=== PATIENT | male | born 1950 | race Caucasian/White ===

== ENCOUNTER 2020-11-01 09:48 | Outpatient (REF) | payer OTHER, SELFPAY ==
[2020-11-01 11:43] LABS: Estimated Average Glucose 157 mg/dL; Hemoglobin A1c % 7.1 %
[2020-11-01 12:00] LABS: Alanine Aminotransferase 13 U/L (0-40); Albumin Level 4.3 g/dL (3.5-5.0); Alkaline Phosphatase 65 U/L (39-117); Anion Gap 10 (12-20); Aspartate Amino Transferase 15 U/L (5-37); Bilirubin Total 0.7 mg/dL (0.0-1.0); Blood Urea Nitrogen 12 mg/dL (9-16); Calcium 8.9 mg/dL (8.4-10.2); Carbon Dioxide 30 mmol/L (22-29); Chloride 103 mmol/L (96-108); Estimated Glomerular Filt Rate > 60; Glucose Random 244 mg/dL (60-115); Potassium 4.5 mmol/l (3.3-5.1); Sodium 138 mmol/L (135-145); Total Protein 6.5 g/dL (6.5-8.0)
[2020-11-01 12:23] LABS: Microalbumin Urine < 5.0 mg/L
== END 2020-11-01 09:49 | disposition home or self-care (01) ==
LOC: HO.HMGCLDS 09:48
PROVIDERS: PCP Internal Medicine; Visit Provider Internal Medicine
DX: I10 Essential (primary) hypertension (principal); E11.9 Type 2 diabetes mellitus without complications
CPT/HCPCS: 80053; 82043; 83036; 84153

== ENCOUNTER → 2021-02-05 09:10 | Outpatient (BNVA) | payer OTHER, SELFPAY | PROVIDERS: PCP Internal Medicine; Visit Provider Internal Medicine Cardiovascular Disease ==

== ENCOUNTER 2021-02-11 11:53 | Outpatient (REF) | payer OTHER, SELFPAY ==
[2021-02-11 14:55] LABS: Estimated Average Glucose 151 mg/dL; Hemoglobin A1c % 6.9 %
[2021-02-11 15:00] LABS: Alanine Aminotransferase 14 U/L (0-40); Albumin Level 4.3 g/dL (3.5-5.0); Alkaline Phosphatase 71 U/L (39-117); Anion Gap 13 (12-20); Aspartate Amino Transferase 16 U/L (5-37); Bilirubin Total 0.9 mg/dL (0.0-1.0); Blood Urea Nitrogen 10 mg/dL (9-16); Calcium 8.9 mg/dL (8.4-10.2); Carbon Dioxide 27 mmol/L (22-29); Chloride 106 mmol/L (96-108); Estimated Glomerular Filt Rate > 60; Glucose Random 126 mg/dL (60-115); Potassium 4.5 mmol/L (3.3-5.1); Sodium 141 mmol/L (135-145); Total Protein 6.6 g/dL (6.5-8.0)
[2021-02-11 16:18] LABS: Creatinine Urine 11.01 mg/dL; Microalbumin Urine < 5.0 mg/L
== END 2021-02-11 11:54 | disposition home or self-care (01) ==
LOC: HO.HMGCLDS 11:53
PROVIDERS: PCP Internal Medicine; Visit Provider Internal Medicine
DX: E11.9 Type 2 diabetes mellitus without complications (principal); I10 Essential (primary) hypertension; E66.01 Morbid (severe) obesity due to excess calories
CPT/HCPCS: 36415; 80053; 82043; 83036

== ENCOUNTER 2021-02-28 12:56 | Outpatient (REF) | payer OTHER, SELFPAY ==
--- NOTE | ~2021-02-28 | US_ITS ---
EXAMINATION: US SCROTUM CLINICAL INFORMATION: Right testicular swelling. Assess for cystocele or hydrocele. COMPARISON: None TECHNIQUE: A sonogram of the scrotum was performed assessing son-scale appearance and color Doppler flow. Spectral Doppler analysis of the arterial and venous flow were performed in the testes bilaterally. FINDINGS: RIGHT: Right testicle measures 4.2 x 2.4 x 3.5 cm, volume 18.0 mL. No focal testicular parenchymal lesions are visualized. Spectral Doppler analysis of the arterial and venous flow is normal in the right testis. Fat-containing inguinal hernia noted. Right epididymal head is normal in size. Right epididymal head cyst measuring 0.4 cm. No right hydrocele or varicocele is seen. Right epididymal Doppler flow is normal. LEFT: Left testicle measures 4.7 x 2.0 x 2.9 cm, volume 14.3 mL. No focal testicular parenchymal lesions are visualized. Spectral Doppler analysis of the arterial and venous flow is normal in the left testis. Fat-containing inguinal hernia noted. Left epididymal head is normal in size. No left hydrocele is seen. There is a varicocele seen. Left epididymal Doppler flow is normal. US/US scrotum IMPRESSION: Bilateral fat-containing inguinal hernias. Small left varicocele. Tiny right epididymal head cyst.
== END 2021-02-28 12:57 | disposition home or self-care (01) ==
LOC: HO.US 12:56
PROVIDERS: Visit Provider Internal Medicine
DX: N49.2 Inflammatory disorders of scrotum (principal)
CPT/HCPCS: 76870

== ENCOUNTER → 2021-04-09 13:06 | Outpatient (BNVA) | payer OTHER, SELFPAY | PROVIDERS: PCP Internal Medicine; Visit Provider Surgery ==

== ENCOUNTER 2021-04-26 10:04 | Outpatient (REF) | payer OTHER, SELFPAY ==
[2021-04-26 11:05] LABS: Anion Gap 11 (12-20); Blood Urea Nitrogen 12 mg/dL (9-16); Calcium 9.3 mg/dL (8.4-10.2); Carbon Dioxide 28 mmol/L (22-29); Chloride 102 mmol/L (96-108); Estimated Glomerular Filt Rate > 60; Glucose Random 154 mg/dL (60-115); Potassium 3.8 mmol/L (3.3-5.1); Sodium 137 mmol/L (135-145)
== END 2021-04-26 10:05 | disposition home or self-care (01) ==
LOC: HO.LAB 10:04
PROVIDERS: PCP Internal Medicine; Visit Provider Internal Medicine
DX: I10 Essential (primary) hypertension (principal); E11.9 Type 2 diabetes mellitus without complications
CPT/HCPCS: 36415; 80048

== ENCOUNTER 2021-05-29 07:26 | Day surgery (SDC) | payer OTHER, SELFPAY ==
[2021-05-22 14:28] VITALS: BMI 40.1
[2021-05-27 11:23] LABS: MANUAL DIFF FLAG NO
[2021-05-27 11:32] LABS: Basophils Percent Auto 0.4 % (0-2); Eosinophils Absolute Auto 0.1 X10*3/uL (0.0-0.4); Eosinophils Percent Auto 2.5 % (0-4); Hematocrit 40.6 % (42-52); Hemoglobin 13.7 g/dl (14.0-18.0); Imm Gran Abs Auto 0.01 X10*3/uL (0.00-0.03); Imm Gran Pct Auto 0.2 % (0.0-0.4); Lymphocytes Absolute Auto 1.4 X10*3/uL (1.2-4.9); Lymphocytes Percent Auto 24.8 % (20-40); Mean Corpuscular HGB Conc 33.7 g/dl (31.0-36.0); Mean Corpuscular Hemoglobin 29.9 pg (27.0-33.0); Mean Corpuscular Volume 88.6 fL (80-98); Mean Platelet Volume 9.9 fL (9.4-12.4); Monocytes Absolute Auto 0.5 X10*3/uL (0.1-1.2); Monocytes Percent Auto 9.2 % (2-11); Neutrophils Absolute Auto 3.5 X10*3/uL (2.0-8.3); Neutrophils Percent Auto 62.9 % (45-73); Platelet Count 270 X10*3/uL (160-400); Red Blood Count 4.58 X10*6/uL (4.60-5.80); Red Cell Distribution Width 13.2 % (11.0-16.0); White Blood Count 5.5 X10*3/uL (4.8-10.8)
[2021-05-27 11:41] LABS: Estimated Average Glucose 148 mg/dL; Hemoglobin A1c % 6.8 %
[2021-05-27 12:08] LABS: Alanine Aminotransferase 15 U/L (0-40); Albumin Level 4.2 g/dL (3.5-5.0); Alkaline Phosphatase 65 U/L (39-117); Anion Gap 11 (12-20); Aspartate Amino Transferase 18 U/L (5-37); Bilirubin Total 0.7 mg/dL (0.0-1.0); Blood Urea Nitrogen 14 mg/dL (9-16); Calcium 9.2 mg/dL (8.4-10.2); Carbon Dioxide 28 mmol/L (22-29); Chloride 100 mmol/L (96-108); Creatinine Clr Calc Pharmacy 125.8; Estimated Glomerular Filt Rate > 60; Glucose Random 132 mg/dL (60-115); Potassium 4.4 mmol/L (3.3-5.1); Sodium 135 mmol/L (135-145); Total Protein 6.4 g/dL (6.5-8.0)
--- NOTE | 2021-05-28 08:52 | HO.ANESPROP2 ---
HPI - Anesthesia Eval Consult details Narrative: 71yo M for Right Hernia Repair Inguinal with Mesh Pacer in situ (complete heart block, 2018) Stable at routine cardiac visit 01/2021 with 6 month f/u [facility] Active Problems Active Problems: All Active Problems (Updated 05/22/21 @ 14:16 by Tamar Cruz) Right inguinal hernia (Acute) HTN (hypertension) (Acute) Cardiac pacemaker in situ (Acute) Paroxysmal atrial fibrillation (Acute) Past Medical History Medical History (Updated 05/28/21 @ 08:55 by Lisa Churchill) Asthma BPH (benign prostatic hyperplasia) Cardiac pacemaker in situ Complete heart block COVID-19 vaccine series completed Diabetes mellitus HTN (hypertension) Hx of pancreatitis Mild heartburn Obstructive sleep apnea Osteoarthritis Paroxysmal atrial fibrillation Family History Family History Father Myocardial infarct Mother No problems noted. Surgical History Surgical History (Updated 05/29/21 @ 10:28 by Kenji Mohan MD) H/O right inguinal hernia repair (05/29/21) History of permanent cardiac pacemaker placement Hx laparoscopic cholecystectomy Hx of colonoscopy Hx of tonsillectomy Social History Social History Are you a primary child care leader to a significant other at home: No Do you presently have visiting nurse or other home services: No Patient Tobacco Use Status: Never used Tobacco Meds Allergies Allergy/AdvReac Type Severity Reaction Status Date / Time cat dander Allergy Intermediate ASTHMA Verified 05/29/21 07:50 Home Medications Medication Instructions Recorded Confirmed Last Taken Type atorvastatin 20 mg tablet 20 mg PO DAILY 02/05/21 05/22/21 Unknown History tamsulosin 0.4 mg capsule 0.4 mg PO BEDTIME 02/05/21 05/22/21 Unknown History cholecalciferol (vitamin D3) 125 125 mcg PO DAILY 04/09/21 05/22/21 Unknown History mcg (5,000 unit) capsule multivitamin 1 tab PO DAILY 04/09/21 05/22/21 Unknown History Probiotic 05/22/21 Unknown History ascorbic acid (vitamin C) [Vitamin 500 mg PO DAILY 05/22/21 05/22/21 Unknown History C] aspirin 81 mg PO DAILY 05/22/21 05/29/21 05/15/21 History chlorthalidone 1 tab PO DAILY 05/22/21 05/22/21 Unknown History folic acid 1 mg PO DAILY 05/22/21 05/22/21 Unknown History ibuprofen 600 mg PO QID PRN 05/22/21 05/29/21 05/15/21 History lisinopril 1 tab PO DAILY 05/22/21 05/22/21 Unknown History metformin 1 tab PO DAILY 05/22/21 05/29/21 05/28/21 History naproxen 500 mg PO BID PRN 05/22/21 05/29/21 05/15/21 History potassium chloride 05/22/21 Unknown History Exam Exam Date and Time: May 28, 2021 0852 Height,Weight and Vital Signs: Height 5 ft 10 in Weight 127.006 kg Pertinent Lab Results Pertinent Lab Results: Laboratory Tests 05/27/21 05/27/21 05/27/21 08:17 08:17 08:17 WBC 5.5 RBC 4.58 L Hgb 13.7 L Hct 40.6 L MCV 88.6 MCH 29.9 MCHC 33.7 RDW 13.2 Plt Count 270 MPV 9.9 Immature Gran % (Auto) 0.2 Neut % (Auto) 62.9 Lymph % (Auto) 24.8 [place] % (Auto) 9.2 Eos % (Auto) 2.5 Baso % (Auto) 0.4 Lymph # (Auto) 1.4 [place] # (Auto) 0.5 Eos # (Auto) 0.1 Baso # (Auto) 0.0 Abs Immat Gran (auto) 0.01 Absolute Neuts (auto) 3.5 Absolute Nucleated RBC 0.000 Nucleated RBC % (auto) 0.0 Sodium 135 Potassium 4.4 Chloride 100 Carbon Dioxide 28 Anion Gap 11 L BUN 14 Creatinine 0.71 Estim Creat Clear Calc 125.8 Estimated GFR > 60 Random Glucose 132 H Estimat Average Glucose 148 Hemoglobin A1c % 6.8 Calcium 9.2 Total Bilirubin 0.7 AST 18 ALT 15 Alkaline Phosphatase 65 Total Protein 6.4 L Albumin 4.2 Narrative Narrative: 01/2021 Dual-chamber [place] pacemaker in place, programmed in DDDR at 60 beats per minute. Ventricular pacing 100% of the time. One episode of 2nd atrial arrhythmia consistent with AFib noted. Atrial pacing thresholds are stable and in our capture mode. Ventricular pacing thresholds excellent and reprogrammed to provide better battery life. Atrial sensing is excellent. Pacing lead impedance is stable. Battery life is at about 10 years Assessment and Plan Assessment Anesthesia Assessment: Chart Reviewed
[2021-05-29] VITALS (13 sets, daily range): BP systolic 138–162; BP diastolic 64–79; PULSE 81–92; RESP 16–20; TEMP 36.1–36.8; O2SAT 93–100
[2021-05-29 08:24] LABS: Glucose, Whole Blood 137 mg/dL (60-115)
--- NOTE | 2021-05-29 08:27 | MHC.SHP ---
Pre-Procedural Eval Section A Date of Service: 05/29/21 The patient is an INPATIENT: No Changes since office visit: Yes Patient answered all questions; No Cold of Flu in the past 2 weeks, No New Medical Problems and No Changes in Medication The History & Physical has been completed within 30 days and I have reviewed it.: No Section B Chief Complaint: Right inguinal Hernia/NIDDM HTN PRE OP Details of Present Illness: right inguinal hernia Relevant Family History (Specify if Yes): No Relevant Social History: None Present Medications: see Short Stay Collaborative assessment Medical History: Significant History (htn, pacemaker,PAF, DM) History of Previous Operations: No relevant previous surgery Allergies: Allergies Allergy/AdvReac Type Severity Reaction Status Date / Time cat dander Allergy Intermediate ASTHMA Verified 05/29/21 07:50 Review of Systems Sugical H&P ROS: Negative: Constitution, Cardiovascular, Respiratory, Neurological, Psychiatric, Hem-Onc, Allergic/Immunologic, Gastrointestinal, Genitourinary, Musculoskeletal, Integumentary, Endocrine and Eyes/Ears/Nose/Throat Exam Surgical H&P Exam: Normal: HEENT, Normal: Heart, Normal: Lungs, Normal: Extremities, Normal: Skin and Normal: Neurological and Significant Findings: Abdomen (RIH) Plan Diagnosis/Plan: Unchanged I have reviewed the history and physical and performed a pertinent physical examination on my patient. No changes have occurred unless specified.
[2021-05-29] MEDS: Lactated Ringers 1,000 ML 100 ML IVCONT (08:37)
--- NOTE | 2021-05-29 10:22 | W.PM.OPN ---
Operative Note Operative Note Date of Service: 05/29/21 Narrative: Preoperative diagnosis: Right inguinal hernia Postoperative diagnosis: Same Procedure: Repair of right inguinal hernia Surgeon: Kenji Mohan MD English And Reading Instructor: no physician Anesthesia: General LMA Indications for procedure: 71-year-old male presenting with a large lump in the right inguinal region which increases in size with lifting and straining and reduces with light pressure. Findings are consistent with a reducible right inguinal hernia. Operative findings:. Large right inguinal hernia, indirect containing preperitoneal fat Specimen: lipoma of the cord, right inguinal hernia Estimated blood loss: 10 mL Complications: none Procedure details: Patient was brought to the OR and placed in a supine position. After administering general anesthesia the patient's abdomen was prepped with ChloraPrep and draped in a sterile fashion. A surgical time-out was called the consent confirmed. Patient received preoperative antibiotics and Venodyne boots were in place. Local anesthesia consisting of 0.25% Sensorcaine with epinephrine was infiltrated over the right inguinal ligament. Incision was then made in oblique fashion over the inguinal ligament. This carried out through subcutaneous tissue past Feliciano's fashion up to the external oblique aponeurosis. Additional local was infiltrated below the external oblique aponeurosis. This was then incised with a scalpel wide with the Metzenbaum scissors. Spermatic cord was then dissected free from the surrounding inguinal canal and retracted using a Sullivan drain. The floor of the inguinal canal was examined and no direct hernia was identified. Fibers of the cremasteric muscle were then and a large lipoma of the cord was identified. This was dissected down to the internal ring. no sac was identified. Attempt was made at reducing the lipoma however, due to the size of the lipoma this cannot be reduced adequately. The lipoma was then divided between clamps and excised. This was then ligated using 3-0 Polysorb sutures. This was sent as a specimen to the pathology lab labeled as lipoma of the cord. Attention was then directed to the direct space which was divided between Allis clamps. The preperitoneal space was then created. This was opened further using an open Ray-Shayan sponge. A large extended PHS mesh was then obtained. The circular underlay was placed into the preperitoneal space and deployed. The overlay was then secured to the pubic tubercle conjoined tendon shelving edge of the inguinal ligament using interrupted 0 Polysorb sutures. A slit was made in the mesh and the mesh were wrapped around the spermatic cord at the internal ring. This was then secured to the shelving edge of the inguinal ligament using the 0 Polysorb suture. This was felt to be loose enough to allow the tip of an index finger to pass. Wounds were checked for hemostasis. Wounds were irrigated with saline solution and suctioned dry. External oblique aponeurosis was then closed using a running 2 0 Polysorb suture. Feliciano's fascia and dermis reapproximated using interrupted 3-0 Polysorb sutures. Skin was then closed using a running subcuticular 4-0 Polysorb suture. Steri-Strips 2 x 2 gauze and Tegaderm were then applied. The patient tolerated the procedure well. Sponge, instrument, needle counts reported as correct. Patient was transferred to PACU in stable condition.
[2021-05-29] MEDS: fentaNYL citrate/PF 100 MCG/2 ML VIAL 50 MCG IVPUSH ×4 (10:45→11:25)
[2021-05-29] MEDS: oxyCODONE HCl Immed Release 5 MG TABLET 10 MG PO (10:46)
== END 2021-05-29 12:40 | disposition home or self-care (01) ==
PROVIDERS: PCP Internal Medicine; Visit Provider Surgery
PROC: (CPT 49505; principal; 2021-05-29 09:10)
DX: K40.90 Unilateral inguinal hernia, without obstruction or gangrene, not specified as recurrent (principal); D17.6 Benign lipomatous neoplasm of spermatic cord; J45.909 Unspecified asthma, uncomplicated; E11.9 Type 2 diabetes mellitus without complications; I10 Essential (primary) hypertension; G47.33 Obstructive sleep apnea (adult) (pediatric); I44.2 Atrioventricular block, complete; I48.0 Paroxysmal atrial fibrillation; Z95.0 Presence of cardiac pacemaker; Z90.49 Acquired absence of other specified parts of digestive tract; Z79.82 Long term (current) use of aspirin; Z79.899 Other long term (current) drug therapy; Z79.84 Long term (current) use of oral hypoglycemic drugs
CPT/HCPCS: 49505; 36415; 80053; 82947; 83036; 85025; 88304; C1781; J0690; J1100; J1170; J2405; J3010

== ENCOUNTER → 2021-06-07 09:07 | Outpatient (BNVA) | payer OTHER, SELFPAY | PROVIDERS: PCP Internal Medicine; Referring Provider Internal Medicine; Visit Provider Surgery ==

== ENCOUNTER → 2021-07-05 09:21 | Outpatient (BNVA) | payer OTHER, SELFPAY | PROVIDERS: PCP Internal Medicine; Visit Provider Surgery ==

== ENCOUNTER → 2021-07-09 14:31 | Outpatient (BNVA) | payer OTHER, SELFPAY | PROVIDERS: PCP Internal Medicine; Referring Provider Internal Medicine; Visit Provider Nurse Practitioner Family | DX: Z01.810 Encounter for preprocedural cardiovascular examination (principal); I44.2 Atrioventricular block, complete; I48.0 Paroxysmal atrial fibrillation; I10 Essential (primary) hypertension; E11.9 Type 2 diabetes mellitus without complications; J30.81 Allergic rhinitis due to animal (cat) (dog) hair and dander; Z95.0 Presence of cardiac pacemaker; Z79.84 Long term (current) use of oral hypoglycemic drugs; Z79.891 Long term (current) use of opiate analgesic; Z79.899 Other long term (current) drug therapy | CPT/HCPCS: 93005 ==

== ENCOUNTER → 2021-07-17 08:22 | Outpatient (REF) | payer OTHER, SELFPAY ==
--- NOTE | ~2021-07-17 | NM_ITS ---
Myocardial perfusion study Indication: Preoperative cardiovascular risk stratification Technique: The patient was brought in for a Lexiscan perfusion study on 07/17/2021. Patient performed low-level exercise and was injected 0.4 mg of Lexiscan intravenously. Within a minute of injection, 45 mCi of sestamibi was given intravenously. Images were obtained using the SPECT gamma camera interlaced with the gating device. Images were obtained in supine position. Resting perfusion study was performed on 07/18/2021. Patient was administered 45 mCi of sestamibi intravenously at rest. Images were then obtained in supine position. Images obtained with and without CT attenuation. Total DLP 122 mGy-cm. Images were processed with the software and compared side to side in short axis, horizontal long axis and vertical long axis views. Findings: The stress perfusion study showed on nonattenuated images there was mildly reduced uptake in the inferior wall of the LV myocardium. There is also mildly reduced uptake in the inferoseptal wall of the LV myocardium. Remainder of the LV myocardium is normally perfused. Attenuation corrected images show moderately reduced uptake in the apex of the LV myocardium. The gated study shows normal LV systolic function with calculated LVEF of 54%. LV cavity is normal in size. The gated study shows normal systolic wall thickening and contraction of segments. Resting study shows no change in perfusion pattern compared to stress perfusion study. Gating at rest reveals normal systolic wall motion with ejection fraction at 58%. The findings are consistent with no clear reversible defect suggestive of ischemia. Likely normal myocardial perfusion. NM/NM rafael perf SPECT rest & str Impression: 1. Myocardial perfusion imaging study shows likely normal myocardial perfusion 2. Gated LVEF is 58% 3. Transient ischemic dilatation not present EKG is nondiagnostic for ischemia
--- NOTE | 2021-07-17 08:29 | CA_ITS ---
Acquisition Time: 2021-07-17 08:27:56 Total Exercise Time: 00:02:00 Test Indications: AFIB, PREOP Medications: SEE CHART Protocol: LEXISCAN Max HR: 103 BPM 69% of Pred: 148 BPM Max BP: 118/078 mmHG Max Work Load: 1.0 METS Pharmacological stress test using Lexiscan while sitting, pt tolerated well, reports chest thightness after Lexiscan. Aminophyline used to reverse sx of SOB, h/a. EKG non diagnostic for ischemia. Nuxclear images to follow. Normotensive response to test. Test reviewed with Dr. Dyson. Referred By: Renee Michael Overread By: Ria Beaver NP
== END ==
LOC: HO.CARD 08:22
PROVIDERS: Visit Provider Nurse Practitioner Family
DX: Z01.810 Encounter for preprocedural cardiovascular examination (principal); I44.2 Atrioventricular block, complete; Z95.0 Presence of cardiac pacemaker
CPT/HCPCS: 78452; 93017; A9500; J0280; J2785

== ENCOUNTER → 2021-08-20 14:08 | Outpatient (BNVA) | payer OTHER, SELFPAY | PROVIDERS: PCP Internal Medicine; Visit Provider Internal Medicine Cardiovascular Disease ==

== ENCOUNTER 2021-12-02 09:44 | Outpatient (REF) | payer OTHER, SELFPAY ==
[2021-12-02 11:23] LABS: MANUAL DIFF FLAG NO
[2021-12-02 11:32] LABS: Basophils Percent Auto 0.4 % (0-2); Eosinophils Absolute Auto 0.2 X10*3/uL (0.0-0.4); Eosinophils Percent Auto 3.9 % (0-4); Hematocrit 38.4 % (42.0-52.0); Hemoglobin 12.4 g/dl (14.0-18.0); Imm Gran Abs Auto 0.01 X10*3/uL (0.00-0.03); Imm Gran Pct Auto 0.2 % (0.0-0.4); Lymphocytes Absolute Auto 1.2 X10*3/uL (1.2-4.9); Lymphocytes Percent Auto 21.7 % (20-40); Mean Corpuscular HGB Conc 32.3 g/dl (31.0-36.0); Mean Corpuscular Hemoglobin 26.8 pg (27.0-33.0); Mean Corpuscular Volume 82.9 fL (80.0-98.0); Monocytes Absolute Auto 0.5 X10*3/uL (0.1-1.2); Monocytes Percent Auto 8.8 % (2-11); Neutrophils Absolute Auto 3.5 x10*3/uL (2.0-8.3); Platelet Count 279 X10*3/uL (160-400); Red Blood Count 4.63 X10*6/uL (4.60-5.80); Red Cell Distribution Width 14.8 % (11.0-16.0); White Blood Count 5.4 X10*3/uL (4.8-10.8)
[2021-12-02 11:33] LABS: Estimated Average Glucose 143 mg/dL; Hemoglobin A1c % 6.6 %
[2021-12-02 11:47] LABS: Alanine Aminotransferase 15 U/L (0-40); Albumin Level 4.2 g/dL (3.5-5.0); Alkaline Phosphatase 69 U/L (39-117); Anion Gap 11 (12-20); Aspartate Amino Transferase 16 U/L (5-37); Bilirubin Total 0.4 mg/dL (0.0-1.0); Blood Urea Nitrogen 14 mg/dL (9-16); Calcium 9.5 mg/dL (8.4-10.2); Carbon Dioxide 25 mmol/L (22-29); Chloride 105 mmol/L (96-108); Cholesterol 137 mg/dL; Estimated Glomerular Filt Rate > 60; Glucose Fasting 150 mg/dL (60-99); HDL Cholesterol 62 mg/dL; Iron 41 mcg/dL (45-160); LDL Cholesterol Calculated 62 mg/dl; Percent Iron Saturation 9 % (15-50); Sodium 137 mmol/L (135-145); Total Iron Binding Capacity 436 mcg/dL (228-428); Total Protein 6.8 g/dL (6.5-8.0); Triglycerides 66 mg/dL; Unsaturated Iron Binding 395 ug/dL
[2021-12-02 11:58] LABS: Prostate Specific Antigen Scr 2.85 ng/mL (<0.05-4.0)
[2021-12-02 15:09] LABS: Creatinine Urine 37.18 mg/dL; Microalbumin Urine < 5.0 mg/L
== END 2021-12-02 09:45 | disposition home or self-care (01) ==
LOC: HO.HMGCLDS 09:44
PROVIDERS: PCP Internal Medicine; Visit Provider Internal Medicine
DX: E11.9 Type 2 diabetes mellitus without complications (principal); E78.00 Pure hypercholesterolemia, unspecified; M19.90 Unspecified osteoarthritis, unspecified site; I10 Essential (primary) hypertension; R60.9 Edema, unspecified; Z12.5 Encounter for screening for malignant neoplasm of prostate
CPT/HCPCS: 36415; 80053; 80061; 82043; 83036; 83540; 84153; 85025

== ENCOUNTER → 2022-02-20 15:10 | Outpatient (BNVA) | payer OTHER, SELFPAY | PROVIDERS: PCP Internal Medicine; Referring Provider Internal Medicine; Visit Provider Internal Medicine Cardiovascular Disease | DX: I48.0 Paroxysmal atrial fibrillation (principal); Z79.899 Other long term (current) drug therapy; Z45.018 Encounter for adjustment and management of other part of cardiac pacemaker | CPT/HCPCS: 99212 ==

== ENCOUNTER 2022-03-12 11:34 | Outpatient (REF) | payer OTHER, SELFPAY ==
[2022-03-12 13:44] LABS: MANUAL DIFF FLAG NO
[2022-03-12 13:49] LABS: Basophils Percent Auto 0.5 % (0-2); Eosinophils Absolute Auto 0.2 X10*3/uL (0.0-0.4); Eosinophils Percent Auto 2.6 % (0-4); Hematocrit 38.7 % (42.0-52.0); Hemoglobin 12.9 g/dl (14.0-18.0); Imm Gran Abs Auto 0.01 X10*3/uL (0.00-0.03); Imm Gran Pct Auto 0.2 % (0.0-0.4); Lymphocytes Absolute Auto 1.4 X10*3/uL (1.2-4.9); Lymphocytes Percent Auto 23.1 % (20-40); Mean Corpuscular HGB Conc 33.3 g/dl (31.0-36.0); Mean Corpuscular Hemoglobin 29.1 pg (27.0-33.0); Mean Corpuscular Volume 87.2 fL (80.0-98.0); Monocytes Absolute Auto 0.5 X10*3/uL (0.1-1.2); Monocytes Percent Auto 7.9 % (2-11); Neutrophils Absolute Auto 4.1 x10*3/uL (2.0-8.3); Neutrophils Percent Auto 65.7 % (45-73); Platelet Count 260 X10*3/uL (160-400); Red Blood Count 4.44 X10*6/uL (4.60-5.80); Red Cell Distribution Width 16.2 % (11.0-16.0); White Blood Count 6.2 X10*3/uL (4.8-10.8)
[2022-03-12 14:01] LABS: Estimated Average Glucose 143 mg/dL; Hemoglobin A1c % 6.6 %
[2022-03-12 14:17] LABS: Alanine Aminotransferase 18 U/L (0-40); Albumin Level 3.9 g/dL (3.5-5.0); Alkaline Phosphatase 58 U/L (39-117); Anion Gap 13 (12-20); Aspartate Amino Transferase 18 U/L (5-37); Bilirubin Total 0.5 mg/dL (0.0-1.0); Blood Urea Nitrogen 16 mg/dL (9-16); Carbon Dioxide 26 mmol/L (22-29); Chloride 100 mmol/L (96-108); Estimated Glomerular Filt Rate > 60; Glucose Random 151 mg/dL (60-115); Iron 70 mcg/dL (45-160); Potassium 4.2 mmol/L (3.3-5.1); Sodium 135 mmol/L (135-145); Total Protein 6.3 g/dL (6.5-8.0)
[2022-03-12 14:29] LABS: Percent Iron Saturation 19 % (15-50); Total Iron Binding Capacity 362 mcg/dL (228-428); Unsaturated Iron Binding 292 ug/dL
== END 2022-03-12 11:35 | disposition home or self-care (01) ==
LOC: HO.HMGCLDS 11:34
PROVIDERS: Visit Provider Internal Medicine
DX: I10 Essential (primary) hypertension (principal); E11.9 Type 2 diabetes mellitus without complications; D64.9 Anemia, unspecified
CPT/HCPCS: 36415; 80053; 83036; 83540; 85025

== ENCOUNTER 2022-05-19 09:46 | Outpatient (REF) | payer OTHER, SELFPAY ==
[2022-05-19 11:18] LABS: MANUAL DIFF FLAG NO
[2022-05-19 11:28] LABS: Basophils Percent Auto 0.4 % (0-2); Eosinophils Absolute Auto 0.2 X10*3/uL (0.0-0.4); Eosinophils Percent Auto 3.2 % (0-4); Hematocrit 40.5 % (42.0-52.0); Hemoglobin 13.9 g/dl (14.0-18.0); Imm Gran Abs Auto 0.01 X10*3/uL (0.00-0.03); Imm Gran Pct Auto 0.2 % (0.0-0.4); Lymphocytes Absolute Auto 1.4 X10*3/uL (1.2-4.9); Lymphocytes Percent Auto 25.3 % (20-40); Mean Corpuscular HGB Conc 34.3 g/dl (31.0-36.0); Mean Corpuscular Hemoglobin 30.2 pg (27.0-33.0); Mean Corpuscular Volume 87.9 fL (80.0-98.0); Mean Platelet Volume 9.7 fL (9.4-12.4); Monocytes Absolute Auto 0.6 X10*3/uL (0.1-1.2); Monocytes Percent Auto 10.1 % (2-11); Neutrophils Absolute Auto 3.4 x10*3/uL (2.0-8.3); Neutrophils Percent Auto 60.8 % (45-73); Platelet Count 252 X10*3/uL (160-400); Red Blood Count 4.61 X10*6/uL (4.60-5.80); Red Cell Distribution Width 13.2 % (11.0-16.0); White Blood Count 5.7 X10*3/uL (4.8-10.8)
[2022-05-19 11:43] LABS: Appearance Urine CLEAR; Color Urine YELLOW; Glucose Urine UA NEG (NEG); Leukocyte Esterase Urine NEG (NEG); Nitrite Urine NEG (NEG); Urine Blood NEG (NEG); Urine Ketones NEG (NEG); Urine Protein NEG (NEG-TRACE)
[2022-05-19 11:45] LABS: Estimated Average Glucose 151 mg/dL; Hemoglobin A1c % 6.9 %
[2022-05-19 11:52] LABS: Creatinine Urine 22.08 mg/dL; Microalbumin Urine < 5.0 mg/L
[2022-05-19 12:08] LABS: Alanine Aminotransferase 21 U/L (0-40); Albumin Level 4.2 g/dL (3.5-5.0); Alkaline Phosphatase 61 U/L (39-117); Anion Gap 11 (12-20); Aspartate Amino Transferase 19 U/L (5-37); Bilirubin Total 0.5 mg/dL (0.0-1.0); Blood Urea Nitrogen 16 mg/dL (9-16); Carbon Dioxide 26 mmol/L (22-29); Chloride 102 mmol/L (96-108); Estimated Glomerular Filt Rate > 60; Glucose Random 109 mg/dL (60-115); Iron 80 mcg/dL (45-160); Percent Iron Saturation 22 % (15-50); Potassium 4.4 mmol/L (3.3-5.1); Sodium 135 mmol/L (135-145); Total Iron Binding Capacity 358 mcg/dL (228-428); Total Protein 6.6 g/dL (6.5-8.0); Unsaturated Iron Binding 278 ug/dL
[2022-05-19 12:10] LABS: Thyroid Stimulating Hormone 1.47 uIU/mL (0.32-4.0)
== END 2022-05-19 09:47 | disposition home or self-care (01) ==
LOC: HO.HMGCLDS 09:46
PROVIDERS: PCP Internal Medicine; Visit Provider Internal Medicine
DX: R53.83 Other fatigue (principal); R60.0 Localized edema; I10 Essential (primary) hypertension; D64.9 Anemia, unspecified; E11.9 Type 2 diabetes mellitus without complications
CPT/HCPCS: 36415; 80053; 81003; 82043; 83036; 83540; 84443; 85025; 87086

== ENCOUNTER 2022-08-21 10:35 | Outpatient (REF) | payer OTHER, SELFPAY ==
[2022-08-21 14:23] LABS: MANUAL DIFF FLAG NO
[2022-08-21 14:29] LABS: Appearance Urine Clear; Color Urine Yellow; Glucose Urine UA Negative (Negative); Leukocyte Esterase Urine Negative (Negative); Nitrite Urine Negative (Negative); Specific Gravity - Urine <= 1.005 (1.005-1.025); Urine Blood Negative (Negative); Urine Ketones Negative (Negative); Urine Protein Negative (Neg-Trace)
[2022-08-21 14:32] LABS: Basophils Percent Auto 0.7 % (0-2); Eosinophils Absolute Auto 0.3 X10*3/uL (0.0-0.4); Eosinophils Percent Auto 4.6 % (0-4); Hemoglobin 13.5 g/dl (14.0-18.0); Imm Gran Abs Auto 0.02 X10*3/uL (0.00-0.03); Imm Gran Pct Auto 0.4 % (0.0-0.4); Lymphocytes Absolute Auto 1.2 X10*3/uL (1.2-4.9); Lymphocytes Percent Auto 20.9 % (20-40); Mean Corpuscular HGB Conc 33.8 g/dl (31.0-36.0); Mean Corpuscular Hemoglobin 29.7 pg (27.0-33.0); Mean Corpuscular Volume 88.1 fL (80.0-98.0); Mean Platelet Volume 9.5 fL (9.4-12.4); Monocytes Absolute Auto 0.5 X10*3/uL (0.1-1.2); Monocytes Percent Auto 8.7 % (2-11); Neutrophils Absolute Auto 3.6 x10*3/uL (2.0-8.3); Neutrophils Percent Auto 64.7 % (45-73); Platelet Count 261 X10*3/uL (160-400); Red Blood Count 4.54 X10*6/uL (4.60-5.80); Red Cell Distribution Width 13.2 % (11.0-16.0); White Blood Count 5.5 X10*3/uL (4.8-10.8)
[2022-08-21 14:37] LABS: Estimated Average Glucose 163 mg/dL; Hemoglobin A1c % 7.3 %
[2022-08-21 14:45] LABS: Alanine Aminotransferase 20 U/L (0-40); Albumin Level 4.4 g/dL (3.5-5.0); Alkaline Phosphatase 59 U/L (39-117); Anion Gap 16 (12-20); Aspartate Amino Transferase 21 U/L (5-37); Bilirubin Total 0.7 mg/dL (0.0-1.0); Blood Urea Nitrogen 12 mg/dL (9-16); Calcium 9.5 mg/dL (8.4-10.2); Carbon Dioxide 26 mmol/L (22-29); Chloride 98 mmol/L (96-108); Cholesterol 148 mg/dL; Estimated Glomerular Filt Rate > 60; Glucose Fasting 160 mg/dL (60-99); HDL Cholesterol 57 mg/dL; LDL Cholesterol Calculated 80 mg/dl; Microalbumin Urine < 5.0 mg/L; Potassium 4.8 mmol/L (3.3-5.1); Sodium 135 mmol/L (135-145); Total Protein 6.9 g/dL (6.5-8.0); Triglycerides 55 mg/dL
[2022-08-21 14:47] LABS: Creatinine Urine 21.91 mg/dL
[2022-08-21 15:08] LABS: Prostate Specific Antigen 3.21 ng/mL (<0.05-4.0)
== END 2022-08-21 10:36 | disposition home or self-care (01) ==
LOC: HO.HMGCLDS 10:35
PROVIDERS: PCP Internal Medicine; Visit Provider Internal Medicine
DX: Z00.00 Encounter for general adult medical examination without abnormal findings (principal); Z12.5 Encounter for screening for malignant neoplasm of prostate; E11.9 Type 2 diabetes mellitus without complications
CPT/HCPCS: 36415; 80053; 80061; 81003; 82043; 83036; 84153; 85025

== ENCOUNTER → 2022-08-29 09:17 | Outpatient (REF) | payer OTHER, SELFPAY ==
--- NOTE | 2022-08-29 09:20 | CA_ITS ---
Transthoracic Echocardiogram Patient (Last, First, Middle): Candido Silva J Gender: Male Date of : 1950 Age: 72 Procedure Date: 08/29/2022 Procedure Type: Transthoracic Echocardiogram Location: OP Height: 170.18 cm Weight: 126.1 kg BSA: 2.33 m2 Heart Rate: 80 bpm BP: 124 / 70 mmHg Banking And Finance Instructor: SB Referring MD: Oral Lowe MD Symptoms: Z95.0 - Presence of cardiac pacemaker Study Quality: Fair w contrast ECG Rhythm: Paced Conclusions: - Normal left ventricular size and systolic function. The visually estimated ejection fraction is between 55-60%. - Mildly increased right ventricular cavity size. There is mildly decreased right ventricular systolic function. - The left atrium is mildly dilated. The right atrium is normal in size. - There is mild dilatation of the ascending aorta measuring 3.40 cm. Findings Procedure Information Contrast agent, definity, is being given per protocol without apparent complications. Left Ventricle Normal left ventricular size and systolic function. The visually estimated ejection fraction is between 55-60%. Regional wall motion abnormalities can not be excluded due to suboptimal endocardial definition. Diastolic function is indeterminate on the basis of available data. There is moderate septal asymmetric hypertrophy. Right Ventricle Mildly increased right ventricular cavity size. There is mildly decreased right ventricular systolic function. Atria The left atrium is mildly dilated. The right atrium is normal in size. Aortic Valve There is a normal trileaflet aortic valve. There is moderate calcification of the aortic valve. There is no aortic valve stenosis. There is trace (trivial) aortic valve regurgitation. Mitral Valve There is severe mitral annular calcification. There is no mitral valve regurgitation. There is no mitral valve stenosis. Pulmonic Valve Normal pulmonic valve structure and function. There is trace pulmonic valve regurgitation. Tricuspid Valve Likely normal tricuspid valve structure and function. Tricuspid regurgitation envelope is inadequate for calculation of right ventricular systolic pressure. Normal right atrial pressure. Great Vessels There is mild dilatation of the ascending aorta measuring 3.40 cm. The visualized portions of the pulmonary artery and branches are normal. Venous The inferior vena cava is normal in size and collapses greater than 50% with inspiration. Pericardium/Pleural There is no evidence of pericardial effusion. Prior Study Comparison Changes noted compared to prior study dated: 08/08/2020. Severe mitral annular calcification. Mildly decreased right ventricular systolic function. Measurements 2D Linear Measurements IVSd: 1.44 0.6-0.9/0.6-1.0 cm LVIDd: 4.01 3.9-5.3/4.2-5.9 cm LVIDd Index: 1.72 2.4-3.2/2.2-3.1 cm/m2 LVIDs: 2.69 2.0-3.6 cm LVPWd: 0.90 0.7-1.1 cm LA Diam: 4.20 2.7-3.8/3.0-4.0 cm LAIDs Index: 1.80 1.5-2.3 cm/m2 LV Mass: 199.61 67-162/88-224 g LV Mass Index: 85.67 43-95/49-115 g/m2 LVOT Diam: 2.50 3.0+(-)1.3 cm 2D Systolic Function EF 4C: 59.20 >55% EF 2C: 54.90 >55% EF BiP: 56.90 >55% Mitral Valve MV Pk E: 1.03 MV PK A: 1.40 MV Decel Time: 171.00 E/A: 0.70 E'Lateral: 7.30 E'Medial: 5.77 E/E' Med: 17.90 E/E' Lat: 14.10 PHT: 50.00 MVA PHT: 4.40 Decel [place]: 6.06 Aortic Valve AoV Pk Krzysztof: 1.80 AoV Mn Krzysztof: 1.27 AoV VTI: 0.38 AoV Pk Grad: 13.00 Aov Mn Grad: 7.00 BO Cont.VTI: 2.83 LVOT LVOT Pk Krzysztof: 1.01 LVOT Mn Krzysztof: 0.70 LVOT VTI: 0.22 LVOT Pk Grad: 4.00 LVOT Mn Grad: 2.00 LVOT Diam: 2.50 LVOT Area: 4.91 Diastolic Function MV Pk E: 1.03 MV Pk A: 1.40 E/A: 0.70 E'Medial: 5.77 E/E' Med: 17.90 E' Laterial: 7.30 E/E' Lat: 14.10 Right Ventricle TAPSE (mm): 18.60 TVS' Krzysztof: 9.60 Tricuspid Valve RA Press: 3.00 Great Vessels Aorta Sinus of Valsalva: 3.50 2.0-3.5 cm Ao Asc: 3.40 2.1-3.4 cm Pulmonary Valve PV Pk Krzysztof: 1.21 Peak PV Grad: 6.00 Updated in Other Vendor System with Status of Final Aly Atkins MD electronically signed on 08/31/2022 1:21:49 PM with status of Final
== END ==
LOC: HO.CARD 09:17
PROVIDERS: PCP Internal Medicine; Visit Provider Internal Medicine Cardiovascular Disease
DX: Z95.0 Presence of cardiac pacemaker (principal)
CPT/HCPCS: 93306; Q9957

== ENCOUNTER → 2022-09-03 15:26 | Outpatient (BNVA) | payer OTHER, SELFPAY | PROVIDERS: PCP Internal Medicine; Referring Provider Internal Medicine; Visit Provider Internal Medicine Cardiovascular Disease | DX: Z45.018 Encounter for adjustment and management of other part of cardiac pacemaker (principal); I48.0 Paroxysmal atrial fibrillation; I10 Essential (primary) hypertension | CPT/HCPCS: 93005; 93280 ==

== ENCOUNTER 2022-11-20 12:21 | Outpatient (REF) | payer OTHER, SELFPAY ==
[2022-11-20 13:49] LABS: MANUAL DIFF FLAG NO
[2022-11-20 13:55] LABS: Basophils Percent Auto 0.4 % (0-2); Eosinophils Absolute Auto 0.3 X10*3/uL (0.0-0.4); Eosinophils Percent Auto 3.6 % (0-4); Hematocrit 40.4 % (42.0-52.0); Hemoglobin 13.9 g/dl (14.0-18.0); Imm Gran Abs Auto 0.03 X10*3/uL (0.00-0.03); Imm Gran Pct Auto 0.4 % (0.0-0.4); Lymphocytes Absolute Auto 1.5 X10*3/uL (1.2-4.9); Lymphocytes Percent Auto 21.9 % (20-40); Mean Corpuscular HGB Conc 34.4 g/dl (31.0-36.0); Mean Corpuscular Hemoglobin 29.8 pg (27.0-33.0); Mean Corpuscular Volume 86.7 fL (80.0-98.0); Mean Platelet Volume 9.2 fL (9.4-12.4); Monocytes Absolute Auto 0.6 X10*3/uL (0.1-1.2); Monocytes Percent Auto 9.2 % (2-11); Neutrophils Absolute Auto 4.4 x10*3/uL (2.0-8.3); Neutrophils Percent Auto 64.5 % (45-73); Platelet Count 286 X10*3/uL (160-400); Red Blood Count 4.66 X10*6/uL (4.60-5.80); Red Cell Distribution Width 12.9 % (11.0-16.0); White Blood Count 6.9 X10*3/uL (4.8-10.8)
[2022-11-20 14:15] LABS: Estimated Average Glucose 163 mg/dL; Hemoglobin A1c % 7.3 %
[2022-11-20 14:24] LABS: Alanine Aminotransferase 15 U/L (0-40); Albumin Level 4.4 g/dL (3.5-5.0); Alkaline Phosphatase 60 U/L (39-117); Anion Gap 13 (12-20); Aspartate Amino Transferase 17 U/L (5-37); Bilirubin Total 0.5 mg/dL (0.0-1.0); Blood Urea Nitrogen 17 mg/dL (9-16); C Reactive Protein 0.25 mg/dL (< or = 0.50); Calcium 9.6 mg/dL (8.4-10.2); Carbon Dioxide 25 mmol/L (22-29); Chloride 101 mmol/L (96-108); Estimated Glomerular Filt Rate > 60; Glucose Random 133 mg/dL (60-115); Iron 76 mcg/dL (45-160); Percent Iron Saturation 23 % (15-50); Potassium 4.2 mmol/L (3.3-5.1); Sodium 135 mmol/L (135-145); Total Iron Binding Capacity 329 mcg/dL (228-428); Total Protein 6.8 g/dL (6.5-8.0); Unsaturated Iron Binding 253 ug/dL
== END 2022-11-20 12:22 | disposition home or self-care (01) ==
LOC: HO.10HDL 12:21
PROVIDERS: Visit Provider Internal Medicine
DX: I10 Essential (primary) hypertension (principal); E11.9 Type 2 diabetes mellitus without complications; D64.9 Anemia, unspecified; N40.0 Benign prostatic hyperplasia without lower urinary tract symptoms
CPT/HCPCS: 36415; 80053; 82550; 83036; 83540; 85025; 86140

== ENCOUNTER 2023-03-03 10:28 | Outpatient (REF) | payer OTHER, SELFPAY ==
[2023-03-03 14:01] LABS: MANUAL DIFF FLAG NO
[2023-03-03 14:13] LABS: Basophils Percent Auto 0.5 % (0-2); Eosinophils Absolute Auto 0.3 X10*3/uL (0.0-0.4); Eosinophils Percent Auto 4.7 % (0-4); Hematocrit 38.7 % (42.0-52.0); Hemoglobin 13.2 g/dl (14.0-18.0); Imm Gran Abs Auto 0.02 X10*3/uL (0.00-0.03); Imm Gran Pct Auto 0.4 % (0.0-0.4); Lymphocytes Absolute Auto 1.4 X10*3/uL (1.2-4.9); Lymphocytes Percent Auto 25.7 % (20-40); Mean Corpuscular HGB Conc 34.1 g/dl (31.0-36.0); Mean Corpuscular Hemoglobin 30.1 pg (27.0-33.0); Mean Corpuscular Volume 88.2 fL (80.0-98.0); Mean Platelet Volume 9.7 fL (9.4-12.4); Monocytes Absolute Auto 0.5 X10*3/uL (0.1-1.2); Monocytes Percent Auto 9.3 % (2-11); Neutrophils Absolute Auto 3.3 x10*3/uL (2.0-8.3); Neutrophils Percent Auto 59.4 % (45-73); Platelet Count 283 X10*3/uL (160-400); Red Blood Count 4.39 X10*6/uL (4.60-5.80); Red Cell Distribution Width 13.2 % (11.0-16.0); White Blood Count 5.5 X10*3/uL (4.8-10.8)
[2023-03-03 14:25] LABS: Appearance Urine Clear; Color Urine Yellow; Glucose Urine UA Negative (Negative); Leukocyte Esterase Urine Negative (Negative); Nitrite Urine Negative (Negative); Specific Gravity - Urine <= 1.005 (1.005-1.025); Urine Blood Negative (Negative); Urine Ketones Negative (Negative); Urine Protein Negative (Neg-Trace)
[2023-03-03 14:30] LABS: Alanine Aminotransferase 12 U/L (0-40); Albumin Level 4.1 g/dL (3.5-5.0); Alkaline Phosphatase 56 U/L (39-117); Anion Gap 13 (12-20); Aspartate Amino Transferase 15 U/L (5-37); Bilirubin Total 0.8 mg/dL (0.0-1.0); Blood Urea Nitrogen 16 mg/dL (9-16); Calcium 8.9 mg/dL (8.4-10.2); Carbon Dioxide 27 mmol/L (22-29); Chloride 96 mmol/L (96-108); Cholesterol 126 mg/dL; Estimated Glomerular Filt Rate > 60; Glucose Fasting 157 mg/dL (60-99); HDL Cholesterol 45 mg/dL; LDL Cholesterol Calculated 66 mg/dl; Potassium 4.1 mmol/L (3.3-5.1); Sodium 132 mmol/L (135-145); Total Protein 6.3 g/dL (6.5-8.0); Triglycerides 76 mg/dL
[2023-03-03 14:34] LABS: Estimated Average Glucose 157 mg/dL; Hemoglobin A1c % 7.1 %
[2023-03-03 14:35] LABS: Prostate Specific Antigen Scr 3.63 ng/mL (<0.05-4.0); Vitamin D 25-OH Total 38.5 ng/mL (>30)
== END 2023-03-03 10:29 | disposition home or self-care (01) ==
LOC: HO.10HDL 10:28
PROVIDERS: Visit Provider Internal Medicine
DX: Z00.00 Encounter for general adult medical examination without abnormal findings (principal); E11.9 Type 2 diabetes mellitus without complications; I10 Essential (primary) hypertension; I48.0 Paroxysmal atrial fibrillation; E78.00 Pure hypercholesterolemia, unspecified; Z45.018 Encounter for adjustment and management of other part of cardiac pacemaker; Z12.5 Encounter for screening for malignant neoplasm of prostate; Z79.899 Other long term (current) drug therapy
CPT/HCPCS: 36415; 80053; 80061; 81003; 82306; 83036; 84153; 85025; 93280

== ENCOUNTER 2023-05-07 10:21 | Outpatient (REF) | payer OTHER, SELFPAY ==
[2023-05-14 03:49] LABS: Lyme Abs Screen <0.90 index
== END 2023-05-07 10:22 | disposition home or self-care (01) ==
LOC: HO.HMGCLDS 10:21
PROVIDERS: PCP Internal Medicine; Visit Provider Internal Medicine
DX: T14.8XXA Other injury of unspecified body region, initial encounter (principal); W57.XXXA Bitten or stung by nonvenomous insect and other nonvenomous arthropods, initial encounter; Y93.9 Activity, unspecified; Y92.9 Unspecified place or not applicable; Y99.9 Unspecified external cause status
CPT/HCPCS: 36415; 86617; 86618

== ENCOUNTER 2023-06-10 12:06 | Outpatient (REF) | payer OTHER, SELFPAY ==
[2023-06-10 13:35] LABS: MANUAL DIFF FLAG NO
[2023-06-10 13:51] LABS: Basophils Percent Auto 0.6 % (0-2); Eosinophils Absolute Auto 0.2 X10*3/uL (0.0-0.4); Eosinophils Percent Auto 2.9 % (0-4); Hematocrit 41.3 % (42.0-52.0); Hemoglobin 13.9 g/dl (14.0-18.0); Imm Gran Abs Auto 0.02 X10*3/uL (0.00-0.03); Imm Gran Pct Auto 0.3 % (0.0-0.4); Lymphocytes Absolute Auto 1.4 X10*3/uL (1.2-4.9); Lymphocytes Percent Auto 18.8 % (20-40); Mean Corpuscular HGB Conc 33.7 g/dl (31.0-36.0); Mean Corpuscular Hemoglobin 29.5 pg (27.0-33.0); Mean Corpuscular Volume 87.7 fL (80.0-98.0); Mean Platelet Volume 9.4 fL (9.4-12.4); Monocytes Absolute Auto 0.6 X10*3/uL (0.1-1.2); Monocytes Percent Auto 8.7 % (2-11); Neutrophils Percent Auto 68.7 % (45-73); Platelet Count 298 X10*3/uL (160-400); Red Blood Count 4.71 X10*6/uL (4.60-5.80); Red Cell Distribution Width 13.1 % (11.0-16.0); White Blood Count 7.2 X10*3/uL (4.8-10.8)
[2023-06-10 14:05] LABS: Estimated Average Glucose 151 mg/dL; Hemoglobin A1c % 6.9 %
[2023-06-10 14:14] LABS: Alanine Aminotransferase 14 U/L (0-40); Albumin Level 4.4 g/dL (3.5-5.0); Alkaline Phosphatase 63 U/L (39-117); Anion Gap 14 (12-20); Aspartate Amino Transferase 16 U/L (5-37); Bilirubin Total 0.7 mg/dL (0.0-1.0); Blood Urea Nitrogen 12 mg/dL (9-16); Calcium 10.4 mg/dL (8.4-10.2); Carbon Dioxide 25 mmol/L (22-29); Chloride 99 mmol/L (96-108); Estimated Glomerular Filt Rate > 60; Glucose Random 163 mg/dL (60-115); Potassium 4.2 mmol/L (3.3-5.1); Sodium 134 mmol/L (135-145); Total Protein 7.1 g/dL (6.5-8.0)
[2023-06-10 14:37] LABS: Creatinine Urine 23.92 mg/dL; Microalbumin Urine < 5.0 mg/L
== END 2023-06-10 12:07 | disposition home or self-care (01) ==
LOC: HO.10HDL 12:06
PROVIDERS: Visit Provider Internal Medicine
DX: E11.9 Type 2 diabetes mellitus without complications (principal); I10 Essential (primary) hypertension; K21.9 Gastro-esophageal reflux disease without esophagitis; G47.33 Obstructive sleep apnea (adult) (pediatric)
CPT/HCPCS: 36415; 80053; 82043; 83036; 85025

== ENCOUNTER → 2023-06-29 23:59 | Outpatient (BNV) | payer OTHER, SELFPAY ==
--- NOTE | 2023-07-01 14:29 | MHC.OFFVIS ---
Intake Intake Visit Reasons: Remote Device Check- [facility] Allergies cat dander Allergy (Intermediate, Verified 07/09/21 14:39) ASTHMA PFSH Medical History Asthma BPH (benign prostatic hyperplasia) Cardiac pacemaker in situ Complete heart block COVID-19 vaccine series completed Diabetes mellitus HTN (hypertension) Hx of pancreatitis Mild heartburn Obstructive sleep apnea Osteoarthritis Paroxysmal atrial fibrillation Preop cardiovascular exam Surgical History H/O right inguinal hernia repair (05/29/21) History of permanent cardiac pacemaker placement Hx laparoscopic cholecystectomy Hx of colonoscopy Hx of tonsillectomy Family History Father Myocardial infarct Mother No problems noted. Social History Are you a primary neonatal critical care nurse to a significant other at home: No Do you presently have visiting nurse or other home services: No Patient Tobacco Use Status: Never used Tobacco Office Procedures Cardiac Device Check Cardiac Device Check Details: Remote pacemaker report generated 06/29/2023. Pacemaker function is adequate. Brief episodes of atrial tachycardia/flutter noted [id number] Cardiac Device Interrogation, pacemaker Procedure code (CPT) selection complete Coding Level of Care Code Procedure Only Diagnoses CPT Codes Cardiac Device Check - Cardiac Device 12: [id number] Cardiac Device Interrogation, pacemaker ([id number])
== END ==
PROVIDERS: PCP Internal Medicine; Visit Provider Internal Medicine Cardiovascular Disease
DX: I48.0 Paroxysmal atrial fibrillation (principal); Z95.0 Presence of cardiac pacemaker
CPT/HCPCS: 93294

== ENCOUNTER → 2023-08-19 10:33 | Outpatient (REF) | payer OTHER, SELFPAY ==
--- NOTE | 2023-08-19 11:10 | CA_ITS ---
Transthoracic Echocardiogram Patient (Last, First, Middle): Candido Silva J Gender: Male Date of : 1950 Age: 73 Procedure Date: 08/19/2023 Procedure Type: Transthoracic Echocardiogram Location: OP Height: 175.26 cm Weight: 127.01 kg BSA: 2.38 m2 Heart Rate: bpm BP: 130 / 80 mmHg Theoretical Physicist: SHANIA Referring MD: Oral Lowe MD Symptoms: I48.0 - Paroxysmal atrial fibrillation Study Quality: Fair, contrast ECG Rhythm: Ventriculary paced rhythm Conclusions: - The left ventricular systolic function is mildly decreased. The calculated ejection fraction is 49% by biplane method. - No obvious valvular pathology seen on this study. Findings Procedure Information Contrast agent, definity, is being given per protocol without apparent complications. Left Ventricle Normal left ventricular cavity size. There is mildly increased left ventricular wall thickness. The left ventricular systolic function is mildly decreased. The calculated ejection fraction is 49% by biplane method. There is no evidence of regional wall motion abnormalities. Evidence suggests grade I (mild) diastolic dysfunction. Right Ventricle Mildly increased right ventricular cavity size. There is normal right ventricular systolic function. Atria The left atrium is mildly dilated. The right atrium is normal in size. Aortic Valve There is mild calcification of the aortic valve. There is no aortic valve stenosis. There is no aortic valve regurgitation. Mitral Valve There is mild mitral annular calcification. There is no mitral valve regurgitation. There is no mitral valve stenosis. Pulmonic Valve The pulmonic valve is likely normal. Tricuspid Valve There is trace tricuspid valve regurgitation. Tricuspid regurgitation envelope is inadequate for calculation of right ventricular systolic pressure. Great Vessels The asc aorta is normal in size. Venous The inferior vena cava is normal in size and collapses greater than 50% with inspiration. Pericardium/Pleural There is no evidence of pericardial effusion. Prior Study Comparison Changes noted compared to prior study dated: 08/29/2022. Slight decrease in LVEF. Image quality may also account for differences. Recommendations, Care & Conclusions No obvious valvular pathology seen on this study. Measurements 2D Linear Measurements IVSd: 1.14 0.6-0.9/0.6-1.0 cm LVIDd: 5.36 3.9-5.3/4.2-5.9 cm LVIDd Index: 2.25 2.4-3.2/2.2-3.1 cm/m2 LVIDs: 3.83 2.0-3.6 cm LVPWd: 1.07 0.7-1.1 cm LA Diam: 4.20 2.7-3.8/3.0-4.0 cm LAIDs Index: 1.76 1.5-2.3 cm/m2 LV Mass: 291.00 67-162/88-224 g LV Mass Index: 122.27 43-95/49-115 g/m2 LVOT Diam: 2.30 3.0+(-)1.3 cm 2D Systolic Function EF 4C: 49.90 >55% EF 2C: 46.70 >55% EF BiP: 48.50 >55% Mitral Valve MV Pk E: 1.04 MV PK A: 1.07 MV Decel Time: 184.00 E/A: 1.00 E'Lateral: 6.09 E'Medial: 6.74 E/E' Med: 15.40 E/E' Lat: 17.10 PHT: 54.00 MVA PHT: 4.07 Decel [place]: 5.64 Aortic Valve AoV Pk Krzysztof: 1.66 AoV Mn Krzysztof: 1.12 AoV VTI: 0.39 AoV Pk Grad: 11.00 Aov Mn Grad: 6.00 BO Cont.VTI: 2.50 LVOT LVOT Pk Krzysztof: 0.95 LVOT Mn Krzysztof: 0.67 LVOT VTI: 0.24 LVOT Pk Grad: 4.00 LVOT Mn Grad: 2.00 LVOT Diam: 2.30 LVOT Area: 4.15 Diastolic Function MV Pk E: 1.04 MV Pk A: 1.07 E/A: 1.00 E'Medial: 6.74 E/E' Med: 15.40 E' Laterial: 6.09 E/E' Lat: 17.10 Right Ventricle TAPSE (mm): 25.90 TVS' Krzysztof: 13.40 Tricuspid Valve RA Press: 3.00 Great Vessels Aorta Sinus of Valsalva: 3.65 2.0-3.5 cm Ao Asc: 3.50 2.1-3.4 cm Updated in Other Vendor System with Status of Final Maximo Dyson MD electronically signed on 08/20/2023 10:44:38 AM with status of Final
== END ==
LOC: HO.CARD 10:33
PROVIDERS: Visit Provider Internal Medicine Cardiovascular Disease
DX: I48.0 Paroxysmal atrial fibrillation (principal)
CPT/HCPCS: 93306; Q9957

== ENCOUNTER → 2023-08-19 11:10 | Outpatient (BNV) | payer OTHER, SELFPAY | PROVIDERS: PCP Internal Medicine; Visit Provider Internal Medicine | DX: I34.81 Nonrheumatic mitral (valve) annulus calcification (principal) | CPT/HCPCS: 93306 ==

== ENCOUNTER 2023-09-02 11:12 | Outpatient (AMB) | payer OTHER, SELFPAY ==
[2023-09-02 11:31] VITALS: BP 120/80; PULSE 89; BMI 42.3
--- NOTE | 2023-09-02 11:31 | MHC.OFFVIS ---
Intake Vital Signs 09/02/23 11:31 Height 5 ft 9 in Weight 286 lb 9.615 oz BMI 42.3 BP 120/80 Blood Pressure Location Lt brachial Position Sitting Pulse 89 Intake Visit Reasons: 6 m s/p echo w/ st tejinder ck Intake Note: 6 month follow-up after echo [facility] ekg and [facility] tejinder check Optimization Analyst Required: No Allergies cat dander Allergy (Intermediate, Verified 07/09/21 14:39) ASTHMA Medication List - Last Reconciled 09/02/23 by Oral Lowe MD ascorbic acid (vitamin C) (Vitamin C) 500 mg PO DAILY aspirin 81 mg PO DAILY PRN atorvastatin 20 mg PO DAILY chlorthalidone 25 mg PO DAILY cholecalciferol (vitamin D3) 125 mcg PO DAILY ferrous sulfate 325 mg PO DAILY fexofenadine (Linnea Allergy) 60 mg PO BID folic acid 1 mg PO DAILY ibuprofen 600 mg PO QID PRN lisinopril 10 mg PO DAILY mecobalamin (vitamin B12) 1,000 mcg PO DAILY metformin 500 mg PO DAILY multivitamin 1 tab PO DAILY omeprazole magnesium (Prilosec OTC) 20 mg PO DAILY [potassium chloride ] [Probiotic ] tamsulosin 0.8 mg PO BEDTIME HPI HPI Comments History of Present Illness Details Candido comes for follow-up. Recent echocardiogram shows mild reduction overall LVEF to 49%. He denies any cardiac symptoms. Denies any worsening shortness of breath, orthopnea, PND. No lightheadedness, syncope. No prolonged palpitations. He says he is not able to exercise much due to his arthritis which limits him. [facility] Medical History Preop cardiovascular exam BPH (benign prostatic hyperplasia) COVID-19 vaccine series completed Hx of pancreatitis Osteoarthritis Mild heartburn Asthma Obstructive sleep apnea Diabetes mellitus HTN (hypertension) Cardiac pacemaker in situ Paroxysmal atrial fibrillation Complete heart block Surgical History H/O right inguinal hernia repair (05/29/21) Hx of colonoscopy Hx of tonsillectomy History of permanent cardiac pacemaker placement Hx laparoscopic cholecystectomy Family History Father Myocardial infarct Mother No problems noted. Social History Are you a primary residential care facility manager to a significant other at home: No Do you presently have visiting nurse or other home services: No Patient Tobacco Use Status: Never used Tobacco Review of Systems Const Denies chills, Denies fatigue, Denies fever(s), Denies frequent falls, Denies weakness, Denies weight gain and Denies weight loss ENT Denies dizziness Card Denies chest pain, Denies leg edema, Denies lightheadedness, Denies palpitations, Denies dyspnea, Denies dyspnea on exertion, Denies orthopnea and Denies other (loss of consciousness) Resp Denies cough, Denies dyspnea and Denies dyspnea on exertion GI Denies hematochezia and Denies change in stool character Musc Denies abnormal gait, Denies muscle weakness, Denies numbness, Denies radiating pain into limb and Denies tingling Neuro Denies abnormal gait, Denies dizziness, Denies frequent falls, Denies numbness, Denies tingling and Denies weakness Endo Denies fatigue and Denies palpitations Physical Exam Vital Signs: Last Vital Signs Pulse 89 09/02/23 11:31 BP 120/80 09/02/23 11:31 BMI result Body Mass Index 42.3 Const General: cooperative, comfortable and no acute distress Orientation/consciousness: patient oriented x3 HEENT Head: Yes normal to inspection Neck Neck: Yes normal visual inspection and Yes no JVD Resp Effort & Inspection: normal respiratory effort Auscultation: clear to auscultation bilaterally, no crackles, no rales, no rhonchi and no wheezes Cardio Jugular venous distension: no JVD Rate: regular rate Rhythm: regular rhythm Heart sounds: S1 normal heart sound present, S2 normal heart sound present, no gallops, no murmurs and no rubs GI Inspection: Yes normal to inspection Neuro General: patient oriented x3 Extrem General: Yes normal to inspection, No calf tenderness and Yes edema (bilateral lower leg, pitting) Office Procedures Cardiac Device Check Cardiac Device Check Details: Dual-chamber [employer] Tejinder pacemaker in place. Programmed in DDDR at 60 beats per minute. Patient ventricular pacer dependent. Ventricular pacing thresholds adequate. Atrial pacing thresholds adequate in auto capture mode. Atrial ventricular sensing is adequate. Pacing lead impedance is stable. Battery life is excellent at 9 and half years. Brief episodes of atrial fibrillation noted [id number]-[id number] Cardiac Device Check, pacemaker dual lead Procedure code (CPT) selection complete EKG Details: EKG shows normal sinus rhythm with ventricular paced rhythm [id number]-[id number], Complete Assessment & Plan Assessment & Plan (1) Cardiac pacemaker in situ: Comment: Dual-chamber Saint Tejinder pacemaker placed for complete heart block, 2018 Code(s): Z95.0 - Presence of cardiac pacemaker Plan: Cardiac pacemaker in-situ for complete heart block. Patient currently pacer dependent in the ventricle. Pacemaker is working well. Will continue follow remotely every 3 months and follow up in the clinic in 6 months time. (2) Paroxysmal atrial fibrillation: Comment: ~ 8 sec noted on pacer interr, no anticoag per cardiology Code(s): I48.0 - Paroxysmal atrial fibrillation Plan: Paroxysmal atrial fibrillation with no symptomatic episodes with very short duration episodes with cumulative burden less than lower. At current time no indication for oral anticoagulation therapy. Will continue monitor by pacer telemetry. (3) Cardiomyopathy: Code(s): I42.9 - Cardiomyopathy, unspecified Plan: Mild LV systolic dysfunction by recent echocardiogram. Gradually declining LVEF noted. Will continue monitor annually by echocardiogram. No interventions required per se. If there is significant reduction LV ejection fraction to less than 35% will require upgrade to biventricular device. This was discussed with him. Will follow up in the clinic in 6 months time, sooner p.r.n.. Thank you for allowing me to partake in his care Coding Level of Care Code Est Pt Level 4 (75832) Diagnoses Cardiac pacemaker in situ Z95.0 Paroxysmal atrial fibrillation I48.0 Cardiomyopathy I42.9 CPT Codes Cardiac Device Check - Cardiac Device 2: 21516-CZ Cardiac Device Check, pacemaker dual lead ([id number]) EKG - CPT: 72470-Elcwevgsvapetlblh, Complete ([id number])
== END 2023-09-02 12:00 | disposition home or self-care (01) ==
PROVIDERS: PCP Internal Medicine; Visit Provider Internal Medicine Cardiovascular Disease
DX: I48.0 Paroxysmal atrial fibrillation (principal); Z95.0 Presence of cardiac pacemaker; I42.9 Cardiomyopathy, unspecified
CPT/HCPCS: 93280; 99214

== ENCOUNTER → 2023-09-02 11:12 | Outpatient (BNVA) | payer OTHER, SELFPAY | PROVIDERS: PCP Internal Medicine; Visit Provider Internal Medicine Cardiovascular Disease | DX: I48.0 Paroxysmal atrial fibrillation (principal); I42.9 Cardiomyopathy, unspecified; Z95.0 Presence of cardiac pacemaker | CPT/HCPCS: 93005; 93280 ==

== ENCOUNTER → 2023-09-28 23:59 | Outpatient (BNV) | payer OTHER, SELFPAY ==
--- NOTE | 2023-09-28 13:38 | MHC.OFFVIS ---
Intake Intake Visit Reasons: Remote Device Check- [facility] Allergies cat dander Allergy (Intermediate, Verified 07/09/21 14:39) ASTHMA PFSH Medical History Preop cardiovascular exam BPH (benign prostatic hyperplasia) COVID-19 vaccine series completed Hx of pancreatitis Osteoarthritis Mild heartburn Asthma Obstructive sleep apnea Diabetes mellitus HTN (hypertension) Cardiac pacemaker in situ Paroxysmal atrial fibrillation Complete heart block Surgical History H/O right inguinal hernia repair (05/29/21) Hx of colonoscopy Hx of tonsillectomy History of permanent cardiac pacemaker placement Hx laparoscopic cholecystectomy Family History Father Myocardial infarct Mother No problems noted. Social History Are you a primary home care physical therapist to a significant other at home: No Do you presently have visiting nurse or other home services: No Patient Tobacco Use Status: Never used Tobacco Office Procedures Cardiac Device Check Cardiac Device Check Details: remote pacemaker report generated 09/28/2023. Pacemaker function is adequate. Ventricularly pacer dependent [id number] Cardiac Device Interrogation, pacemaker Procedure code (CPT) selection complete Coding Level of Care Code Procedure Only CPT Codes Cardiac Device Check - Cardiac Device 12: 05390-Xvcoac Cardiac Device Interrogation, pacemaker ([id number])
== END ==
PROVIDERS: PCP Internal Medicine; Visit Provider Internal Medicine Cardiovascular Disease
DX: I48.0 Paroxysmal atrial fibrillation (principal); Z95.0 Presence of cardiac pacemaker
CPT/HCPCS: 93294

== ENCOUNTER 2023-11-16 08:36 | Outpatient (REF) | payer OTHER, SELFPAY ==
[2023-11-16 11:32] LABS: MANUAL DIFF FLAG NO
[2023-11-16 11:42] LABS: Basophils Percent Auto 0.5 % (0-2); Eosinophils Absolute Auto 0.2 X10*3/uL (0.0-0.4); Eosinophils Percent Auto 2.6 % (0-4); Hematocrit 39.7 % (42.0-52.0); Hemoglobin 13.2 g/dl (14.0-18.0); Imm Gran Abs Auto 0.02 X10*3/uL (0.00-0.03); Imm Gran Pct Auto 0.3 % (0.0-0.4); Lymphocytes Absolute Auto 1.4 X10*3/uL (1.2-4.9); Lymphocytes Percent Auto 21.6 % (20-40); Mean Corpuscular HGB Conc 33.2 g/dl (31.0-36.0); Mean Corpuscular Hemoglobin 29.5 pg (27.0-33.0); Mean Corpuscular Volume 88.6 fL (80.0-98.0); Mean Platelet Volume 9.6 fL (9.4-12.4); Monocytes Absolute Auto 0.6 X10*3/uL (0.1-1.2); Monocytes Percent Auto 8.5 % (2-11); Neutrophils Absolute Auto 4.3 x10*3/uL (2.0-8.3); Neutrophils Percent Auto 66.5 % (45-73); Platelet Count 299 X10*3/uL (160-400); Red Blood Count 4.48 X10*6/uL (4.60-5.80); Red Cell Distribution Width 13.4 % (11.0-16.0); White Blood Count 6.4 X10*3/uL (4.8-10.8)
[2023-11-16 11:55] LABS: Estimated Average Glucose 154 mg/dL
[2023-11-16 12:11] LABS: Creatinine Urine 43.89 mg/dL; Microalbumin Urine < 5.0 mg/L
[2023-11-16 12:16] LABS: Alanine Aminotransferase 13 U/L (0-40); Albumin Level 4.2 g/dL (3.5-5.0); Alkaline Phosphatase 52 U/L (39-117); Anion Gap 11 (12-20); Aspartate Amino Transferase 17 U/L (5-37); Bilirubin Total 0.5 mg/dL (0.0-1.0); Blood Urea Nitrogen 15 mg/dL (9-16); Calcium 9.5 mg/dL (8.4-10.2); Carbon Dioxide 27 mmol/L (22-29); Chloride 99 mmol/L (96-108); Cholesterol 130 mg/dL (<200); Estimated Glomerular Filt Rate > 60; Glucose Fasting 163 mg/dL (60-99); HDL Cholesterol 56 mg/dL (>40); LDL Cholesterol Calculated 62 mg/dL (<100); Potassium 3.9 mmol/L (3.3-5.1); Sodium 133 mmol/L (135-145); Triglycerides 62 mg/dL (<150)
[2023-11-16 12:25] LABS: Prostate Specific Antigen 3.63 ng/mL (<0.05-4.0)
== END 2023-11-16 08:37 | disposition home or self-care (01) ==
LOC: HO.HMGCLDS 08:36
PROVIDERS: PCP Internal Medicine; Visit Provider Internal Medicine
DX: Z12.5 Encounter for screening for malignant neoplasm of prostate (principal); E11.9 Type 2 diabetes mellitus without complications; I10 Essential (primary) hypertension; E78.00 Pure hypercholesterolemia, unspecified; G47.33 Obstructive sleep apnea (adult) (pediatric); J45.909 Unspecified asthma, uncomplicated
CPT/HCPCS: 36415; 80053; 80061; 82043; 82570; 83036; 84153; 85025

== ENCOUNTER → 2023-12-28 23:59 | Outpatient (BNV) | payer OTHER, SELFPAY ==
--- NOTE | 2023-12-28 16:44 | A.OFFVIS_ITS ---
Intake Intake Visit Reasons: Remote Device Check- [facility] Allergies cat dander Allergy (Intermediate, Verified 07/09/21 14:39) ASTHMA PFSH Medical History Preop cardiovascular exam BPH (benign prostatic hyperplasia) COVID-19 vaccine series completed Hx of pancreatitis Osteoarthritis Mild heartburn Asthma Obstructive sleep apnea Diabetes mellitus HTN (hypertension) Cardiac pacemaker in situ Paroxysmal atrial fibrillation Complete heart block Surgical History H/O right inguinal hernia repair (05/29/21) Hx of colonoscopy Hx of tonsillectomy History of permanent cardiac pacemaker placement Hx laparoscopic cholecystectomy Family History Father Myocardial infarct Mother No problems noted. Social History Are you a primary child care director to a significant other at home: No Do you presently have visiting nurse or other home services: No Comment: medicated in pacu Patient Tobacco Use Status: Never used Tobacco Office Procedures Cardiac Device Check Cardiac Device Check Details: Remote pacemaker report generated 12/28/2023. Pacemaker function is adequate. Few high atrial rate episodes noted, overall burden less than 1 minute 60466-Ewelzj Cardiac Device Interrogation, pacemaker Procedure code (CPT) selection complete Assessment & Plan Assessment & Plan (1) Cardiac pacemaker in situ: Comment: Dual-chamber Saint Tejinder pacemaker placed for complete heart block, 2018 Code(s): Z95.0 - Presence of cardiac pacemaker Plan: See above Coding Level of Care Code Procedure Only Diagnoses Cardiac pacemaker in situ Z95.0 CPT Codes Cardiac Device Check - Cardiac Device 12: 53425-Csutyh Cardiac Device Interrogation, pacemaker ([id number])
== END ==
PROVIDERS: PCP Internal Medicine; Visit Provider Internal Medicine Cardiovascular Disease
DX: I48.0 Paroxysmal atrial fibrillation (principal); Z95.0 Presence of cardiac pacemaker
CPT/HCPCS: 93294

== ENCOUNTER 2024-03-08 10:59 | Outpatient (AMB) | payer OTHER, SELFPAY ==
[2024-03-08 11:05] VITALS: BP 120/70; PULSE 94; BMI 41.7
--- NOTE | 2024-03-08 11:05 | A.OFFVIS_ITS ---
Intake Vital Signs 03/08/24 11:05 Height 5 ft 9 in Weight 282 lb 3.067 oz BMI 41.7 BP 120/70 Blood Pressure Location Lt brachial Position Sitting Pulse 94 Intake Visit Reasons: 6 mth f/up w/ st tejinder pacer ck Intake Note: 6 month follow-up [facility] pacer check would like to talk about new pacemaker Hotel Dining Room Cashier Required: No Allergies cat dander Allergy (Intermediate, Verified 07/09/21 14:39) ASTHMA Medication List - Last Reconciled 03/08/24 by Oral Lowe MD albuterol sulfate 90 mcg/actuation inhalation ascorbic acid (vitamin C) (Vitamin C) 500 mg PO DAILY aspirin 81 mg PO DAILY PRN atorvastatin 20 mg PO DAILY chlorthalidone 25 mg PO DAILY cholecalciferol (vitamin D3) 125 mcg PO DAILY ferrous sulfate 325 mg PO DAILY folic acid 1 mg PO DAILY ibuprofen 600 mg PO QID PRN lisinopril 10 mg PO DAILY mecobalamin (vitamin B12) 1,000 mcg PO DAILY metformin 500 mg PO DAILY metformin ER 500 mg PO DAILY multivitamin 1 tab PO DAILY omeprazole magnesium (Prilosec OTC) 20 mg PO DAILY phosphatidylserine 400 mg PO [potassium chloride ] [Probiotic ] tamsulosin 0.8 mg PO BEDTIME HPI HPI Comments History of Present Illness Details Candido comes for follow-up. He denies any new symptoms. Denies any prolonged palpitation irregular heartbeat. No lightheadedness, syncope. No orthopnea, PND, leg edema. Takes all his medications without issues. 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 [facility] Medical History Preop cardiovascular exam BPH (benign prostatic hyperplasia) COVID-19 vaccine series completed Hx of pancreatitis Osteoarthritis Mild heartburn Asthma Obstructive sleep apnea Diabetes mellitus HTN (hypertension) Cardiac pacemaker in situ Paroxysmal atrial fibrillation Complete heart block Surgical History H/O right inguinal hernia repair (05/29/21) Hx of colonoscopy Hx of tonsillectomy History of permanent cardiac pacemaker placement Hx laparoscopic cholecystectomy Family History Father Myocardial infarct Mother No problems noted. Social History Are you a primary medicare compliance auditor to a significant other at home: No Do you presently have visiting nurse or other home services: No Comment: medicated in pacu Patient Tobacco Use Status: Never used Tobacco Review of Systems Const Denies chills, Denies fatigue, Denies fever(s), Denies frequent falls, Denies weakness, Denies weight gain and Denies weight loss ENT Denies dizziness Card Denies chest pain, Denies leg edema, Denies lightheadedness, Denies palpitation s, Denies dyspnea, Denies dyspnea on exertion, Denies orthopnea and Denies other (loss of consciousness) Resp Denies cough, Denies dyspnea and Denies dyspnea on exertion GI Denies hematochezia and Denies change in stool character Musc Denies abnormal gait, Denies muscle weakness, Denies numbness, Denies radiating pain into limb and Denies tingling Neuro Denies abnormal gait, Denies dizziness, Denies frequent falls, Denies numbness, Denies tingling and Denies weakness Endo Denies fatigue and Denies palpitations Physical Exam Vital Signs: Last Vital Signs Pulse 94 03/08/24 11:05 BP 120/70 03/08/24 11:05 BMI result Body Mass Index 41.7 Const General: cooperative, comfortable and no acute distress Orientation/consciousness: patient oriented x3 HEENT Head: Yes normal to inspection Neck Neck: Yes normal visual inspection and Yes no JVD Resp Effort & Inspection: normal respiratory effort Auscultation: clear to auscultation bilaterally, no crackles, no rales, no rhonchi and no wheezes Cardio Jugular venous distension: no JVD Rate: regular rate Rhythm: regular rhythm Heart sounds: S1 normal heart sound present, S2 normal heart sound present, no gallops, no murmurs and no rubs GI Inspection: Yes normal to inspection Neuro General: patient oriented x3 Extrem General: Yes normal to inspection, No calf tenderness and Yes edema (bilateral lower leg, pitting) Office Procedures Cardiac Device Check Cardiac Device Check Details: Dual-chamber Saint Tejinder pacemaker in place. Programmed in DDDR at 60 beats per minute. Ventricularly pacer dependent. Few episodes of atrial tachycardia noted and 1 episode of brief atrial fibrillation lasting less than 30 seconds. Atrial ventricular capture thresholds are excellent. Atrial sensing is excellent. Pacing lead impedance is stable. Battery life is at about 9 and half years 21347-[id number] Cardiac Device Check, pacemaker dual lead Procedure code (CPT) selection complete Assessment & Plan Assessment & Plan (1) Cardiomyopathy: Code(s): I42.9 - Cardiomyopathy, unspecified Plan: Cardiomyopathy without any signs or symptoms of heart failure with mild LV systolic dysfunction. Most likely related to RV pacing. Although currently there is no significant worsening in his LV ejection fraction. Continue lisinopril therapy for neurohormonal modulation. He does not qualify for upgrade to cardiac resynchronization therapy. This was discussed with him. Signs and symptoms of heart failure were discussed. Follow-up echocardiogram in 5 months time. (2) Paroxysmal atrial fibrillation: Comment: ~ 8 sec noted on pacer interr, no anticoag per cardiology Code(s): I48.0 - Paroxysmal atrial fibrillation Plan: Paroxysmal atrial fibrillation with very brief episodes. Only noted on pacer telemetry. Will continue monitor clinically and by pacer telemetry. No indication for oral anticoagulation therapy as per recent data. (3) Cardiac pacemaker in situ: Comment: Dual-chamber Saint Tejinder pacemaker placed for complete heart block, 2018 Code(s): Z95.0 - Presence of cardiac pacemaker Plan: Cardiac pacemaker in-situ for complete heart block. Pacemaker is working well. Good battery life. Will follow remotely and follow up in the clinic in 6 months time. Follow up in the clinic in 6 months time, sooner p.r.n.. Thank you for allowing me to partake in his care Coding Level of Care Code Est Pt Level 4 (61033) Diagnoses Cardiomyopathy I42.9 Paroxysmal atrial fibrillation I48.0 Cardiac pacemaker in situ Z95.0 CPT Codes Cardiac Device Check - Cardiac Device 2: 22827-ES Cardiac Device Check, pacemaker dual lead ([id number])
== END 2024-03-08 11:37 | disposition home or self-care (01) ==
PROVIDERS: PCP Internal Medicine; Visit Provider Internal Medicine Cardiovascular Disease
DX: I42.9 Cardiomyopathy, unspecified (principal); I48.0 Paroxysmal atrial fibrillation; Z95.0 Presence of cardiac pacemaker
CPT/HCPCS: 93280; 99214

== ENCOUNTER → 2024-03-08 10:59 | Outpatient (BNVA) | payer OTHER, SELFPAY | PROVIDERS: PCP Internal Medicine; Visit Provider Internal Medicine Cardiovascular Disease | DX: I42.9 Cardiomyopathy, unspecified (principal); I48.0 Paroxysmal atrial fibrillation; Z79.899 Other long term (current) drug therapy; Z45.018 Encounter for adjustment and management of other part of cardiac pacemaker | CPT/HCPCS: 93280 ==

== ENCOUNTER → 2024-03-28 23:59 | Outpatient (BNV) | payer OTHER, SELFPAY ==
--- NOTE | 2024-03-30 13:09 | MHC.OFFVIS ---
Intake Visit Reasons: Remote device check- [facility] Tej[facility] Allergies cat dander Allergy (Intermediate, Verified 07/09/21 14:39) ASTHMA PFSH Medical History Preop cardiovascular exam BPH (benign prostatic hyperplasia) COVID-19 vaccine series completed Hx of pancreatitis Osteoarthritis Mild heartburn Asthma Obstructive sleep apnea Diabetes mellitus HTN (hypertension) Cardiac pacemaker in situ Paroxysmal atrial fibrillation Complete heart block Surgical History H/O right inguinal hernia repair (05/29/21) Hx of colonoscopy Hx of tonsillectomy History of permanent cardiac pacemaker placement Hx laparoscopic cholecystectomy Family History Father Myocardial infarct Mother No problems noted. Social History Are you a primary care process manager to a significant other at home: No Do you presently have visiting nurse or other home services: No Comment: medicated in pacu Patient Tobacco Use Status: Never used Tobacco Office Procedures Cardiac Device Check Cardiac Device Check Details: Remote pacemaker report generated 03/28/2024. Pacemaker function is adequate. Few high atrial rate episodes noted lasting few seconds. [id number] Cardiac Device Interrogation, pacemaker Procedure code (CPT) selection complete Assessment & Plan Assessment & Plan (1) Cardiac pacemaker in situ: Comment: Dual-chamber Saint Tejinder pacemaker placed for complete heart block, 2017 Code(s): Z95.0 - Presence of cardiac pacemaker Category: Medical Plan: See above Coding Level of Care Code Procedure Only Diagnoses Cardiac pacemaker in situ Z95.0 CPT Codes Cardiac Device Check - Cardiac Device 12: 55662-Csgufc Cardiac Device Interrogation, pacemaker ([id number])
== END ==
PROVIDERS: PCP Internal Medicine; Visit Provider Internal Medicine Cardiovascular Disease
DX: I49.9 Cardiac arrhythmia, unspecified (principal); I44.2 Atrioventricular block, complete; Z95.0 Presence of cardiac pacemaker
CPT/HCPCS: 93294

== ENCOUNTER 2024-03-29 09:11 | Outpatient (REF) | payer OTHER, SELFPAY ==
[2024-03-30 22:18] LABS: Lyme Abs Screen <0.90 index
== END 2024-03-29 09:12 | disposition home or self-care (01) ==
LOC: HO.HMGCLDS 09:11
PROVIDERS: PCP Internal Medicine; Visit Provider Internal Medicine
DX: T14.8XXA Other injury of unspecified body region, initial encounter (principal); W57.XXXA Bitten or stung by nonvenomous insect and other nonvenomous arthropods, initial encounter
CPT/HCPCS: 36415; 86617; 86618

== ENCOUNTER 2024-04-28 09:10 | Outpatient (REF) | payer OTHER, SELFPAY ==
[2024-04-28 10:24] LABS: MANUAL DIFF FLAG NO
[2024-04-28 10:40] LABS: Basophils Percent Auto 0.5 % (0-2); Eosinophils Absolute Auto 0.2 X10*3/uL (0.0-0.4); Eosinophils Percent Auto 2.7 % (0-4); Hemoglobin 11.1 g/dl (14.0-18.0); Imm Gran Abs Auto 0.04 X10*3/uL (0.00-0.03); Imm Gran Pct Auto 0.5 % (0.0-0.4); Lymphocytes Percent Auto 12.5 % (20-40); Mean Corpuscular HGB Conc 34.7 g/dl (31.0-36.0); Mean Corpuscular Volume 86.5 fL (80.0-98.0); Mean Platelet Volume 8.9 fL (9.4-12.4); Monocytes Absolute Auto 0.5 X10*3/uL (0.1-1.2); Monocytes Percent Auto 6.4 % (2-11); Neutrophils Absolute Auto 5.9 x10*3/uL (2.0-8.3); Neutrophils Percent Auto 77.4 % (45-73); Platelet Count 375 X10*3/uL (160-400); Red Cell Distribution Width 13.4 % (11.0-16.0); White Blood Count 7.7 X10*3/uL (4.8-10.8)
[2024-04-28 10:46] LABS: Estimated Average Glucose 160 mg/dL; Hemoglobin A1c % 7.2 % (<6.0)
[2024-04-28 11:29] LABS: Alanine Aminotransferase 13 U/L (0-40); Albumin Level 4.1 g/dL (3.5-5.0); Alkaline Phosphatase 63 U/L (39-117); Anion Gap 14 (12-20); Aspartate Amino Transferase 14 U/L (5-37); Bilirubin Total 0.4 mg/dL (0.0-1.0); Blood Urea Nitrogen 10 mg/dL (9-16); Calcium 9.5 mg/dL (8.4-10.2); Carbon Dioxide 24 mmol/L (22-29); Chloride 94 mmol/L (96-108); Estimated Glomerular Filt Rate > 60; Glucose Random 199 mg/dL (60-115); Iron 39 mcg/dL (45-160); Percent Iron Saturation 13 % (15-50); Potassium 4.2 mmol/L (3.3-5.1); Sodium 128 mmol/L (135-145); Total Iron Binding Capacity 300 mcg/dL (228-428); Total Protein 6.6 g/dL (6.5-8.0); Unsaturated Iron Binding 261 ug/dL
== END 2024-04-28 09:11 | disposition home or self-care (01) ==
LOC: HO.HMGCLDS 09:10
PROVIDERS: PCP Internal Medicine; Visit Provider Internal Medicine
DX: D64.9 Anemia, unspecified (principal); I10 Essential (primary) hypertension; E11.9 Type 2 diabetes mellitus without complications
CPT/HCPCS: 36415; 80053; 83036; 83540; 85025

== ENCOUNTER 2024-06-24 09:28 | Outpatient (REF) | payer OTHER, SELFPAY ==
[2024-06-24 13:07] LABS: MANUAL DIFF FLAG NO
[2024-06-24 13:14] LABS: Basophils Percent Auto 0.4 % (0-2); Eosinophils Absolute Auto 0.1 X10*3/uL (0.0-0.4); Hematocrit 38.1 % (42.0-52.0); Hemoglobin 13.2 g/dl (14.0-18.0); Imm Gran Abs Auto 0.01 X10*3/uL (0.00-0.03); Imm Gran Pct Auto 0.2 % (0.0-0.4); Lymphocytes Absolute Auto 1.2 X10*3/uL (1.2-4.9); Lymphocytes Percent Auto 22.7 % (20-40); Mean Corpuscular HGB Conc 34.6 g/dl (31.0-36.0); Mean Corpuscular Volume 83.7 fL (80.0-98.0); Mean Platelet Volume 9.2 fL (9.4-12.4); Monocytes Absolute Auto 0.5 X10*3/uL (0.1-1.2); Monocytes Percent Auto 8.8 % (2-11); Neutrophils Absolute Auto 3.5 x10*3/uL (2.0-8.3); Neutrophils Percent Auto 65.9 % (45-73); Platelet Count 288 X10*3/uL (160-400); Red Blood Count 4.55 X10*6/uL (4.60-5.80); Red Cell Distribution Width 13.2 % (11.0-16.0); White Blood Count 5.4 X10*3/uL (4.8-10.8)
[2024-06-24 13:16] LABS: Appearance Urine Clear; Color Urine Yellow; Glucose Urine UA Negative (Negative); Leukocyte Esterase Urine Moderate (2+) (Negative); Nitrite Urine Negative (Negative); PH 6.5 (5.0-9.0); UMIC TRIGGER UA YES; Urine Blood Negative (Negative); Urine Ketones Negative (Negative); Urine Protein Negative (Neg-Trace)
[2024-06-24 13:22] LABS: Estimated Average Glucose 157 mg/dL; Hemoglobin A1c % 7.1 % (<6.0)
[2024-06-24 13:23] LABS: Bacteria Urine None Seen (None Seen); Hyaline Casts Urine 0-2 /LPF (0-2); RBC Urine 0-2 /HPF (0-2); Squamous Epithelial Cell Urine 0-2 /HPF (0-2)
[2024-06-24 13:32] LABS: Anion Gap 14 (12-20); Blood Urea Nitrogen 10 mg/dL (9-16); Calcium 9.5 mg/dL (8.4-10.2); Carbon Dioxide 24 mmol/L (22-29); Chloride 96 mmol/L (96-108); Estimated Glomerular Filt Rate > 60; Glucose Random 160 mg/dL (60-115); Potassium 3.8 mmol/L (3.3-5.1); Sodium 130 mmol/L (135-145)
[2024-06-24 14:01] LABS: Creatinine Urine 50.14 mg/dL; Microalbum/Creatinine Ratio Ur 53.8 ug/mg cr (<30)
== END 2024-06-24 09:29 | disposition home or self-care (01) ==
LOC: HO.HMGCLDS 09:28
PROVIDERS: PCP Internal Medicine; Visit Provider Internal Medicine
DX: E11.9 Type 2 diabetes mellitus without complications (principal); K21.9 Gastro-esophageal reflux disease without esophagitis; D64.9 Anemia, unspecified
CPT/HCPCS: 36415; 80048; 81001; 81003; 82043; 82570; 83036; 85025

== ENCOUNTER → 2024-06-27 23:59 | Outpatient (BNV) | payer OTHER, SELFPAY ==
--- NOTE | 2024-06-29 14:13 | MHC.OFFVIS ---
Intake Visit Reasons: Remote device check- [facility] Allergies cat dander Allergy (Intermediate, Verified 07/09/21 14:39) ASTHMA PFSH Medical History Preop cardiovascular exam BPH (benign prostatic hyperplasia) COVID-19 vaccine series completed Hx of pancreatitis Osteoarthritis Mild heartburn Asthma Obstructive sleep apnea Diabetes mellitus HTN (hypertension) Cardiac pacemaker in situ Paroxysmal atrial fibrillation Complete heart block Surgical History H/O right inguinal hernia repair (05/29/21) Hx of colonoscopy Hx of tonsillectomy History of permanent cardiac pacemaker placement Hx laparoscopic cholecystectomy Family History Father Myocardial infarct Mother No problems noted. Social History Are you a primary chiropractic care to a significant other at home: No Do you presently have visiting nurse or other home services: No Comment: medicated in pacu Patient Tobacco Use Status: Never used Tobacco Office Procedures Cardiac Device Check Cardiac Device Check Details: Remote pacemaker report generated 06/27/2024. Pacemaker function is adequate [id number] Cardiac Device Interrogation, pacemaker Procedure code (CPT) selection complete Assessment & Plan Assessment & Plan (1) Cardiac pacemaker in situ: Comment: Dual-chamber [facility] pacemaker placed for complete heart block, 2018 Code(s): Z95.0 - Presence of cardiac pacemaker Category: Medical Plan: See above Coding Level of Care Code Procedure Only Diagnoses Cardiac pacemaker in situ Z95.0 CPT Codes Cardiac Device Check - Cardiac Device 12: [id number] Cardiac Device Interrogation, pacemaker ([id number])
== END ==
PROVIDERS: PCP Internal Medicine; Visit Provider Internal Medicine Cardiovascular Disease
DX: I44.2 Atrioventricular block, complete (principal); Z95.0 Presence of cardiac pacemaker
CPT/HCPCS: 93294

== ENCOUNTER 2024-06-30 11:09 | Outpatient (REF) | payer OTHER, SELFPAY ==
[2024-06-30 13:04] LABS: Appearance Urine Clear; Color Urine Yellow; Glucose Urine UA Negative (Negative); Leukocyte Esterase Urine Trace (Negative); Nitrite Urine Negative (Negative); UMIC TRIGGER UACC YES; Urine Blood Negative (Negative); Urine Ketones Negative (Negative); Urine Protein Negative (Neg-Trace)
[2024-06-30 13:07] LABS: Bacteria Urine None Seen (None Seen); Hyaline Casts Urine 0-2 /LPF (0-2); RBC Urine 0-2 /HPF (0-2); Squamous Epithelial Cell Urine 0-2 /HPF (0-2); WBC Urine 0-5 /HPF (0-5)
== END 2024-06-30 11:10 | disposition home or self-care (01) ==
LOC: HO.HMGCLDS 11:09
PROVIDERS: PCP Internal Medicine; Visit Provider Internal Medicine
DX: R30.0 Dysuria (principal)
CPT/HCPCS: 81001; 81003; 87086

== ENCOUNTER → 2024-08-08 09:43 | Outpatient (REF) | payer OTHER, SELFPAY ==
--- NOTE | 2024-08-08 09:47 | CA_ITS ---
Transthoracic Echocardiogram Patient (Last, First, Middle): Candido Silva J Gender: Male Date of : 1950 Age: 74 Procedure Date: 08/08/2024 Procedure Type: Transthoracic Echocardiogram Location: OP Height: 172.72 cm Weight: 122.47 kg BSA: 2.32 m2 Heart Rate: 79 bpm BP: 104 / 62 mmHg Spinning Frame Tender: SB Referring MD: Oral Lowe MD Symptoms: I42.9 - Cardiomyopathy, unspecified Study Quality: Poor ECG Rhythm: Paced Conclusions: - Even with contrast, left ventricle not well visualized. Overall, possibly [id number] reduced LVEF. Difficult to assess or quantitate. - No obvious valvular pathology seen on this study. Findings Procedure Information Contrast agent, definity, is being given per protocol without apparent complications. The quality of the study was despite the use of contrast and endocardial definition remains poor. The study quality is limited by patients body habitus and lung artifact. Left Ventricle Evidence suggests grade I (mild) diastolic dysfunction. Even with contrast, left ventricle not well visualized. Overall, possibly mhov-si-lhawjnno reduced LVEF. Difficult to assess or quantitate. Right Ventricle The right ventricle was not well visualized. By TAPSE, normal RV systolic function. Atria Both atria are normal in size. Aortic Valve The aortic valve was not well visualized. There is no aortic valve stenosis. There is no aortic valve regurgitation. Mitral Valve There is mild mitral annular calcification. There is no mitral valve regurgitation. There is no mitral valve stenosis. Pulmonic Valve The pulmonic valve is likely normal. Tricuspid Valve There is no tricuspid valve regurgitation. Tricuspid regurgitation envelope is inadequate for calculation of right ventricular systolic pressure. Great Vessels The aorta was not well visualized. The sinuses of valsalva is normal in size. Venous The inferior vena cava was not well visualized. Pericardium/Pleural There is no evidence of pericardial effusion. Prior Study Comparison Due to poor image quality, difficult to compare. Recommendations, Care & Conclusions No obvious valvular pathology seen on this study. Measurements 2D Linear Measurements Ao Root: 3.40 2.1-3.5 cm Mitral Valve MV VTI: 0.25 MV Pk Krzysztof: 1.28 MV Mn Krzysztof: 0.83 MV Pk Grad: 7.00 MV Mn Grad: 3.00 MV Pk E: 0.70 MV PK A: 1.18 MV Decel Time: 227.00 E/A: 0.60 E'Lateral: 8.38 E'Medial: 3.92 E/E' Med: 17.80 E/E' Lat: 8.30 PHT: 66.00 MVA PHT: 3.33 Decel [place]: 3.08 Aortic Valve AoV Pk Krzysztof: 1.60 AoV Mn Krzysztof: 1.15 AoV VTI: 0.30 AoV Pk Grad: 10.00 Aov Mn Grad: 6.00 LVOT LVOT Pk Krzysztof: 0.88 LVOT Mn Krzysztof: 0.65 LVOT VTI: 0.18 LVOT Pk Grad: 3.00 LVOT Mn Grad: 2.00 Diastolic Function MV Pk E: 0.70 MV Pk A: 1.18 E/A: 0.60 E'Medial: 3.92 E/E' Med: 17.80 E' Laterial: 8.38 E/E' Lat: 8.30 Great Vessels Aorta Ao Root-2D: 3.40 2.0-3.7 cm Updated in Other Vendor System with Status of Final Maximo Dyson MD electronically signed on 08/08/2024 12:36:54 PM with status of Final
== END ==
LOC: HO.CARD 09:43
PROVIDERS: PCP Internal Medicine; Visit Provider Internal Medicine Cardiovascular Disease
DX: I42.9 Cardiomyopathy, unspecified (principal)
CPT/HCPCS: 93306; Q9957

== ENCOUNTER → 2024-08-08 09:47 | Outpatient (BNV) | payer OTHER, SELFPAY | PROVIDERS: PCP Internal Medicine; Visit Provider Internal Medicine | DX: I51.89 Other ill-defined heart diseases (principal); I34.81 Nonrheumatic mitral (valve) annulus calcification | CPT/HCPCS: 93306 ==

== ENCOUNTER 2024-09-13 10:37 | Outpatient (REF) | payer OTHER, SELFPAY ==
[2024-09-13 10:50] LABS: MANUAL DIFF FLAG NO
[2024-09-13 11:32] LABS: Basophils Percent Auto 0.6 % (0-2); Eosinophils Absolute Auto 0.2 X10*3/uL (0.0-0.4); Eosinophils Percent Auto 3.2 % (0-4); Hematocrit 39.3 % (42.0-52.0); Hemoglobin 13.9 g/dl (14.0-18.0); Imm Gran Abs Auto 0.02 X10*3/uL (0.00-0.03); Imm Gran Pct Auto 0.4 % (0.0-0.4); Lymphocytes Absolute Auto 1.1 X10*3/uL (1.2-4.9); Lymphocytes Percent Auto 21.3 % (20-40); Mean Corpuscular HGB Conc 35.4 g/dl (31.0-36.0); Mean Corpuscular Hemoglobin 29.6 pg (27.0-33.0); Mean Corpuscular Volume 83.8 fL (80.0-98.0); Mean Platelet Volume 9.1 fL (9.4-12.4); Monocytes Absolute Auto 0.5 X10*3/uL (0.1-1.2); Monocytes Percent Auto 8.8 % (2-11); Neutrophils Absolute Auto 3.5 x10*3/uL (2.0-8.3); Neutrophils Percent Auto 65.7 % (45-73); Platelet Count 314 X10*3/uL (160-400); Red Blood Count 4.69 X10*6/uL (4.60-5.80); Red Cell Distribution Width 14.4 % (11.0-16.0); White Blood Count 5.3 X10*3/uL (4.8-10.8)
[2024-09-13 11:49] LABS: Estimated Average Glucose 151 mg/dL; Hemoglobin A1C 183.0433 umol/L; Hemoglobin A1c % 6.9 % (<6.0); Total Hemoglobin (HGBA1C) 3501.2907 umol/L
[2024-09-13 12:20] LABS: Alanine Aminotransferase 14 U/L (0-40); Albumin Level 4.4 g/dL (3.5-5.0); Alkaline Phosphatase 58 U/L (39-117); Anion Gap 11 (12-20); Aspartate Amino Transferase 17 U/L (5-37); Bilirubin Total 0.7 mg/dL (0.0-1.0); Blood Urea Nitrogen 10 mg/dL (9-16); Calcium 9.8 mg/dL (8.4-10.2); Carbon Dioxide 29 mmol/L (22-29); Chloride 92 mmol/L (96-108); Estimated Glomerular Filt Rate > 60; Glucose Random 148 mg/dL (60-115); Iron 75 mcg/dL (45-160); Percent Iron Saturation 25 % (15-50); Sodium 128 mmol/L (135-145); Total Iron Binding Capacity 296 mcg/dL (228-428); Unsaturated Iron Binding 221 ug/dL
== END 2024-09-13 10:38 | disposition home or self-care (01) ==
LOC: HO.LAB 10:37
PROVIDERS: PCP Internal Medicine; Visit Provider Internal Medicine
DX: I42.9 Cardiomyopathy, unspecified (principal); I10 Essential (primary) hypertension; I48.0 Paroxysmal atrial fibrillation; E11.9 Type 2 diabetes mellitus without complications; D64.9 Anemia, unspecified; Z45.018 Encounter for adjustment and management of other part of cardiac pacemaker
CPT/HCPCS: 36415; 80053; 82043; 82570; 83036; 83540; 85025; 93280

== ENCOUNTER 2024-09-13 11:06 | Outpatient (AMB) | payer OTHER, SELFPAY ==
[2024-09-13 11:20] VITALS: BP 110/66; PULSE 84; BMI 37.8
--- NOTE | 2024-09-13 11:20 | MHC.OFFVIS ---
Vital Signs 09/13/24 11:20 Height 5 ft 9 in Weight 255 lb 11.779 oz BMI 37.8 BP 110/66 Blood Pressure Location Lt brachial Position Sitting Pulse 84 Intake Visit Reasons: 6 mth fu w. Tejinder after echo Intake Note: 6 month follow-up with st tejinder after echo feeling good Hand Lacer Required: No Allergies cat dander Allergy (Intermediate, Verified 07/09/21 14:39) ASTHMA HPI Comments Details: Candido comes for follow-up. He said he has been doing very well with his lifestyle modification has been losing weight has lost 27 lb as per her chart and he was also feeling stronger at this is with diet modification increase exercise. He says sugars also under better control. He denies any worsening shortness of breath, orthopnea, PND, leg edema. No prolonged palpitation irregular heartbeat. Denies any lightheadedness, syncope. No exertional chest pain. His recent echocardiogram showed further reduction LV ejection fraction to 40-45% although it was a somewhat suboptimal study. [facility] Medical History Preop cardiovascular exam BPH (benign prostatic hyperplasia) COVID-19 vaccine series completed Hx of pancreatitis Osteoarthritis Mild heartburn Asthma Obstructive sleep apnea Diabetes mellitus HTN (hypertension) Cardiac pacemaker in situ Paroxysmal atrial fibrillation Complete heart block Surgical History H/O right inguinal hernia repair (05/29/21) Hx of colonoscopy Hx of tonsillectomy History of permanent cardiac pacemaker placement Hx laparoscopic cholecystectomy Family History Father Myocardial infarct Mother No problems noted. Social History Are you a primary healthcare economics consultant to a significant other at home: No Do you presently have visiting nurse or other home services: No Comment: medicated in pacu Patient Tobacco Use Status: Never used Tobacco Review of Systems Const Denies chills, Denies fatigue, Denies fever(s), Denies frequent falls, Denies weakness, Denies weight gain and Denies weight loss ENT Denies dizziness Card Denies chest pain, Denies leg edema, Denies lightheadedness, Denies palpitations, Denies dyspnea, Denies dyspnea on exertion, Denies orthopnea and Denies other (loss of consciousness) Resp Denies cough, Denies dyspnea and Denies dyspnea on exertion GI Denies hematochezia and Denies change in stool character Musc Denies abnormal gait, Denies muscle weakness, Denies numbness, Denies radiating pain into limb and Denies tingling Neuro Denies abnormal gait, Denies dizziness, Denies frequent falls, Denies numbness, Denies tingling and Denies weakness Endo Denies fatigue and Denies palpitations Physical Exam Vital Signs: Last Vital Signs Pulse 84 09/13/24 11:20 BP 110/66 09/13/24 11:20 BMI result Body Mass Index 37.8 Const General: cooperative, comfortable and no acute distress Nutritional Appearance: obese Orientation/consciousness: patient oriented x3 HEENT Head: Yes normal to inspection Neck Neck: Yes normal visual inspection and Yes no JVD Resp Effort & Inspection: normal respiratory effort Auscultation: clear to auscultation bilaterally, no crackles, no rales, no rhonchi and no wheezes Cardio Jugular venous distension: no JVD Rate: regular rate Rhythm: regular rhythm Heart sounds: S1 normal heart sound present, S2 normal heart sound present, no gallops, no murmurs and no rubs GI Inspection: Yes normal to inspection Neuro General: patient oriented x3 Extrem General: Yes normal to inspection, No calf tenderness and Yes edema (bilateral lower leg, pitting) Office Procedures Cardiac Device Check Cardiac Device Check Details: Dual-chamber [facility] pacemaker in place. Programmed in DDDR at 60 beats per minute. Ventricular pacing almost 100% of time. No episodes of atrial fibrillation noted. Atrial pacing thresholds adequate and in auto capture mode. Ventricular pacing thresholds are stable. Atrial sensing is excellent. Pacing lead impedance is stable. Battery life is at about 4 years [id number] Cardiac Device Check, pacemaker dual lead Procedure code (CPT) selection complete Assessment & Plan Assessment & Plan (1) Cardiomyopathy: Code(s): I42.9 - Cardiomyopathy, unspecified Category: Medical Plan: Nonischemic cardiomyopathy process with mild reduction LV ejection fraction. Most likely related to RV pacing. However there is no signs or symptoms of heart failure. Clinically he is doing very well. Encouraged to continue to participate in regular physical activity and weight loss program. Continue current neurohormonal modulation with metoprolol and lisinopril. Mechanism of neurohormonal modulation was discussed with him. Signs and symptoms of heart failure were discussed advised to call me with any new symptoms. (2) Cardiac pacemaker in situ: Comment: Dual-chamber Saint Tejinder pacemaker placed for complete heart block, 2018 Code(s): Z95.0 - Presence of cardiac pacemaker Category: Medical Plan: Cardiac pacemaker in-situ for complete heart block, currently pacer dependent. No symptoms related to it. Pacemaker is working well. Follow remotely in 3 months and follow up in the clinic in 6 months time. (3) HTN (hypertension): Code(s): I10 - Essential (primary) hypertension Category: Medical Plan: Hypertension which is currently well optimized advised to monitor blood pressure at home maintain a log. Goal blood pressure less than 130/84. Continue aggressive diabetes management with lifestyle modification as well as medications. Goal hemoglobin A1c less than 7%. Advised to maintain activity level on a regular basis. (4) Paroxysmal atrial fibrillation: Comment: ~ 8 sec noted on pacer interr, no anticoag per cardiology Code(s): I48.0 - Paroxysmal atrial fibrillation Category: Medical Plan: Paroxysmal atrial fibrillation with short episodes noted on remote telemetry. On recent remote telemetry he has no clear episodes of atrial fibrillation at this point in time. No anticoagulation needed. Continue risk factor modification. Continue monitor pacer telemetry. Advised to call me with any new symptoms. Follow up in the clinic in 6 months time, sooner p.r.n.. Thank you for allowing me to partake in his care Coding Level of Care Code Est Pt Level 4 (46937) Complex EM visit Add On G2211 Diagnoses Cardiomyopathy I42.9 Cardiac pacemaker in situ Z95.0 HTN (hypertension) I10 Paroxysmal atrial fibrillation I48.0 CPT Codes Cardiac Device Check - Cardiac Device 2: 90392-[id number] Cardiac Device Check, pacemaker dual lead ([id number])
== END 2024-09-13 11:49 | disposition home or self-care (01) ==
PROVIDERS: PCP Internal Medicine; Visit Provider Internal Medicine Cardiovascular Disease
DX: I42.9 Cardiomyopathy, unspecified (principal); Z95.0 Presence of cardiac pacemaker; I10 Essential (primary) hypertension; I48.0 Paroxysmal atrial fibrillation
CPT/HCPCS: 93280; 99214

== ENCOUNTER 2024-09-16 09:51 | Outpatient (REF) | payer OTHER, SELFPAY ==
[2024-09-16 11:52] LABS: Anion Gap 14 (12-20); Carbon Dioxide 27 mmol/L (22-29); Chloride 95 mmol/L (96-108); Potassium 3.6 mmol/L (3.3-5.1); Sodium 132 mmol/L (135-145)
== END 2024-09-16 09:52 | disposition home or self-care (01) ==
LOC: HO.HMGCLDS 09:51
PROVIDERS: PCP Internal Medicine; Visit Provider Internal Medicine
DX: E87.1 Hypo-osmolality and hyponatremia (principal)
CPT/HCPCS: 36415; 80051

== ENCOUNTER → 2024-09-26 23:59 | Outpatient (BNV) | payer OTHER, SELFPAY ==
--- NOTE | 2024-10-03 17:06 | MHC.OFFVIS ---
Intake Visit Reasons: Remote device check- [facility] Allergies cat dander Allergy (Intermediate, Verified 07/09/21 14:39) ASTHMA PFSH Medical History Preop cardiovascular exam BPH (benign prostatic hyperplasia) COVID-19 vaccine series completed Hx of pancreatitis Osteoarthritis Mild heartburn Asthma Obstructive sleep apnea Diabetes mellitus HTN (hypertension) Cardiac pacemaker in situ Paroxysmal atrial fibrillation Complete heart block Surgical History H/O right inguinal hernia repair (05/29/21) Hx of colonoscopy Hx of tonsillectomy History of permanent cardiac pacemaker placement Hx laparoscopic cholecystectomy Family History Father Myocardial infarct Mother No problems noted. Social History Are you a primary health care marketing manager to a significant other at home: No Do you presently have visiting nurse or other home services: No Comment: medicated in pacu Patient Tobacco Use Status: Never used Tobacco Office Procedures Cardiac Device Check Cardiac Device Check Details: Remote pacemaker report generated 09/24/2024. Pacemaker function is adequate. No sustained episodes of atrial fibrillation noted with ventricular pacing 100% time [id number] Cardiac Device Interrogation, pacemaker Procedure code (CPT) selection complete Assessment & Plan Assessment & Plan (1) Cardiac pacemaker in situ: Comment: Dual-chamber Saint Tejinder pacemaker placed for complete heart block, 2018 Code(s): Z95.0 - Presence of cardiac pacemaker Category: Medical Plan: See above Coding Level of Care Code Procedure Only Diagnoses Cardiac pacemaker in situ Z95.0 CPT Codes Cardiac Device Check - Cardiac Device 12: 39543-[id number] Cardiac Device Interrogation, pacemaker ([id number])
== END ==
PROVIDERS: PCP Internal Medicine; Visit Provider Internal Medicine Cardiovascular Disease
DX: Z45.018 Encounter for adjustment and management of other part of cardiac pacemaker (principal)
CPT/HCPCS: 93294

== ENCOUNTER 2024-10-17 09:15 | Day surgery (SDC) | payer OTHER, SELFPAY ==
[2024-10-13 13:41] VITALS: BMI 41.3
--- NOTE | 2024-10-14 08:47 | HO.ANESPROP2 ---
Documented by User: Lisa Churchill NP 10/14/24 08:50 HPI - Anesthesia Eval Consult details Narrative: 74yo M for Colonoscopy Follows [facility] [place] Cardiology Pacer in situ for CHB NICMP EF ~40-45% PMFSH Active Problems Active Problems: All Active Problems Cardiomyopathy (Acute) Preop cardiovascular exam (Acute) Right inguinal hernia (Acute) HTN (hypertension) (Acute) Cardiac pacemaker in situ (Acute) Paroxysmal atrial fibrillation (Acute) Past Medical History Medical History (Updated 10/13/24 @ 13:48 by Anjelica Eid RN) BPH (benign prostatic hyperplasia) Hx of pancreatitis Osteoarthritis Mild heartburn Asthma Obstructive sleep apnea Diabetes mellitus HTN (hypertension) Cardiac pacemaker in situ Paroxysmal atrial fibrillation Complete heart block Family History Family History Father Myocardial infarct Mother No problems noted. Surgical History Surgical History (Updated 10/17/24 @ 10:26 by Alba Mcleod RN) History of prostate surgery History of total hip replacement H/O right inguinal hernia repair (05/29/21) Hx of colonoscopy Hx of tonsillectomy History of permanent cardiac pacemaker placement Hx laparoscopic cholecystectomy Social History Social History Are you a primary day care worker to a significant other at home: Yes () Do you presently have visiting nurse or other home services: No Comment: medicated in pacu Patient Tobacco Use Status: Former Tobacco user Tobacco use type: Cigarette Smoked in Last 30 Days: No Use of substances other than those prescribed or required for medical reasons: No Have you been hit, kicked, punched, or otherwise hurt by someone within the past year? If so, by whom?: No Are you DNR?: No Advance Directives: Yes Advance Directives Information Provided: Yes Advance Directives on File: Yes Advance Directives Date on File: 04/26/21 Recently lost weight without trying: Yes How much weight loss: 14-23 pounds Eating poorly because of decreased appetite: No Nutrition screen score: 4 Nutrition Risks: No Nutritional Risk Poor oral hygiene: No Meds Allergies Allergy/AdvReac Type Severity Reaction Status Date / Time cat dander Allergy Intermediate ASTHMA Verified 10/17/24 10:20 Home Medications ?Medication ?Instructions ?Recorded ?Confirmed ?Last Taken ?Type atorvastatin 20 mg tablet 20 mg PO DAILY 03/09/21 11/18/24 Unknown History cholecalciferol (vitamin D3) 125 125 mcg PO DAILY 04/09/21 10/17/24 Unknown History mcg (5,000 unit) capsule multivitamin 1 tab PO DAILY 04/09/21 10/17/24 Unknown History Probiotic 1 cap PO DAILY 05/22/21 10/17/24 Unknown History ascorbic acid (vitamin C) 500 mg 500 mg PO DAILY 05/22/21 10/17/24 Unknown History tablet (Vitamin C) folic acid 1 mg tablet 1 mg PO DAILY 05/22/21 10/17/24 10/14/24 History ibuprofen 600 mg tablet 600 mg PO QID PRN Pain 05/22/21 10/17/24 10/10/24 History potassium chloride 99 mg PO DAILY 05/22/21 10/17/24 10/16/24 History aspirin 81 mg tablet,delayed 81 mg PO DAILY 08/20/21 10/17/24 10/10/24 History release chlorthalidone 25 mg tablet 25 mg PO DAILY 08/20/21 10/17/24 Unknown History lisinopril 10 mg tablet 10 mg PO DAILY 08/20/21 10/17/24 10/17/24 History ferrous sulfate 325 mg (65 mg 325 mg PO DAILY 02/20/22 10/17/24 10/12/24 History iron) tablet mecobalamin (vitamin B12) 1,000 1,000 mcg PO DAILY 02/20/22 10/17/24 Unknown History mcg chewable tablet omeprazole magnesium 20 mg 20 mg PO DAILY 09/02/23 10/17/24 Unknown History tablet,delayed release (Prilosec OTC) albuterol sulfate 90 mcg/actuation 2 puff inhalation Q4H PRN 03/08/24 10/17/24 10/17/24 History aerosol inhaler Shortness Of Breath metformin 500 mg tablet,extended 500 mg PO DAILY 03/08/24 10/17/24 10/15/24 History release 24 hr phosphatidylserine 100 mg capsule 400 mg PO DAILY 03/08/24 10/17/24 Unknown History Exam Height,Weight and Vital Signs: Height 5 ft 9 in Weight 127.006 kg Pertinent Lab Results Pertinent Lab Results: Laboratory Tests 09/13/24 09/16/24 10:48 10:06 WBC 5.3 Hgb 13.9 L Hct 39.3 L Plt Count 314 Sodium 132 L Potassium 3.6 Chloride 95 L Carbon Dioxide 27 BUN 10 Creatinine 0.77 Narrative Narrative: Cardiac Device Check 08/2024 Details: Dual-chamber Saint Tejinder pacemaker in place. Programmed in DDDR at 60 beats per minute. Ventricular pacing almost 100% of time. No episodes of atrial fibrillation noted. Atrial pacing thresholds adequate and in auto capture mode. Ventricular pacing thresholds are stable. Atrial sensing is excellent. Pacing lead impedance is stable. Battery life is at about 4 years Assessment and Plan Assessment Anesthesia Assessment: Chart Reviewed Documented by User: Jadon Yo MD 10/17/24 11:00 [facility] Past Medical History Medical History (Updated 10/13/24 @ 13:48 by Anjelica Eid RN) BPH (benign prostatic hyperplasia) Hx of pancreatitis Osteoarthritis Mild heartburn Asthma Obstructive sleep apnea Diabetes mellitus HTN (hypertension) Cardiac pacemaker in situ Paroxysmal atrial fibrillation Complete heart block Family History Family History Father Myocardial infarct Mother No problems noted. Family history of problems with anesthesia: No Surgical History Surgical History (Updated 10/17/24 @ 10:26 by Alba Mcleod RN) History of prostate surgery History of total hip replacement H/O right inguinal hernia repair (05/29/21) Hx of colonoscopy Hx of tonsillectomy History of permanent cardiac pacemaker placement Hx laparoscopic cholecystectomy History of Problems with Anesthesia: No Social History Social History Are you a primary day care worker to a significant other at home: Yes () Do you presently have visiting nurse or other home services: No Comment: medicated in pacu Patient Tobacco Use Status: Former Tobacco user Tobacco use type: Cigarette Smoked in Last 30 Days: No Use of substances other than those prescribed or required for medical reasons: No Have you been hit, kicked, punched, or otherwise hurt by someone within the past year? If so, by whom?: No Are you DNR?: No Advance Directives: Yes Advance Directives Information Provided: Yes Advance Directives on File: Yes Advance Directives Date on File: 04/26/21 Recently lost weight without trying: Yes How much weight loss: 14-23 pounds Eating poorly because of decreased appetite: No Nutrition screen score: 4 Nutrition Risks: No Nutritional Risk Poor oral hygiene: No Meds Allergies Allergy/AdvReac Type Severity Reaction Status Date / Time cat dander Allergy Intermediate ASTHMA Verified 10/17/24 10:20 Home Medications ?Medication ?Instructions ?Recorded ?Confirmed ?Last Taken ?Type atorvastatin 20 mg tablet 20 mg PO DAILY 02/05/21 10/17/24 Unknown History cholecalciferol (vitamin D3) 125 125 mcg PO DAILY 04/09/21 10/17/24 Unknown History mcg (5,000 unit) capsule multivitamin 1 tab PO DAILY 04/09/21 10/17/24 Unknown History Probiotic 1 cap PO DAILY 05/22/21 10/17/24 Unknown History ascorbic acid (vitamin C) 500 mg 500 mg PO DAILY 05/22/21 10/17/24 Unknown History tablet (Vitamin C) folic acid 1 mg tablet 1 mg PO DAILY 05/22/21 10/17/24 10/14/24 History ibuprofen 600 mg tablet 600 mg PO QID PRN Pain 05/22/21 10/17/24 10/10/24 History potassium chloride 99 mg PO DAILY 05/22/21 10/17/24 10/16/24 History aspirin 81 mg tablet,delayed 81 mg PO DAILY 08/20/21 10/17/24 10/10/24 History release chlorthalidone 25 mg tablet 25 mg PO DAILY 08/20/21 10/17/24 Unknown History lisinopril 10 mg tablet 10 mg PO DAILY 08/20/21 10/17/24 10/17/24 History ferrous sulfate 325 mg (65 mg 325 mg PO DAILY 02/20/22 10/17/24 10/12/24 History iron) tablet mecobalamin (vitamin B12) 1,000 1,000 mcg PO DAILY 02/20/22 10/17/24 Unknown History mcg chewable tablet omeprazole magnesium 20 mg 20 mg PO DAILY 09/02/23 10/17/24 Unknown History tablet,delayed release (Prilosec OTC) albuterol sulfate 90 mcg/actuation 2 puff inhalation Q4H PRN 03/08/24 10/17/24 10/17/24 History aerosol inhaler Shortness Of Breath metformin 500 mg tablet,extended 500 mg PO DAILY 03/08/24 10/17/24 10/15/24 History release 24 hr phosphatidylserine 100 mg capsule 400 mg PO DAILY 03/08/24 10/17/24 Unknown History Exam Airway Mallampati Class: II TM Dist: <=3cm Neck ROM: Full Loose/Missing/Broken Teeth: No Heart: see above. echo in July showed mild-mod reduced LV fxn. Unable to image RV or IVC. Lungs: ok Assessment and Plan Assessment Anesthesia Assessment: Anesthesia Plan Discussed Final Anesthetic Review Family History of Problems with Anesthesia: No History of Problems with Anesthesia: No NPO: Yes ASA Class: III Final Preanesthetic Review: No Changes in Pt Med Stat, Meds/Allgs Chart Reviewed, Consent Obtained/Reviewed and Anes Risks/Benef Reviewed Patient Risk: High Procedure Risk: Low Anesthetic Plan Anesthetic Plan: GA and Agree w/ Assess. and Plan Disposition: Standard PACU
[2024-10-17 10:11] VITALS: BP 143/78; PULSE 85; RESP 16; TEMP 36.6; O2SAT 95; BMI 38.2
[2024-10-17] MEDS: Lactated Ringers 1,000 ML 100 ML IVCONT (10:27)
[2024-10-17 10:31] LABS: Glucose, Whole Blood 144 mg/dL (60-115)
[2024-10-17 11:29] VITALS: BP 108/64; PULSE 82; RESP 16; TEMP 36.4
--- NOTE | 2024-10-17 11:32 | PM.OP ---
Brief Operative Note Date of Service: 10/17/24 Pre-op diagnosis: Screening Post-op diagnosis: other (Diverticulosis) Procedure: Colonoscopy to the cecum and TI Surgeon: Juan A Diallo MD Anesthesia: MAC Was an Modeling Agency Manager used for this Procedure?: No Estimated blood loss (mL): 0 Pathology: none sent Condition: stable Disposition: PACU
[2024-10-17 11:44] VITALS: BP 127/84; PULSE 80; RESP 16; TEMP 36.1; O2SAT 95
--- NOTE | 2024-10-17 12:07 | OP_ITS ---
DATE OF SERVICE: 10/17/2024 SURGEON: Juan A Diallo MD INDICATIONS: The patient presents for evaluation of colorectal cancer screening and personal history of tubular adenoma of the colon. Full consent has been obtained from him for this, including risks of bleeding and perforation. PREOPERATIVE DIAGNOSIS: POSTOPERATIVE DIAGNOSIS: PROCEDURE PERFORMED: Colonoscopy to the cecum and terminal ileum. ESTIMATED BLOOD LOSS: COMPLICATIONS: ANESTHESIA: Monitored anesthesia care. ASSISTANTS: SPECIMENS: PREOPERATIVE DIAGNOSES: Colorectal cancer screening and personal history of tubular adenoma of the colon. POSTOPERATIVE DIAGNOSES: Colorectal cancer screening, personal history of tubular adenoma of the colon, diverticulosis, and internal hemorrhoids. DESCRIPTION OF PROCEDURE: The patient was placed in the left lateral decubitus position. The digital rectal exam revealed no abnormalities. The Olympus video pediatric colonoscope was then entered into the rectum and advanced easily to the cecum. Once the cecum, I did identify normal-appearing cecal pouch with appendiceal orifice and a normal-appearing ileocecal valve. The terminal ileum was cannulated and appeared normal. The scope was withdrawn back in the colon. The entire cecum and ileocecal valve appeared normal. The scope was slowly withdrawn assessing all mucosal surfaces carefully. Preparation is excellent. I did not visualize any sign of polyps, colitis, nor angiodysplasias. There was a moderate amount of diverticulosis in the descending and sigmoid colon. In the rectum, scope was retroflexed, visualizing some internal hemorrhoids, but no other pathology. The rectal mucosa appeared normal. The scope was straightened and withdrawn from the patient. He tolerated the procedure well and was returned to the recovery area in stable condition. IMPRESSION: 1. Diverticulosis. 2. Internal hemorrhoids. PLAN: Given today's negative exam and his age, I do not think he would need any further screening colonoscopies going forward. He will see me on a p.r.n. basis. He was advised to resume his usual diabetic medications and other medicines including iron and aspirin. He will see me on a p.r.n. basis. MD EDGAR Sheffield/DAKOTA / [phone]
== END 2024-10-17 12:08 | disposition home or self-care (01) ==
PROVIDERS: PCP Internal Medicine; Visit Provider Internal Medicine
PROC: 0DJD8ZZ Inspection of Lower Intestinal Tract, Via Natural or Artificial Opening Endoscopic (ICD-10-PCS; CPT 45378; principal; 2024-10-17 10:30)
DX: Z12.11 Encounter for screening for malignant neoplasm of colon (principal); Z86.0101 Personal history of adenomatous and serrated colon polyps; K57.30 Diverticulosis of large intestine without perforation or abscess without bleeding; K64.8 Other hemorrhoids; K21.9 Gastro-esophageal reflux disease without esophagitis; E78.00 Pure hypercholesterolemia, unspecified; I10 Essential (primary) hypertension; E11.9 Type 2 diabetes mellitus without complications; G47.33 Obstructive sleep apnea (adult) (pediatric); I44.2 Atrioventricular block, complete; Z95.0 Presence of cardiac pacemaker; Z79.82 Long term (current) use of aspirin; Z79.84 Long term (current) use of oral hypoglycemic drugs; Z99.89 Dependence on other enabling machines and devices; Z79.899 Other long term (current) drug therapy; Z87.891 Personal history of nicotine dependence
CPT/HCPCS: 45378; 82947; J2003; J2704

== ENCOUNTER → 2024-12-26 23:59 | Outpatient (BNV) | payer OTHER, SELFPAY ==
--- NOTE | 2025-01-02 16:20 | MHC.OFFVIS ---
Intake Visit Reasons: Remote device check- [facility] Tejinder Allergies cat dander Allergy (Intermediate, Verified 10/17/24 10:20) ASTHMA PFSH Medical History (Updated 10/13/24 @ 13:48 by Anjelica Eid, DARRON) BPH (benign prostatic hyperplasia) Hx of pancreatitis Osteoarthritis Mild heartburn Asthma Obstructive sleep apnea Diabetes mellitus HTN (hypertension) Cardiac pacemaker in situ Paroxysmal atrial fibrillation Complete heart block Surgical History (Updated 10/17/24 @ 10:26 by Alba Mcleod, RN) History of prostate surgery History of total hip replacement H/O right inguinal hernia repair (05/29/21) Hx of colonoscopy Hx of tonsillectomy History of permanent cardiac pacemaker placement Hx laparoscopic cholecystectomy Family History Father Myocardial infarct Mother No problems noted. Social History Are you a primary special needs caregiver to a significant other at home: Yes () Do you presently have visiting nurse or other home services: No Comment: medicated in pacu Patient Tobacco Use Status: Former Tobacco user Tobacco use type: Cigarette Smoked in Last 30 Days: No Use of substances other than those prescribed or required for medical reasons: No Have you been hit, kicked, punched, or otherwise hurt by someone within the past year? If so, by whom?: No Are you DNR?: No Advance Directives: Yes Advance Directives Information Provided: Yes Advance Directives on File: Yes Advance Directives Date on File: 04/26/21 Recently lost weight without trying: Yes How much weight loss: 14-23 pounds Eating poorly because of decreased appetite: No Nutrition screen score: 4 Nutrition Risks: No Nutritional Risk Poor oral hygiene: No Office Procedures Cardiac Device Check Cardiac Device Check Details: Remote pacemaker report generated 12/26/2024. Pacemaker function is adequate [id number] Cardiac Device Interrogation, pacemaker Procedure code (CPT) selection complete Assessment & Plan Assessment & Plan (1) Cardiac pacemaker in situ: Comment: Dual-chamber Saint Tejinder pacemaker placed for complete heart block, 2018-follows w/HCS Code(s): Z95.0 - Presence of cardiac pacemaker Category: Medical Plan: See above Coding Level of Care Code Procedure Only Diagnoses Cardiac pacemaker in situ Z95.0 CPT Codes Cardiac Device Check - Cardiac Device 12: [id number] Cardiac Device Interrogation, pacemaker ([id number])
== END ==
PROVIDERS: PCP Internal Medicine; Visit Provider Internal Medicine Cardiovascular Disease
DX: Z45.018 Encounter for adjustment and management of other part of cardiac pacemaker (principal)
CPT/HCPCS: 93294

== ENCOUNTER 2025-02-20 08:14 | Outpatient (REF) | payer OTHER, SELFPAY ==
[2025-02-20 10:21] LABS: MANUAL DIFF FLAG NO
[2025-02-20 10:28] LABS: Basophils Percent Auto 0.5 % (0-2); Eosinophils Absolute Auto 0.2 X10*3/uL (0.0-0.4); Eosinophils Percent Auto 4.2 % (0-4); Hematocrit 39.7 % (42.0-52.0); Hemoglobin 13.8 g/dl (14.0-18.0); Imm Gran Abs Auto 0.02 X10*3/uL (0.00-0.03); Imm Gran Pct Auto 0.3 % (0.0-0.4); Lymphocytes Absolute Auto 1.2 X10*3/uL (1.2-4.9); Lymphocytes Percent Auto 21.5 % (20-40); Mean Corpuscular HGB Conc 34.8 g/dl (31.0-36.0); Mean Corpuscular Hemoglobin 30.2 pg (27.0-33.0); Mean Corpuscular Volume 86.9 fL (80.0-98.0); Mean Platelet Volume 9.2 fL (9.4-12.4); Monocytes Absolute Auto 0.6 X10*3/uL (0.1-1.2); Monocytes Percent Auto 9.7 % (2-11); Neutrophils Absolute Auto 3.7 x10*3/uL (2.0-8.3); Neutrophils Percent Auto 63.8 % (45-73); Platelet Count 280 X10*3/uL (160-400); Red Blood Count 4.57 X10*6/uL (4.60-5.80); Red Cell Distribution Width 13.6 % (11.0-16.0); White Blood Count 5.8 X10*3/uL (4.8-10.8)
[2025-02-20 10:38] LABS: Estimated Average Glucose 146 mg/dL; Hemoglobin A1c % 6.7 % (<6.0)
[2025-02-20 11:12] LABS: Alanine Aminotransferase 13 U/L (0-40); Albumin Level 4.2 g/dL (3.5-5.0); Alkaline Phosphatase 56 U/L (39-117); Anion Gap 11 (12-20); Aspartate Amino Transferase 23 U/L (5-37); Bilirubin Total 0.7 mg/dL (0.0-1.0); Blood Urea Nitrogen 10 mg/dL (9-16); Calcium 9.1 mg/dL (8.4-10.2); Carbon Dioxide 27 mmol/L (22-29); Chloride 98 mmol/L (96-108); Estimated Glomerular Filt Rate > 60; Glucose Random 147 mg/dL (60-115); Potassium 4.2 mmol/L (3.3-5.1); Sodium 132 mmol/L (135-145); Total Protein 6.7 g/dL (6.5-8.0)
== END 2025-02-20 08:15 | disposition home or self-care (01) ==
LOC: HO.HMGCLDS 08:14
PROVIDERS: Visit Provider Internal Medicine
DX: E11.9 Type 2 diabetes mellitus without complications (principal); I10 Essential (primary) hypertension; D64.9 Anemia, unspecified
CPT/HCPCS: 36415; 80053; 83036; 85025

== ENCOUNTER 2025-03-22 11:00 | Outpatient (AMB) | payer OTHER, SELFPAY ==
[2025-03-22 11:03] VITALS: BP 128/70; PULSE 84; TEMP 36.4; O2SAT 96; BMI 38.7
--- NOTE | 2025-03-22 11:03 | A.OFFPC_ITS ---
Vital Signs 03/22/25 11:03 Height 5 ft 9 in Weight 262 lb BMI 38.7 BP 128/70 Blood Pressure Location Lt brachial Position Sitting Pulse 84 Pulse Source Pulse Oximeter Temp 97.5 F Temp Source Axillary Pulse Oximetry (%) 96 Oxygen Delivery Method Room Air Intake Visit Reasons: Routine Blood Or Blood Bank Technician Required: No Accompanied by: Self / Same As Patient Allergies cat dander Allergy (Intermediate, Verified 03/28/25 09:00) ASTHMA Medication List - Last Reconciled 03/28/25 by Jani Mccauley MD albuterol sulfate 90 mcg/actuation 2 puffs inhalation Q4H PRN amino acids caps PO ascorbic acid (vitamin C) (Vitamin C) 500 mg PO DAILY aspirin 81 mg PO DAILY atorvastatin 20 mg PO DAILY chlorthalidone 25 mg PO DAILY cholecalciferol (vitamin D3) 125 mcg PO DAILY ferrous sulfate 325 mg PO DAILY folic acid 1 mg PO DAILY ibuprofen 600 mg PO QID PRN lisinopril 10 mg PO DAILY metformin ER 500 mg PO DAILY metoprolol succinate ER 25 mg PO DAILY multivitamin 1 tab PO DAILY omeprazole magnesium (Prilosec OTC) 20 mg PO DAILY phosphatidylserine 400 mg PO DAILY [potassium chloride 99 mg PO DAILY] [Probiotic 1 cap PO DAILY] Tobacco use date assessed: 03/22/25 Fall risk assessment: No Falls in past year Last assessed Fall Risk: 03/22/25 Dental Screening Dental Screen Date: 03/22/25 Did you have a dental visit in the last 12 months?: Yes Did you have a dental problem in the last 6 months where you did not have access to dental care?: No PFSH Medical History (Updated 03/28/25 @ 09:06 by Jani Mccauley MD) Myasthenia gravis BPH (benign prostatic hyperplasia) Hx of pancreatitis Osteoarthritis Mild heartburn Asthma Obstructive sleep apnea Diabetes mellitus HTN (hypertension) Cardiac pacemaker in situ Paroxysmal atrial fibrillation Complete heart block Surgical History History of prostate surgery History of total hip replacement H/O right inguinal hernia repair (05/29/21) Hx of colonoscopy (~10/17/24) Hx of tonsillectomy History of permanent cardiac pacemaker placement Hx laparoscopic cholecystectomy Family History Father Myocardial infarct Mother No problems noted. Social History Housing: House Are you a primary patient care director to a significant other at home: Yes () Do you presently have visiting nurse or other home services: No Comment: medicated in pacu Patient Tobacco Use Status: Former Tobacco user Tobacco use type: Cigarette e-Cigarette/Vaping Use: Former Use Advance Directives Date on File: 04/26/21 service: Yes Current occupational status: retired Cognitive needs: No Hearing needs: Yes (bilateral hearing aids) Vision needs: Yes (rx glasses) Questionnaire PHQ-9 Over the last 2 weeks, how often have you been bothered by any of the following problems? 1. Little interest or pleasure in doing things: not at all 2. Feeling down, depressed, or hopeless: several days 3. Trouble falling or staying asleep, or sleeping too much: not at all 4. Feeling tired or having little energy: not at all 5. Poor appetite or overeating: not at all 6. Feeling bad about yourself - or that you are a failure or have let yourself or your family down: not at all 7. Trouble concentrating on things, such as reading the newspaper or watching television: not at all 8. Moving or speaking so slowly that other people could have noticed. Or the opposite - being so fidgety or restless that you have been moving around a lot more than usual: not at all 9. Thoughts that you would be better off or of hurting yourself in some way: not at all Total score: 1 Source: Developed by Drs. Juan A Palm, Peggy Andre, Tucker Rincon and colleagues, with an educational jessica from [employer]. Thrive Questionnaire Date Thrive assessed: 03/22/25 I am a: Patient Within the past 12 months, did the food you bought not last and you didn't have the money to get more?: Never true Within the past 12 months, did you worry whether your food would run out before you got money to buy more?: Never true Do you have trouble paying for medicines?: No Do you have trouble getting transportation to medical appointments?: No Do you have trouble paying your heating and electricity bill?: No Do you have trouble taking care of your child, family member or friend?: No Do you have trouble with day-to-day activities such as bathing, preparing meals, shopping, managing finances, etc.?: No Are you currently unemployed and looking for a job?: No THRIVE Score: 0 AUDIT C Alcohol Use Questionnaire (AUDIT-C) 1. How often do you have a drink containing alcohol?: Never 3. How often do you have six or more drinks on one occasion?: Never Total Score: 0 JOSE E-7 AMB Questionnaire JOSE E-7 Date JOSE E - 7 assessed: 03/22/25 Feeling nervous, anxious, or on edge: 1 = Several days Not being able to stop or control worryin = Not at all Worrying too much about different things: 0 = Not at all Trouble relaxin = Not at all Being so restless that it is hard to sit still: 0 = Not at all Becoming easily annoyed or irritable: 0 = Not at all Feeling afraid as if something awful might happen: 0 = Not at all Total JOSE E-7 score (0-4 normal; 5-9 mild; 10-14 moderate; 15-21 severe): 1 Source: Developed by Drs. Juan A Palm, Peggy Andre, Tucker Rincon and colleagues, with an educational jessica from [employer]. Physical exam (Primary Care) Vital Signs: Last Vital Signs Temp 97.5 F 03/22/25 11:03 Pulse 84 03/22/25 11:03 BP 128/70 03/22/25 11:03 Pulse Ox 96 03/22/25 11:03 Oxygen Delivery Method Room Air 03/22/25 11:03 Care Plan Goal for BP management: Blood pressure is in range. BMI result Body Mass Index 38.7 Tobacco/Smoking Status: Tobacco use Status Tobacco use date assessed 03/22/25 03/22/25 11:06 Patient Tobacco Use Status Former Tobacco user 03/22/25 11:06 Tobacco use type Cigarette 03/22/25 11:06 e-Cigarette/Vaping Use Former Use 03/22/25 11:18 PHQ-9: PHQ-9 Score PHQ-9: Total score 1 03/24/25 11:37 Thrive Assessment: Date of Thrive Assessment Date Thrive assessed 03/22/25 03/22/25 11:06 Advance Care Planning discussion: Exists, not on file Date of discussion: 03/28/25 Who was present: Patient Forms completed: Health Care Proxy Time spent: 1-15 minutes, not on file Actual minutes spent: 5 Coding Level of Care Code New Pt Level 4 (11476) Complex EM visit Add On G2211 Diagnoses Lower back pain M54.50 Myasthenia gravis G70.00 HTN (hypertension) I10 Paroxysmal atrial fibrillation I48.0 Additional Codes Vital Signs *Quality* - Advance Care Planning discussion: Exists, not on file ([id number]) Vital Signs *Quality* - Time spent: 1-15 minutes, not on file ([id number]) Assessment & Plan Assessment & Plan (1) Lower back pain: Code(s): M54.50 - Low back pain, unspecified Plan: PT evaluation to be restarted. (2) Myasthenia gravis: Code(s): G70.00 - Myasthenia gravis without (acute) exacerbation Category: Medical Plan: Chronic condition with no detioration on medication (3) HTN (hypertension): Code(s): I10 - Essential (primary) hypertension Category: Medical Plan: Condition is stable. BP in range. Continue current meds (4) Paroxysmal atrial fibrillation: Comment: ~ 8 sec noted on pacer interr, no anticoag per cardiology Code(s): I48.0 - Paroxysmal atrial fibrillation Category: Medical Plan: As abive. Plan History of Present Illness The patient is a 74-year-old male presenting for the establishment of care and management of chronic health issues. Primary concerns include persistent pain in the upper left leg, attributed to possible overexertion during aqua aerobics after discontinuation of formal physical therapy due to insurance coverage issues. The pain is described as worsening with standing and walking activities. Concerning sleep apnea, the patient previously managed it with a CPAP, which he ceased using due to discomfort from asthma medications. Despite a substantial weight loss of 30 pounds, he continues to experience daytime fatigue. Recent blood work showed improved glycemic control, with an emphasis on monitoring through a Sherrell 3 device. 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 - Resides with his , who is currently in hospice care. - Reports no use of tobacco, recreational drugs, or alcohol. - Engaged in supportive care for his , spending significant time visiting her daily. - Does not use a CPAP for sleep apnea due to discomfort; previously effective when used. - Weight loss reported of 30 pounds; uses continuous glucose monitoring for diabetes management. Review of Systems - Musculoskeletal: Reports persistent pain in the upper left leg. - Respiratory: Reports previous CPAP use, ceased due to discomfort associated with asthma. - Nervous System: Denies any other neurological symptoms apart from fatigue. - General: Reports fatigue, mainly in the afternoons. - Endocrine: Improved glycemic control noted with recent lab results. Physical Exam General: Cooperative and healthy appearing Nutritional Appearance: Well nourished Orientation/consciousness: Patient oriented x3 Limitations: No limitations Head: Normal to inspection General: Appearance normal, both eyes and all related structures Neck: Normal visual inspection Chest: Normal palpation of entire chest wall Respiratory: Asthma noted, patient not using CPAP due to discomfort. ormal respiratory effort Neurology: Patient oriented x3, reports persistent pain in the upper rear of the left leg from the knee up, worsened by standing still for long periods. Results - Labs: Recent blood work indicates improvement in A1c levels. Plan I will provide a prescription for physical therapy to manage the patient's persistent leg pain effectively, recognizing his previous positive response. Encouragement was given to resume CPAP usage despite asthma-related discomfort to assess any improvements in the patient's sleep apnea symptoms. The refills for albuterol, Lipitor, and lisinopril will be processed, and I will ensure the recent blood work is evaluated for diabetic control, leveraging the patient's use of the Sherrell 3 for monitoring. I will also continue to support care management and coordination concerning his 's hospice care needs. Patient was informed and verbally consented to the use of an ambient scribe for clinic note documentation during this visit. Discussion Notes During our discussion, I emphasized resuming physical therapy to address leg pain, as the patient previously benefited from these sessions. I recommended retrying the CPAP machine to potentially alleviate sleep apnea symptoms, especially with the associated benefits that may accompany his recent weight loss. Medication refills were organized for albuterol, Lipitor, and lisinopril, ensuring continuity in managing asthma, hyperlipidemia, and hypertension. Recent blood work improvements were noted, and continuous glucose monitoring was encouraged for optimal diabetes management. We also discussed the logistics and emotional aspects of his 's hospice care. Patient Instructions - Continue with a prescribed course of physical therapy for leg pain. - Restart CPAP machine usage and monitor any changes in sleep quality. - Use the prescribed medications: albuterol, Lipitor, and lisinopril, as directed. - Monitor blood sugar levels with the Sherrell 3 and report any significant changes. - Continue supporting and visiting your in hospice care. - Attend [facility] in [place] for physical therapy; they will contact you to arrange appointments. Orders: Orders PT Evaluation and Treatment 03/22/25 M54.50 - Low back pain, unspecified Medications: New lisinopril 10 mg PO DAILY 90 tabs 1RF Refilled albuterol sulfate 90 mcg/actuation 2 puffs inhalation Q4H PRN 8.5 grams 3RF Shortness Of Breath atorvastatin 20 mg PO DAILY 90 tabs 3RF
--- OUTSIDE RECORDS SUMMARY | 2025-03-22 13:18 | XMS_ITS ---
Author Organization [facility] Address [address] [place] [address] Care Team Providers Care Regional Clinical Research Associate Name Role Phone Ezra To MD Primary Care Provider Juan A Goodman [phone] REASON FOR VISIT colon screening Encounters Encounter Location Date Provider Diagnosis [facility] [place] [address] [place] [phone] 08/12/2024 Juan A Diallo Plan Of Treatment No Information Progress Notes * SERG AGEE JrDOB:[birth year] (74 yo M)Acc No.[id number]:08/12/2024 COLON WITH MAC Patient:?EYALNarciso SERG Calderón Provider:?Juan A Diallo MD :1950???Age:74 Y???Sex:Male Jose e:08/12/2024 Address:[address] [place], [place] [address] Pcp:Ezra To MD Subjective: * Chief Complaints: * ???1. Colon screening. * Medical History:? Objective: * Vitals:? Assessment: Plan: * Treatment: * * The named appointment provid er may or may not be the originator of this progress note, and it is not deemed complete until electronically signed by the appointment provider. Sign off status: Pending * Provider:?Juan A Diallo MD Date:? 024 Generated for Printi ng/Faledag/eTransmitting on:?03/22/2025 01:18 PM EDT
--- OUTSIDE RECORDS SUMMARY | 2025-03-22 13:18 | XMS_ITS | Patient Health Record ---
Author Organization [facility] Address [address] [place] [address] Care Team Providers Care Legal Coordinator Name Role Phone Ezra To MD Primary Care Provider Juan A Goodman Unavailable [phone] Allergies No Known Allergies Results Component Value Reference Range Notes Glucose, Whole Blood Reviewed date:10/18/2024 12:12:48 AM Interpretation: Performing Lab:[facility], [address] [place] [id number] Notes/Report: Glucose, Whole Blood 144 60-115 mg/dL METER # : [id number] Reason For Referral No Information Medications Medication SIG (Take, Route, Frequency, Duration) Notes Start Date End Date Status Tyrosine Active Vitamin D3 Maximum Strength 5000 UNIT 1 capsule Orally 3 x a week Active metFORMIN HCl 500 MG 1 tablet with a long l Orally Once a day Active Multivitamin Active Aspir-81 81 MG 1 tablet Orally Once a day Active Folic Acid Active Probiotic - Orally Active Iron (Ferrous Sulfate) Active Potassium Chloride A ctive Chlorthalidone 25 MG Oral for 90 Active Lipitor 20 MG 1 tablet Orally Once a day Active Vitamin C 500 MG as directed Orally Active Albuterol prn Active Lisinopril 10 MG 1 tablet Orally Once a day Active Omeprazole 20 MG 1 capsule 30 minutes before morning meal Orally Once a day for 30 day(s) Active Tamsulosin HCl 0.4 MG 1 capsule Orally t wice a day Active Problems Problem Type SNOMED Code ICD Code Onset Dates Problem Status W/U Status Risk Notes Problem 338885782 Encounter for screening for malignant neoplasm of colon (Z12.11) Active confirmed Problem 996399959 History of adenomatous polyp of colon (Z86.010) Active confirmed Problem Diverticular disease of colon (175926410) Diverticulosis of large intestine without perforation or abscess without bleeding (K57.30) Active confirmed Problem Gastroesophageal reflux disease (594457060) GERD (gastroesophageal reflux disease) (K21.9) Active confirmed Problem 723268699344131 Pre-procedural examination (Z01.818) Active confirmed Problem 809502936139911 Encounter for long-term (current) aspirin use (Z79.82) Active confirmed Encounters Encounter Location Date Provider Diagnosis [facility] [place] [facility] [address], [place] [phone] 10/17/2024 uJan A Diallo Colon cancer screeni ng Z12.11 ; Personal history of colonic polyps Z86.0100 ; Diverticulosis of large intestine without perforation or abscess without bleeding K57.30 and Other hemorrhoids K64.8 [facility] [address] [place] [address] 04/11/2024 Juan A Diallo Assessments Encounter Date Diagnosis (ICD Code) Assessment Notes Treatment Notes Treatment Clinical Notes Section Notes 10/17/2024 Colon cancer screening (ICD-10 - Z12.11) 10/17/2024 Personal history of colonic polyps (ICD-10 - Z86.0100) 10/17/2024 Diverticulosis of large intestine without perforation or abscess without bleeding (ICD-10 - K57.30) 10/17/2024 Other hemorrhoids (ICD-10 - K64.8) Plan Of Treatment Future Test Test Name Order Date COLONOSCOPY 01/11/2015 COLONOSCOPY 07/29/2018 COLONOSCOPY 02/11/2024 Insurance Providers Payer Name Payer Address Payer Phone Subscriber Number Group Number Insured Name Patient Relationship to Insured Coverage Start Date Coverage End Date [employer] ([employer]) [address] [place] [address] [id number] SERG AGEE Self - patient is the insured Medical (General) History Medical History History ICD Code Pancreatitis-hospitalized fo r several days in 2005-this was felt to be related to EtOH--he did have a negative MRI of the abdomen and pancreas, including a MRCP in 2008 NIDDM Hypertension Elevated Cholesterol Sleep apnea-uses CPAP Denies MS,CVA,renal disease Asthma - mild-inhaler as needed Colonoscopy in 08/2004-hyper plastic polyp,sigmoid diverticulosis, internal hemorrhoids 3rd degree heart block with a pacemaker in 06/2018--had a neg ETT after that Colonoscopy in 02/2015 with a flat 10mm t ubular adenoma removed Colonoscopy 09/2018 with a small tubular adenoma removed GERD BPH Surgical History Surgery Date(Month/Year) Tonsillectomy and adenoidectomy Cholecystectomy Rectal absess Pacemeker 06/2018 Left total hip replacement 2020 Planning Aqua Ablation of prostate at [facility] as of the 01/2024 OV
--- OUTSIDE RECORDS SUMMARY | 2025-03-22 13:18 | XMS_ITS ---
Author Organization [facility] Address [address] [place] [address] Care Team Providers Care Poultry Picking Machine Tender Name Role Phone Ezra To MD Primary Care Provider Juan A Goodman [phone] REASON FOR VISIT screening,hx polyps Encounters Encounter Location Date Provider Diagnosis [facility] [place] [address] [place] [phone] 2024 Juan A Diallo Plan Of Treatment No Information Progress Notes * SERG AGEE JrDOB:[birth year] (74 yo M)Acc No.[id number]:2024 COLON WITH MAC Patient:?SERG AGEE Jr Provider:?Juan A Diallo MD :1950???Age:74 Y???Sex:Male Jose e:2024 Address:[address] [facility] Pcp:Ezra To MD Subjective: * Chief Complaints: * ???1. Screening,hx polyps. * Medical History:? Objective: * Vitals:? Assessment: Plan: * Treatment: * * The named appointment provid er may or may not be the originator of this progress note, and it is not deemed complete until electronically signed by the appointment provider. Sign off status: Pending * Provider:?Juan A Diallo MD Date:? 024 Generated for Eladia gee/Linda/eTransmitting on:?03/22/2025 01:18 PM EDT
--- OUTSIDE RECORDS SUMMARY | 2025-03-22 13:18 | XMS_ITS ---
Author Organization [facility] Address [address] [place] [address] Care Team Providers Care Employment Office Clerk Name Role Phone Ezra To MD Primary Care Provider Juan A Goodman Unavailable [phone] REASON FOR VISIT screening colon Problems Problem Type SNOMED Code ICD Code Onset Dates Problem Status W/U Status Risk Notes Problem Diverticular disease of colon (368638328) Diverticulosis of large intestine without perforation or abscess without bleeding (K57.30) Active confirmed Encounters Encounter Location Date Provider [place] [facility] [place] [address] [place] [phone] 10/17/2024 Juan A Diallo Colon cancer scree [...] * SERG AGEE JrDOB:[birth year] (74 yo M)Acc No.[id number]:10/17/2024 COLON WITH MAC Patient:?SERG AGEE Jr Provider:?Juan A Diallo MD :1950???Age:74 Y???Sex:Male Jose e:10/17/2024 Address:[address] [place], [place] [address] Pcp:Ezra To MD Subjective: * Chief Complaints: * ???1. Screening colon. * Medical History:? Objective: * Vitals:? Assessment: * Assessment: 1.?Colon cancer screening - Z12.11 (Primary)???2.?Personal history of colonic polyps - Z86.0100???3.?Diverticulosis of large intestine without perforation or abscess without bleeding - K57.30???4.?Other hemorrhoids - K64.8??? Plan: * Treatment: * Procedure Codes:?87740 DIAGN OSTIC COLONOSCOPY * * The named appointment provid er may or may not be the originator of this progress note, and it is not deemed complete until electronically signed by the appointment provider. Sign off status: Pending * Provider:?Juan A Diallo MD Date:? 024 Generated for Eladia gee/Linda/eTransmitting on:?03/22/2025 01:18 PM EDT
== END 2025-03-22 11:43 | disposition home or self-care (01) ==
LOC: HO.HMCHD 11:01
PROVIDERS: PCP Internal Medicine; Visit Provider Internal Medicine
DX: M54.50 Low back pain, unspecified (principal); G70.00 Myasthenia gravis without (acute) exacerbation; I10 Essential (primary) hypertension; I48.0 Paroxysmal atrial fibrillation; Z00.00 Encounter for general adult medical examination without abnormal findings

== ENCOUNTER → 2025-03-22 11:00 | Outpatient (BNVA) | payer OTHER, SELFPAY | PROVIDERS: PCP Internal Medicine; Visit Provider Internal Medicine ==

== ENCOUNTER 2025-03-27 09:41 | Outpatient (AMB) | payer OTHER, SELFPAY ==
[2025-03-27 09:45] VITALS: BP 122/74; PULSE 78; BMI 38.7
--- NOTE | 2025-03-27 09:45 | A.OFFVIS_ITS ---
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 Required: No Allergies cat dander Allergy (Intermediate, Verified 03/22/25 11:03) ASTHMA Medication List - Last Reconciled 03/27/25 by Oral Lowe MD albuterol sulfate 90 mcg/actuation 2 puffs inhalation Q4H PRN amino acids caps PO ascorbic acid (vitamin C) (Vitamin C) 500 mg PO DAILY aspirin 81 mg PO DAILY atorvastatin 20 mg PO DAILY chlorthalidone 25 mg PO DAILY cholecalciferol (vitamin D3) 125 mcg PO DAILY ferrous sulfate 325 mg PO DAILY folic acid 1 mg PO DAILY ibuprofen 600 mg PO QID PRN lisinopril 10 mg PO DAILY metformin ER 500 mg PO DAILY metoprolol succinate ER 25 mg PO DAILY multivitamin 1 tab PO DAILY omeprazole magnesium (Prilosec OTC) 20 mg PO DAILY phosphatidylserine 400 mg PO DAILY [potassium chloride 99 mg PO DAILY] [Probiotic 1 cap PO DAILY] HPI Comments Details: Candido comes for follow-up. He said he was not less stress as his is currently in his retirement facility for Alzheimer's. He complains of erectile dysfunction. He denies any other cardiac symptoms. No shortness of br eath, orthopnea, PND, leg edema, abdominal distension. Takes all his medications. No prolonged palpitation irregular heartbeat. No lightheadedness, syncope. No exertional chest pain. [facility] Medical History BPH (benign prostatic hyperplasia) Hx of pancreatitis Osteoarthritis Mild heartburn Asthma Obstructive sleep apnea Diabetes mellitus HTN (hypertension) Cardiac pacemaker in situ Paroxysmal atrial fibrillation Complete heart block Surgical History History of prostate surgery History of total hip replacement H/O right inguinal hernia repair (05/29/21) Hx of colonoscopy (~10/17/24) Hx of tonsillectomy History of permanent cardiac pacemaker placement Hx laparoscopic cholecystectomy Family History Father Myocardial infarct Mother No problems noted. 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 () Do you presently have visiting nurse or other home services: No Comment: medicated in pacu Patient Tobacco Use Status: Former Tobacco user Tobacco use type: Cigarette e-Cigarette/Vaping Use: Former Use Advance Directives Date on File: 04/26/21 service: Yes Current occupational status: retired Cognitive needs: No Hearing needs: Yes (bilateral hearing aids) Vision needs: Yes (rx glasses) Review of Systems Const Denies chills, Denies fatigue, Denies fever(s), Denies frequent falls, Denies weakness, Denies weight gain and Denies weight loss ENT Denies dizziness Card Denies chest pain, Denies leg edema, Denies lightheadedness, Denies palpitations, Denies dyspnea, Denies dyspnea on exertion, Denies orthopnea and Denies other (loss of consciousness) Resp Denies cough, Denies dyspnea and Denies dyspnea on exertion GI Denies hematochezia and Denies change in stool character Musc Denies abnormal gait, Denies muscle weakness, Denies numbness, Denies radiating pain into limb and Denies tingling Neuro Denies abnormal gait, Denies dizziness, Denies frequent falls, Denies numbness, Denies tingling and Denies weakness Endo Denies fatigue and Denies palpitations Physical Exam Vital Signs: Last Vital Signs Pulse 78 03/27/25 09:45 BP 122/74 03/27/25 09:45 BMI result Body Mass Index 38.7 Const General: cooperative, comfortable and no acute distress Nutritional Appearance: obese Orientation/consciousness: patient oriented x3 HEENT Head: Yes normal to inspection Neck Neck: Yes normal visual inspection and Yes no JVD Resp Effort & Inspection: normal respiratory effort Auscultation: clear to auscultation bilaterally, no crackles, no rales, no rhonchi and no wheezes Cardio Jugular venous distension: no JVD Rate: regular rate Rhythm: regular rhythm Heart sounds: S1 normal heart sound present, S2 normal heart sound present, no gallops, no murmurs and no rubs GI Inspection: Yes normal to inspection Neuro General: patient oriented x3 Extrem General: Yes normal to inspection, No calf tenderness and Yes edema (bilateral lower leg, pitting) Office Procedures Cardiac Device Check Cardiac Device Check Details: Dual-chamber [employer] pacemaker in place. Programmed in DDDR at 60 beats per minute. Minimal atrial pacing. Ventricularly pacer dependent. Atrial ventricular pacing thresholds excellent. Atrial ventricular pacing lead impedance stable. Atrial sensing is excellent. Battery life is at 2.7 years [id number] Cardiac Device Check, pacemaker dual lead Procedure code (CPT) selection complete EKG Details: EKG shows normal sinus rhythm with ventricular pacing [id number], Complete Assessment & Plan Assessment & Plan (1) Cardiomyopathy: Code(s): I42.9 - Cardiomyopathy, unspecified Category: Medical Plan: Cardiomyopathy process without any signs or symptoms of heart failure. Continue neurohormonal modulation with metoprolol and lisinopril therapy at this point time. Most likely related to RV pacing. Will continue monitor by echocardiogram on annual basis. Signs and symptoms of heart failure were discussed with him. He understands agrees. He wishes to utilize therapy for erectile dysfunction which is okay from my perspective. (2) Cardiac pacemaker in situ: Comment: Dual-chamber [employer] pacemaker placed for complete heart block, 2018-follows w/HCS Code(s): Z95.0 - Presence of cardiac pacemaker Category: Medical Plan: Cardiac pacemaker in-situ for complete heart block. Pacemaker is working well. Reprogrammed for adequate function. Will follow remotely every 3 months. Follow up in the clinic in 6 months time. (3) Paroxysmal atrial fibrillation: Comment: ~ 8 sec noted on pacer interr, no anticoag per cardiology Code(s): I48.0 - Paroxysmal atrial fibrillation Category: Medical Plan: Paroxysmal atrial fibrillation with last 6 months of pacer telemetry not showing any episodes of atrial fibrillation. No indication for antiarrhythmic drug therapy. Symptoms associated with atrial fibrillation was discussed. Will follow up in the clinic in 6 months time after an echocardiogram. Thank you for allowing me to partake in his care Orders: Orders CA echo transthorac w con 6 Months I42.9 - Cardiomyopathy, unspecified Coding Level of Care Code Est Pt Level 4 (39693) Complex EM visit Add On G2211 Diagnoses Cardiomyopathy I42.9 Cardiac pacemaker in situ Z95.0 Paroxysmal atrial fibrillation I48.0 CPT Codes Cardiac Device Check - Cardiac Device 2: [id number] Cardiac Device Check, pacemaker dual lead ([id number]) EKG - CPT: 57552-[id number], Complete ([id number])
--- OUTSIDE RECORDS SUMMARY | 2025-03-27 10:53 | XMS_ITS | Encounter Summary ---
Author Organization [facility] Address [address] [place] [address] [place] [id number] Phone Care Team Providers Care Egg Breaker Name Role Phone Ezra To MD Primary Care Provider Brandon Hernandez MD Unavailable [phone] Ezra To MD Unavailable [phone] Lucinda Ramos Unavailable Encounter Details Date Type Department Care Team (Late st Contact Info) Description 09/04/2021 Procedure Pass [place] Admitting Dept - Virtual Department [address] [place] [address] [id number] Social History Tobacco Use Types Packs/Day Years Used Date Smoking Tobacco: Former Cigarettes 1 11 0 07/23/1966 - 07/23/1977 Smokeless Tobacco: Never Alcohol Use Standard Drinks/Week Comments Never 0 (1 standard drink = 0.6 oz pur e alcohol) Sex and Gender Information Value Date Recorded Sex Assigned at Male 04/28/2021 7:04 AM EDT Gender Identity Male 04/28/2021 7:03 AM EDT Sexual Orientation Straight 04/28/2021 7: 03 AM EDT documented as of this encounter Plan of Treatment Not on file documented as of this encounter Visit Diagnoses Not on filedocumented in this encounter Care Teams Egg Breaker Relationship Specialty Start Date End Date Ezra To MD [address] [place] [address] [place] [address] PCP - General 09/17/17 Brandon Hernandez MD [address] [place] [address] Historical LMR Provider 09/17/17 Ezra To MD [address] [place] [id number] Historical LMR Provider 09/17/17 [address] [place] [address] [place] [id number] [email or web address] Physician Supervisor Gas Meter Repair 01/02/25 documented as of this encounter Additional Source Comments The information contained in this document represents components of the legal health record. It is not the complete legal health record.[facility]
--- OUTSIDE RECORDS SUMMARY | 2025-03-27 10:53 | XMS_ITS | Clinical Summary ---
Author Organization [facility] Address [address] [facility] [address] [place] [address] Phone Care Team Providers Care Upper Cutter Machine Name Role Phone Ezra To MD Primary Care Provider Lucinda Ramos Unavailable Allergies No known active allergies Medications Medication Sig Dispensed Refills Start Date End Date Status ascorbic acid, vitamin C, 500 mg Cap Active atorvastatin (LIPITOR) 20 MG tablet 1 tablet Active cholecalciferol (VITAMIN D3) 2,000 unit tablet 5,000 Units daily. Activ e Lactobacillus acidophilus (PROBIOTIC) 10 billion cell Cap Active lisinopril (PRINIVIL,ZESTRIL) 5 MG tablet 10 mg. Active metFORMIN (GLUCOPHAGE-XR) 500 MG 24 hr tablet Take 500 mg by mouth daily with breakfast. Active tamsulosin (FLOMAX) 0.4 mg Cap Take 0.4 mg by mouth 2 (two) times a day. Active albuterol 90 mcg/actuation inhaler Inhale 2 puffs into the lungs every 6 (six) hours as needed for wheezing. Active multivitamin-minera ls-lutein (CENTRUM SILVER) Tab Take 1 tablet by mouth daily. Active folic acid (FOLVITE) 1 MG tablet Take 1 mg by mouth daily. Active Medication-Free Text Takes Potassium Supplement, 3 tablets per week (days of the week can vary) Patient reports it is a supplement that is 99mg per tablet. Active acetaminophen (TYLENOL) 325 mg tablet Take 3 tablets (975 mg total) by mouth every 8 (eight) hours. This is to help with pain control. Take as scheduled for 2 weeks, then only as needed 100 tablet 09/06/2021 Active chlorthalidone (HYGROTON) 25 MG tablet Take 25 mg by mouth daily. 09/13/2021 Active psyllium (METAMUCIL) Powd Take by mouth. Acti ve omeprazole (PRILOSEC) 20 mg TbEC Take 20 mg by mouth daily before breakfast. Active ferrous sulfate 324 mg (65 mg [place] iron) TbEC Take 324 mg by mouth daily with breakfast. Active aspirin 81 MG EC tablet Take 81 mg by mouth daily. Active docusate sodium (COLACE) 50 MG capsule Take 100 mg by mouth 2 (two) times a day as needed for mild constipation. Active docusate sodium (COLACE) 100 MG capsule Take 1 capsule (100 mg total) by mouth 2 (two) times a day. 04/09/2024 Active clobetasol (TEMOVATE) 0.05 % cream PLEASE SEE ATTACHED FOR DETAILED DIRECTIONS 01/30/2025 Active metoprolol succinate (TOPROL-XL) 25 MG 24 hr tablet Take 1 tablet by mouth every morning. 01/27/2025 Active lisinopril (PRINIVIL,ZESTRIL) 10 MG tablet Take 10 mg by mouth daily. 02/15/2025 Active Hospital, Clinic, or Other Facility Administered Medication Ordered Dose Route Frequency Start Date End Date Status doxycycline monohydrate (MONODOX) capsule 200 mgIndications:Tick bite of left forearm, initial encounter 200 mg Oral Once 03/14/2025 03/14/2025 Ended Active Problems Problem Noted Date Diagnosed Date BPH with obstruction/lower urinary tract symptom s 04/08/2024 Assessment & Plan (04/08/2024 11:59 AM EDT): Patient presented for elective aqua ablation with urology. Pt with nocturia, frequency, urgency for the past few years. On 04/08/2024 pt underwent ROBOTIC AQUABLATION with Dr. Puentes - Reportedly the procedure was uncomplicated, pt was ordered for TXA post operatively. - Pt is awake and alert postprocedure, pain well-controlled. -Plan to admit to medicine overnight for monitoring. -Three-way Aguilar catheter in place with plan for CBI overnight. Titrate speed of CBI for urine in drainage bag to be light pink to yellow. -Hand irrigate the catheter with any signs or symptoms of obstruction. -Analgesia PRN -Antiemetic available if needed -Patient likely to be discharged in the morning with Aguilar catheter in place, with outpatient follow-up in the urology office for voiding trial. -Urology to follow. Osteoarthritis 09/05/2021 Assessment & Plan (09/06/2021 7:57 AM EDT): Highly motivated to continue with weight loss. 30 pounds of weight loss successful prior to the procedure. Pain currently well controlled. Status post total hip replacement, left 09/04/20 Assessment & Plan (09/06/2021 7:56 AM EDT): Post left total hip replacement with Dr. Thibodeaux. Management per orthopedic surgery. Essential hypertension 07/23/2021 Assessment & Plan (04/08/2024 11:57 AM EDT): Continue home chlorthalidone and lisinopril Assessment & Plan (07/23/2021 11:29 AM EDT): His blood pressure is under excellent control. He should hold his lisinopril and hydrochlorothiazide on the day of surgery. It should be restarted based on his blood pressure and fluid status the following day. Obstructive sleep apnea syndrome 07/23/2021 Assessment & Plan (07/23/2021 11:31 AM EDT): As noted above the patient should bring his CPAP to be used in the PACU and on the floors. Mild intermittent asthma without complication Assessment & Plan (04/08/2024 11:58 AM EDT): Not in acute exacerbation, no wheezing, non hypoxic on room air. - Albuterol PRN Assessment & Plan (07/23/2021 11:46 AM EDT): Patient describes mild intermittent asthma. On good weeks he will use his inhaler 1-2 times. He does note that when he is stressed, or when there are certain environmental stimulants he will have more need for albuterol so will need to watch him for this Class 3 severe obesity due t o excess calories with serious comorbidity and body mass index (BMI) of 40.0 to 44.9 in adult 04/30/2021 Assessment & Plan (07/23/2021 11:30 AM EDT): The patient is congratulated on his efforts. He has recently lost 30 pounds and is continuing to do so with dietary restriction. His goal weight for surgery is 260 pounds. At home he is weighing 258. He should continue his efforts and will likely not be at goal for this procedure. Type 2 diabetes mellitus wit hout complication, without long-term current use of insulin 04/30/2021 Assessment & Plan (04/08/2024 11:59 AM EDT): Pt on 500 mg XR metformin at home - Check A1C - SS insulin AC HS while inpatient, titrate as needed Assessment & Plan (09/06/2021 9:22 AM EDT): Patient with ~25 year history of diet-controlled NIDDM II, recent Hgb a1c 6.5% (June this year). Postoperative blood sugars were high this morning, 178-182. He has been on the low dose insulin sliding scale, needing just 3 units over the past 24 hours. I did increase the scale to moderate dosing today, and add a small amount of mealtime insulin 2 units with meals 3 times daily. Now with good understanding of the need to maintain blood glucose less than 180 for adequate wound healing. Highly motivated to be compliant with this number. Will discuss carb limit with the nutrition team to see if this can be adjusted downward. Patient limits himself to just 25 carbs/day at home. Recommend continuing insulin sliding scale for now, with mealtime insulin, which can be continued at STR. Adjustments as needed to dosing. When he returns home he can resume his home regimen with Metformin and close glucose monitoring. Medicine team to sign off. Please reconsult if further questions arise. Assessment & Plan (07/23/2021 11:30 AM EDT): The patient has been working very hard at weight loss to have the surgery. His hemoglobin A1c is 6.5, it had been trending upward to 7 prior to the recent weight loss. He is only maintained on Metformin 500 mg XR once daily. He should have basal bolus insulin during the hospital stay for tight glycemic control. The hospitalist can be consulted for management of this. Resolved Problems Problem Noted Date Diagnosed Date Resolved Date Preop examination 07/23/2021 09/06/2021 Assessment & Plan (07/23/2021 11:36 AM EDT): This is a 71-year-old patient of Dr. To and Dr. Thibodeaux with planned left hip replacement on September 04. His risk factors for the intended procedure are as follows. The patient has known sleep apnea and uses CPAP. He should bring that with him to the hospital his Nunez cardiovascular risk score is 0.7%. This is congruent with the NSQIP score of 0.5% risk of cardiovascular event. His RCRI score is 0.4% which is considered a very low risk score on this scale. The patient has had a nuclear stress test last week at the [facility] which she will obtain. There should be a baseline EKG as well. According to the patient he passed this well. No further work-up is required prior to this surgery assuming that the test is unremarkable. For completeness we can get his echocardiogram from last year as well. He should have standard DVT prophylaxis and standard antibiotic prophylaxis for this procedure. He does note that under times of stress his asthma can sometimes be more active so we will need to watch for that and treat aggressively with albuterol. 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 His son will be at the house during the perioperative period and the patient would prefer to go to short-term rehab if possible. Other than holding his blood pressure medications as below, he should also hold his aspirin 1 week prior to surgery. He will also stop taking 2 NSAIDs, he is currently taking Motrin 2400 mg daily and Aleve 440 to 880 milligrams daily. He is to choose which either of the 2 he finds most effective and discontinue the other 1 immediately. He should substitute Tylenol in for pain control. Primary osteoarthritis of left hip 04/30/2021 09/06/2021 Encounters Date Type Department Care Team Description 03/14/2025 2:50 PM EDT Office Visit [facility] at [address] [place] [address] Radha Landon PA-C Tick bite of left forearm, initial encounter (Primary Dx) 02/22/2025 9:00 AM EDT Office Visit [facility] [address] [place] [address] Lucinda Ramos PA Wolk, Yessy Shelli, PT Urinary incontinence, mixed (Primary Dx) 02/15/2025 9:00 AM EDT Office Visit [address] [address] Lucinda Ramos PA Tania, Yessy Shelli, PT Urinary incontinence, mixed (Primary Dx) 01/30/2025 12:00 PM EST Office Visit [address] [address] Lucinda Ramos PA Wolk, Yessy Shelli, PT Urinary incontinence, mixed (Primary Dx) 01/23/2025 12:00 PM EST Office Visit [address] [address] Lucinda Ramos PA Tania, Yessy Shelli, PT Urinary incontinence, mixed (Primary Dx) 01/09/2025 12:00 PM EST Office Visit [address] [address] Lucinda Ramos PA Wolk, Yessy Shelli, PT Urinary incontinence, mixed (Primary Dx) 01/02/2025 12:00 PM EST Office Visit [address] [address] Lucinda Ramos PA Wolk, Yessy Shelli, PT Urinary incontinence, mixed (Primary Dx) 01/02/2025 Transcribe Orders [address] [id number] Lucinda Ramos PA Encounter for rehabilitation (Primary Dx) from Last 3 Months Immunizations Name Administration Dates Next Due Influenza High-Dose Quadrivalent Preservative Fr ee IM 09/06/2021 Family History Medical History Relation Comments No Known Problems Brother No Known Problems Daughter Coronary artery disease Father Dementia Mother Colon polyps Sister No Known Problems Son Relation Status Comments Brother Alive Daughter Alive Father Mother Sister Alive Son Alive Social History Tobacco Use Types Packs/Day Years Used Date Smoking Tobacco: Former Cigarettes 1 11 0 07/23/1966 - 07/23/1977 Smokeless Tobacco: Never Alcohol Use Standard Drinks/Week Comments Never 0 (1 standard drink = 0.6 oz pur e alcohol) Education Answer Date Recorded Are you interested in more education? Not on rosie e 03/27/2023 Are you concerned about learning? Not on file 03/27/2023 No 03/27/2023 No 03/27/2023 Food Answer Date Recorded Within the past 6 months we worried whether our food would run out before we got money to buy more. Never True 04/08/2024 Within the past 6 months the food we bought just didn't last and we didn't have enough money to get more. Never True Residential Stability Answer Date Recor ded What is your housing situation today? I have kaylie sing 04/08/2024 How many times have you move d in the past 12 months? Zero (I did not move) 04/08/2024 Paying for Meds Answer Date Recorded Do you have trouble paying for medicines? No 04/08/2024 Paying Utility Bills Answer Date Record ed Do you have trouble paying your heating or elect ricity bill? No 04/08/2024 Transportation Answer Date Recorded Has the lack of transportati on kept you from medical appointments or from getting medications? No 04/08/2024 Digital Access Answer Date Recorded No 04/08/2024 Yes 04/08/2024 Do you have reliable internet access at home? Ye s 04/08/2024 Do you have a device (e.g., phone, tablet, computer) with a working camera? Yes 04/08/2024 Intimate Partner Violence Answer Date R ecorded Are you denied basic needs s uch as food, clothing, or medical care? No 04/08/2024 In the past 12 months have y ou been in a relationship with a person who hurts, threatens, or tries to control you? No 04/08/2024 Are you denied basic needs s uch as food, clothing, or medical care? No 04/08/2024 In the past 12 months have y ou been in a relationship with a person who hurts, threatens, or tries to control you? No 04/08/2024 Sex and Gender Information Value Date Recorded Sex Assigned at Male 04/28/2021 7:04 AM EDT Gender Identity Male 04/28/2021 7:03 AM EDT Sexual Orientation Straight 04/28/2021 7: 03 AM EDT Last Filed Vital Signs Vital Sign Reading Time Taken Comments Blood Pressure 126/81 03/14/2025 3:10 PM EDT Pulse 81 03/14/2025 3:10 PM EDT Temperature 36.4 ??C (97.5 ??F) 03/14/2025 3:10 PM ED T Respiratory Rate 20 03/14/2025 3:10 PM EDT Oxygen Saturation 98% 03/14/2025 3:10 PM EDT Inhaled Oxygen Concentration - - Weight 114.3 kg (252 lb) 03/14/2025 3:10 PM EDT Height 175.3 cm (5' 9 ) 03/14/2025 3:10 PM EDT Body Mass Index 37.21 03/14/2025 3:10 PM EDT Plan of Treatment Health Maintenance Due Date Last Done Comments Adult Td,Tdap Booster 1950 DEPRESSION SCREENING 1961 HEPATITIS C SCREENING 1967 COLOGUARD 1994 COLONOSCOPY 1994 COLORECTAL CANCER SCREENING 1994 FIT TEST 1994 FOBT 1994 SIGMOIDOSCOPY 1994 VIRTUAL COLONOSCOPY 1994 PNEUMOCOCCAL VACCINES (50+ years) (2 of 2 - PPSV23) 05/12/2018 03/17/2018 DIABETIC EYE EXAM 04/30/2021 HEMOGLOBIN A1C 10/09/2024 04/08/2024, 07/15/2021 CREATININE LEVEL 04/09/2025 04/09/2024, 08/2024, 09/06/2021, Additional history exists POTASSIUM LEVEL 04/09/2025 04/09/2024, 03/30, 09/06/2021, Additional history exists BLOOD PRESSURE 09/13/2025 03/14/2025 ZOSTER VACCINES Completed 08/12/2018, 05/19/2018 RSV VACCINE Completed 06/13/2024 COVID-19 VACCINE Completed 08/16/2024, , 08/31/2023, Additional history exists SMOKING STATUS SCREENING (Once After 26 Yrs) Completed 01/02/2025 HEPATITIS A VACCINES Aged Out No long er eligible based on patient's age to complete this topic HIB VACCINES Aged Out No longer eligi ble based on patient's age to complete this topic MENINGOCOCCAL VACCINES (ACWY) Aged Out No longer eligible based on patient's age to complete this topic Medical Devices Implanted Type Area Ancient Art Curator Device Identifier Shelf Expiration Date Model / Serial / Lot Lens Lens Bilatera l: Eye Pacemaker Pacemaker Chest Echo Bi-Metric Hip System Laterialized Femoral Stem Implanted:Qty: 1 on 09/04/2021 by Chris Thibodeaux MD at [facility] Prosthetic Joint Left: Hip [employer] 10/22/2025 [id number] / / [id number] Description:Reduced Proximal Profile Porous Plasma/Uncemented Acetabular Shell 56mm Size F G7 Porous Plasma [place] [employer] Hole - [id number] Implanted:Qty: 1 on 09/04/2021 by Chris Thibodeaux MD at [facility] Left: Hip [employer] 04/20/2031 [id number] / / [id number] Screw Bone 6.5x30mm Hip Dome G7 Acetabular Low Profile - [id number] Implanted:Qty: 1 on 09/04/2021 by Chris Thibodeaux MD at [facility] Left: Hip [employer] 05/27/2031 [id number] / / [id number] Hip Liner 36mm F Acetabular Neutral G7 Longevity - [id number] Implanted:Qty: 1 on 09/04/2021 by Chris Thibodeaux MD at [facility] Left: Hip [employer] / DIV [employer] 11/20/2025 [id number] / / [id number] Hip Head 1 36mm Minus 3 Implant Femoral Hd Modular [place] 05 - [id number] Implanted:Qty: 1 on 09/04/2021 by Chris Thibodeaux MD at [facility] Left: Hip [employer] 06/20/2031 [id number] / / [id number] Procedures Procedure Name Priority Date/Time Associated Diagnosis Comments AMB REFERRAL TO [facility] PHYSICAL THERAPY Routine 01/02/2025 1:14 PM EST Encounter for rehabilitation BASIC METABOLIC PANEL Routine 04/09/2024 5:52 AM EDT HEMOGLOBIN A1C STAT 04/08/2024 12:02 PM EDT from Last 3 Months or Most Recently Relevant to Health Maintenance Results * Ambulatory referral to [facility] Physical Therapy (01/02/2025 1:14 PM EST) Other Lucinda BROWNING AMB [facility] REFERRALS * (ABNORMAL) Basic metabolic panel (04/09/2024 5:52 AM EDT) SODIUM 134 133 - 146 mmol/L [facility] CHLORIDE 100 96 - 108 mmol/L [facility] POTASSIUM 3.6 3.3 - 5.1 mmol/L [facility] CO2 24 21 - 35 mmol/L [facility] BUN 9 6 - 19 mg/dL [facility] CREATININE 0.60 0.5 - 1.5 mg/dL [facility] GLUCOSE 182(H) 70 - 99 mg/dL [facility] CALCIUM 8.2(L) 8.4 - 10.3 mg/dL [facility] EGFR 101 >59 mL/min/1.7 3m2 [facility] Comment:Estimated glomerular filtration rate calculated using the CKD-EPI refit equation. ANION GAP 14 10 - 20 mmol/L [facility] Blood 04/09/2024 5:52 AM EDT 04/09/2024 6:14 AM EDT Gaby Hahn [employer] [facility] LAB BLOOD ORDERA BLES [facility] [address] [place], [place] [id number] * (ABNORMAL) Hemoglobin A1c (04/08/2024 12:02 PM EDT) HEMOGLOBIN A1C 7.5(H) 4.3 - 5.8 % [facility] Blood 04/08/2024 12:0 2 PM EDT 04/08/2024 12:07 PM EDT Gaby Hahn [employer] LAB BLOOD ORDERA BLES [facility] [address] [place] [address] from Last 3 Months or Most Recently Relevant to Health Maintenance Papirio, Candido Personal/Family Self 1950 [address] [facility] [place] [address] Papirio, Candido Personal/Family Self 1950 [address] [facility] [place] [address] Papirio, Candido Personal/Family Self 1950 [address] [facility] [place] [address] Papirio, Candido Personal/Family Self 1950 [address] [facility] [place] [address] Papirio, Candido Personal/Family Self 1950 [address] [place] [address] Papirio, Candido Personal/Family Self 1950 [address] [facility] [place] [address] Papirio, Candido Personal/Family Self 1950 [address] [facility] [place] [address] Papirio, Candido Personal/Family Self 1950 [address] [place] [address] Advance Directives For more information, please contact: [phone] (9AM - 5PM [facility], Thursday-Thursday) Documents on File Type Date Recorded Patient Agricultural Extension Specialist Expl [email or web address] Proxy 04/15/2024 4:34 PM * Full Code (Latest Code Status on File) Date Activated Date Inactivated Comments 04/08/2024 10:29 AM Question Answer Comments Code Status Confirmed With: Patient * Full Code Date Activated Date Inactivated Comments 09/06/2021 7:40 AM 04/08/2024 10:29 AM Question Answer Comments Code Status Confirmed With: Patient Care Teams Upper Cutter Machine Relationship Specialty Start Date End Date Ezra To MD [address] [place] [address] PCP - General 09/17/17 Lucinda Ramos PA [address] [address] Physician Ships Equipment Engineer 01/02/25 Additional Source Comments The information contained in this document represents components of the legal health record. It is not the complete legal health record.[facility]
--- OUTSIDE RECORDS SUMMARY | 2025-03-27 10:53 | XMS_ITS | Encounter Summary ---
Author Organization [facility] Address [address] [place] [address] [place] [address] Phone Care Team Providers Care Securities Research Analyst Name Role Phone Ezra To MD Primary Care Provider Brandon Hernandez MD Unavailable [phone] Ezra To MD Unavailable [phone] Lucinda Ramos Unavailable Encounter Details Date Type Department Care Team (Latest Contact Info) Description 10/28/2018 Transcribe Orders [facility] [address] [place] [address] James Puentes MD [address] [place] [address], [address] [address] [email or web address] Hyperplasia of prostate with lower urinary tract symptoms (LUTS) (Primary Dx) Social History Tobacco Use Types Packs/Day Years Used Date Smoking Tobacco: Never Assessed Sex and Gender Information Value Date Recorded Sex Assigned at Male 04/28/2021 7:04 AM EDT Gender Identity Male 04/28/2021 7:03 AM EDT Sexual Orientation Straight 04/28/2021 7: 03 AM EDT documented as of this encounter Plan of Treatment Not on file documented as of this encounter Results * PSA (screening) (10/28/2018 10:52 AM EST) PSA 2.56 0 - 4.00 ng/mL [facility] Blood 10/28/2018 10:5 2 AM EST 10/28/2018 10:54 AM EST James Puentes MD LAB BLOOD ORDERABLES [facility] [address] [place] [address] documented in this encounter Visit Diagnoses Diagnosis Hyperplasia of prostate with lower urinary tract symptoms (LUTS)- Primary Unspecified hyperplasia of prostate with urinary obstruction and other lower urinary tract symptoms (LUTS) documented in this encounter Care Teams Securities Research Analyst Relationship Specialty Start Date End Date Ezra To MD [address] [place] [address] [address] [place] [address] PCP - General 09/17/17 Brandon Hernandez MD [address] [place] [address] Historical LMR Provider 09/17/17 Ezra To MD [address] [place] [address] [place] [address] Historical LMR Provider 09/17/17 [address] [place] [address] [place] [address] [email or web address] Physician Mirror Finishing Machine Operator 01/02/25 documented as of this encounter Additional Source Comments The information contained in this document represents components of the legal health record. It is not the complete legal health record.[facility]
--- OUTSIDE RECORDS SUMMARY | 2025-03-27 10:53 | XMS_ITS | Encounter Summary ---
Author Organization [facility] Address [address] [facility] [address] [place] [address] Phone Care Team Providers Care Incubator Tender Name Role Phone Ezra To MD Primary Care Provider Lucinda Ramos Unavailable Encounter Details Date Type Department Care Team (Late st Contact Info) Description 04/08/2024 Procedure Pass OR Admitting Dept - Virtual Department [address] [place] [address] Social History Tobacco Use Types Packs/Day Years [...] on filedocumented in this encounter Care Teams Incubator Tender Relationship Specialty Start Date End Date Ezra To MD [address] [place] [address] [address] [place] [address] PCP - General 09/17/17 Lucinda Ramos PA [address] [address] Physician Final Inspector Balance Wheel 01/02/25 documented as of this encounter Additional Source Comments The information contained in this document represents components of the legal health record. It is not the complete legal health record.[facility]
== END 2025-03-27 10:21 | disposition home or self-care (01) ==
LOC: HO.HCS 09:42
PROVIDERS: PCP Internal Medicine; Visit Provider Internal Medicine Cardiovascular Disease
DX: I42.9 Cardiomyopathy, unspecified (principal); Z95.0 Presence of cardiac pacemaker; I48.0 Paroxysmal atrial fibrillation
CPT/HCPCS: 93010; 93280; 99214

== ENCOUNTER → 2025-03-27 09:41 | Outpatient (BNVA) | payer OTHER, SELFPAY | PROVIDERS: PCP Internal Medicine; Visit Provider Internal Medicine Cardiovascular Disease | DX: I42.9 Cardiomyopathy, unspecified (principal); I48.0 Paroxysmal atrial fibrillation; Z45.018 Encounter for adjustment and management of other part of cardiac pacemaker | CPT/HCPCS: 93005; 93280 ==

== ENCOUNTER → 2025-03-27 23:59 | Outpatient (BNV) | payer OTHER, SELFPAY ==
--- NOTE | 2025-03-28 14:46 | MHC.OFFVIS ---
Intake Visit Reasons: Remote device check- [facility] Allergies cat dander Allergy (Intermediate, Verified 03/28/25 09:00) ASTHMA PFSH Medical History (Updated 03/28/25 @ 09:06 by Jnai Mccauley MD) Myasthenia gravis BPH (benign prostatic hyperplasia) Hx of pancreatitis Osteoarthritis Mild heartburn Asthma Obstructive sleep apnea Diabetes mellitus HTN (hypertension) Cardiac pacemaker in situ Paroxysmal atrial fibrillation Complete heart block Surgical History History of prostate surgery History of total hip replacement H/O right inguinal hernia repair (05/29/21) Hx of colonoscopy (~10/17/24) Hx of tonsillectomy History of permanent cardiac pacemaker placement Hx laparoscopic cholecystectomy Family History Father Myocardial infarct Mother No problems noted. 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 Pacemaker function is adequate [id number] Cardiac Device Interrogation, pacemaker Procedure code (CPT) selection complete Assessment & Plan Assessment & Plan (1) Cardiac pacemaker in situ: Comment: Dual-chamber [facility] pacemaker placed for complete heart block, 2018-follows w/HCS Code(s): Z95.0 - Presence of cardiac pacemaker Category: Medical Plan: See above Coding Level of Care Code Procedure Only Diagnoses Cardiac pacemaker in situ Z95.0 CPT Codes Cardiac Device Check - Cardiac Device 12: [id number] Cardiac Device Interrogation, pacemaker ([id number])
== END ==
PROVIDERS: PCP Internal Medicine; Visit Provider Internal Medicine Cardiovascular Disease
DX: I44.2 Atrioventricular block, complete (principal); Z95.0 Presence of cardiac pacemaker
CPT/HCPCS: 93294

== ENCOUNTER 2025-05-29 11:05 | Outpatient (AMB) | payer OTHER, SELFPAY ==
[2025-05-29 10:07] VITALS: BP 120/70; PULSE 91; TEMP 36.5; O2SAT 96; BMI 36.9
--- NOTE | 2025-05-29 10:07 | MHC.PC.OV ---
Vital Signs 05/29/25 10:07 Height 5 ft 9 in Weight 250 lb BMI 36.9 BP 120/70 Blood Pressure Location Lt brachial Position Sitting Pulse 91 Pulse Source Pulse Oximeter Temp 97.7 F Temp Source Axillary Pulse Oximetry (%) 96 Oxygen Delivery Method Room Air Intake Visit Reasons: Ab Pain National Accounts Sales Required: No Accompanied by: Self / Same As Patient Allergies cat dander Allergy (Intermediate, Verified 05/29/25 10:07) ASTHMA Tobacco use date assessed: 05/29/25 Fall risk assessment: No Falls in past year Last assessed Fall Risk: 05/29/25 Dental Screening Dental Screen Date: 05/29/25 Did you have a dental visit in the last 12 months?: Yes Did you have a dental problem in the last 6 months where you did not have access to dental care?: No PFSH Medical History Myasthenia gravis BPH (benign prostatic hyperplasia) Hx of pancreatitis Osteoarthritis Mild heartburn Asthma Obstructive sleep apnea Diabetes mellitus HTN (hypertension) Cardiac pacemaker in situ Paroxysmal atrial fibrillation Complete heart block Surgical History History of prostate surgery History of total hip replacement H/O right inguinal hernia repair (05/29/21) Hx of colonoscopy (~10/17/24) Hx of tonsillectomy History of permanent cardiac pacemaker placement Hx laparoscopic cholecystectomy Family History Father Myocardial infarct Mother No problems noted. Social History Housing: House Are you a primary manager long term care to a significant other at home: Yes () Do you presently have visiting nurse or other home services: No Comment: medicated in pacu Patient Tobacco Use Status: Former Tobacco user Tobacco use type: Cigarette e-Cigarette/Vaping Use: Former Use Advance Directives Date on File: 04/26/21 service: Yes Current occupational status: retired Cognitive needs: No Hearing needs: Yes (bilateral hearing aids) Vision needs: Yes (rx glasses) Questionnaire PHQ-9 Over the last 2 weeks, how often have you been bothered by any of the following problems? 1. Little interest or pleasure in doing things: not at all 2. Feeling down, depressed, or hopeless: not at all 3. Trouble falling or staying asleep, or sleeping too much: not at all 4. Feeling tired or having little energy: not at all 5. Poor appetite or overeating: not at all 6. Feeling bad about yourself - or that you are a failure or have let yourself or your family down: not at all 7. Trouble concentrating on things, such as reading the newspaper or watching television: not at all 8. Moving or speaking so slowly that other people could have noticed. Or the opposite - being so fidgety or restless that you have been moving around a lot more than usual: not at all 9. Thoughts that you would be better off or of hurting yourself in some way: not at all Total score: 0 Source: Developed by Drs. Juan A Palm, Peggy Andre, Tucker Rincon and colleagues, with an educational jessica from [employer]. Thrive Questionnaire Date Thrive assessed: 05/29/25 I am a: Patient Within the past 12 months, did the food you bought not last and you didn't have the money to get more?: Never true Within the past 12 months, did you worry whether your food would run out before you got money to buy more?: Never true Do you have trouble paying for medicines?: No Do you have trouble getting transportation to medical appointments?: No Do you have trouble paying your heating and electricity bill?: No Do you have trouble taking care of your child, family member or friend?: No Do you have trouble with day-to-day activities such as bathing, preparing meals, shopping, managing finances, etc.?: No Are you currently unemployed and looking for a job?: No Are you interested in more education?: No THRIVE Score: 0 AUDIT C Alcohol Use Questionnaire (AUDIT-C) 1. How often do you have a drink containing alcohol?: Never 3. How often do you have six or more drinks on one occasion?: Never Total Score: 0 JOSE E-7 AMB Questionnaire JOSE E-7 Date JOSE E - 7 assessed: 05/29/25 Feeling nervous, anxious, or on edge: 0 = Not at all Not being able to stop or control worryin = Not at all Worrying too much about different things: 0 = Not at all Trouble relaxin = Not at all Being so restless that it is hard to sit still: 0 = Not at all Becoming easily annoyed or irritable: 0 = Not at all Feeling afraid as if something awful might happen: 0 = Not at all Total JOSE E-7 score (0-4 normal; 5-9 mild; 10-14 moderate; 15-21 severe): 0 Source: Developed by Drs. Juan A Palm, Peggy Andre, Tucker Rincon and colleagues, with an educational jessica from [employer]. Physical exam (Primary Care) Vital Signs: Last Vital Signs Temp 97.7 F 05/29/25 10:07 Pulse 91 05/29/25 10:07 BP 120/70 05/29/25 10:07 Pulse Ox 96 05/29/25 10:07 Oxygen Delivery Method Room Air 05/29/25 10:07 BMI result Body Mass Index 36.9 Tobacco/Smoking Status: Tobacco use Status Tobacco use date assessed 05/29/25 05/29/25 10:08 Patient Tobacco Use Status Former Tobacco user 05/29/25 10:08 Tobacco use type Cigarette 05/29/25 10:08 e-Cigarette/Vaping Use Former Use 05/29/25 10:08 PHQ-9: PHQ-9 Score PHQ-9: Total score 0 05/29/25 11:25 Thrive Assessment: Date of Thrive Assessment Date Thrive assessed 05/29/25 05/29/25 10:08 Coding Level of Care Code Est Pt Level 4 (90810) Complex EM visit Add On G2211 Diagnoses Abdominal pain R10.9 Assessment & Plan Assessment & Plan (1) Abdominal pain: Code(s): R10.9 - Unspecified abdominal pain Plan: History of Present Illness - The patient is a 75-year-old male presenting with abdominal pain. - The pain began suddenly and was sharp in nature. - Initial self-treatment included digestive enzymes and bicarbonate, which provided minimal relief. - Prilosec was taken upon advice from an on-call doctor, which helped reduce the pain temporarily. - The pain persisted as a dull sensation and was exacerbated by drinking water. - The patient has a history of pancreatitis, with a previous hospitalization in 2005 or 2008, treated with pain management and fasting. - The patient has not consumed alcohol recently and denies any alcohol use. - Current symptoms include diminished pain, no bowel movements, minimal gas passage, and no nausea or vomiting. Social History - Denies alcohol consumption. Review of Systems - Gastrointestinal: Reports sharp abdominal pain, diminished over time; denies nausea and vomiting; no bowel movements or significant gas passage. Physical Exam General: Cooperative and healthy appearing Nutritional Appearance: Well nourished Orientation/consciousness: Patient oriented x3 Limitations: No limitations Head: Normal to inspection General: Appearance normal, both eyes and all related structures Neck: Normal visual inspection Chest: Normal palpation of entire chest wall Respiratory: N ormal respiratory effort Neurology: Patient oriented x3, no pain when pressed Results Plan 1. Abdominal Pain - Blood work to check pancreatic enzymes, liver enzymes, and inflammatory markers was recommended to rule out pancreatitis. - Advised to maintain a soft, mild diet and stay hydrated with sips of water. - Prilosec dosage increased to twice daily, morning and evening. Discussion Notes I discussed with the patient the need for blood work to evaluate pancreatic and liver enzymes, as well as inflammatory markers, to rule out pancreatitis. The patient was advised to follow a soft, mild diet and to increase Prilosec to twice daily. Patient Instructions - Follow a soft, mild diet and stay hydrated with sips of water. - Take Prilosec twice daily, once in the morning and once in the evening. - Complete the recommended blood work to check pancreatic and liver enzymes. Orders: Orders UA CC w/rflx Micro + Cult Today R10.9 - Unspecified abdominal pain Basic Metabolic Panel Today R10.9 - Unspecified abdominal pain Complete Blood Count Auto Diff Today R10.9 - Unspecified abdominal pain Lipase Today R10.9 - Unspecified abdominal pain Liver Panel Today R10.9 - Unspecified abdominal pain
--- OUTSIDE RECORDS SUMMARY | 2025-05-29 11:58 | XMS_ITS | Patient Health Record ---
Author Organization [facility] Address [address] [place] [address] Care Team Providers Care Armorer Technician Name Role Phone Ezra To MD Primary Care Provider Juan A Goodman Unavailable [phone] Allergies No Known Allergies Results Component Value Reference Range Notes Glucose, Whole Blood Reviewed date:10/18/2024 12:12:48 AM Interpretation: Performing Lab:[facility], [address] [place] [phone] Notes/Report: Glucose, Whole Blood 144 60-115 mg/dL METER # : [id number] Reason For Referral No Information Medications Medication [...] Problem Status W/U Status Risk Notes Problem 091301316 Encounter for screening for malignant neoplasm of colon (Z12.11) Active confirmed Problem 824138687 History of adenomatous polyp of colon (Z86.010) Active confirmed Problem Diverticulosis o f large intestine without perforation or abscess without bleeding (K57.30) Active confirmed Problem Gastroesophageal reflux disease (053040141) GERD (gastroesophageal reflux disease) (K21.9) Active confirmed Problem 920241757375970 Pre-procedural examination (Z01.818) Active confirmed Problem 372171253188864 Encounter for long-term (current) aspirin use (Z79.82) Active confirmed Encounters Encounter Location Date Provider Diagnosis [facility] Outpatient [address] [place] [id number] 10/17/2024 Juan A Diallo Colon cancer scree [...] Insured Coverage Start Date Coverage End Date [facility] Insurance ([employer]) [address] [place] [id number] [phone] [id number] SERG AGEE Self - patient is the insured Medical (General) History Medical History History ICD Code Pancreatitis-hospitalized fo r several days in 2005-this was felt to be related to EtOH--he did have a negative MRI of the abdomen and pancreas, including a MRCP in 2008 NIDDM Hypertension Elevated Cholesterol Sleep apnea-uses CPAP Denies CT,CVA,renal disease Asthma - mild-inhaler as needed Colonoscopy [...] 2020 Planning Aqua Ablation of prostate at [facility] as of the 01/2024 OV
== END 2025-05-29 13:01 | disposition home or self-care (01) ==
LOC: HO.HMCHD 11:06
PROVIDERS: PCP Internal Medicine; Visit Provider Internal Medicine
DX: R10.9 Unspecified abdominal pain (principal)

== ENCOUNTER 2025-05-29 11:05 | Outpatient (REF) | payer OTHER, SELFPAY ==
--- OUTSIDE RECORDS SUMMARY | 2025-05-29 12:54 | XMS_ITS | Patient Health Record ---
Author Organization [facility] Address [address] [place] [address] Care Team Providers Care Protein Specialist Name Role Phone Ezra To MD Primary Care Provider Juan A Goodman Unavailable [phone] Allergies No Known Allergies Results Component Value Reference Range Notes Glucose, Whole Blood Reviewed date:10/18/2024 12:12:48 AM Interpretation: Performing Lab:[facility], [address] [place] [phone] Notes/Report: Glucose, Whole Blood 144 60-115 mg/dL METER # : [id number] Reason For Referral No Information Medications Medication [...] Problem Status W/U Status Risk Notes Problem 781850884 Encounter for screening for malignant neoplasm of colon (Z12.11) Active confirmed Problem 396252199 History of adenomatous polyp of colon (Z86.010) Active confirmed Problem Diverticulosis o f large intestine without perforation or abscess without bleeding (K57.30) Active confirmed Problem Gastroesophageal reflux disease (316947361) GERD (gastroesophageal reflux disease) (K21.9) Active confirmed Problem 858454728987543 Pre-procedural examination (Z01.818) Active confirmed Problem 761263941512949 Encounter for long-term (current) aspirin use (Z79.82) Active confirmed Encounters Encounter Location Date Provider Diagnosis [facility] Outpatient [address] [place] [id number] 10/17/2024 Juan A Diallo Colon cancer scree [...] Insured Coverage Start Date Coverage End Date [facility] Insurance ([employer]) [address] [place] [phone] [id number] SERG AGEE Self - patient is the insured Medical (General) History Medical History History ICD Code Pancreatitis-hospitalized fo r several days in 2005-this was felt to be related to EtOH--he did have a negative MRI of the abdomen and pancreas, including a MRCP in 2008 NIDDM Hypertension Elevated Cholesterol Sleep apnea-uses CPAP Denies DC,CVA,renal disease Asthma - mild-inhaler as needed Colonoscopy [...] 2020 Planning Aqua Ablation of prostate at [facility] as of the 01/2024 OV
[2025-05-29 13:01] LABS: Appearance Urine Clear; Color Urine Yellow; Glucose Urine UA Negative (Negative); Leukocyte Esterase Urine Negative (Negative); Nitrite Urine Negative (Negative); Specific Gravity - Urine 1.015 (1.005-1.025); UMIC TRIGGER UACC YES; Urine Blood Trace (Negative); Urine Ketones 15 mg/dL (Negative); Urine Protein Trace mg/dL (Neg-Trace)
[2025-05-29 13:06] LABS: Bacteria Urine None Seen (None Seen); Hyaline Casts Urine 0-2 /LPF (0-2); Squamous Epithelial Cell Urine 0-2 /HPF (0-2); WBC Urine 0-5 /HPF (0-5)
[2025-05-29 13:24] LABS: MANUAL DIFF FLAG NO
[2025-05-29 13:32] LABS: Basophils Percent Auto 0.3 % (0-2); Eosinophils Absolute Auto 0.3 X10*3/uL (0.0-0.4); Eosinophils Percent Auto 4.2 % (0-4); Hematocrit 38.9 % (42.0-52.0); Hemoglobin 13.6 g/dl (14.0-18.0); Imm Gran Abs Auto 0.01 X10*3/uL (0.00-0.03); Imm Gran Pct Auto 0.2 % (0.0-0.4); Lymphocytes Absolute Auto 1.3 X10*3/uL (1.2-4.9); Lymphocytes Percent Auto 20.2 % (20-40); Mean Corpuscular Volume 85.9 fL (80.0-98.0); Monocytes Absolute Auto 0.6 X10*3/uL (0.1-1.2); Monocytes Percent Auto 9.4 % (2-11); Neutrophils Absolute Auto 4.2 x10*3/uL (2.0-8.3); Neutrophils Percent Auto 65.7 % (45-73); Platelet Count 329 X10*3/uL (160-400); Red Blood Count 4.53 X10*6/uL (4.60-5.80); Red Cell Distribution Width 13.2 % (11.0-16.0); White Blood Count 6.4 X10*3/uL (4.8-10.8)
[2025-05-29 13:46] LABS: Alanine Aminotransferase 12 U/L (0-40); Albumin Level 4.5 g/dL (3.5-5.0); Alkaline Phosphatase 70 U/L (39-117); Anion Gap 12 (12-20); Aspartate Amino Transferase 20 U/L (5-37); Bilirubin Direct 0.3 mg/dL (0.0-0.5); Bilirubin Total 0.6 mg/dL (0.0-1.0); Blood Urea Nitrogen 11 mg/dL (9-16); Calcium 9.3 mg/dL (8.4-10.2); Carbon Dioxide 27 mmol/L (22-29); Chloride 99 mmol/L (96-108); Estimated Glomerular Filt Rate > 60; Glucose Random 143 mg/dL (60-115); Lipase 15 U/L (8-78); Potassium 3.5 mmol/L (3.3-5.1); Sodium 134 mmol/L (135-145); Total Protein 7.1 g/dL (6.5-8.0)
== END 2025-05-29 11:06 | disposition home or self-care (01) ==
LOC: HO.10HDL 11:05
PROVIDERS: Physician Assistant; PCP Internal Medicine; Visit Provider Internal Medicine
DX: R10.9 Unspecified abdominal pain (principal)
CPT/HCPCS: 36415; 80048; 80076; 81001; 81003; 83690; 85025

== ENCOUNTER 2025-08-03 10:02 | Outpatient (AMB) | payer OTHER, SELFPAY ==
--- OUTSIDE RECORDS SUMMARY | 2024-02-09 06:30 | XMS_ITS ---
Author Organization [facility] Address [address] [place] [phone] Care Team Providers Care Shirt Line Operator Name Role Phone Yousuf (RETIRED) Ezra RAINES Primary Care Provide Juan A San [phone] REASON FOR VISIT Patient presents today for a colon screening Encounters Encounter Location Date Provider Diagnosis [facility] [address] [place] [address] 02/09/2024 Juan A Diallo Plan Of Treatment No Information Progress Notes * SERG AGEE DOB:[birth year] (75 yo M)Acc No.[id number]:02/09/2024 Progress Notes Patient: SERG LALA Jr Provider: Brii Diallo MD :1950 A ge:73 Y S ex:Male Date:02/09/2024 Address:[address] [facility] Pcp:Ezra To (RETIRED )MD Subjective: * Chief Complaints: * 1 . Patient presents today for a colon screening. * Medical History: Objective: * Vitals: Assessment: Plan: * Treatment: * * The named appointment provid er may or may not be the originator of this progress note, and it is not deemed complete until electronically signed by the appointment provider. Sign off status: Pending * Provider: Brii Diallo MD Date: 02/09/2024 Generated for Eladia gee/Linda/eTransmitting on: 0 08/03/2025 11:11 AM EDT
--- OUTSIDE RECORDS SUMMARY | 2024-05-20 08:20 | XMS_ITS ---
Author Organization [facility] Address [address] [place] [address] Care Team Providers Care Transplant Immunologist Name Role Phone Yousuf (RETIRED) Ezra RAINES Primary Care Provide Juan A San [phone] REASON FOR VISIT screening,hx polyps Encounters Encounter Location Date Provider Diagnosis [facility] [place] [place] Out[facility] [address] [place] [phone] 2024 Juan A Diallo Plan Of Treatment No Information Progress Notes * SERG AGEE JrDOB:[birth year] (75 yo M)Acc No.[id number]:2024 COLON WITH MAC Patient: SERG LALA Jr Provider: Brii Diallo MD :1950 A ge:74 Y S ex:Male Date:2024 Address:[address] [place], [place] [id number] Pcp:Ezra To (RETIRED )MD Subjective: * Chief [...] 2024 Generated for Eladia gee/Linda/eTransmitting on: 0 08/03/2025 11:11 AM EDT
--- OUTSIDE RECORDS SUMMARY | 2024-08-12 05:20 | XMS_ITS ---
Author Organization [facility] Address [address] [place] [address] Care Team Providers Care Pantry Goods Worker Name Role Phone Yousuf (RETIRED) Ezra RAINES Primary Care Provide Juan A San [phone] REASON FOR VISIT colon screening Encounters Encounter Location Date Provider Diagnosis [facility] [place] [address] [place] [id number] 08/12/2024 Juan A Diallo Plan Of Treatment No Information Progress Notes * HUONG AGEEONY DOB:[birth year] (75 yo M)Acc No.[id number]:08/12/2024 COLON WITH MAC Patient: SERG LALA Jr Provider: Brii Diallo MD :1950 A ge:74 Y S ex:Male Date:08/12/2024 Address:[address] [place], [place] [phone] Pcp:Ezra To (RETIRED )MD Subjective: * Chief [...] MD Date: 0 08/12/2024 Generated for Sammyi ng/Faxing/eTransmitting on: 08/03/2025 11:11 AM EDT
--- OUTSIDE RECORDS SUMMARY | 2024-10-17 06:30 | XMS_ITS ---
Author Organization [facility] Address [address] [place] [address] Care Team Providers Care Irrigationist Designer Name Role Phone Yousuf (RETIRED) Ezra RAINES Primary Care Provide r Juan A Hernandez Unavailable [phone] REASON FOR VISIT screening colon Problems Problem Type SNOMED Code ICD Code Onset Dates Problem Status W/U Status Risk Notes Problem Diverticular disease of colon (190789741) Diverticulosis of large intestine without perforation or abscess without bleeding (K57.30) Active confirmed Encounters Encounter Location Date Provider Diagnosis [facility] [place] [address] [place] [id number] 10/17/2024 Juan A Diallo Colon cancer scree [...] * SERG AGEE JrDOB:[birth year] (75 yo M)Acc No.[id number]:10/17/2024 COLON WITH MAC Patient: SERG LALA Jr Provider: Brii Diallo MD :1950 A ge:74 Y S ex:Male Date:10/17/2024 Address:[address] [place], [place] [phone] Pcp:Ezra To (RETIRED )MD Subjective: * Chief [...] 12/17/2023 Generated for Eladia gee/Linda/Tjsmitting on: 0 08/03/2025 11:11 AM EDT
--- NOTE | 2025-08-03 10:09 | MHC.PC.OV ---
Vital Signs 08/03/25 10:20 Height 5 ft 9 in Weight 254 lb BMI 37.5 BP 134/72 Blood Pressure Location Rt brachial Position Sitting Respiration 18 Pulse 85 Pulse Source Pulse Oximeter Temp 97.7 F Temp Source Temporal Artery Scan Pulse Oximetry (%) 95 Oxygen Delivery Method Room Air Intake Visit Reasons: routine Polyethylene Combiner Required: No Accompanied by: Self / Same As Patient Allergies cat dander Allergy (Intermediate, Verified 08/03/25 10:10) ASTHMA Tobacco use date assessed: 05/29/25 Dental Screening Dental Screen Date: 05/29/25 HPI HPI Comments History of Present Illness Details The patient is a 75-year-old male presenting with concerns related to multiple chronic conditions and new onset headaches. The primary issue involves abdominal pain, which is reportedly sensitive to consumption of cold drinks, spicy and fatty foods, and larger meals. The patient has experienced this pain when deviation from the identified triggers occurs, recalling an incident of pancreatitis when a high-fat meal was consumed. The episode resolved with eight days of hospitalization where he was restricted to ice chips. In addition to abdominal concerns, the patient reports a sudden onset of sharp headache localized to the back of the head, with accompanying ear pain, occurring unexpectedly while sitting. The headache duration was approximately 30 to 45 minutes with mild residual pain occurring intermittently since then, without a clear trigger. Headaches are rare for the patient and have been self-described as not severe enough to disrupt daily activities significantly. The patient's Type 2 Diabetes is managed with Metformin, though occasional elevated blood sugar levels are reported during social occasions, managed by additional dosing. Weight has shown stability after a previous intentional reduction through dietary changes to lower carbohydrate intake. Medical History: - Type 2 Diabetes Mellitus - Hypertension - History of Pancreatitis - Gastroesophageal Reflux Disease (GERD) - Hyperlipidemia - Asthma - History of Ulcers Surgical History: - Pacemaker insertion Medications: - Metformin 500 mg daily for Diabetes Mellitus - Prilosec twice daily for Gastroesophageal Reflux Disease - Albuterol for Asthma - Aspirin and Statin for Cardiovascular Protection - Chlorthalidone for Hypertension - Clobetasol for Skin Condition - Folic Acid - Lisinopril - Ibuprofen as needed for pain - Metoprolol succinate Social History: - Engages in weekly physical therapy - Low-carbohydrate, high-protein diet - No alcohol consumption - Observes weight management practices [facility] Medical History (Updated 08/03/25 @ 10:42 by Curry Morales MD) Headache Abdominal pain Myasthenia gravis BPH (benign prostatic hyperplasia) Hx of pancreatitis Osteoarthritis Mild heartburn Asthma Obstructive sleep apnea Diabetes mellitus HTN (hypertension) Cardiac pacemaker in situ Paroxysmal atrial fibrillation Complete heart block Surgical History History of prostate surgery History of total hip replacement H/O right inguinal hernia repair (05/29/21) Hx of colonoscopy (~10/17/24) Hx of tonsillectomy History of permanent cardiac pacemaker placement Hx laparoscopic cholecystectomy Family History Father Myocardial infarct Mother No problems noted. Social History Housing: House Are you a primary healthcare corporate account director to a significant other at home: Yes () Do you presently have visiting nurse or other home services: No Comment: medicated in pacu Patient Tobacco Use Status: Former Tobacco user Tobacco use type: Cigarette e-Cigarette/Vaping Use: Former Use Advance Directives Date on File: 04/26/21 service: Yes Current occupational status: retired Cognitive needs: No Hearing needs: Yes (bilateral hearing aids) Vision needs: Yes (rx glasses) Questionnaire Thrive Questionnaire Date Thrive assessed: 05/29/25 JOSE E-7 AMB Questionnaire JOSE E-7 Date JOSE E - 7 assessed: 05/29/25 Source: Developed by Drs. Juan A Palm, Peggy Andre, Tucker Rincon and colleagues, with an educational jessica from [employer] software. Review of Systems Const Details: - Neurological: Reports sudden sharp headache, denies thunderclap quality - Gastrointestinal: Reports abdominal pain related to dietary triggers - Constitutional: Denies significant weight loss - Respiratory: Denies exacerbation of asthma symptoms All systems reviewed & are unremarkable except as noted in HPI and below Physical exam (Primary Care) Vital Signs: Last Vital Signs Temp 97.7 F 08/03/25 10:20 Pulse 85 08/03/25 10:20 Resp 18 08/03/25 10:20 BP 134/72 08/03/25 10:20 Pulse Ox 95 08/03/25 10:20 Oxygen Delivery Method Room Air 08/03/25 10:20 BMI result Body Mass Index 37.5 Tobacco/Smoking Status: Tobacco use Status Tobacco use date assessed 05/29/25 08/03/25 10:10 Patient Tobacco Use Status Former Tobacco user 08/03/25 10:10 Tobacco use type Cigarette 08/03/25 10:10 e-Cigarette/Vaping Use Former Use 08/03/25 10:10 Thrive Assessment: Date of Thrive Assessment Date Thrive assessed 05/29/25 08/03/25 10:10 Const Other: GENERAL APPEARANCE NAD, activity normal for age, well developed/ well nourished, no cyanosis, pallor, or diaphoresis. EYES lids/conjunctiva normal. EARS/NOSE/THROAT Mucous membranes moist, nares normal, lips/teeth normal uvula midline without oral pharyngeal erythema, exudate or swelling TMs normal bilaterally. No lymphangitis/lymphedema. HEAD/NECK normocephalic atraumatic, no facial trauma, neck is supple. RESPIRATORY respiratory effort normal, speaks in full sentences, no tripod position, no accessory muscle use. Lungs clear to auscultation without rhonchi, wheezes, rales CARDIAC Regular rate and rhythm, no edema. ABDOMINAL Soft, ND/NT. No evidence of fluid wave. No pulsatile masses on exam, rebound tenderness, Chen sign or pain over Mcburney's point. MUSCLES/EXTREMITIES No abnormal range of motion, no swelling. SKIN Warm, pink and dry. No rashes, dermatoses, petechiae or lesions. NEUROLOGICAL Speech is clear and appropriate. Normal level of consciousness. Gait and coordination are normal. 5/5 strength in all extremities. PSYCH Normal mood and affect. Judgement/competence is appropriate Coding Level of Care Code Est Pt Level 4 (67580) Complex EM visit Add On G2211 Diagnoses Paroxysmal atrial fibrillation I48.0 Hypertension, unspecified type I10 Hypertension type: unspecified Epigastric pain R10.13 Abdominal location: epigastric Type 2 diabetes mellitus without complication, without long-term current use of insulin E11.9 Diabetes mellitus type: type 2 Diabetes mellitus remote computer terminal operator insulin use: without retirement use Diabetes mellitus complication status: without complication Acute intractable headache, unspecified headache type R51.9 Headache type: unspecified Headache chronicity pattern: acute headache Intractability: intractable Assessment & Plan Assessment & Plan (1) Paroxysmal atrial fibrillation: Comment: ~ 8 sec noted on pacer interr, no anticoag per cardiology Code(s): I48.0 - Paroxysmal atrial fibrillation Category: Medical (2) HTN (hypertension): Comment: - Continue current antihypertensive regimen. - Pressures well controlled Code(s): I10 - Essential (primary) hypertension Category: Medical Qualifiers: Hypertension type: unspecified Qualified Code(s): I10 - Essential (primary) hypertension (3) Abdominal pain: Comment: - Advised dietary modifications to avoid known food irritants. - Plan for an abdominal ultrasound to evaluate current status. Code(s): R10.9 - Unspecified abdominal pain Category: Medical Qualifiers: Abdominal location: epigastric Qualified Code(s): R10.13 - Epigastric pain (4) Diabetes mellitus: Comment: - Encouraged continuation of current regimen with Metformin. - Education on avoiding high-carb intake during social occasions. Code(s): E11.9 - Type 2 diabetes mellitus without complications Category: Medical Qualifiers: Diabetes mellitus type: type 2 Diabetes mellitus remote computer terminal operator insulin use: without remote computer terminal operator use Diabetes mellitus complication status: without complication Qualified Code(s): E11.9 - Type 2 diabetes mellitus without complications (5) Headache: Comment: - Discussed that the type of headache reported is usually non-significant but advised to monitor and report changes. Code(s): R51.9 - Headache, unspecified Category: Medical Qualifiers: Headache type: unspecified Headache chronicity pattern: acute headache Intractability: intractable Qualified Code(s): R51.9 - Headache, unspecified Plan 6. GERD - Continue Prilosec twice daily before meals. - Educated on optimal timing for medication. 7. Hyperlipidemia - Continued management with statin therapy discussed. We discussed the recent onset of mild headaches, which do not indicate a need for immediate concern such as thunderclap headaches. I explained the management specifics for GERD, particularly the necessary timing between Prilosec intake and food consumption to ensure efficacy. The patient was asked to monitor blood glucose levels and be cautious about dietary indiscretions, especially in social settings. I addressed the impact of dietary changes on abdominal and digestive discomfort and recommended avoiding known irritants. We agreed upon an abdominal ultrasound to ensure comprehensive evaluation of the abdominal pain. Blood tests for hemoglobin A1c and cholesterol have been ordered, and I will follow up on the results to adjust the management as required. The patient showed understanding and willingness to adhere to the current plan. Orders: Orders US abdomen complete Today E11.9 - Type 2 diabetes mellitus without complications, R10.9 - Unspecified abdominal pain TSH reflex Free T4 Today E11.9 - Type 2 diabetes mellitus without complications Complete Blood Count Auto Diff Today E11.9 - Type 2 diabetes mellitus without complications Comprehensive Met. Panel Today E11.9 - Type 2 diabetes mellitus without complications Hemoglobin A1c Today E11.9 - Type 2 diabetes mellitus without complications Lipid Panel Today E11.9 - Type 2 diabetes mellitus without complications Vitamin D 25-OH Total Today E11.9 - Type 2 diabetes mellitus without complications Patient Instructions: - Avoid cold drinks, spicy and fatty foods to manage abdominal pain. - Take Prilosec 30 to 40 minutes before meals. - Maintain low-carb diet and monitor blood sugar regularly. - Continue regular physical therapy and avoid aggravating activities for asthma. - Monitor any changes in headache patterns and report immediately if changes occur. - Follow up on blood work results and attend routine follow-up appointments. - Keep emergency contact details accessible and seek care if chest pain or sudden severe pain occurs.
[2025-08-03 10:20] VITALS: BP 134/72; PULSE 85; RESP 18; TEMP 36.5; O2SAT 95; BMI 37.5
--- OUTSIDE RECORDS SUMMARY | 2025-08-03 11:11 | XMS_ITS | Encounter Summary ---
Author Organization [facility] Address [address] [place] [address] [place] [phone] Phone Care Team Providers Care Outside Sales Account Representative Name Role Phone Ezra To MD Primary Care Provider Brandon Hernandez MD Unavailable Ezra To MD Unavailable [phone] Lucinda Ramos Unavailable Jani Mccauley MD Primary Care Provid er Encounter Details Date Type Department Care Team (Latest Contact Info) Description 10/28/2018 Transcribe Orders [address] [place] [address] James Puentes MD [address] [place] [address], [address] [place] [phone] [email or web address] Hyperplasia of prostate with lower urinary tract symptoms (LUTS) (Primary Dx) Social History Tobacco Use Types Packs/Day Years Used Date Smoking Tobacco: Never Assessed Sex and Gender Information Value Date Recorded Sex Assigned at Male 04/28/2021 7:04 AM EDT Legal Sex Male 10:04 PM EDT Gender Identity Male 04/28/2021 7:03 AM EDT Sexual Orientation Straight 04/28/2021 7: 03 AM EDT documented as of this encounter Plan of Treatment Upcoming Encounters Date Type Department Care Team (Late st Contact Info) Description 08/25/2025 8:45 AM EDT Office Visit [facility] [address] [place] [address] Gaby Frazier PA-C [address] [facility], [place] [address] Bonnie Aguirre, OT [address] [place] [address] [email or web address] 09/01/2025 8:45 AM EDT Office Visit [address] [address] Gaby Frazier PA-C [address] [place] [address], [place] [address] Bonnie Aguirre, OT [address] [place] [address] [email or web address] 09/08/2025 8:45 AM EDT Office Visit [address] [address] Gaby Frazier PA-C [address] [place] [address], [place] [address] Bonnie Aguirre, OT [address] [place] [address] [email or web address] 09/15/2025 8:45 AM EDT Office Visit [address] [address] Gaby Frazier PA-C [address] [place] [address], [place] [address] Bonnie Aguirre, OT [address] [place] [address] [email or web address] 09/22/2025 8:45 AM EDT Office Visit [facility] [address] [place] [address] Gaby Frazier PA-C 4 [facility] [place] [address] Bonnie Aguirre, OT [address] [place] [address] [email or web address] 09/29/2025 8:45 AM EDT Office Visit [address] [address] Gaby Frazier PA-C 4 [facility] [place] [address] Bonnie Aguirre, OT [address] [place] [address] [email or web address] 10/06/2025 8:45 AM EST Office Visit [address] [address] Gaby Frazier PA-C 4 [facility] [place] [address] Bonnie Aguirre, OT [address] [place] [address] [email or web address] 10/13/2025 8:45 AM EST Office Visit [address] [address] Gaby Frazier PA-C [address] [place] [address] [facility] [place] [address] Bonnie Aguirre, OT [address] [place] [address] [email or web address] documented as of this encounter Results * PSA (screening) (10/28/2018 10:52 AM EST) PSA 2.56 0 - 4.00 ng/mL [facility] Blood 10/28/2018 10:5 2 AM EST 10/28/2018 10:54 AM EST us James Puentes MD LAB BLOOD ORDERABLES Final Resu lt Performing Organization Address City/State/[facility] Co de Phone Number [facility] [address] [place] [address] documented in this encounter Visit Diagnoses Diagnosis Hyperplasia of prostate with lower urinary tract symptoms (LUTS)- Primary Unspecified hyperplasia of prostate with urinary obstruction and other lower urinary tract symptoms (LUTS) documented in this encounter Care Teams Outside Sales Account Representative Relationship Specialty Start Date End Date Ezra To MD [address] [place] [address] [place] [address] PCP - General 09/17/17 06/15/25 Jani Mccauley MD [address] [place] [address] [address] PCP - General Internal Medicine 06/16/25 Brandon Hernandez MD [address] [place] [address] Historical LMR Provider 09/17/17 Ezra To MD [address] [place] [address] [place] [address] Historical LMR Provider 09/17/17 2 Lucinda Ramos PA [facility] [place] [address] [email or web address] Physician Leasing Manager 01/02/25 documented as of this encounter Additional Source Comments The information contained in this document represents components of the legal health record. It is not the complete legal health record.[facility]
--- OUTSIDE RECORDS SUMMARY | 2025-08-03 11:11 | XMS_ITS | Patient Health Record ---
Author Organization [facility] Address [address] [place] [address] Care Team Providers Care [employer] Special [employer] Teacher Name Role Phone Yousuf (RETIRED) Ezra RAINES Primary Care Provide r Unavailable Juan A Diallo Unavailable [phone] Allergies No Known Allergies Results Component Value Reference Range Notes Glucose, Whole Blood Reviewed date:10/18/2024 12:12:48 AM Interpretation: Performing Lab:[facility], [address] [place] [id number] Notes/Report: Glucose, Whole Blood 144 60-115 mg/dL METER # : [id number] Reason For Referral No Information Medications Medication [...] Problem Status W/U Status Risk Notes Problem [id number] Encounter for screening for malignant neoplasm of colon (Z12.11) Active confirmed Problem 700239399 History of adenomatous polyp of colon (Z86.010) Active confirmed Problem Diverticular disease of colon (396379700) Diverticulosis of large intestine without perforation or abscess without bleeding (K57.30) Active confirmed Problem Gastroesophageal reflux disease (399324556) GERD (gastroesophageal reflux disease) (K21.9) Active confirmed Problem [id number] Pre-procedural examination (Z01.818) Active confirmed Problem [id number] Encounter for long-term (current) aspirin use (Z79.82) Active confirmed Encounters Encounter Location Date Provider Diagnosis [facility] Outpatient [address] [place] [address] [phone] 10/17/2024 Juan A Diallo Colon cancer scree [...] Insured Coverage Start Date Coverage End Date [facility] [address] [place] [address] [id number] SERG AGEE Self - patient is the insured Medical (General) History Medical History History ICD Code Pancreatitis-hospitalized fo r several days in 2005-this was felt to be related to EtOH--he did have a negative MRI of the abdomen and pancreas, including a MRCP in 2008 NIDDM Hypertension Elevated Cholesterol Sleep apnea-uses CPAP Denies NE,CVA,renal disease Asthma - mild-inhaler as needed Colonoscopy [...] 2020 Planning Aqua Ablation of prostate at [facility] as of the 01/2024 OV
--- OUTSIDE RECORDS SUMMARY | 2025-08-03 11:11 | XMS_ITS | Clinical Summary ---
Author Organization [facility] Address [address] [place] [address] Phone Care Team Providers Care Anesthesiologist Name Role Phone Lucinda Ramos Unavailable Jani Mccauley MD Primary Care Provid er Allergies No known active allergies Medications ascorbic acid, vitamin C, 500 mg Cap Active atorvastatin (LIPITOR) 20 MG tablet 1 tablet Active cholecalciferol (VITAMIN D3) 2,000 unit tablet 5,000 Units daily. Active Lactobacillus acidophilus (PROBIOTIC) 10 billion cell Cap Act mónica lisinopril (PRINIVIL,ZESTRI L) 5 MG tablet 10 mg. Activ e metFORMIN (GLUCOPHAGE-XR) 500 MG 24 hr tablet Take 500 mg by mouth daily with breakfast. Active tamsulosin (FLOMAX) 0.4 mg Cap Take 0.4 mg by mouth 2 (two) times a day. Active albuterol 90 mcg/actuation inhaler Inhale 2 puffs into the lungs every 6 (six) hours as needed for wheezing. Active multivitamin-min erals-lutein (CENTRUM SILVER) Tab Take 1 tablet by [...] weeks, then only as needed 100 tablet 1 Active chlorthalidone (HYGROTON) 25 MG tablet Take 25 mg by mouth daily. 1 Active psyllium (METAMUCIL) Powd Take by mouth. Active omeprazole (PRILOSEC) 20 mg TbEC Take 20 mg by mouth daily before breakfast. Active ferrous sulfate 324 mg (65 mg tangirnaq iron) TbEC Take 324 mg by mouth [...] by mouth 2 (two) times a day. 4 Active clobetasol (TEMOVATE) 0.05 % cream PLEASE SEE ATTACHED FOR DETAILED DIRECTIONS 5 Active metoprolol succinate (TOPROL-XL) 25 MG 24 hr tablet Take 1 tablet by mouth every morning. 5 Active lisinopril (PRINIVIL,ZESTRI L) 10 MG tablet Take 10 mg by mouth daily. 5 Active Active Problems Problem Noted Date Diagnosed Date [...] nuclear stress test last week at the [facility] which she will obtain. There should [...] with albuterol. The patient is the primary frame hand of his who has significant dementia. His [...] Encounters Date Type Department Care Team Description 07/17/2025 1:40 PM EDT Office Visit [facility] Orthopedics & Sports Medicine [address] [place] [address] Gaby Frazier PA-C Sprain of interphalangeal joint of left thumb, subsequent encounter (Primary Dx) 06/16/2025 9:45 AM EDT Office Visit [facility] Orthopedics & Sports Medicine [address] [place] [address] Phil Joseph PA-C Sprain of interphalangeal joint of left thumb, initial encounter (Primary Dx); Contusion of left elbow, initial encounter; Pain, joint, hand, left 06/16/2025 9:42 AM EDT - 06/16/2025 11:59 PM EDT Hospital Encounter [address] [address] Phil Joseph PA-C Discharge Disposition: Home or Self Care 06/16/2025 9:29 AM EDT - 06/16/2025 9:41 AM EDT Hospital Encounter [address] [address] Phil Joseph PA-C Discharge Disposition: Home or Self Care from Last 3 Months Immunizations Immunization Administration Dates Next Due Influenza High-Dose Quadrivalent [...] your housing situation today? I have kaylie moreno 04/08/2024 How many times have you move [...] 81 03/14/2025 3:10 PM EDT Temperature 36.4 C (97.5 F) 03/14/2025 3:10 PM EDT Respiratory Rate 20 03/14/2025 3:10 PM EDT Oxygen Saturation 98% 03/14/2025 3:10 PM EDT Inhaled Oxygen Concentration - - Weight 114.3 kg (252 lb) 03/14/2025 3:10 PM EDT Height 175.3 cm (5' 9 ) 03/14/2025 3:10 PM EDT Body Mass Index 37.21 03/14/2025 3:10 PM EDT Plan of Treatment Upcoming Encounters Date Type Department Care Team (Late st Contact Info) Description 08/25/2025 8:45 AM EDT Office Visit [address] [address] Gaby Frazier PA-C 4 [facility] Orthopedics & Sports [facility], [facility] [place] [address] Bonnie Aguirre, OT [address] [place] [address] [email or web address] 09/01/2025 8:45 AM EDT Office Visit [address] [address] Gaby Frazier PA-C 4 [facility] [place], [place] [address] Bonnie Aguirre, OT [address] [place] [address] [email or web address] 09/08/2025 8:45 AM EDT Office Visit [address] [address] Gaby Frazier PA-C [address] [place] [address], [place] [address] Bonnie Aguirre, OT [address] [place] [address] [email or web address] 09/15/2025 8:45 AM EDT Office Visit [address] [address] Gaby Frazier PA-C 4 [facility], [facility] [place] [address] Bonnie Aguirre, OT [address] [place] [address] [email or web address] 09/22/2025 8:45 AM EDT Office Visit [address] [address] Gaby Frazier PA-C [address] [place] [address], [place] [address] Bonnie Aguirre, OT [address] [place] [address] [email or web address] 09/29/2025 8:45 AM EDT Office Visit [address] [address] Gaby Frazier PA-C 4 [facility], [place] [address] Bonnie Aguirre, OT [address] [place] [address] [email or web address] 10/06/2025 8:45 AM EST Office Visit [address] [address] Gaby Frazier PA-C [address] [place] [address], [place] [address] Bonnie Aguirre, OT [address] [place] [address] [email or web address] 10/13/2025 8:45 AM EST Office Visit [facility] Rehabilitation Services [address] [place] [address] Gaby Frazier PA-C [address] [place] [address] Orthopedics & Sports Medicine, [facility] [place] [address] Bonnie Aguirre, OT [address] [place] [address] [email or web address] Maintenance Due Date Last Done Comments Adult Td,Tdap Booster 1949 DEPRESSION SCREENING 1961 HEPATITIS C SCREENING 1967 PNEUMOCOCCAL VACCINES (50+ years) (2 of 2 - PPSV23) 05/12/2018 03/17/2018 DIABETIC EYE EXAM 04/30/2021 HEMOGLOBIN A1C 10/09/2024 04/08/2024, 07/15/2021 CREATININE LEVEL 04/09/2025 04/09/2024, 08/2024, 09/06/2021, Additional history exists POTASSIUM LEVEL 04/09/2025 04/09/2024, 03/30, 09/06/2021, Additional history exists INFLUENZA VACCINE (#1) 2025 , 08/31/2023, 09/06/2021, Additional history exists COVID-19 VACCINE ( season) 2025 08/16/2024, 06/13/2024, 08/31/2023, Additional history exists BLOOD PRESSURE 09/13/2025 03/14/2025 ZOSTER VACCINES Completed 08/12/2018, 05/19/2018 RSV VACCINE Completed 06/13/2024 SMOKING STATUS SCREENING (Once After 26 Yrs) Completed 01/02/2025 HEPATITIS A VACCINES Aged Out No long er eligible based on patient's age to complete this topic HIB VACCINES Aged Out No longer eligi ble based on patient's age to complete this topic MENINGOCOCCAL VACCINES (ACWY) Aged Out No longer eligible based on patient's age to complete this topic MENINGOCOCCAL VACCINES (B) Aged Out N o longer eligible based on patient's age to complete this topic Medical Devices Implanted Type Area Outbound Sales Specialist Device Identifier Shelf Expiration Date Model / Serial / Lot Lens Lens Colemana l: Eye Pacemaker Pacemaker Chest Echo Bi-Metric Hip System Laterialized Femoral Stem Implanted:Qty: 1 on 09/04/2021 by Chris Thibodeaux MD at [facility] Prosthetic Joint Left: Hip [employer] 10/22/2025 [id number] / / [id number] Description:Reduced Proximal Profile Porous Plasma/Uncemented Acetabular Shell 56mm Size F G7 Porous Plasma [place] Limited Hole - [id number] Implanted:Qty: 1 on 09/04/2021 by Chris Thibodeaux MD at [facility] Left: Hip [employer] 04/20/2031 [id number] / / [id number] Screw Bone 6.5x30mm Hip Dome G7 Acetabular Low Profile - [id number] Implanted:Qty: 1 on 09/04/2021 by Chris Thibodeaux MD at [facility] Left: Hip [employer] 05/27/2031 [id number] / / [id number] Hip Liner 36mm F Acetabular Neutral G7 Longevity - [id number] Implanted:Qty: 1 on 09/04/2021 by Chris Thibodeaux MD at [facility] Left: Hip [employer] / DIV OF [employer] 11/20/2025 [id number] / / [id number] Hip Head 1 36mm Minus 3 Implant Femoral Hd Modular [place] 05 - [id number] Implanted:Qty: 1 on 09/04/2021 by Chris Thibodeaux MD at [facility] Left: Hip [employer] 06/20/2031 [id number] / / [id number] Procedures Procedure Name Priority Date/Time Associated Diagnosis Comments XR FINGER 2 OR MORE VIEWS (LEFT) Routine 06/16/2025 9:48 AM EDT Pain, joint, hand, left XR ELBOW 3 OR MORE VIEWS (LEFT) Routine 06/16/2025 9:48 AM EDT Pain, joint, hand, left BASIC METABOLIC PANEL Routine 04/09/2024 5:52 AM EDT HEMOGLOBIN A1C STAT 04/08/2024 12:02 PM EDT from Last 3 Months or Most Recently Relevant to Health Maintenance Results * XR FINGER 2 OR MORE VIEWS (LEFT) (06/16/2025 9:48 AM EDT) Narrative SYSTEMGENERATED, DOCUMENTATION - 06/16/2025 9:48 AM EDT This image report has been auto-finalized and has not been read by a Radiologist. Interpretation has been included in the provider encounter note for this date of service. us Phil BROWNING-Tacho IMG XR UPPER EXTREMITY Final Result * XR ELBOW 3 OR MORE VIEWS (LEFT) (06/16/2025 9:48 AM EDT) Narrative SYSTEMGENERATED, DOCUMENTATION - 06/16/2025 9:48 AM EDT This image report has been auto-finalized and has not been read by a Radiologist. Interpretation has been included in the provider encounter note for this date of service. us Phil BROWNING-Tacho IMG XR UPPER EXTREMITY Final Result * (ABNORMAL) Basic metabolic panel (04/09/2024 5:52 AM EDT) SODIUM 134 133 - 146 mmol/L [facility] CHLORIDE 100 96 - 108 mmol/L [facility] POTASSIUM 3.6 3.3 - 5.1 mmol/L [facility] CO2 24 21 - 35 mmol/L [facility] BUN 9 6 - 19 mg/dL [facility] CREATININE 0.60 0.5 - 1.5 mg/dL [facility] GLUCOSE 182(H) 70 - 99 mg/dL [facility] CALCIUM 8.2(L) 8.4 - 10.3 mg/dL [facility] EGFR 101 >59 mL/min/1.7 3m2 [facility] Comment:Estimated glomerular filtration rate calculated using the CKD-EPI refit equation. ANION GAP 14 10 - 20 mmol/L [facility] Blood 04/09/2024 5:52 AM EDT 04/09/2024 6:14 AM EDT us Gaby Hahn AUTOMOTIVE WARRANTY ADMINISTRATOR LAB BLOOD ORDERABLES Fin al Result Performing Organization Address City/[facility]/ZIP Co de Phone Number [address] [address] * (ABNORMAL) Hemoglobin A1c (04/08/2024 12:02 PM EDT) HEMOGLOBIN A1C 7.5(H) 4.3 - 5.8 % [facility] Blood 04/08/2024 12:0 2 PM EDT 04/08/2024 12:07 PM EDT Gaby Hahn AUTOMOTIVE WARRANTY ADMINISTRATOR LAB BLOOD ORDERABLES Fin al Result Performing Organization Address City/[facility] Co de Phone Number [address] [address] from Last 3 Months or Most Recently Relevant to Health Maintenance Insurance [employer] TOTAL CHOICE INDEMNITY [employer] TOTAL CHOICE INDEMNITY [facility] TOTAL CHOICE INDEMNITY [facility] TOTAL CHOICE [facility]DEMNITY [facility] TOTAL CHOICE INDEMNITY [facility] TOTAL CHOICE INDEMNITY [facility] TOTAL CHOICE IN[facility]MNITY [facility] T[facility]ICE INDEMNITY [facility] TOTAL CHOICE INDEMNITY Advance Directives For more information, please contact: [phone] (9AM - 5PM [facility], Thursday-Thursday) Documents on File Type Date Recorded Patient Restrike Hammer Operator Expl anation Healthcare Proxy 04/15/2024 4:34 PM * Full Code (Latest Code Status on File) Date Activated Date Inactivated Comments 04/08/2024 10:29 AM Question Answer Comments Code Status Confirmed With: Patient * Full Code Date Activated Date Inactivated Comments 09/06/2021 7:40 AM 04/08/2024 10:29 AM Question Answer Comments Code Status Confirmed With: Patient Care Teams Anesthesiologist Relationship Specialty Start Date End Date Jani Mccauley MD [address] [place] [address] PCP - General Internal Medicine 06/16/25 Lucinda Ramos PA [address] [address] [email or web address] Physician Elevator Repairer Helper 01/02/25 Additional Source Comments The information contained in this document represents components of the legal health record. It is not the complete legal health record.[facility]
--- OUTSIDE RECORDS SUMMARY | 2025-08-03 11:12 | XMS_ITS | Encounter Summary ---
Author Organization [facility] Address [address] [facility] [address] [place] [address] Phone Care Team Providers Care Forming Machine Tender Name Role Phone Ezra To MD Primary Care Provider Lucinda Ramos Unavailable Jani Mccauley MD Primary Care Provid er Encounter Details Date Type Department Care Team (Late st Contact Info) Description 04/08/2024 Procedure Pass OR Admitting Dept - Virtual Department [address] [place] [address] Social History Tobacco Use Types Packs/Day Years [...] AM EDT documented as of this encounter Functional Status * Calculated C-SSRS Risk Score (Lifetime/Recent) Answer Date of Assessment Author No Risk Indicated 04/08/2024 3:54 PM EDT Trent Winchester RN * [place] Suicide Severity Rating Scale (Screener/Recent Self-Report) Question Answer Date of Assessment Author 1. Wish to be (Past 1 Month) No 04/08/2024 3:54 PM EDT Trent Winchester RN 2. Non-Specific Active Suici adryan Thoughts (Past 1 Month) No 04/08/2024 3:54 PM EDT Santos Winchester RN 6. Suicidal Behavior (Lifetime) No 3:54 PM EDT Trent Winchester RN documented as of this encounter Plan of Treatment Upcoming Encounters Date Type Department Care Team (Late st Contact Info) Description 08/25/2025 8:45 AM EDT Office Visit [address] [address] Gaby Frazier PA-C 4 [facility] Orthopedics & Sports [facility], [place] [address] Bonnie Aguirre, OT [address] [place] [address] [email or web address] 09/01/2025 8:45 AM EDT Office Visit [address] [address] Gaby Frazier PA-C 4 [facility], [place] [address] Bonnie Aguirre, OT [address] [place] [address] [email or web address] 09/08/2025 8:45 AM EDT Office Visit [address] [address] Gaby Frazier PA-C [address] [place] [address], [place] [address] Bonnie Aguirre, OT [address] [place] [address] [email or web address] 09/15/2025 8:45 AM EDT Office Visit [address] [address] Gaby Frazier PA-C [address] [facility], [facility] [place] [address] Bonnie Aguirre, OT [address] [place] [address] [email or web address] 09/22/2025 8:45 AM EDT Office Visit [address] [address] Gaby Frazier PA-C 4 [facility], [place] [address] Bonnie Aguirre, OT [address] [place] [address] [email or web address] 09/29/2025 8:45 AM EDT Office Visit [address] [address] Gaby Frazier PA-C 4 [facility], [place] [address] Bonnie Aguirre, OT [address] [place] [address] [email or web address] 10/06/2025 8:45 AM EST Office Visit [address] [address] Gaby Frazier PA-C 4 [facility], [place] [address] Bonnie Aguirre, OT [address] [place] [address] [email or web address] 10/13/2025 8:45 AM EST Office Visit [facility] Rehabilitation Services [address] [place] [address] Gaby Frazier PA-C [address] [place] [address] Orthopedics & Sports [facility] [place] [address] Bonnie Aguirre, OT [address] [place] [address] [email or web address] documented as of this encounter Visit Diagnoses Not on filedocumented in this encounter Care Teams Forming Machine Tender Relationship Specialty Start Date End Date Ezra To MD [address] [place] [address] PCP - General 09/17/17 06/15/25 Jani Mccauley MD [address] [place] [address] PCP - General Internal Medicine 06/16/25 Lucinda Ramos PA [address] [place] [address] Physician Geriatric Assistant 01/02/25 documented as of this encounter Additional Source Comments The information contained in this document represents components of the legal health record. It is not the complete legal health record.[facility]
--- OUTSIDE RECORDS SUMMARY | 2025-08-03 11:12 | XMS_ITS | Encounter Summary ---
Author Organization [facility] Address [address] [facility] [address] [place] [address] Phone Care Team Providers Care Plycor Operator Name Role Phone Ezra To MD Primary Care Provider Brandon Hernandez MD Unavailable Ezra To MD Unavailable [phone] Lucinda Ramos Unavailable Jani Mccauley MD Primary Care Provid er Encounter Details Date Type Department Care Team (Late st Contact Info) Description 09/04/2021 Procedure Pass OR Admitting Dept - Virtual Department [address] [place], [place] [id number] Social History Tobacco Use Types Packs/Day Years [...] Date of Assessment Author No Risk Indicated 09/04/2021 1:50 PM EDT Elsi Saldaña RN * [place] Suicide Severity Rating Scale (Screener/Recent Self-Report) Question Answer Date of Assessment Author 1. Wish to be (Past 1 Month) No 09/04/2021 1:50 PM EDT Radha Saldaña RN 2. Non-Specific Active Suici adryan Thoughts (Past 1 Month) No 09/04/2021 1:50 PM EDT Radha Saldaña RN 6. Suicidal Behavior (Lifetime) No 1:50 PM EDT Elsi Saldaña RN documented as of this encounter Plan of Treatment Upcoming Encounters Date Type Department Care Team (Late st Contact Info) Description 08/25/2025 8:45 AM EDT Office Visit [address] [address] Gaby Frazier PA-C [address] [place], [place] [address]s [facility], [facility] [place] [address] Bonnie Aguirre, OT [address] [place] [address] [email or web address] 09/01/2025 8:45 AM EDT Office Visit [address] [address] Gaby Frazier PA-C [address] [place] [address], [place] [address] Bonnie Aguirre, OT [address] [place] [address] [email or web address] 09/08/2025 8:45 AM EDT Office Visit [address] [address] Gaby Frazier PA-C [address] [place] [address], [place] [address] Bonnie Aguirre, OT [address] [place] [address] [email or web address] 09/15/2025 8:45 AM EDT Office Visit [facility] [address] [place] [address] Gaby Frazier PA-C 4 [facility] Orthopedics Sports [facility], [place] [address] Bonnie Aguirre, OT [address] [place] [address] [email or web address] 09/22/2025 8:45 AM EDT Office Visit [address] [address] Gaby Frazier PA-C 4 [facility], [place] [address] Bonnie Aguirre, OT [address] [place] [address] [email or web address] 09/29/2025 8:45 AM EDT Office Visit [address] [address] Gaby Frazier PA-C [address] [place] [address], [place] [address] Bonnie Aguirre, OT [address] [place] [address] [email or web address] 10/06/2025 8:45 AM EST Office Visit [address] [address] Gaby Frazier PA-C 4 [facility] [place] [address] Bonnie Aguirre, OT [address] [place] [address] [email or web address] 10/13/2025 8:45 AM EST Office Visit [facility] Rehabilitation Services [address] [place] [address] Gaby Frazier PA-C 4 [facility] [place] [address] Bonnie Aguirre, OT [address] [place] [address] [email or web address] documented as of this encounter Visit Diagnoses Not on filedocumented in this encounter Care Teams Plycor Operator Relationship Specialty Start Date End Date Ezra To MD [address] [place] [address] [place] [address] PCP - General 09/17/17 06/15/25 Jani Mccauley MD [address] [place] [address] [place] [address] PCP - General Internal Medicine 06/16/25 Brandon Hernandez MD [address] [place] [address] Historical LMR Provider 09/17/17 Ezra To MD [address] [place] [address] [place] [id number] Historical LMR Provider 09/17/17 2 Lucinda Ramos PA [address] [address] Physician Cemetery Workers Supervisor 01/02/25 documented as of this encounter Additional Source Comments The information contained in this document represents components of the legal health record. It is not the complete legal health record.[facility]
== END 2025-08-03 10:48 | disposition home or self-care (01) ==
LOC: HO.HMCHD 10:02
PROVIDERS: PCP Student in an Organized Health Care Education/Training Program; Visit Provider Student in an Organized Health Care Education/Training Program
DX: I48.0 Paroxysmal atrial fibrillation (principal); E11.9 Type 2 diabetes mellitus without complications; I10 Essential (primary) hypertension; R10.13 Epigastric pain; R51.9 Headache, unspecified

== ENCOUNTER 2025-08-16 09:57 | Outpatient (REF) | payer OTHER, SELFPAY ==
--- OUTSIDE RECORDS SUMMARY | 2024-05-20 08:20 | XMS_ITS ---
Author Organization [facility] Address [address] [place] [address] Care Team Providers Care Observer Gravity Prospecting Name Role Phone Yousuf (RETIRED) Ezra RAINES Primary Care Provide Juan A San [phone] REASON FOR VISIT screening,hx polyps Encounters Encounter Location Date Provider Diagnosis [facility] [address] [place] [phone] 2024 Juan A Diallo Plan Of Treatment No Information Progress Notes * SERG AGEE JrDOB:[birth year] (75 yo M)Acc No.[id number]:2024 COLON WITH MAC Patient: SERG LALA Jr Provider: Brii Diallo MD :1950 A ge:74 Y S ex:Male Date:2024 Address:[address] [place], [place] [id number] Pcp:Ezra To (RETIRED )MD Subjective: * Chief [...] 0 2024 Generated for Eladia gee/Linda/eTransmitting on: 0 08/16/2025 11:55 AM EDT
--- OUTSIDE RECORDS SUMMARY | 2024-08-12 05:20 | XMS_ITS ---
Author Organization [facility] Address [address] [place] [address] Care Team Providers Care Dry House Operator Name Role Phone Yousuf (RETIRED) Ezra RAINES Primary Care Provide Juan A San [phone] REASON FOR VISIT colon screening Encounters Encounter Location Date Provider [place] [facility] [place] [address] [place] [id number] 08/12/2024 Juan A Diallo Plan Of Treatment No Information Progress Notes * HUONG AGEEONY DOB:[birth year] (75 yo M)Acc No.[id number]:08/12/2024 COLON WITH MAC Patient: SERG LALA Jr Provider: Brii Diallo MD :1950 A ge:74 Y S ex:Male Date:08/12/2024 Address:[address] [place], [place] [phone] Pcp:Ezra To (RETIRED )MD Subjective: * Chief [...] 0 08/12/2024 Generated for Sammyi ng/Faxing/eTransmitting on: 08/16/2025 11:55 AM EDT
--- OUTSIDE RECORDS SUMMARY | 2024-10-17 06:30 | XMS_ITS ---
Author Organization [facility] Address [address] [place] [address] Care Team Providers Care Licensed Massage Practitioner Name Role Phone Yousuf (RETIRED) Ezra RAINES Primary Care Provide r Juan A Hernandez Unavailable [phone] REASON FOR VISIT screening colon Problems Problem Type SNOMED Code ICD Code Onset Dates Problem Status W/U Status Risk Notes Problem Diverticular disease of colon (819544861) Diverticulosis of large intestine without perforation or abscess without bleeding (K57.30) Active confirmed Encounters Encounter Location Date Provider Diagnosis [facility] [place] Out[place] [address] [place] [id number] 10/17/2024 Juan A Diallo Colon cancer scree [...] * SERG AGEE JrDOB:[birth year] (75 yo M)Acc No.[id number]:10/17/2024 COLON WITH MAC Patient: SERG LALA Jr Provider: Brii Diallo MD :1950 A ge:74 Y S ex:Male Date:10/17/2024 Address:[address] [place], [place] [phone] Pcp:Ezra To (RETIRED )MD Subjective: * Chief [...] Pending * Provider: Brii Diallo MD Date: 1 12/17/2023 Generated for Eladia gee/Linda/Tjsmitting on: 0 08/16/2025 11:55 AM EDT
--- OUTSIDE RECORDS SUMMARY | 2025-08-16 11:55 | XMS_ITS | Patient Health Record ---
Author Organization [facility] Address [address] [place] [address] Care Team Providers Care Roll Off Driver Name Role Phone Yousuf (RETIRED) Ezra RAINES Primary Care Provide r Unavailable Juan A Diallo Unavailable [phone] Allergies No Known Allergies Results Component Value Reference Range Notes Glucose, Whole Blood Reviewed date:10/18/2024 12:12:48 AM Interpretation: Performing Lab:[facility], [address] [place] [id number] Notes/Report: Glucose, Whole Blood 144 60-115 mg/dL METER # : [id number] Reason For Referral No Information Medications Medication [...] Problem Status W/U Status Risk Notes Problem 068273155 Encounter for screening for malignant neoplasm of colon (Z12.11) Active confirmed Problem 213079448 History of adenomatous polyp of colon (Z86.010) Active confirmed Problem Diverticular disease of colon (930933126) Diverticulosis of large intestine without perforation or abscess without bleeding (K57.30) Active confirmed Problem Gastroesophageal reflux disease (783788925) GERD (gastroesophageal reflux disease) (K21.9) Active confirmed Problem [id number] Pre-procedural examination (Z01.818) Active confirmed Problem 842962838107906 Encounter for long-term (current) aspirin use (Z79.82) Active confirmed Encounters Encounter Location Date Provider Diagnosis [facility] Outpatient [address] [place] [id number] 10/17/2024 Juan A Diallo Colon cancer scree [...] Insured Coverage Start Date Coverage End Date [facility] ([employer] Decisions) [address] [place] [address] [id number] SERG AGEE Self - patient is the insured Medical (General) History Medical History History ICD Code Pancreatitis-hospitalized fo r several days in 2005-this was felt to be related to EtOH--he did have a negative MRI of the abdomen and pancreas, including a MRCP in 2008 NIDDM Hypertension Elevated Cholesterol Sleep apnea-uses CPAP Denies IA,CVA,renal disease Asthma - mild-inhaler as needed Colonoscopy [...] 2020 Planning Aqua Ablation of prostate at [facility] as of the 01/2024 OV
--- OUTSIDE RECORDS SUMMARY | 2025-08-16 11:55 | XMS_ITS | Encounter Summary ---
Author Organization [facility] Address [address] [place] [address] [place] [address] Phone Care Team Providers Care Linter Drier Operator Name Role Phone Ezra To MD Primary Care Provider Brandon Hernandez MD Unavailable Ezra To MD Unavailable [phone] Lucinda Ramos Unavailable Jani Mccauley MD Primary Care Provid er Encounter Details Date Type Department Care Team (Latest Contact Info) Description 10/28/2018 Transcribe Orders [address] [place] [address] James Puentes MD [address] [place] [address], [address] [place] [address] [email or web address] Hyperplasia of prostate with lower urinary tract [...] Description 08/25/2025 8:45 AM EDT Office Visit [facility] [address] [place] [address] Gaby Frazier PA-C [facility], [place] [address] Bonnie Aguirre, OT [address] [place] [address] [email or web address] 09/01/2025 8:45 AM EDT Office Visit [address] [address] Gaby Frazier PA-C [address] [place] [address], [place] [address] Bonnie Aguirre, OT [address] [place] [address] [email or web address] 09/08/2025 8:45 AM EDT Office Visit [address] [address] Gaby Frazier PA-C [address] [place] [address], [place] [address] Bonnie Aguirre, OT [address] [place] [address] [email or web address] 09/15/2025 8:45 AM EDT Office Visit [address] [address] Gaby Frazier PA-C [address] [place] [address], [place] [address] Bonnie Aguirre, OT [address] [place] [address] [email or web address] 09/22/2025 8:45 AM EDT Office Visit [facility] [address] [place] [address] Gaby Frazier PA-C 4 [facility] [place] [address] Bonnie Aguirre, OT [address] [place] [address] [email or web address] 09/29/2025 8:45 AM EDT Office Visit [address] [address] Gaby Frazier PA-C 4 [facility] [place] [address] Bonnie Aguirre, OT [address] [place] [address] [email or web address] 10/06/2025 8:45 AM EST Office Visit [address] [address] Gaby Frazier PA-C 4 [facility] [place] [address] Bonnie Aguirre, OT [address] [place] [address] [email or web address] 10/13/2025 8:45 AM EST Office Visit [address] [address] Gaby Frazier PA-C [address] [place] [address] [facility] [place] [address] Bonnie Aguirre, OT [address] [place] [address] [email or web address] documented as of this encounter Results * PSA (screening) (10/28/2018 10:52 AM EST) PSA 2.56 0 - 4.00 ng/mL [facility] Blood 10/28/2018 10:5 2 AM EST 10/28/2018 10:54 AM EST us James Puentes MD LAB BLOOD ORDERABLES Final Resu lt Performing Organization Address City/State/[facility] Co de Phone Number [facility] [address] [place] [address] documented in this encounter Visit Diagnoses Diagnosis Hyperplasia of prostate with lower urinary tract symptoms (LUTS)- Primary Unspecified hyperplasia of prostate with urinary obstruction and other lower urinary tract symptoms (LUTS) documented in this encounter Care Teams Linter Drier Operator Relationship Specialty Start Date End Date Ezra To MD [address] [place] [address] [place] [address] PCP - General 09/17/17 06/15/25 Jani Mccauley MD [address] [place] [address] [address] PCP - General Internal Medicine 06/16/25 Brandon Hernandez MD [address] [place] [address] Historical LMR Provider 09/17/17 Ezra To MD [address] [place] [address] [place] [address] Historical LMR Provider 09/17/17 2 Lucinda Ramos PA [facility] [place] [address] [email or web address] Physician Weight Loss Sales Consultant 01/02/25 documented as of this encounter Additional Source Comments The information contained in this document represents components of the legal health record. It is not the complete legal health record.[facility]
--- OUTSIDE RECORDS SUMMARY | 2025-08-16 11:56 | XMS_ITS | Clinical Summary ---
Author Organization [facility] Address [address] [facility] [address] [place] [address] Phone Care Team Providers Care Band Saw Operator Name Role Phone Lucinda Ramos Unavailable Jani [...] Active ferrous sulfate 324 mg (65 mg kaw iron) TbEC Take 324 mg by mouth [...] nuclear stress test last week at the [employer] which she will obtain. There should be [...] with albuterol. 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 His [...] Description 07/17/2025 1:40 PM EDT Office Visit [facility] [address] [place] [address] Gaby Frazier PA-C Sprain of interphalangeal joint of left thumb, subsequent encounter (Primary Dx) 06/16/2025 9:45 AM EDT Office Visit [facility] [address] [place] [address] Phil Joseph PA-C Sprain of interphalangeal joint of left thumb, initial encounter (Primary Dx); Contusion of left elbow, initial encounter; Pain, joint, hand, left 06/16/2025 9:42 AM EDT - 06/16/2025 11:59 PM EDT Hospital Encounter [address] [address] Phil Joseph PA-C Discharge Disposition: Home or Self Care 06/16/2025 9:29 AM EDT - 06/16/2025 9:41 AM EDT Hospital Encounter [address] [address] Phil Joseph PA-C Discharge Disposition: Home or [...] Description 08/25/2025 8:45 AM EDT Office Visit [address] [address] Gaby Frazier PA-C 4 [facility], [facility] [place] [address] Bonnie Aguirre, OT [address] [place] [address] [email or web address] 09/01/2025 8:45 AM EDT Office Visit [address] [address] Gaby Frazier PA-C 4 [facility] [place] [address] Bonnie Aguirre, OT [address] [place] [address] [email or web address] 09/08/2025 8:45 AM EDT Office Visit [address] [address] Gaby Frazier PA-C [address] [place] [address], [place] [address] Bonnie Aguirre, OT [address] [place] [address] [email or web address] 09/15/2025 8:45 AM EDT Office Visit [address] [address] Gaby Frazier PA-C [address] [facility], [facility] [place] [address] Bonnie Aguirre, OT [address] [place] [address] [email or web address] 09/22/2025 8:45 AM EDT Office Visit [address] [address] Gaby Frazier PA-C [address] [place] [address], [place] [address] Bonnie Aguirre, OT [address] [place] [address] [email or web address] 09/29/2025 8:45 AM EDT Office Visit [address] [address] Gaby Frazier PA-C 4 [facility], [place] [address] Bonnie Aguirre, OT [address] [place] [address] [email or web address] 10/06/2025 8:45 AM EST Office Visit [address] [address] Gaby Frazier PA-C [address] [place] [address], [place] [address] Bonnie Aguirre, OT [address] [place] [address] [email or web address] 10/13/2025 8:45 AM EST Office Visit [facility] [address] [place] [address] Gaby Frazier PA-C [address] [place] [address] [facility], [facility] [place] [address] Bonnie Aguirre, OT [address] [place] [address] [email or web address] Maintenance Due Date Last Done [...] this topic Medical Devices Implanted Type Area Yeast Culture Operator Device Identifier Shelf Expiration Date Model / Serial / Lot Lens Lens Colemana l: Eye Pacemaker Pacemaker Chest Echo Bi-Metric Hip System Laterialized Femoral Stem Implanted:Qty: 1 on 09/04/2021 by Chris Thibodeaux MD at [facility] Prosthetic Joint Left: Hip [employer] 10/22/2025 [id number] / / [id number] Description:Reduced Proximal Profile Porous Plasma/Uncemented Acetabular Shell 56mm Size F G7 Porous Plasma Gaston Limited Hole - [id number] Implanted:Qty: 1 on 09/04/2021 by Chris Thibodeaux MD at [facility] Left: Hip [employer] 04/20/2031 [id number] / / [id number] Screw Bone 6.5x30mm Hip Dome G7 Acetabular Low Profile - [id number] Implanted:Qty: 1 on 09/04/2021 by Chris Thibodeaux MD at [facility] Left: Hip [employer] 05/27/2031 [id number] / / [id number] Hip Liner 36mm F Acetabular Neutral G7 Longevity - [id number] Implanted:Qty: 1 on 09/04/2021 by Chris Thibodeaux MD at [facility] Left: Hip [employer] / DIV OF [employer] 11/20/2025 [id number] / / [id number] Hip Head 1 36mm Minus 3 Implant Femoral Hd Modular [place] 05 - [id number] Implanted:Qty: 1 on 09/04/2021 by Chris Thibodeaux MD at [facility] Left: Hip [employer] 06/20/2031 [id number] / / [id number] Procedures Procedure Name Priority Date/Time Associated Diagnosis [...] EDT) SODIUM 134 133 - 146 mmol/L [facility] CHLORIDE 100 96 - 108 mmol/L [facility] POTASSIUM 3.6 3.3 - 5.1 mmol/L [facility] CO2 24 21 - 35 mmol/L [facility] BUN 9 6 - 19 mg/dL [facility] CREATININE 0.60 0.5 - 1.5 mg/dL [facility] GLUCOSE 182(H) 70 - 99 mg/dL [facility] CALCIUM 8.2(L) 8.4 - 10.3 mg/dL [facility] EGFR 101 >59 mL/min/1.7 3m2 [facility] Comment:Estimated glomerular filtration rate calculated using the CKD-EPI refit equation. ANION GAP 14 10 - 20 mmol/L [facility] Blood 04/09/2024 5:52 AM EDT 04/09/2024 6:14 AM EDT us Gaby Hahn SHELTER CASE MANAGER LAB BLOOD ORDERABLES Fin al Result Performing Organization Address City/[facility]/ZIP Co de Phone Number [address] [address] * (ABNORMAL) Hemoglobin A1c (04/08/2024 12:02 PM EDT) HEMOGLOBIN A1C 7.5(H) 4.3 - 5.8 % [facility] Blood 04/08/2024 12:0 2 PM EDT 04/08/2024 12:07 PM EDT Gaby Hahn SHELTER CASE MANAGER LAB BLOOD ORDERABLES Fin al Result Performing Organization Address City/[facility] Co de Phone Number [address] [address] from Last 3 Months or Most Recently Relevant to Health Maintenance Insurance [employer] TOTAL CHOICE INDEMNITY [employer] TOTAL CHOICE INDEMNITY [facility] TOTAL CHOICE IN[facility]MN[facility] TOTAL CHOICE [facility]DEMNITY [facility] TOTAL CHOICE INDEMNITY [facility] TOTAL CHOICE [facility] TOTAL CHOICE INDEMNITY Advance Directives For more information, please contact: [phone] (9AM - 5PM [facility], Thursday-Thursday) Documents on File Type Date Recorded Patient Seam Checker Expl anation Healthcare Proxy 04/15/2024 4:34 PM * Full Code (Latest Code Status on File) Date Activated Date Inactivated Comments 04/08/2024 10:29 AM Question Answer Comments Code Status Confirmed With: Patient * Full Code Date Activated Date Inactivated Comments 09/06/2021 7:40 AM 04/08/2024 10:29 AM Question Answer Comments Code Status Confirmed With: Patient Care Teams Band Saw Operator Relationship Specialty Start Date End Date Jani Mccauley MD [address] [place] [address] PCP - General Internal Medicine 06/16/25 Lucinda Ramos PA [address] [address] [email or web address] Physician Concrete Gun Operator 01/02/25 Additional Source Comments The information contained in this document represents components of the legal health record. It is not the complete legal health record.[facility]
--- OUTSIDE RECORDS SUMMARY | 2025-08-16 11:56 | XMS_ITS | Encounter Summary ---
Author Organization [facility] Address [address] [facility] [address] [place] [address] Phone Care Team Providers Care Back Tender Cloth Printing Name Role Phone Ezra To MD Primary Care Provider Lucinda Ramos Unavailable Jani Mccauley MD Primary Care Provid er Encounter Details Date Type Department Care Team (Late st Contact Info) Description 04/08/2024 Procedure Pass OR Admitting Dept - Virtual Department [address] [place] [address] Social History Tobacco Use Types Packs/Day Years [...] 3:54 PM EDT Trent Winchester RN * [place] Suicide Severity Rating Scale (Screener/Recent Self-Report) Question [...] Description 08/25/2025 8:45 AM EDT Office Visit [address] [address] Gaby Frazier PA-C 4 [facility], [place] [address] Bonnie Aguirre, OT [address] [place] [address] [email or web address] 09/01/2025 8:45 AM EDT Office Visit [address] [address] Gaby Frazier PA-C 4 [facility], [place] [address] Bonnie Aguirre, OT [address] [place] [address] [email or web address] 09/08/2025 8:45 AM EDT Office Visit [address] [address] Gaby Frazier PA-C [address] [place] [address], [place] [address] Bonnie Aguirre, OT [address] [place] [address] [email or web address] 09/15/2025 8:45 AM EDT Office Visit [address] [address] Gaby Frazier PA-C 4 [facility], [facility] [place] [address] Bonnie Aguirre, OT [address] [place] [address] [email or web address] 09/22/2025 8:45 AM EDT Office Visit [address] [address] Gaby Frazier PA-C 4 [facility], [place] [address] Bonnie Aguirre, OT [address] [place] [address] [email or web address] 09/29/2025 8:45 AM EDT Office Visit [address] [address] Gaby Frazier PA-C 4 [facility], [place] [address] Bonnie Aguirre, OT [address] [place] [address] [email or web address] 10/06/2025 8:45 AM EST Office Visit [address] [address] Gaby Frazier PA-C 4 [facility], [place] [address] Bonnie Aguirre, OT [address] [place] [address] [email or web address] 10/13/2025 8:45 AM EST Office Visit [facility] [address] [place] [address] Gaby Frazier PA-C [address] [place] [address] [facility] [place] [address] Bonnie Aguirre, OT [address] [place] [address] [email or web address] documented as of this encounter Visit Diagnoses Not on filedocumented in this encounter Care Teams Back Tender Cloth Printing Relationship Specialty Start Date End Date Ezra To MD [address] [place] [address] PCP - General 09/17/17 06/15/25 Jani Mccauley MD [address] [place] [address] PCP - General Internal Medicine 06/16/25 Lucinda Ramos PA [address] [place] [address] Physician Well Logging Operator Mud Analysis 01/02/25 documented as of this encounter Additional Source Comments The information contained in this document represents components of the legal health record. It is not the complete legal health record.[facility]
--- OUTSIDE RECORDS SUMMARY | 2025-08-16 11:56 | XMS_ITS | Encounter Summary ---
Author Organization [facility] Address [address] [facility] [address] [place] [address] Phone Care Team Providers Care Jack Prizer Name Role Phone Ezra To MD Primary Care Provider Brandon Hernandez MD Unavailable [phone] Ezra To MD Unavailable [phone] Lucinda Ramos Unavailable Jani Mccauley MD Primary Care Provid er Encounter Details Date Type Department Care Team (Late st Contact Info) Description 09/04/2021 Procedure Pass OR Admitting Dept - Virtual Department [address] [place], [place] [id number] Social History Tobacco Use Types Packs/Day Years [...] 1:50 PM EDT Elsi Saldaña RN * [place] Suicide Severity Rating Scale (Screener/Recent Self-Report) Question [...] Description 08/25/2025 8:45 AM EDT Office Visit [address] [address] Gaby Frazier PA-C [address] [place], [place] [address]s [facility], [facility] [place] [address] Bonnie Aguirre, OT [address] [place] [address] [email or web address] 09/01/2025 8:45 AM EDT Office Visit [address] [address] Gaby Frazier PA-C [address] [place] [address], [place] [address] Bonnie Aguirre, OT [address] [place] [address] [email or web address] 09/08/2025 8:45 AM EDT Office Visit [address] [address] Gaby Frazier PA-C [address] [place] [address], [place] [address] Bonnie Aguirre, OT [address] [place] [address] [email or web address] 09/15/2025 8:45 AM EDT Office Visit [facility] [address] [place] [address] Gaby Frazier PA-C 4 [facility] Orth[facility] Sports [facility], [place] [address] Bonnie Aguirre, OT [address] [place] [address] [email or web address] 09/22/2025 8:45 AM EDT Office Visit [address] [address] Gaby Frazier PA-C 4 [facility], [place] [address] Bonnie Aguirre, OT [address] [place] [address] [email or web address] 09/29/2025 8:45 AM EDT Office Visit [address] [address] Gaby Frazier PA-C [address] [place] [address], [place] [address] Bonnie Aguirre, OT [address] [place] [address] [email or web address] 10/06/2025 8:45 AM EST Office Visit [address] [address] Gaby Frazier PA-C 4 [facility] [place] [place] [address] Bonnie Aguirre, OT [address] [place] [address] [email or web address] 10/13/2025 8:45 AM EST Office Visit [facility] [address] [place] [address] Gaby Frazier PA-C 4 [facility] [place] [address] Bonnie Aguirre, OT [address] [place] [address] [email or web address] documented as of this encounter Visit Diagnoses Not on filedocumented in this encounter Care Teams Jack Prizer Relationship Specialty Start Date End Date Ezra To MD [address] [place] [address] [place] [address] PCP - General 09/17/17 06/15/25 Jani Mccauley MD [address] [place] [address] [place] [address] PCP - General Internal Medicine 06/16/25 Brandon Hernandez MD [address] [place] [address] Historical LMR Provider 09/17/17 Ezra To MD [address] [place] [address] [place] [address] Historical LMR Provider 09/17/17 2 Lucinda Ramos PA [address] [address] Physician Powder Core Tester 01/02/25 documented as of this encounter Additional Source Comments The information contained in this document represents components of the legal health record. It is not the complete legal health record.[facility]
[2025-08-16 13:07] LABS: MANUAL DIFF FLAG NO
[2025-08-16 13:14] LABS: Hematocrit 37.7 % (42.0-52.0); Hemoglobin 13.1 g/dl (14.0-18.0); Imm Gran Abs Auto 0.02 X10*3/uL (0.00-0.03); Imm Gran Pct Auto 0.4 % (0.0-0.4); Lymphocytes Absolute Auto 1.3 X10*3/uL (1.2-4.9); Mean Corpuscular HGB Conc 34.7 g/dl (31.0-36.0); Mean Corpuscular Hemoglobin 30.4 pg (27.0-33.0); Mean Corpuscular Volume 87.5 fL (80.0-98.0); NRBC Abs Auto 0.000 X10*3/uL (0.0-0.012); NRBC Pct Auto 0.0 /100WBC (0.0-0.2); Platelet Count 275 X10*3/uL (160-400); Red Blood Count 4.31 X10*6/uL (4.60-5.80); White Blood Count 5.3 X10*3/uL (4.8-10.8)
[2025-08-16 13:25] LABS: Hemoglobin A1C 181.5056 umol/L; Total Hemoglobin (HGBA1C) 3367.4809 umol/L
[2025-08-16 13:57] LABS: Alanine Aminotransferase 12 U/L (0-40); Albumin Level 4.3 g/dL (3.5-5.0); Alkaline Phosphatase 57 U/L (39-117); Anion Gap 10 (12-20); Aspartate Amino Transferase 21 U/L (5-37); Blood Urea Nitrogen 18 mg/dL (9-16); Calcium 9.0 mg/dL (8.4-10.2); Carbon Dioxide 26 mmol/L (22-29); Chloride 101 mmol/L (96-108); Cholesterol 138 mg/dL (<200); Estimated Glomerular Filt Rate > 60; HDL Cholesterol 58 mg/dL (>40); Potassium 3.9 mmol/L (3.3-5.1); Sodium 133 mmol/L (135-145); Total Protein 6.6 g/dL (6.5-8.0); Triglycerides 39 mg/dL (<150)
== END 2025-08-16 09:58 | disposition home or self-care (01) ==
LOC: HO.HMGCLDS 09:57
PROVIDERS: PCP Student in an Organized Health Care Education/Training Program; Visit Provider Student in an Organized Health Care Education/Training Program
DX: E11.9 Type 2 diabetes mellitus without complications (principal)
CPT/HCPCS: 36415; 80053; 80061; 82043; 82306; 82570; 83036; 84443; 85025

== ENCOUNTER 2025-08-19 19:05 | Observation (INO) | payer OTHER, SELFPAY ==
--- OUTSIDE RECORDS SUMMARY | 2024-05-20 08:20 | XMS_ITS ---
Author Organization [facility] Address [address] [place] [address] Care Team Providers Care Telephone Plant Power Operator Name Role Phone Yousuf (RETIRED) Ezra RAINES Primary Care Provide Juan A San [phone] REASON FOR VISIT screening,hx polyps Encounters Encounter Location Date Provider Diagnosis [facility] [place] [address] [place] [phone] 2024 Juan A Diallo Plan Of Treatment No Information Progress Notes * SERG AGEE JrDOB:[birth year] (75 yo M)Acc No.[id number]:2024 COLON WITH MAC Patient: SERG LALA Jr Provider: Brii Diallo MD :1950 A ge:74 Y S ex:Male Date:2024 Address:[address] [place], [place] [id number] Pcp:Ezra To (RETIRED )MD Subjective: * Chief [...] Diallo MD Date: 0 2024 Generated for Sammyi gerard/Faledag/eTransmitting on: 0 08/19/2025 08:24 PM EDT
--- OUTSIDE RECORDS SUMMARY | 2024-08-12 05:20 | XMS_ITS ---
Author Organization [facility] Address [address] [place] [address] Care Team Providers Care Emergency Manager Name Role Phone Yousuf (RETIRED) Ezra RAINES Primary Care Provide Juan A San [phone] REASON FOR VISIT colon screening Encounters Encounter Location Date Provider Diagnosis [facility] [place] [address] [place] [phone] 08/12/2024 Juan A Diallo Plan Of Treatment No Information Progress Notes * ANUEL SERG DOB:[birth year] (75 yo M)Acc No.[id number]:08/12/2024 COLON WITH MAC Patient: SERG LALA Jr Provider: Brii Diallo MD :1950 A ge:74 Y S ex:Male Date:08/12/2024 Address:[address] [place], [place] [phone] Pcp:Ezra To (RETIRED )MD Subjective: * Chief [...] 0 08/12/2024 Generated for Printi ng/Faxing/eTransmitting on: 08/19/2025 08:25 PM EDT
--- OUTSIDE RECORDS SUMMARY | 2024-10-17 06:30 | XMS_ITS ---
Author Organization [facility] Address [address] [place] [address] Care Team Providers Care Campaign Management Specialist Name Role Phone Yousuf (RETIRED) Ezra RAINES Primary Care Provide r Juan A Hernandez Unavailable [phone] REASON FOR VISIT screening colon Problems Problem Type SNOMED Code ICD Code Onset Dates Problem Status W/U Status Risk Notes Problem Diverticular disease of colon (520113652) Diverticulosis of large intestine without perforation or abscess without bleeding (K57.30) Active confirmed Encounters Encounter Location Date Provider Diagnosis [facility] [place] [address] [place] [id number] 10/17/2024 Juan A Diallo Colon cancer scree [...] * SERG AGEE JrDOB:[birth year] (75 yo M)Acc No.[id number]:10/17/2024 COLON WITH MAC Patient: SERG LALA Jr Provider: Brii Diallo MD :1950 A ge:74 Y S ex:Male Date:10/17/2024 Address:[address] [place], [place] [phone] Pcp:Ezra To (RETIRED )MD Subjective: * Chief [...] Date: 12/17/2023 Generated for Eladia gee/Linda/Tjsmitting on: 0 08/19/2025 08:24 PM EDT
--- NOTE | ~2025-08-19 | CT_ITS ---
CLINICAL HISTORY: vertigo ataxia CT angiography head and neck with contrast. 3D Postprocessing. Comparison: None provided Findings: Aortic arch and cervical great vessels are patent. Atherosclerotic vascular disease at bilateral carotid bifurcations [id number]-right with no hemodynamically significant stenosis. Bilateral external carotid arteries and bilateral vertebral arteries are patent. Intracranial internal carotid arteries are patent. Vertebral basilar junction is unremarkable. Basilar artery is unremarkable. 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 Bilateral anterior, middle and posterior cerebral arteries are patent. No intracranial large vessel occlusion. No aneurysm. No abnormal intracranial enhancement. The visualized thyroid gland is unremarkable. No cervical mass or fluid collection. Lung apices are grossly clear. Left-sided ICD. No acute fracture. IMPRESSION: 1. CT angiography neck demonstrates plaque at bilateral carotid bifurcations [id number] with no hemodynamically significant stenosis. 2. No intracranial large vessel occlusion. This document has been electronically signed by: Aura Santos MD on 08/20/2025 00:11:16
--- NOTE | ~2025-08-19 | MR_ITS ---
EXAMINATION: MR BRAIN WITHOUT CONTRAST CLINICAL INFORMATION: Rule out CVA . Vertigo and ataxia. COMPARISON: CT and CT angiogram head 08/19/2025. TECHNIQUE: MRI of the brain was obtained using routine sequences without contrast. Examination performed on a 1.5 Alvina Siemens high-field magnet without IV contrast. FINDINGS: There is no diffusion restriction. There is no intracranial hemorrhage, acute infarction, mass effect, or edema. Ventricles, sulci, and cisterns are normal in size and configuration for patient age. No shift of midline. No abnormal hemosiderin deposition is identified. There are a numerous scattered punctate and minimally confluent foci of white matter T2 hyperintensity in the periventricular, subcortical, and hemispheric deep white matter. These foci are nonspecific but statistically most likely relate to small vessel ischemic changes. Midline structures appear normally formed. The pituitary gland appears normal. Posterior fossa structures appear normal. Cerebellar tonsils are appropriately located. Major flow voids are preserved within the skull base. The globes and orbital contents demonstrate no abnormalities. There are bilateral lens replacements. Paranasal sinuses are clear bilaterally. The mastoids and tympanic cavities are normally aerated. Extracranial soft tissues demonstrate no abnormalities. No suspicious bone marrow changes are evident. Atlantoaxial joint is normal. MR/MR head/brain wo con IMPRESSION: 1. No evidence of intracranial hemorrhage, acute infarction, mass effect, or edema. 2. Mild white matter changes of small vessel ischemia. Electronically signed by: Prasanth Gastelum MD 08/23/2025 03:24 PM EDT
--- NOTE | ~2025-08-19 | XR_ITS ---
CLINICAL HISTORY: fall in ED, L hip prosthesis pain 4 view, pelvis and left hip Comparison: None provided Findings: No acute fracture. No dislocation. Degenerative changes right hip. Status post left hip arthroplasty. Prosthesis is intact. Contrast in the urinary bladder. IMPRESSION: No acute findings. This document has been electronically signed by: Aura Santos MD on 08/20/2025 00:12:26
--- NOTE | ~2025-08-19 | XR_ITS ---
CLINICAL HISTORY: chest pain 1 view chest x-ray Comparison: None provided Findings: Heart size is normal. Dual lead left ICD. No consolidation, significant pleural effusion or significant pneumothorax. Minimal bilateral linear opacities likely minimal subsegmental atelectasis versus scarring. No acute fracture. IMPRESSION: 1. No acute findings. This document has been electronically signed by: Aura Santos MD on 08/20/2025 19:55:19
--- NOTE | ~2025-08-19 | CT_ITS ---
CLINICAL HISTORY: vertigo CT head without contrast Comparison: None provided Findings: No intra-axial mass, midline shift, hydrocephalus, or acute hemorrhage. Mild cortical atrophy. No significant white matter changes. Atherosclerotic vascular disease. There is no sinus or mastoid fluid. The orbits are unremarkable. There is no acute skull fracture. IMPRESSION: 1. No acute intracranial findings. This document has been electronically signed by: Aura Santos MD on 08/19/2025 22:53:27
[2025-08-19 19:20] VITALS: BP 150/71; PULSE 75; RESP 18; TEMP 36; O2SAT 95; BMI 37.1
--- NOTE | 2025-08-19 19:20 | ED_ITS ---
HPI - Dizziness General Chief Complaint: Dizziness Stated Complaint: dizziness, nausea, headache Time Seen by Provider: 08/19/25 21:02 History of Present Illness ED Provider: Adan Jasso MD HPI Narrative: 75-year-old male with a history of questionable remote paroxysmal AFib, complete heart block status post pacemaker, hypertension, diabetes who has occasional orthostatic type symptoms and occasional ?dizzy ?sensation but yesterday had a transient episode we will after walking for 10 or 15 seconds where he felt slightly off balance this was very brief lasting less than a minute. He was fine the rest of the day and then woke this morning and had some persistent generalized unsteadiness on his feet. Gove dizzy particularly with rapid or sudden movements of the torso or head. Nausea no vomiting. No headache except when standing rapidly feels mild superior headache. No ringing in the ears hearing loss vision symptoms focal motor or sensory symptoms described. Says he has been using a cane which he does on occasion Related Data Home Medications ?Medication ?Instructions ?Recorded ?Confirmed cholecalciferol (vitamin D3) 125 125 mcg PO MOWEFR 10/2008/20/25 mcg (5,000 unit) capsule multivitamin 1 tab PO DAILY 04/09/2108/01 folic acid 1 mg tablet 1 mg PO DAILY 05/22/2108/20 ibuprofen 600 mg tablet 600 mg PO QID PRN Pain 05/2208/20/25 aspirin 81 mg tablet,delayed 81 mg PO DAILY 08/20/21 0 08/20/25 release chlorthalidone 25 mg tablet 25 mg PO DAILY 08/20/21 ferrous sulfate 325 mg (65 mg 325 mg PO DAILY 02/20/22 08/20/25 iron) tablet amino acids 1 cap PO DAILY 05/29/2508/01 clobetasol 0.05 % topical cream 1 appl topical DAILY P RN Rash 08/03/25 08/20/25 omeprazole magnesium 20 mg 40 mg PO DAILY@0630 5 08/20/25 tablet,delayed release (Prilosec OTC) tadalafil 20 mg tablet 20 mg PO Q OTHER DAY PRN Ere ctile 08/03/25 08/20/25 Dysfunction Lactobacillus acidophilus 10 10,000 mmu cells PO DAILY 08/20/25 08/20/25 billion cell capsule (Probiotic) ascorbic acid (vitamin C) 250 mg 250 mg PO DAILY 08/2008/20/25 tablet (Vitamin C) mupirocin 2 % topical ointment 1 appl topical BID 08/0108/20/25 Previous Rx's ?Medication ?Instructions ?Recorded metoprolol succinate 25 mg 25 mg PO DAILY #90 tabs 02/21 tablet,extended release 24 hr atorvastatin 20 mg tablet 20 mg PO DAILY #90 tabs 03/01 02/21 lisinopril 10 mg tablet 10 mg PO DAILY #90 tabs 03/01 02/21 blood-glucose sensor (FreeStyle #1 ea 03/28/25 Sherrell 3 Plus Sensor device) metformin 500 mg tablet,extended 500 mg PO DAILY #90 t abs 07/24/25 release 24 hr albuterol sulfate 90 mcg/actuation 2 puff inhalation Q 4H PRN 07/28/25 aerosol inhaler Shortness Of Breath #8.5 gra ms Allergies Allergy/AdvReac Type Severity Reaction Status Date / Time cat dander Allergy Intermediate ASTHMA Verified 08/19/25 19:24 FOR[facility]LY [facility] Past Medical History Medical History Dizziness Headache Abdominal pain Myasthenia gravis BPH (benign prostatic hyperplasia) Hx of pancreatitis Osteoarthritis Mild heartburn Asthma Obstructive sleep apnea Diabetes mellitus HTN (hypertension) Cardiac pacemaker in situ Paroxysmal atrial fibrillation Complete heart block Surgical History History of prostate surgery History of total hip replacement H/O right inguinal hernia repair (05/29/21) Hx of colonoscopy (~10/17/24) Hx of tonsillectomy History of permanent cardiac pacemaker placement Hx laparoscopic cholecystectomy Family History Family History Father Myocardial infarct Mother No problems noted. Social History Social History Household Members: None Housing: House Are you a primary career placement specialist to a significant other at home: Yes () Do you presently have visiting nurse or other home services: No Comment: medicated in pacu Patient Tobacco Use Status: Former Tobacco user Tobacco use type: Cigarette e-Cigarette/Vaping Use: Former Use Second Hand Smoke Exposure: No Advance Directives Date on File: 04/26/21 service: No Current occupational status: retired Cognitive needs: No Hearing needs: Yes (bilateral hearing aids) Vision needs: Yes (rx glasses) Physical Exam 2 Exam: Exam: GENERAL: Well appearing. No apparent distress. Alert. HEAD/NECK: Normal to inspection. Neck supple. No cervical lymphadenopathy. EYES: Normal to inspection. Sclera non-icteric. ENMT: External nose normal. RESPIRATORY: Respiratory effort normal. Lungs clear to auscultation bilaterally. CARDIOVASCULAR: Regular rate. Normal rhythm. No murmur. No rubs. GI: Soft, non-tender, non-distended. No rebound or guarding. No masses palpable. No hepatosplenomegaly. SKIN: No jaundice. NEUROLOGICAL: Alert. PSYCHIATRIC: Alert. Appearance appropriate for situation. Attitude cooperative. OTHER: Comprehensive Neuro exam: Face symmetric, tongue midline, strong symmetric eye closure, pupils symmetric and reactive to light, intact sensation to the face throughout, in finger-nose test is normal. ce deviation and shoulder shrug. Gait with left-handed cane which is not unusual for him steady without ataxia near falls or abnormality. To him he says he is walking at his baseline normally feels well. Sensation intact to light touch throughout * 5 out of 5 strength in bilateral upper extremities, 5 and 5 strength in lower extremities * * __ Initial evaluation stroke scale NIH Stroke Scale/Score (NIHSS) from [email or web address] on 08/19/2025 All calculations should be rechecked by clinician prior to use RESULT SUMMARY: 0 points NIH Stroke Scale INPUTS: 1A: Level of consciousness ?> 0 = Alert; keenly responsive 1B: Ask month and age ?> 0 = Both questi ons right 1C: 'Blink eyes' & 'squeeze hands' ?> 0 = Performs both tasks 2: Horizontal extraocular movements ?> 0 = Normal 3: Visual wiley ?> 0 = No visual loss 4: Facial palsy ?> 0 = Normal symmetry 5A: Left arm motor drift ?> 0 = No drift for 10 seconds 5B: Right arm motor drift ?> 0 = No drif t for 10 seconds 6A: Left leg motor drift ?> 0 = No drift for 5 seconds 6B: Right leg motor drift ?> 0 = No drif t for 5 seconds 7: Limb Ataxia ?> 0 = No ataxia 8: Sensation ?> 0 = Normal; no sensory l oss 9: Language/aphasia ?> 0 = Normal; no ap hasia 10: Dysarthria ?> 0 = Normal 11: Extinction/inattention ?> 0 = No abn ormality Vital Signs: Vital Signs: Last Vital Signs Temp 97.6 F 08/21/25 16:00 Pulse 75 08/21/25 19:28 Resp 18 08/21/25 16:00 BP 137/69 08/21/25 19:28 Pulse Ox 95 08/21/25 16:00 O2 Del Method Room Air 08/21/25 16:00 BMI result Body Mass Index 37.1 Course Course Course Narrative: This is an RME: Additional HPI, ROS, PE not included below will be deferred to primary provider. RME assessment and note performed by: Audra Faith PA-C This is a 74-qlpl-hpi-male, with a hx of DM, MG, HTN, afib on ASA, who presents to the ER with a complaint of dizziness which he noticed this afternoon. Reports that yesterday at 11:00AM he was at a physical therapy appointment, after he did exercises, while he was walking, he had a moment when he lost his balance and thought he was going to fall. Endorses some nausea. NIH 0, no neurologic focal deficits on exam. Plan: Labs, EKG, further ER eval needed Reevaluation(s) Reevaluation #1: 11:06 PM 08/19/2025 (Dr. Adan Jasso): The patient called out from the bathroom he was on his knees and appeared to have had a fall striking directly his left hip on the bathroom floor. This was described as a nonsyncopal fall his cane was beside him no head strike or loss of consciousness. Complained of left hip pain where he has a prosthetic. No numbness tingling weakness. Patient was assisted up bearing his own weight on both legs and placed in a bed. X-ray will be ordered. Medications Administered Generic Name Dose Route Start Last Admin Trade Name Freq PRN Reason Stop Dose Admin Acetaminophen 650 mg 08/19/25 23:47 08/21/25 03:17 Acetaminophen 325 Mg Tablet PO 650 mg Q6H PRN Administration Pain, Mild 1-3,fever,headache Ascorbic Acid 250 mg 08/21/25 09:00 08/21/25 08:46 Ascorbic Acid 250 Mg Tablet PO 250 mg DAILY [facility] Administration Aspirin 81 mg 08/21/25 09:00 08/21/25 08:45 Aspirin Enteric Coated 81 Mg Tablet. PO 81 mg DAILY ROSALINO Administration Atorvastatin Calcium 20 mg 08/21/25 09:00 08/21/25 08:45 Atorvastatin Calcium 20 Mg Tablet PO 20 mg DAILY [facility] Administration Carbamide Peroxide 5 drop 08/20/25 01:30 08/21/25 08:49 Carbamide Peroxide 6.5% Otic 15 Ml Drpbtl EAR-BOTH 08/23/25 01:29 Not Given BID [facility] Enoxaparin Sodium 40 mg 08/21/25 00:00 08/20/25 23:25 Enoxaparin Sodium 40 Mg/0.4 Ml Syringe SUBCUT 40 mg Q24H [facility] Administration Ferrous Sulfate 324 mg 08/21/25 09:00 08/21/25 08:46 Ferrous Sulfate 324 Mg Tablet. PO 324 mg DAILY [facility] Administration Folic Acid 1 mg 08/21/25 09:00 08/21/25 08:46 Folic Acid 1 Mg Tablet PO 1 mg DAILY [facility] Administration Insulin Human Lispro 0 unit 08/20/25 07:30 08/21/25 16:45 Insulin Lispro 100 Unit/Ml 3 Ml Vial SUBCUT Not Given QIDACHS [facility] Protocol Metoprolol Succinate 25 mg 08/21/25 09:00 08/21/25 08:46 Metoprolol Succinate Er 25 Mg Tab.Er.24h PO 25 mg DAILY [facility] Administration Protocol Multivitamins/Vitamin C 1 tab 08/21/25 09:00 08/21/25 08:46 Multivitamin Tablet PO 1 tab DAILY [facility] Administration Mupirocin 1 appl 08/20/25 21:00 08/21/25 08:49 Mupirocin 2 % Oint 22 Gm Tube TOPICAL Not Given BID [facility] Protocol Nitroglycerin 0.4 mg 08/20/25 19:04 08/20/25 19:38 Nitroglycerin 0.4 Mg Tab.Subl SUBLINGUAL 1 tab Q5MX3 PRN Administration Chest Pain Omeprazole 40 mg 08/21/25 06:30 08/21/25 05:30 Omeprazole 40 Mg Capsule. PO 40 mg DAILY@0630 ROSALINO Administration Senna 17.2 mg 08/20/25 21:00 08/21/25 19:35 Sennosides 8.6 Mg Tablet PO 17.2 mg BEDTIME ROSALINO Administration Sodium Chloride 3 ml 08/20/25 00:00 08/21/25 14:29 0.9 % Sodium Chloride Flush 3 Ml Syringe IVFLUSH Not Given QSHIFT ROSALINO Vitamin D 125 mcg 08/21/25 09:00 08/21/25 08:47 Cholecalciferol (Vitamin D3) 25 Mcg Tablet PO 125 mcg MOWEFR ROSALINO Administration Discontinued Medications Generic Name Dose Route Start Last Admin Trade Name Jamshidq PRN Reason Stop Dose Admin Aspirin 243 mg 08/20/25 20:30 08/20/25 21:04 Aspirin 81 Mg Tab.Chew PO 08/20/25 20:31 243 mg ONCE ONE Administration Sodium Chloride 1,000 mls @ 100 mls/hr 08/20/25 00:45 08/21/25 15:58 Ns IVCONT Infused .Q10H ROSALINO Infusion Iohexol 75 ml 08/19/25 23:03 08/19/25 23:03 Iohexol 350 Mg/Ml 100 Ml Infus..Btl IV 08/19/25 23:04 75 ml ONCE ONE Administration Meclizine HCl 50 mg 08/19/25 21:13 08/19/25 21:33 Meclizine Hcl 25 Mg Tablet PO 08/19/25 21:14 50 mg ONCE ONE Administration Morphine Sulfate 2 mg 08/20/25 20:30 08/20/25 21:13 Morphine Sulfate 2 Mg/Ml Cartridge IVPUSH 08/20/25 20:31 2 mg ONCE ONE Administration Protocol Medical Decision Making Medical Decision Making [facility] Narrative: Medical Decision Making: [75-year-old male with mostly resolved vertiginous symptoms worse with torso or head movement and some subjective unsteady gait that has since resolved. Nausea no vomiting well-appearing at this time. He is on aspirin there was a documented paroxysmal AFib but he is paced. No history of TIA or CVA though this was considered as a possible vertebral insufficiency and/or posterior stroke the patient and I had a lengthy shared decision-making discussion as I favored peripheral or or benign vertigo etiology we talked about this and the inherent workup required to evaluate for stroke including CT with angiography overnight stay MR which maybe complicated due to his pacemaker and neurology consultation. Patient favors workup for stroke exclusion though unlikely there is still certainly a chance given his medical history age and presentation that there could be a small posterior circulation CVA. Preliminary Favored Differential Diagnosis: Posterior CVA, vertebral insufficiency, orthostasis, vasovagal, dehydration, electrolyte derangement, a neuropathy, BPV, vestibulitis among additional considered etiologies Testing Interpreted Independently: ?See below for details Radiology or Lab testing Results Reviewed: ?See below for details Consults: ?See below for details Independent Historians/External Chart Reviews: ?See below for details Social Determinants of Health Impacting MDM/Planning: ?See below for details Consult Healthcare Provider Management of the patient was discussed with: Hospitalist Lab Data MDM Lab Attestation statement: I reviewed the patient's lab results. 08/20/25 04:19 08/20/25 04:19 Labs: Lab Results 08/19/25 Range/Units 19:59 WBC 7.2 (4.8-10.8) X10*3/uL RBC 4.28 L (4.60-5.80) X10*6/uL Hgb 13.1 L (14.0-18.0) g/dl Hct 37.3 L (42.0-52.0) % MCV 87.1 (80.0-98.0) fL MCH 30.6 (27.0-33.0) pg MCHC 35.1 (31.0-36.0) g/dl RDW 13.7 (11.0-16.0) % Plt Count 254 (160-400) X10*3/uL MPV 8.3 L (9.4-12.4) fL Immature Gran % (Auto) 0.3 (0.0-0.4) % Neut % (Auto) 67.7 (45-73) % Lymph % (Auto) 22.2 (20-40) % Terrell % (Auto) 6.4 (2-11) % Eos % (Auto) 3.0 (0-4) % Baso % (Auto) 0.4 (0-2) % Lymph # (Auto) 1.6 (1.2-4.9) X10*3/uL Terrell # (Auto) 0.5 (0.1-1.2) X10*3/uL Eos # (Auto) 0.2 (0.0-0.4) X10*3/uL Baso # (Auto) 0.0 (0.0-0.2) X10*3/uL Abs Immat Gran (auto) 0.02 (0.00-0.03) X10*3/uL Absolute Neuts (auto) 4.9 (2.0-8.3) x10*3/uL Absolute Nucleated RBC 0.000 (0.0-0.012) X10*3/uL Nucleated RBC % (auto) 0.0 (0.0-0.2) /100WBC Sodium 135 (135-145) mmol/L Potassium 3.8 (3.3-5.1) mmol/L Chloride 101 (96-108) mmol/L Carbon Dioxide 27 (22-29) mmol/L Anion Gap 11 L (12-20) BUN 19 H (9-16) mg/dL Creatinine 0.66 (0.5-1.4) mg/dL Estim Creat Clear Calc 118.4 Estimated GFR > 60 Random Glucose 136 H (60-115) mg/dL Calcium 9.2 (8.4-10.2) mg/dL Magnesium 1.9 (1.6-2.6) mg/dL Total Bilirubin 0.5 (0.0-1.0) mg/dL Direct Bilirubin 0.2 (0.0-0.5) mg/dL AST 20 (5-37) U/L ALT 15 (0-40) U/L Alkaline Phosphatase 61 (39-117) U/L Total Creatine Kinase 80 (38-174) U/L Troponin I High Sens < 2.7 (<3.5-35.0) ng/L NT-Pro-B Natriuret Pep 149.5 (<300) pg/mL Total Protein 6.8 (6.5-8.0) g/dL Albumin 4.4 (3.5-5.0) g/dL Independent Interpretation I performed an independent interpretation of an: EKG (Paste no ischemia) Discharge Plan Discharge Clinical Impression: Dizziness Patient Disposition: Admitted As Inpatient Interventions: Admission Worksheet (ED) Last Done: 08/21/25 02:35 Discharge Date/Time: 08/21/25 06:48
--- NOTE | 2025-08-19 19:28 | ECG_ITS ---
Test Reason : DIZZINESS Blood Pressure : */* mmHG Vent. Rate : 68 BPM Atrial Rate : 68 BPM P-R Int : 166 ms QRS Dur : 174 ms QT Int : 460 ms P-R-T Axes : 45 -75 92 degrees QTcB Int : 489 ms Atrial-sensed ventricular-paced rhythm Abnormal ECG When compared with ECG of 30-Jun-2018 12:12, Electronic ventricular pacemaker has replaced Idioventricular rhythm Vent. rate has increased by 28 bpm Referred By: Audra Faith Electronically Signed By: MIQUEL CREWS
[2025-08-19 20:05] LABS: MANUAL DIFF FLAG NO
[2025-08-19 20:06] LABS: Hematocrit 37.3 % (42.0-52.0); Hemoglobin 13.1 g/dl (14.0-18.0); Imm Gran Abs Auto 0.02 X10*3/uL (0.00-0.03); Imm Gran Pct Auto 0.3 % (0.0-0.4); Lymphocytes Absolute Auto 1.6 X10*3/uL (1.2-4.9); Mean Corpuscular HGB Conc 35.1 g/dl (31.0-36.0); Mean Corpuscular Hemoglobin 30.6 pg (27.0-33.0); Mean Corpuscular Volume 87.1 fL (80.0-98.0); NRBC Abs Auto 0.000 X10*3/uL (0.0-0.012); NRBC Pct Auto 0.0 /100WBC (0.0-0.2); Platelet Count 254 X10*3/uL (160-400); Red Blood Count 4.28 X10*6/uL (4.60-5.80); White Blood Count 7.2 X10*3/uL (4.8-10.8)
[2025-08-19 20:19] LABS: Alanine Aminotransferase 15 U/L (0-40); Albumin Level 4.4 g/dL (3.5-5.0); Alkaline Phosphatase 61 U/L (39-117); Anion Gap 11 (12-20); Aspartate Amino Transferase 20 U/L (5-37); Blood Urea Nitrogen 19 mg/dL (9-16); Calcium 9.2 mg/dL (8.4-10.2); Carbon Dioxide 27 mmol/L (22-29); Chloride 101 mmol/L (96-108); Creatinine Clr Calc Pharmacy 118.4; Estimated Glomerular Filt Rate > 60; Magnesium 1.9 mg/dL (1.6-2.6); Potassium 3.8 mmol/L (3.3-5.1); Sodium 135 mmol/L (135-145); Total Protein 6.8 g/dL (6.5-8.0)
--- OUTSIDE RECORDS SUMMARY | 2025-08-19 20:25 | XMS_ITS | Encounter Summary ---
Author Organization [facility] Address [address] [facility] [address] [place] [id number] Phone Care Team Providers Care Launch Commander [employer] Name Role Phone Ezra To MD Primary Care Provider Brandon Hernandez MD Unavailable [phone] Ezra To MD Unavailable [phone] Lucinda Ramos Unavailable Jani Mccauley MD Primary Care Provid er Encounter Details Date Type Department Care Team (Late st Contact Info) Description 09/04/2021 Procedure Pass OR Admitting Dept - Virtual Department [address] [place], [place] [id number] Social History Tobacco Use Types Packs/Day Years [...] 1:50 PM EDT Elsi Saldaña RN * [place] Suicide Severity Rating Scale (Screener/Recent Self-Report) Question [...] Description 08/25/2025 8:45 AM EDT Office Visit [address] [address] Gaby Frazier PA-C [address] [place], [place] [address]s [facility], [facility] [place] [address] Bonnie Aguirre, OT [address] [place] [address] [email or web address] 09/01/2025 8:45 AM EDT Office Visit [address] [address] Gaby Frazier PA-C [address] [place] [address], [place] [address] Bonnie Aguirre, OT [address] [place] [address] [email or web address] 09/08/2025 8:45 AM EDT Office Visit [address] [address] Gaby Frazier PA-C [address] [place] [address], [place] [address] Bonnie Aguirre, OT [address] [place] [address] [email or web address] 09/15/2025 8:45 AM EDT Office Visit [facility] [address] [place] [address] Gaby Frazier PA-C [address] [facility], [place] [address] Bonnie Aguirre, OT [address] [place] [address] [email or web address] 09/22/2025 8:45 AM EDT Office Visit [address] [address] Gaby Frazier PA-C [address] [facility], [place] [address] Bonnie Aguirre, OT [address] [place] [address] [email or web address] 09/29/2025 8:45 AM EDT Office Visit [address] [address] Gaby Frazier PA-C [address] [place] [address], [place] [address] Bonnie Aguirre, OT [address] [place] [address] [email or web address] 10/06/2025 8:45 AM EST Office Visit [address] [address] Gaby Frazier PA-C [address] [facility] [place] [address] Bonnie Aguirre, OT [address] [place] [address] [email or web address] 10/13/2025 8:45 AM EST Office Visit [facility] [address] [place] [address] Gaby Frazier PA-C [address] [facility] [place] [address] Bonnie Aguirre, OT [address] [place] [address] [email or web address] documented as of this encounter Visit Diagnoses Not on filedocumented in this encounter Care Teams Launch Commander [employer] Relationship Specialty Start Date End Date Ezra To MD [address] [place] [address] [place] [address] PCP - General 09/17/17 06/15/25 Jani Mccauley MD [address] [place] [address] [place] [address] PCP - General Internal Medicine 06/16/25 Brandon Hernandez MD [address] [place] [address] Historical LMR Provider 09/17/17 Ezra To MD [address] [place] [address] [place] [address] Historical LMR Provider 09/17/17 2 Lucinda Ramos PA [address] [address] Physician Bakery Helper 01/02/25 documented as of this encounter Additional Source Comments The information contained in this document represents components of the legal health record. It is not the complete legal health record.[facility]
--- OUTSIDE RECORDS SUMMARY | 2025-08-19 20:25 | XMS_ITS | Patient Health Record ---
Author Organization [facility] Address [address] [place] [address] Care Team Providers Care Carpet Repairer Name Role Phone Yousuf (RETIRED) Ezra RAINES Primary Care Provide r Unavailable Juan A Diallo Unavailable [phone] Allergies No Known Allergies Results Component Value Reference Range Notes Glucose, Whole Blood Reviewed date:10/18/2024 12:12:48 AM Interpretation: Performing Lab:[facility], [address] [place] [id number] Notes/Report: Glucose, Whole Blood 144 60-115 mg/dL METER # : [id number] Reason For Referral No Information Medications Medication [...] Problem Status W/U Status Risk Notes Problem 362150979 Encounter for screening for malignant neoplasm of colon (Z12.11) Active confirmed Problem 330193684 History of adenomatous polyp of colon (Z86.010) Active confirmed Problem Diverticular disease of colon (620268737) Diverticulosis of large intestine without perforation or abscess without bleeding (K57.30) Active confirmed Problem Gastroesophageal reflux disease (676871458) GERD (gastroesophageal reflux disease) (K21.9) Active confirmed Problem 646799412192602 Pre-procedural examination (Z01.818) Active confirmed Problem 637273752233579 Encounter for long-term (current) aspirin use (Z79.82) Active confirmed Encounters Encounter Location Date Provider Diagnosis [facility] Outpatient [address] [place] [phone] 10/17/2024 Juan A Diallo Colon cancer scree [...] Insured Coverage Start Date Coverage End Date [facility] [address] [place] [address] [phone] [id number] SERG AGEE Self - patient is the insured Medical (General) History Medical History History ICD Code Pancreatitis-hospitalized fo r several days in 2005-this was felt to be related to EtOH--he did have a negative MRI of the abdomen and pancreas, including a MRCP in 2008 NIDDM Hypertension Elevated Cholesterol Sleep apnea-uses CPAP Denies CA,CVA,renal disease Asthma - mild-inhaler as needed Colonoscopy [...] 2020 Planning Aqua Ablation of prostate at [facility] as of the 01/2024 OV
--- OUTSIDE RECORDS SUMMARY | 2025-08-19 20:25 | XMS_ITS | Encounter Summary ---
Author Organization [facility] Address [address] [place] [address] [place] [address] Phone Care Team Providers Care Business Analytics Faculty Member Name Role Phone Ezra To MD Primary Care Provider Brandon Hernandez MD Unavailable Ezra To MD Unavailable [phone] Lucinda Ramos Unavailable Jani Mccauley MD Primary Care Provid er Encounter Details Date Type Department Care Team (Latest Contact Info) Description 10/28/2018 Transcribe Orders [address] [place] [address] James Puentes MD [address] [place] [address], [address] [place] [id number] [email or web address] Hyperplasia of prostate with lower urinary tract [...] Description 08/25/2025 8:45 AM EDT Office Visit [facility] [address] [place] [address] Gaby Frazier PA-C 4 [facility], [place] [address] Bonnie Aguirre, OT [address] [place] [address] [email or web address] 09/01/2025 8:45 AM EDT Office Visit [address] [address] Gaby Frazier PA-C [address] [place] [address], [place] [address] Bonnie Aguirre, OT [address] [place] [address] [email or web address] 09/08/2025 8:45 AM EDT Office Visit [address] [address] Gaby Frazier PA-C [address] [place] [address], [place] [address] Bonnie Aguirre, OT [address] [place] [address] [email or web address] 09/15/2025 8:45 AM EDT Office Visit [address] [address] Gaby Frazier PA-C [address] [place] [address], [place] [address] Bonnie Aguirre, OT [address] [place] [address] [email or web address] 09/22/2025 8:45 AM EDT Office Visit [facility] [address] [place] [address] Gaby Frazier PA-C 4 [facility] [place] [address] Bonnie Aguirre, OT [address] [place] [address] [email or web address] 09/29/2025 8:45 AM EDT Office Visit [address] [address] Gaby Frazier PA-C 4 [facility] [place] [address] Bonnie Aguirre, OT [address] [place] [address] [email or web address] 10/06/2025 8:45 AM EST Office Visit [address] [address] Gaby Frazier PA-C 4 [facility] [place] [address] Bonnie Aguirre, OT [address] [place] [address] [email or web address] 10/13/2025 8:45 AM EST Office Visit [address] [address] Gaby Frazier PA-C [address] [place] [address] [facility] [place] [address] Bonnie Aguirre, OT [address] [place] [address] [email or web address] documented as of this encounter Results * PSA (screening) (10/28/2018 10:52 AM EST) PSA 2.56 0 - 4.00 ng/mL [facility] Blood 10/28/2018 10:5 2 AM EST 10/28/2018 10:54 AM EST us James Puentes MD LAB BLOOD ORDERABLES Final Resu lt Performing Organization Address City/State/[facility] Co de Phone Number [facility] [address] [place] [address] documented in this encounter Visit Diagnoses Diagnosis Hyperplasia of prostate with lower urinary tract symptoms (LUTS)- Primary Unspecified hyperplasia of prostate with urinary obstruction and other lower urinary tract symptoms (LUTS) documented in this encounter Care Teams Business Analytics Faculty Member Relationship Specialty Start Date End Date Ezra To MD [address] [place] [address] [place] [address] PCP - General 09/17/17 06/15/25 Jani Mccauley MD [address] [place] [address] [address] PCP - General Internal Medicine 06/16/25 Brandon Hernandez MD [address] [place] [address] Historical LMR Provider 09/17/17 Ezra To MD [address] [place] [address] [place] [address] Historical LMR Provider 09/17/17 2 Lucinda Ramos PA [facility] [place] [address] [email or web address] Physician Sales Representative [employer] 01/02/25 documented as of this encounter Additional Source Comments The information contained in this document represents components of the legal health record. It is not the complete legal health record.[facility]
--- OUTSIDE RECORDS SUMMARY | 2025-08-19 20:25 | XMS_ITS | Encounter Summary ---
Author Organization [facility] Address [address] [facility] [address] [place] [address] Phone Care Team Providers Care Interceptor Operator Name Role Phone Ezra To MD Primary Care Provider Lucinda Ramos Unavailable Jani Mccauley MD Primary Care Provid er Encounter Details Date Type Department Care Team (Late st Contact Info) Description 04/08/2024 Procedure Pass OR Admitting Dept - Virtual Department [address] [place] [address] Social History Tobacco Use Types Packs/Day Years [...] 3:54 PM EDT Trent Winchester RN * Lamar Suicide Severity Rating Scale (Screener/Recent Self-Report) Question [...] Description 08/25/2025 8:45 AM EDT Office Visit [address] [address] Gaby Frazier PA-C 4 [facility], [place] [address] Bonnie Aguirre, OT [address] [place] [address] [email or web address] 09/01/2025 8:45 AM EDT Office Visit [address] [address] Gaby Frazier PA-C 4 [facility], [place] [address] Bonnie Aguirre, OT [address] [place] [address] [email or web address] 09/08/2025 8:45 AM EDT Office Visit [address] [address] Gaby Frazier PA-C [address] [place] [address], [place] [address] Bonnie Aguirre, OT [address] [place] [address] [email or web address] 09/15/2025 8:45 AM EDT Office Visit [address] [address] Gaby Frazier PA-C 4 [facility], [facility] [place] [address] Bonnie Aguirre, OT [address] [place] [address] [email or web address] 09/22/2025 8:45 AM EDT Office Visit [address] [address] Gaby Frazier PA-C 4 [facility], [place] [address] Bonnie Aguirre, OT [address] [place] [address] [email or web address] 09/29/2025 8:45 AM EDT Office Visit [address] [address] Gaby Frazier PA-C 4 [facility], [place] [address] Bonnie Aguirre, OT [address] [place] [address] [email or web address] 10/06/2025 8:45 AM EST Office Visit [address] [address] Gaby Frazier PA-C 4 [facility], [place] [address] Bonnie Aguirre, OT [address] [place] [address] [email or web address] 10/13/2025 8:45 AM EST Office Visit [facility] [address] [place] [address] Gaby Frazier PA-C [address] [place] [address] [facility] [place] [address] Bonnie Aguirre, OT [address] [place] [address] [email or web address] documented as of this encounter Visit Diagnoses Not on filedocumented in this encounter Care Teams Interceptor Operator Relationship Specialty Start Date End Date Ezra To MD [address] [place] [address] PCP - General 09/17/17 06/15/25 Jani Mccauley MD [address] [place] [address] PCP - General Internal Medicine 06/16/25 Lucinda Ramos PA [address] [place] [address] Physician Coagulating Bath Operator 01/02/25 documented as of this encounter Additional Source Comments The information contained in this document represents components of the legal health record. It is not the complete legal health record.[facility]
--- OUTSIDE RECORDS SUMMARY | 2025-08-19 20:25 | XMS_ITS | Clinical Summary ---
Author Organization [facility] Address [address] [facility] [address] [place] [address] Phone Care Team Providers Care Dialysis Equipment Technician Name Role Phone Lucinda Ramos Unavailable Jani [...] Active ferrous sulfate 324 mg (65 mg [place] iron) TbEC Take 324 mg by mouth [...] nuclear stress test last week at the [facility] which she will obtain. There should [...] with albuterol. 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 His [...] Description 07/17/2025 1:40 PM EDT Office Visit [facility] [address] [place] [address] Gaby Frazier PA-C Sprain of interphalangeal joint of left thumb, subsequent encounter (Primary Dx) 06/16/2025 9:45 AM EDT Office Visit [facility] [address] [place] [address] Phil Joseph PA-C Sprain of interphalangeal joint of left thumb, initial encounter (Primary Dx); Contusion of left elbow, initial encounter; Pain, joint, hand, left 06/16/2025 9:42 AM EDT - 06/16/2025 11:59 PM EDT Hospital Encounter [address] [address] Phil Joseph PA-C Discharge Disposition: Home or Self Care 06/16/2025 9:29 AM EDT - 06/16/2025 9:41 AM EDT Hospital Encounter [address] [address] Phil Joseph PA-C Discharge Disposition: Home or [...] Description 08/25/2025 8:45 AM EDT Office Visit [address] [address] Gaby Frazier PA-C 4 [facility], [facility] [place] [address] Bonnie Aguirre, OT [address] [place] [address] [email or web address] 09/01/2025 8:45 AM EDT Office Visit [address] [address] Gaby Frazier PA-C 4 [facility] [address] Bonnie Aguirre, OT [address] [place] [address] [email or web address] 09/08/2025 8:45 AM EDT Office Visit [address] [address] Gaby Frazier PA-C [address] [place] [address], [place] [address] Bonnie Aguirre, OT [address] [place] [address] [email or web address] 09/15/2025 8:45 AM EDT Office Visit [address] [address] Gaby Frazier PA-C 4 [facility], [facility] [place] [address] Bonnie Aguirre, OT [address] [place] [address] [email or web address] 09/22/2025 8:45 AM EDT Office Visit [address] [address] Gaby Frazier PA-C [address] [place] [address], [place] [address] Bonnie Aguirre, OT [address] [place] [address] [email or web address] 09/29/2025 8:45 AM EDT Office Visit [address] [address] Gaby Frazier PA-C 4 [facility], [place] [address] Bonnie Aguirre, OT [address] [place] [address] [email or web address] 10/06/2025 8:45 AM EST Office Visit [address] [address] Gaby Frazier PA-C [address] [place] [address], [place] [address] Bonnie Aguirre, OT [address] [place] [address] [email or web address] 10/13/2025 8:45 AM EST Office Visit [facility] [address] [place] [address] Gaby Frazier PA-C [address] [place] [address] Orthopedics [facility] Medicine, [facility] [place] [address] Bonnie Aguirre, OT [address] [place] [address] [email or web address] Maintenance Due Date Last Done [...] this topic Medical Devices Implanted Type Area [employer] Surveyor Device Identifier Shelf Expiration Date Model / Serial / Lot Lens Lens Colemana l: Eye Pacemaker Pacemaker Chest Echo Bi-Metric Hip System Laterialized Femoral Stem Implanted:Qty: 1 on 09/04/2021 by Chris Thibodeaux MD at [facility] Prosthetic Joint Left: Hip [employer] 10/22/2025 [id number] / / [id number] Description:Reduced Proximal Profile Porous Plasma/Uncemented Acetabular Shell 56mm Size F G7 Porous Plasma [place] [employer] Hole - [id number] Implanted:Qty: 1 on 09/04/2021 by Chris Thibodeaux MD at [facility] Left: Hip [employer] 04/20/2031 [id number] / / [id number] Screw Bone 6.5x30mm Hip Dome G7 Acetabular Low Profile - [id number] Implanted:Qty: 1 on 09/04/2021 by Chris Thibodeaux MD at [facility] Left: Hip [employer] 05/27/2031 [id number] / / [id number] Hip Liner 36mm F Acetabular Neutral G7 Longevity - [id number] Implanted:Qty: 1 on 09/04/2021 by Chris Thibodeaux MD at [facility] Left: Hip [employer] / DIV OF [employer] 11/20/2025 [id number] / / [id number] Hip Head 1 36mm Minus 3 Implant Femoral Hd Modular [place] 05 - [id number] Implanted:Qty: 1 on 09/04/2021 by Chris Thibodeaux MD at [facility] Left: Hip [employer] 06/20/2031 [id number] / / [id number] Procedures Procedure Name Priority Date/Time Associated Diagnosis [...] EDT) SODIUM 134 133 - 146 mmol/L [facility] CHLORIDE 100 96 - 108 mmol/L [facility] POTASSIUM 3.6 3.3 - 5.1 mmol/L [facility] CO2 24 21 - 35 mmol/L [facility] BUN 9 6 - 19 mg/dL [facility] CREATININE 0.60 0.5 - 1.5 mg/dL [facility] GLUCOSE 182(H) 70 - 99 mg/dL [facility] CALCIUM 8.2(L) 8.4 - 10.3 mg/dL [facility] EGFR 101 >59 mL/min/1.7 3m2 [facility] Comment:Estimated glomerular filtration rate calculated using the CKD-EPI refit equation. ANION GAP 14 10 - 20 mmol/L [facility] Blood 04/09/2024 5:52 AM EDT 04/09/2024 6:14 AM EDT us Gaby Hahn [employer] LAB BLOOD ORDERABLES Fin al Result Performing Organization Address City/[facility]/ZIP Co de Phone Number [address] [address] * (ABNORMAL) Hemoglobin A1c (04/08/2024 12:02 PM EDT) HEMOGLOBIN A1C 7.5(H) 4.3 - 5.8 % [facility] Blood 04/08/2024 12:0 2 PM EDT 04/08/2024 12:07 PM EDT Gaby Hahn [employer] LAB BLOOD ORDERABLES Fin al Result Performing Organization Address City/[facility] Co de Phone Number [address] [address] from Last 3 Months or Most Recently Relevant to Health Maintenance Insurance [facility] TOTAL CHOICE INDEMNITY [facility] TOTAL CHOICE INDEMNITY [facility] TOTAL CHOICE INDEMNITY [facility] TOTAL CHOICE [facility]DEMNITY [facility] TOTAL CHOICE [facility]DEMNITY [facility] TOTAL CHOICE INDEMNITY [facility] TOTAL CHOICE INDE[facility]ITY [facility] TOTAL CHOICE INDEMNITY Advance Directives For more information, please contact: [phone] (9AM - 5PM [facility], Thursday-Thursday) Documents on File Type Date Recorded Patient Control Systems Technician Expl anation Healthcare Proxy 04/15/2024 4:34 PM * Full Code (Latest Code Status on File) Date Activated Date Inactivated Comments 04/08/2024 10:29 AM Question Answer Comments Code Status Confirmed With: Patient * Full Code Date Activated Date Inactivated Comments 09/06/2021 7:40 AM 04/08/2024 10:29 AM Question Answer Comments Code Status Confirmed With: Patient Care Teams Dialysis Equipment Technician Relationship Specialty Start Date End Date Jani Mccauley MD [address] [place] [address] PCP - General Internal Medicine 06/16/25 Lucinda Ramos PA [address] [address] [email or web address] Physician Senior Sql Developer 01/02/25 Additional Source Comments The information contained in this document represents components of the legal health record. It is not the complete legal health record.[facility]
[2025-08-19 20:29] LABS: Troponin-I High Sensitivity < 2.7 ng/L (<3.5-35.0)
[2025-08-19 21:21] VITALS: BP 160/55; PULSE 73; RESP 17; O2SAT 97
[2025-08-19] MEDS: iohexoL 350 MG/ML 100 ML INFUS..BTL 75 ML IV (23:03)
--- NOTE | 2025-08-19 23:05 | PC.NURSE ---
Addendum entered by Odalys Lee RN 08/19/25 23:47: placed bed alarm on pt and reminded pt not to get up without help. pt calm, cooperative, and understanding. Original Note: this RN was in ED16 when i heard a yell come from the bathroom and went to check. pt was found on the floor on his hands and knees with can on his side, pt states he fell and compaining of left hip pain. Providers assessed pt and helped put pt in stretcher. pt stated he thought he could walk ok to the bathroom. pt educated on use of call carter and not to get out of bed without assistance.
[2025-08-19 23:09] VITALS: BP 151/68; PULSE 78; RESP 16; O2SAT 94
[2025-08-19 23:42] LABS: Appearance Urine Clear; Glucose Urine UA Negative (Negative); PH 6.5 (5.0-9.0); Specific Gravity - Urine <= 1.005 (1.005-1.025)
--- NOTE | 2025-08-19 23:56 | PM.IMHP ---
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 Pt stated he received his usual heat treatment for chronic back and leg pain and soon after, upon ambulating has to grab railing to prevent falling. Pt stated he was checked by staff and waited 15 minutes before being able to leave and drive to Hospice where his spouse resides and then home to make dinner and was in bed by 11Pm. Pt awakened 0630 in the AM Thursday morning, and immediately felt woozy . Pt had to use 2 canes to ambulate. Pt states he was slow all morning. Pt does not routinely check his blood glucose levels but did eat breakfast. Pt states movement makes his symptoms worse. Pt denies hx of vertigo, CVA/TIA or seziure hx. Pt is [place] but does not usually wear his hearing aids. Pt has been getting tired more quickly. Pt did not visit his during the day. Finally, after speaking with family, pt was driven in by close friend to the ED for further evaluation. Clarified with pt that he does not know of any hx related to Myasthenia Gravis but this dx was listed by his PCP back in February 2025. Pt was recently vaccinated with COVID, FLU and Pneumonvax all within the last month. Pt also states that after CT scan today, his DESIR worsened. Patient had an episode in the restroom while in the ED where balance was an issue and weakness noted and patient felt that he lost muscle control at that point. Patient had hit his left hip into the bar and an x-ray was done which is negative for any acute findings. Work up in the ED included CT head and CTA all negative for acute findings. IVF started post contrast exposure. Renal fx stable, Ears positive for increased cerumen B. Pt being admitted for new onset weaknes, DESIR, and to rule out neurological event. Review of Systems Review of Systems: Patient denies any chest pain, shortness of breath at rest, or with exertion, abdominal pain. Patient does report intermittent cramping in both legs. Patient denies any constipation or diarrhea. Patient is not having any nausea or vomiting or fever. Patient denies any issues with low blood sugar. Patient denies any recent falls. Yes all other systems are reviewed and are negative [facility] Medical History Headache Abdominal pain Myasthenia gravis BPH (benign prostatic hyperplasia) Hx of pancreatitis Osteoarthritis Mild heartburn Asthma Obstructive sleep apnea Diabetes mellitus HTN (hypertension) Cardiac pacemaker in situ Paroxysmal atrial fibrillation Complete heart block Cognitive capacity: Alert and orientated x3 Functional capacity: uses cane/walker (Since Thursday) Family History Father Myocardial infarct Mother No problems noted. 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 a significant other at home: Yes () Do you presently have visiting nurse or other home services: No Comment: medicated in pacu Patient Tobacco Use Status: Former Tobacco user Tobacco use type: Cigarette e-Cigarette/Vaping Use: Former Use Advance Directives: Yes Advance Directives on File: Yes Advance Directives Date on File: 04/26/21 Do you have a plan to hurt others: No Plan service: Yes Current occupational status: retired Cognitive needs: No Hearing needs: Yes (bilateral hearing aids) Vision needs: Yes (rx glasses) Ebola Risk: Travel/Contact With Anyone From Affected Area/s: No Has Patient Experienced Ebola Symptoms: No Meds Allergies Allergy/AdvReac Type Severity Reaction Status Date / Time cat dander Allergy Intermediate ASTHMA Verified 08/19/25 19:24 Active Medications: Current Medications Acetaminophen (Acetaminophen 325 Mg Tablet) 650 mg PO Q6H PRN PRN Reason: Pain, Mild 1-3,fever,headache Albuterol/Ipratropium (Albuterol/Iprat 2.5/0.5mg 3 Ml Ampul.Neb) 3 ml INHALE Q4H PRN PRN Reason: Shortness of Breath/Wheezing Calcium Carbonate (Calcium Carbonate 750 Mg Tab.Chew) 750 mg PO Q4H PRN PRN Reason: Heartburn Enoxaparin Sodium (Enoxaparin Sodium 40 Mg/0.4 Ml Syringe) 40 mg SUBCUT Q24H ROSALINO Magnesium Hydroxide (Milk Of Magnesia 30 Ml Oral.Susp) 30 ml PO DAILY PRN PRN Reason: Constipation Melatonin (Melatonin 3 Mg Tablet) 6 mg PO BEDTIME PRN PRN Reason: Insomnia Ondansetron HCl (Ondansetron Hcl 4 Mg/2 Ml Vial) 4 mg IVPUSH Q8H PRN PRN Reason: Nausea and Vomiting Polyethylene Glycol (Polyethylene Glycol 3350 17 Gm Powd.Pack) 17 gm PO DAILY PRN PRN Reason: Constipation Senna (Sennosides 8.6 Mg Tablet) 17.2 mg PO BEDTIME ROSALINO Sodium Chloride (0.9 % Sodium Chloride Flush 3 Ml Syringe) 3 ml IVFLUSH QSHIFT [facility] Home Medications ?Medication ?Instructions ?Recorded ?Confirmed ?Last Taken ?Type cholecalciferol (vitamin D3) 125 125 mcg PO DAILY 04/09/21 03/27/25 Unknown History mcg (5,000 unit) capsule multivitamin 1 tab PO DAILY 04/09/21 03/27/25 Unknown History Probiotic 1 cap PO DAILY 05/22/21 03/27/25 Unknown History ascorbic acid (vitamin C) 500 mg 500 mg PO DAILY 05/22/21 03/27/25 Unknown History tablet (Vitamin C) folic acid 1 mg tablet 1 mg PO DAILY 05/22/21 03/27/25 10/14/24 History ibuprofen 600 mg tablet 600 mg PO QID PRN Pain 05/22/21 03/27/25 10/10/24 History potassium chloride 99 mg PO DAILY 05/22/21 03/27/25 10/16/24 History aspirin 81 mg tablet,delayed 81 mg PO DAILY 08/20/21 03/27/25 10/10/24 History release chlorthalidone 25 mg tablet 25 mg PO DAILY 08/20/21 03/27/25 Unknown History ferrous sulfate 325 mg (65 mg 325 mg PO DAILY 02/20/22 03/27/25 10/12/24 History iron) tablet phosphatidylserine 100 mg capsule 400 mg PO DAILY 03/08/24 03/27/25 Unknown History amino acids cap PO DAILY 05/29/25 Unknown History clobetasol 0.05 % topical cream topical 08/03/25 Unknown History metronidazole 0.75 % topical cream appl topical 08/03/25 Unknown History omeprazole magnesium 20 mg 40 mg PO DAILY 08/03/25 Unknown History tablet,delayed release (Prilosec OTC) tadalafil 20 mg tablet 20 mg PO Q OTHER DAY PRN 08/03/25 Unknown History Physical Exam Vital Signs and Narrative: Vital Signs: Last Vital Signs Temp 96.8 F 08/19/25 19:20 Pulse 78 08/19/25 23:09 Resp 16 08/19/25 23:09 BP 151/68 H 08/19/25 23:09 Pulse Ox 94 08/19/25 23:09 O2 Del Method Room Air 08/19/25 23:09 BMI result Body Mass Index 37.1 Alert and orientated X3, able to give good history. Neuro: CN II-X11 intact, no deficits noted, visual acuity intact EYES: PERRLA, EOM intact, no nystagmus, sclerae nonicteric ENT: hearing intact, no issues with swallowing, uvula midline, lips moist, nares patent no epistaxis, bilateral ears with impacted cerumen Cardiac: S1 S2 RRR paced 60, no murmur, no JVD, moderate edema in Lower ext's Pulmonary: lungs diminished bilaterally Abdominal: BS active in all 4 quadrants, no guarding, tenderness, rebounding MSK: strength 5/5 upper and lower extremities : no CVA tenderness no bladder distension Extremities: Moderate edema in lower extremities, PT and DP pulses palpable +2, skin is warm Psych: mood stable, judgement and insight good Skin: No new rashes or lesions Results Labs 08/19/25 19:59 08/19/25 19:59 Labs: Laboratory Results - last 24 hr 08/19/25 08/19/25 19:59 23:29 MCV 87.1 MCH 30.6 MCHC 35.1 RDW 13.7 Plt Count 254 MPV 8.3 L Immature Gran % (Auto) 0.3 Neut % (Auto) 67.7 Lymph % (Auto) 22.2 Taylor % (Auto) 6.4 Eos % (Auto) 3.0 Baso % (Auto) 0.4 Lymph # (Auto) 1.6 Taylor # (Auto) 0.5 Eos # (Auto) 0.2 Baso # (Auto) 0.0 Abs Immat Gran (auto) 0.02 Absolute Neuts (auto) 4.9 Absolute Nucleated RBC 0.000 Nucleated RBC % (auto) 0.0 Anion Gap 11 L Estim Creat Clear Calc 118.4 Estimated GFR > 60 Random Glucose 136 H Calcium 9.2 Magnesium 1.9 Total Bilirubin 0.5 Direct Bilirubin 0.2 AST 20 ALT 15 Alkaline Phosphatase 61 Troponin I High Sens < 2.7 Total Protein 6.8 Albumin 4.4 Urine Color Yellow Urine Appearance Clear Urine pH 6.5 Ur Specific [place] <= 1.005 Urine Protein Negative Urine Glucose (UA) Negative Urine Ketones Negative Urine Blood Negative Urine Nitrite Negative Ur Leukocyte Esterase Negative ECG Attestation: I personally reviewed and interpreted this ECG as follows: (Paced 60) Prior ECG tracings: available for review Imaging Radiologist's Impressions: CTA HEAD AND NECK Findings: Aortic arch and cervical great vessels are patent. Atherosclerotic vascular disease at bilateral carotid bifurcations [id number] with no hemodynamically significant stenosis. Bilateral external carotid arteries and bilateral vertebral arteries are patent. Intracranial internal carotid arteries are patent. Vertebral basilar junction is unremarkable. Basilar artery is unremarkable. 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 Bilateral anterior, middle and posterior cerebral arteries are patent. No intracranial large vessel occlusion. No aneurysm. No abnormal intracranial enhancement. The visualized thyroid gland is unremarkable. No cervical mass or fluid collection. Lung apices are grossly clear. Left-sided ICD. No acute fracture. IMPRESSION: 1. CT angiography neck demonstrates plaque at bilateral carotid bifurcations [id number] with no hemodynamically significant stenosis. 2. No intracranial large vessel occlusion. 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 Patient being admitted under observation for further evaluation of generalized weakness with dizziness, headache and to rule out CVA with MRI. Dizziness/ weakness/headache/ Rule out CVA NIHHS score 0 on arrival, remains O Neurology consuled Pt has had 3 vaccinations in the last month to include COVID, FLU and Pneumovax MRI BRAIN in AM (Pt has [facility] PPM, will need to check MRI compatability) - cardiology consulted to review permanent pacemaker compatibility PT/OT Pt did pass bed side swallow, diet ordered Fall prevention measures in place Lipid panel in AM No evidence of hypoglycemia but ceremen build up noted Echo ordered for the a.m. Patient is on statin we will check total CK level Myasthenia gravis Patient denies having this history Neuro exam reassuring, no obvious facial weakness or profound weakness in extremities No diagnostics in [facility] system noting CT or MRI indicating tumor or mass within the Thymus gland This was documented back in February of 2025 by patient's PCP with no identifiers Pt has had 3 vaccinations in the last month to include COVID, FLU and Pneumovax Cerumen accumulation bilateral ears Debrox initiated nightly x5 Patient may require flushing of the years at his PCPs office after discharge IDDM Sliding scale insulin Diabetic diet A1c 7.31 July 2025 HTN Avoid hypotension Continue metoprolol and lisinopril CM EF 52% moderate edema BLE's Echo pending Fluid allowance 1500 mL per day Daily weights and measure I's and O's q.shift Low-sodium diet Cardiology consulted PPM for Compelte Heart Block Pacemaker last interrogated February 2025 Patient will require MRI of the brain to rule out neurological event, cardiology consulted to review [facility] [employer] pacemaker incompatibility with MRI AFIB not on AC Per cardiology patient does not require anticoagulation after multiple interrogations noting minimal episodes of atrial fib Continue metoprolol DVT Prpophylaxis MED REC PENDING FULL CODE Quality Stroke Does the patient have a stroke diagnosis?: No Reason for No Anti-thrombotic by Day Two: N/A - Med Ordered VTE Prior VTE?: No VTE Risk Level:: Medical - moderate - high VTE Device Contraindication: N/A - Device Ordered VTE Drug Contraindication: N/A - Med Ordered
[2025-08-20] VITALS (13 sets, daily range): BP systolic 123–156; BP diastolic 59–78; PULSE 66–82; RESP 11–18; TEMP 36.5–36.7; O2SAT 93–98
--- NOTE | 2025-08-20 | ECG_ITS ---
Test Reason : chest pain Blood Pressure : */* mmHG Vent. Rate : 71 BPM Atrial Rate : 71 BPM P-R Int : 166 ms QRS Dur : 170 ms QT Int : 444 ms P-R-T Axes : 51 -75 92 degrees QTcB Int : 482 ms Atrial-sensed ventricular-paced rhythm Abnormal ECG When compared with ECG of 19-Aug-2025 19:54, Vent. rate has increased by 3 bpm Referred By: Jenny Ng Electronically Signed By: Aly Atkins
[2025-08-20 00:21] LABS: NT Pro B Type Natriuretic Pept 149.5 pg/mL (<300)
[2025-08-20 01:18] LABS: COVID-19 Test Negative (Negative); IDNOW Serial# 55D5AD1C; IDNOW Serial# 58CA691E; Influenza B2 Negative (Negative)
[2025-08-20 04:28] LABS: MANUAL DIFF FLAG NO
[2025-08-20 04:30] LABS: Hematocrit 34.6 % (42.0-52.0); Hemoglobin 11.8 g/dl (14.0-18.0); Imm Gran Abs Auto 0.02 X10*3/uL (0.00-0.03); Imm Gran Pct Auto 0.2 % (0.0-0.4); Lymphocytes Absolute Auto 2.0 X10*3/uL (1.2-4.9); Mean Corpuscular HGB Conc 34.1 g/dl (31.0-36.0); Mean Corpuscular Hemoglobin 30.1 pg (27.0-33.0); Mean Corpuscular Volume 88.3 fL (80.0-98.0); NRBC Abs Auto 0.000 X10*3/uL (0.0-0.012); NRBC Pct Auto 0.0 /100WBC (0.0-0.2); Platelet Count 237 X10*3/uL (160-400); Red Blood Count 3.92 X10*6/uL (4.60-5.80); White Blood Count 8.5 X10*3/uL (4.8-10.8)
[2025-08-20 04:48] LABS: Anion Gap 9 (12-20); Blood Urea Nitrogen 18 mg/dL (9-16); Calcium 8.6 mg/dL (8.4-10.2); Carbon Dioxide 26 mmol/L (22-29); Chloride 104 mmol/L (96-108); Cholesterol 113 mg/dL (<200); Creatinine Clr Calc Pharmacy 126.1; Estimated Glomerular Filt Rate > 60; HDL Cholesterol 47 mg/dL (>40); Potassium 3.4 mmol/L (3.3-5.1); Sodium 136 mmol/L (135-145); Triglycerides 64 mg/dL (<150)
--- NOTE | 2025-08-20 07:10 | HO.NURTONUR ---
pt from home with complaint of dizziness upon waking up thursday morning (08/19/25). Pt states he has had unsteady balance needing to use two canes while walking around and at baseline does not use a cane. Pt also complaning of weakness, headache, nausea, and intermittent loss of muscle control since his most recent PT visit last thursday, with worsening symptoms upon movement. PT denies any chest pain, sob, abdominal pain, or any other symptoms of complain. Workup in the ED was negative including ct scan of head and cta. While in the ED pt had an unwitnessed mechanical fall in the bathroom, pt states he thought he was ok to walk but loss muscle control and fell hitting his left hip.Xray of hip negative, pt given prn tylnol for pain, allowed pt to sleep. Pt is CA&Ox3 able to make his needs known and using urinal at bedside. PT has 20G IV in RAC with IVF og LR @ 100ml/hr. Pt being admitted for further evaluation and neurology/cardiac consult.
[2025-08-20 07:35] LABS: Glucose, Whole Blood 136 mg/dL (60-115)
--- NOTE | 2025-08-20 09:15 | PC.NURSE ---
Medication administration delayed d/t not having medication in pyxis. Pharmacy notified- will bring up medication when available.
--- NOTE | 2025-08-20 09:19 | PHA.MEDREC ---
Addendum entered by Sofia [facility] 08/20/25 11:14: MED REC REVIEWED BY [facility] Addendum entered by Teresita Fuchs 08/20/25 09:21: Patient confirmed Vitamin D3 is 3xw on Thursday, Thursday and Thursday.. Original Note: Pharmacy Consult ? Medication Reconciliation Pharmacy has completed the medication reconciliation. Patient was able to confirm all of his medications. Patient is no longer taking Metronidazole 0.75 % cream, and Potassium chlor. Patient last had his medications yesterday.
--- NOTE | 2025-08-20 10:58 | MHC.CM.PN ---
CM met with Patient at bedside, in the ED, and addressed NOVOA with him, providing Patient with the original and a copy will be placed on the chart. Patient lives alone in a house (his is at the [facility]) and he uses a cane to assist with mobility. Patient may benefit from a PT Eval to assist with disposition; CM has initiated and will follow for dc planning. PCP is Dr. Curry Morales and a Friend or [id number] will transport to home at dc.
--- NOTE | 2025-08-20 12:47 | MHC.CM.PN ---
CM received a call from Patient; CM responded to further questions that Patient had regarding his OBSERVATION status. Patient stated, this was very helpful. CM will follow.
[2025-08-20 13:04] LABS: Glucose, Whole Blood 129 mg/dL (60-115)
--- NOTE | 2025-08-20 15:40 | P.CNNE_ITS ---
History of Present Illness Data of Consult Service Date: 08/20/25 Primary Care Provider: Oral Lowe MD [facility] Reason for consult: Dizziness and weakness This is a 75 yo male with PMH of AFIB not on AC, complete HB S/P [id number], COPD/ Asthma, HTN, cardiomyopathy EF 52%, DM, SANKET not on CPAP, pancreatits, BPH, GERD, presents to emergency room with complaints of weakness, DESIR, nausea, and intermittent dizziness with perceived loss of muscle control since Thursday. Pt stated he received his usual heat treatment for chronic back and leg pain and soon after, upon ambulating has to grab railing to prevent falling. Pt stated he was checked by staff and waited 15 minutes before being able to leave and drive to Hospice where his spouse resides and then home to make dinner and was in bed by 11Pm. Pt awakened 0630 in the AM Thursday morning, and immediately felt woozy . Pt had to use 2 canes to ambulate. Pt states he was slow all morning. Pt does not routinely check his blood glucose levels but did eat breakfast. Pt states movement makes his symptoms worse. Pt denies hx of vertigo, CVA/TIA or seziure hx. Pt has been getting tired more quickly. He was driven in by close friend to the ED for further evaluation. While in the hospital he fell after going to the bathroom following the CTA that was done earlier. He now is in bed does not feel dizzy or weak and feels better but is sore from the fall. [facility] Past Medical History Medical History (Updated 08/20/25 @ 16:21 by Kong Harvey MD) Dizziness Headache Abdominal pain Myasthenia gravis BPH (benign prostatic hyperplasia) Hx of pancreatitis Osteoarthritis Mild heartburn Asthma Obstructive sleep apnea Diabetes mellitus HTN (hypertension) Cardiac pacemaker in situ Paroxysmal atrial fibrillation Complete heart block Family History Family History Father Myocardial infarct Mother No problems noted. Surgical History Surgical History History of prostate surgery History of total hip replacement H/O right inguinal hernia repair (05/29/21) Hx of colonoscopy (~10/17/24) Hx of tonsillectomy History of permanent cardiac pacemaker placement Hx laparoscopic cholecystectomy Social History Social History Housing: House Are you a primary nurse healthcare manager to a significant other at home: Yes () Do you presently have visiting nurse or other home services: No Comment: medicated in pacu Patient Tobacco Use Status: Former Tobacco user Tobacco use type: Cigarette e-Cigarette/Vaping Use: Former Use Advance Directives: Yes Advance Directives on File: Yes Advance Directives Date on File: 04/26/21 Do you have a plan to hurt others: No Plan service: No Current occupational status: retired Cognitive needs: No Hearing needs: Yes (bilateral hearing aids) Vision needs: Yes (rx glasses) Travel History Ebola Risk: Travel/Contact With Anyone From Affected Area/s: No Has Patient Experienced Ebola Symptoms: No Meds Allergies Allergy/AdvReac Type Severity Reaction Status Date / Time cat dander Allergy Intermediate ASTHMA Verified 08/19/25 19:24 Active Medications: Current Medications Acetaminophen (Acetaminophen 325 Mg Tablet) 650 mg PO Q6H PRN PRN Reason: Pain, Mild 1-3,fever,headache Last Admin: 08/20/25 01:00 Dose: 650 mg Albuterol/Ipratropium (Albuterol/Iprat 2.5/0.5mg 3 Ml Ampul.Neb) 3 ml INHALE Q4H PRN PRN Reason: Shortness of Breath/Wheezing Calcium Carbonate (Calcium Carbonate 750 Mg Tab.Chew) 750 mg PO Q4H PRN PRN Reason: Heartburn Carbamide Peroxide (Carbamide Peroxide 6.5% Otic 15 Ml Drpbtl) 5 drop EAR-BOTH BID ROSALINO Stop: 08/23/25 01:29 Last Admin: 08/20/25 12:45 Dose: Not Given Dextrose (Dextrose 50 % 25 Gm/50 Ml Syringe) 25 gm IVPUSH Q15M PRN; Protocol PRN Reason: per Hypoglycemia Standing Ord. Enoxaparin Sodium (Enoxaparin Sodium 40 Mg/0.4 Ml Syringe) 40 mg SUBCUT Q24H [facility] Glucose (Glucose Gel 15 Gm Gel..Gram.) 15 gm PO Q15M PRN; Protocol PRN Reason: per Hypoglycemia Standing Ord. Sodium Chloride (Ns) 1,000 mls @ 100 mls/hr IVCONT .Q10H [facility] Last Admin: 08/20/25 10:41 Dose: 100 mls/hr Insulin Human Lispro (Insulin Lispro 100 Unit/Ml 3 Ml Vial) 0 unit SUBCUT QIDACHS [facility]; Protocol Last Admin: 08/20/25 13:20 Dose: Not Given Magnesium Hydroxide (Milk Of Magnesia 30 Ml Oral.Susp) 30 ml PO DAILY PRN PRN Reason: Constipation Melatonin (Melatonin 3 Mg Tablet) 6 mg PO BEDTIME PRN PRN Reason: Insomnia Ondansetron HCl (Ondansetron Hcl 4 Mg/2 Ml Vial) 4 mg IVPUSH Q8H PRN PRN Reason: Nausea and Vomiting Polyethylene Glycol (Polyethylene Glycol 3350 17 Gm Powd.Pack) 17 gm PO DAILY PRN PRN Reason: Constipation Senna (Sennosides 8.6 Mg Tablet) 17.2 mg PO BEDTIME [facility] Sodium Chloride (0.9 % Sodium Chloride Flush 3 Ml Syringe) 3 ml IVFLUSH QSHIFT [facility] Last Admin: 08/20/25 09:55 Dose: Not Given Home Medications ?Medication ?Instructions ?Recorded ?Confirmed ?Last Taken ?Type cholecalciferol (vitamin D3) 125 125 mcg PO MOWEFR 10/2008/20/25 08/17/25 History mcg (5,000 unit) capsule multivitamin 1 tab PO DAILY 04/09/2108/0108/19/25 History folic acid 1 mg tablet 1 mg PO DAILY 05/22/2108/2008/19/25 History ibuprofen 600 mg tablet 600 mg PO QID PRN Pain 05/2208/20/25 10/10/24 History aspirin 81 mg tablet,delayed 81 mg PO DAILY 08/20/21 0 08/20/25 08/19/25 History release chlorthalidone 25 mg tablet 25 mg PO DAILY 08/20/2108/19/25 History ferrous sulfate 325 mg (65 mg 325 mg PO DAILY 02/20/22 08/20/25 08/19/25 History iron) tablet amino acids 1 cap PO DAILY 05/29/252 12/2408/19/25 History clobetasol 0.05 % topical cream 1 appl topical DAILY P RN Rash 08/03/25 08/20/25 Unknown History omeprazole magnesium 20 mg 40 mg PO DAILY@0630 5 08/20/25 08/19/25 History tablet,delayed release (Prilosec OTC) tadalafil 20 mg tablet 20 mg PO Q OTHER DAY PRN Ere ctile 08/03/25 08/20/25 Unknown History Dysfunction Lactobacillus acidophilus 10 10,000 mmu cells PO DAILY 08/20/25 08/20/25 08/19/25 History billion cell capsule (Probiotic) ascorbic acid (vitamin C) 250 mg 250 mg PO DAILY 08/2008/20/25 08/19/25 History tablet (Vitamin C) mupirocin 2 % topical ointment 1 appl topical BID 08/0108/20/25 08/19/25 History Physical Exam 2 Vital Signs: Vital Signs: Last Vital Signs Temp 98.0 F 08/20/25 08:04 Pulse 77 08/20/25 10:42 Resp 18 08/20/25 10:42 BP 153/66 H 08/20/25 10:42 Pulse Ox 96 08/20/25 10:42 O2 Del Method Room Air 08/20/25 10:42 BMI result Body Mass Index 37.1 Neuro: Other: He is alert and oriented with normal intellectual functions. Speech and language functions are normal. Cranial nerves 2-12 are normal. Muscle tone and strength are normal in all 4 extremities. Deep tendon reflexes symmetrical plantar responses are flexor. Gait was not tested. Results Labs 08/20/25 04:19 08/20/25 04:19 Labs: Short CBC 08/19/25 08/20/25 Range/Units 19:59 04:19 WBC 7.2 8.5 (4.8-10.8) X10*3/uL Hgb 13.1 L 11.8 L (14.0-18.0) g/dl Hct 37.3 L 34.6 L (42.0-52.0) % Plt Count 254 237 (160-400) X10*3/uL BMP 08/19/25 08/20/25 19:59 04:19 Sodium 135 136 Potassium 3.8 3.4 Chloride 101 104 Carbon Dioxide 27 26 BUN 19 H 18 H Creatinine 0.66 0.62 Calcium 9.2 8.6 D Cardiac Enzymes 08/19/25 Range/Units 19:59 Total Creatine Kinase 80 (38-174) U/L Liver Function 08/19/25 Range/Units 19:59 Total Bilirubin 0.5 (0.0-1.0) mg/dL Direct Bilirubin 0.2 (0.0-0.5) mg/dL AST 20 (5-37) U/L ALT 15 (0-40) U/L Alkaline Phosphatase 61 (39-117) U/L Albumin 4.4 (3.5-5.0) g/dL Urine 08/19/25 Range/Units 23:29 Urine Color Yellow Urine Appearance Clear Urine pH 6.5 (5.0-9.0) Ur Specific [place] <= 1.005 (1.005-1.025) Urine Protein Negative (Neg-Trace) mg/dL Urine Glucose (UA) Negative (Negative) mg/dL Assessment and Plan (1) Dizziness: Status: Acute He does not have true vertigo and no focal neurological signs to suggest a stroke with a normal exam and normal CTA. His dizziness could be related to orthostatic hypotension or related to his cardiac condition. Recommendation cardiology consult consult, check the pacemaker. Check orthostatic hypotension. Obtain an MRI of the brain if cleared by Cardiology for his pacemaker. (2) Cardiac pacemaker in situ: Status: Acute Procedures Date of Service Date of Service: 08/20/25
--- NOTE | 2025-08-20 16:57 | HO.PM.IMPN ---
Subjective Subjective Date of Service: 08/20/25 Interval History: headaches /weakness Review of Systems Symptoms improving somewhat Denies any chest pain or shortness of breath Physical Exam Exam: Exam: Appearance: Alert.? Oriented X3.? cvs: rrr, [id number] . res: clear to auscultation ,no rhonchii or wheezing abd: no rebound or guarding ,nt, bs present. ext pulses present , no cyanosis . neuro: axo3 , nonfocal. Vital Signs: Vital Signs: Last Vital Signs Temp 98.0 F 08/20/25 08:04 Pulse 77 08/20/25 10:42 Resp 18 08/20/25 10:42 BP 153/66 H 08/20/25 10:42 Pulse Ox 96 08/20/25 10:42 O2 Del Method Room Air 08/20/25 10:42 BMI result Body Mass Index 37.1 Objective Data Active Medications Acetaminophen (Acetaminophen 325 Mg Tablet) 650 mg PO Q6H PRN PRN Reason: Pain, Mild 1-3,fever,headache Last Admin: 08/20/25 01:00 Dose: 650 mg Documented By: ENEIDA Albuterol/Ipratropium (Albuterol/Iprat 2.5/0.5mg 3 Ml Ampul.Neb) 3 ml INHALE Q4H PRN PRN Reason: Shortness of Breath/Wheezing Calcium Carbonate (Calcium Carbonate 750 Mg Tab.Chew) 750 mg PO Q4H PRN PRN Reason: Heartburn Carbamide Peroxide (Carbamide Peroxide 6.5% Otic 15 Ml Drpbtl) 5 drop EAR-BOTH BID ROSALINO Stop: 08/23/25 01:29 Last Admin: 08/20/25 12:45 Dose: Not Given Documented By: MAJOR Non-Admin Reason: See Note Comments: Pharmacy notified- med not available Dextrose (Dextrose 50 % 25 Gm/50 Ml Syringe) 25 gm IVPUSH Q15M PRN; Protocol PRN Reason: per Hypoglycemia Standing Ord. Enoxaparin Sodium (Enoxaparin Sodium 40 Mg/0.4 Ml Syringe) 40 mg SUBCUT Q24H [facility] Glucose (Glucose Gel 15 Gm Gel..Gram.) 15 gm PO Q15M PRN; Protocol PRN Reason: per Hypoglycemia Standing Ord. Sodium Chloride (Ns) 1,000 mls @ 100 mls/hr IVCONT .Q10H [facility] Last Admin: 08/20/25 10:41 Dose: 100 mls/hr Documented By: MAJOR Insulin Human Lispro (Insulin Lispro 100 Unit/Ml 3 Ml Vial) 0 unit SUBCUT QIDACHS [facility]; Protocol Last Admin: 08/20/25 13:20 Dose: Not Given Documented By: MAJOR Non-Admin Reason: No Insulin Coverage Magnesium Hydroxide (Milk Of Magnesia 30 Ml Oral.Susp) 30 ml PO DAILY PRN PRN Reason: Constipation Melatonin (Melatonin 3 Mg Tablet) 6 mg PO BEDTIME PRN PRN Reason: Insomnia Ondansetron HCl (Ondansetron Hcl 4 Mg/2 Ml Vial) 4 mg IVPUSH Q8H PRN PRN Reason: Nausea and Vomiting Polyethylene Glycol (Polyethylene Glycol 3350 17 Gm Powd.Pack) 17 gm PO DAILY PRN PRN Reason: Constipation Senna (Sennosides 8.6 Mg Tablet) 17.2 mg PO BEDTIME [facility] Sodium Chloride (0.9 % Sodium Chloride Flush 3 Ml Syringe) 3 ml IVFLUSH QSHIFT [facility] Last Admin: 08/20/25 09:55 Dose: Not Given Documented By: MAJOR Non-Admin Reason: IV Running Labs 08/20/25 04:19 08/20/25 04:19 Labs: Laboratory Results - last 24 hr 08/19/25 08/19/25 08/20/25 19:59 23:29 00:53 MCV 87.1 MCH 30.6 MCHC 35.1 RDW 13.7 Plt Count 254 MPV 8.3 L Immature Gran % (Auto) 0.3 Neut % (Auto) 67.7 Lymph % (Auto) 22.2 [place] % (Auto) 6.4 Eos % (Auto) 3.0 Baso % (Auto) 0.4 Lymph # (Auto) 1.6 [place] # (Auto) 0.5 Eos # (Auto) 0.2 Baso # (Auto) 0.0 Abs Immat Gran (auto) 0.02 Absolute Neuts (auto) 4.9 Absolute Nucleated RBC 0.000 Nucleated RBC % (auto) 0.0 Anion Gap 11 L Estim Creat Clear Calc 118.4 Estimated GFR > 60 POC Glucose Random Glucose 136 H Calcium 9.2 Magnesium 1.9 Total Bilirubin 0.5 Direct Bilirubin 0.2 AST 20 ALT 15 Alkaline Phosphatase 61 Total Creatine Kinase 80 Troponin I High Sens < 2.7 NT-Pro-B Natriuret Pep 149.5 Total Protein 6.8 Albumin 4.4 Triglycerides Cholesterol LDL Cholesterol, Calc HDL Cholesterol Urine Color Yellow Urine Appearance Clear Urine pH 6.5 Ur Specific [place] <= 1.005 Urine Protein Negative Urine Glucose (UA) Negative Urine Ketones Negative Urine Blood Negative Urine Nitrite Negative Ur Leukocyte Esterase Negative COVID-19 (BON) Negative COVID-19 Clin Com See Note Influenza Type A (SAMMI) Negative Influenza Type B (SAMMI) Negative Influenza A & B Note See Note 08/20/25 08/20/25 08/20/25 04:19 07:30 13:00 MCV 88.3 MCH 30.1 MCHC 34.1 RDW 13.8 Plt Count 237 MPV 8.7 L Immature Gran % (Auto) 0.2 Neut % (Auto) 65.1 Lymph % (Auto) 23.5 [place] % (Auto) 8.3 Eos % (Auto) 2.4 Baso % (Auto) 0.5 Lymph # (Auto) 2.0 [place] # (Auto) 0.7 Eos # (Auto) 0.2 Baso # (Auto) 0.0 Abs Immat Gran (auto) 0.02 Absolute Neuts (auto) 5.5 Absolute Nucleated RBC 0.000 Nucleated RBC % (auto) 0.0 Anion Gap 9 L Estim Creat Clear Calc 126.1 Estimated GFR > 60 POC Glucose 136 H 129 H Random Glucose 202 H Calcium 8.6 D Magnesium Total Bilirubin Direct Bilirubin AST ALT Alkaline Phosphatase Total Creatine Kinase Troponin I High Sens NT-Pro-B Natriuret Pep Total Protein Albumin Triglycerides 64 Cholesterol 113 LDL Cholesterol, Calc 54 HDL Cholesterol 47 Urine Color Urine Appearance Urine pH Ur Specific [place] Urine Protein Urine Glucose (UA) Urine Ketones Urine Blood Urine Nitrite Ur Leukocyte Esterase COVID-19 (BON) COVID-19 Clin Com Influenza Type A (SAMMI) Influenza Type B (SAMMI) Influenza A & B Note Assessment and Plan (1) Dizziness: Status: Acute Assessment and Plan: 75 yo male with PMH AFIB not on AC, 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 Patient being admitted under observation for further evaluation of generalized weakness with dizziness, headache and to rule out CVA with MRI. Dizziness/ weakness/headache: NIHHS score 0 on arrival, remains O Pt has had 3 vaccinations in the last month to include COVID, FLU and Pneumovax trop and bnp neg cpk normal cta head:CT angiography neck demonstrates plaque at bilateral carotid bifurcations [id number] with no hemodynamically significant stenosis. cxr: negative. plan: moniter on tele Neuro evaluation noted-dizziness thought to be possible orthostasis , mri brain Will check orthostasis Lipid panel, MRI BRAIN PT/OT IDDM Sliding scale insulin Diabetic diet A1c 7.31 July 2025 HTN Avoid hypotension Continue metoprolol and hold lisinopril CM EF 52%,minimal edema legs no sob or chest pain Fluid allowance 1500 mL per day Daily weights and measure I's and O's q.shift Low-sodium diet,hctz PPM for Compelte Heart Block Pacemaker last interrogated February 2025. Patient will require MRI of the brain to rule out neurological event, also has pacemaker. AFIB not on AC Per cardiology patient does not require anticoagulation after multiple interrogations noting minimal episodes of atrial fib Continue metoprolol DVT Prpophylaxis: s/c lovenox ongoing need for stay: Dizziness, generalized weak-need further neurological workup(MRI/as pacemaker also), monitoring for orthostasis, generalized weak need PT evaluation Quality Stroke Does the patient have a stroke diagnosis?: No Reason for No Anti-thrombotic by Day Two: N/A - Med Ordered VTE Prior VTE?: No VTE Risk Level:: Medical - moderate - high VTE Device Contraindication: N/A - Device Ordered VTE Drug Contraindication: N/A - Med Ordered
[2025-08-20 18:11] LABS: Glucose, Whole Blood 119 mg/dL (60-115)
--- NOTE | 2025-08-20 18:54 | PC.NURSE ---
Pt endorsing sudden onset back/chest pain, non-radiating. 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 Denies SOB. MD Cornell aware. No new orders at this time.
--- NOTE | 2025-08-20 19:41 | PC.NURSE ---
patient awake and alert. skin flush, warm, dry. resp even and non labored. patient c/o left sided flank pain traveling to left chest, worse with deep breath. vitals and ekg performed. medicated w/ nitro as ordered.
[2025-08-20 19:59] LABS: Troponin-I High Sensitivity 2.7 ng/L (<3.5-35.0)
--- NOTE | 2025-08-20 20:00 | PC.NURSE ---
patient reports left sided chest/rib pain is improved post nitro, states that pain is down to a 3/10. VSS.
--- NOTE | 2025-08-20 21:13 | PC.NURSE ---
patient awake and alert. skin pwd, resp even and non labored, speaking in full clear sentences. patient reports that left sided flank pain radiating to left chest/rib area is improved but remains a 3/10 with deep breath. medicated per JAN.
[2025-08-20 22:15] LABS: Glucose, Whole Blood 134 mg/dL (60-115)
[2025-08-20] MEDS: Carbamide Peroxide 6.5% Otic 15 ML DRPBTL 5 DROP EAR-BOTH (22:22)
[2025-08-20] MEDS: 0.9 % Sodium Chloride Flush 3 ML SYRINGE IVFLUSH (23:25)
[2025-08-21] VITALS (12 sets, daily range): BP systolic 122–173; BP diastolic 60–89; PULSE 69–95; RESP 12–19; TEMP 36.2–36.6; O2SAT 93–96; BMI 37.1
[2025-08-21 00:53] LABS: Troponin-I High Sensitivity < 2.7 ng/L (<3.5-35.0)
--- NOTE | 2025-08-21 07:00 | CA_ITS ---
Transthoracic Echocardiogram Patient (Last, First, Middle): Candido Silva J Gender: Male Date of : 1950 Age: 75 Procedure Date: 08/21/2025 Procedure Type: Transthoracic [place] [facility] [place]: 175.26 cm Weight: 113.85 kg BSA: 2.28 m2 Heart Rate: 69 bpm BP: 122 / 60 mmHg Life Guard: RAMEZ Referring MD: Kami Brandy LENS MOUNTER-BC Symptoms: rule out CVA, AFIB not on AC Study Quality: Fair Conclusions: - Normal left ventricular size and systolic function. There is mildly increased left ventricular wall thickness. The visually estimated ejection fraction is between 55-60%. In some views apical wall motion noted due to RV pacing. - Normal right ventricular cavity size and systolic function. - The left atrium is moderately dilated. - There is mild thickening of the aortic valve. Findings Procedure Information Contrast agent, definity, is being given per protocol without apparent complications. The quality of the study was technically difficult. Left Ventricle Normal left ventricular size and systolic function. There is mildly increased left ventricular wall thickness. The visually estimated ejection fraction is between 55-60%. Diastolic function is indeterminate on the basis of available data. Right Ventricle Normal right ventricular cavity size and systolic function. Atria The left atrium is moderately dilated. The right atrium is normal in size. Aortic Valve The aortic valve was not well visualized. There is mild thickening of the aortic valve. There is mild aortic valve stenosis. The peak aortic velocity is 2.11 m/s. There is no aortic valve regurgitation. Mitral Valve There is moderate mitral annular calcification. There is no mitral valve regurgitation. There is no mitral valve stenosis. Pulmonic Valve The pulmonic valve is likely normal. Tricuspid Valve Normal tricuspid valve structure. There is no tricuspid valve regurgitation. Normal right atrial pressure. There is no evidence of pulmonary hypertension. Great Vessels All visible segments of the aorta are normal in size. Venous The inferior vena cava is normal in size and collapses greater than 50% with inspiration. Pericardium/Pleural There is no evidence of pericardial effusion. Prior Study Comparison Changes noted compared to prior study dated: 08/08/2024. Normal LVEF Measurements 2D Linear Measurements IVSd: 1.21 0.6-0.9/0.6-1.0 cm LVIDd: 5.10 3.9-5.3/4.2-5.9 cm LVIDd Index: 2.24 2.4-3.2/2.2-3.1 cm/m2 LVIDs: 3.51 2.0-3.6 cm LVPWd: 1.29 0.7-1.1 cm LA Diam: 5.10 2.7-3.8/3.0-4.0 cm LAIDs Index: 2.24 1.5-2.3 cm/m2 LV Mass: 318.58 67-162/88-224 g LV Mass Index: 139.73 43-95/49-115 g/m2 LVOT Diam: 2.10 3.0+(-)1.3 cm 2D Systolic Function EF 4C: 67.00 >55% EF 2C: 57.60 >55% EF BiP: 61.10 >55% Mitral Valve MV VTI: 0.41 MV Pk Krzysztof: 1.38 MV Mn Krzysztof: 0.75 MV Pk Grad: 8.00 MV Mn Grad: 3.00 MV Pk E: 0.99 MV PK A: 1.29 MV Decel Time: 202.00 E/A: 0.80 E'Lateral: 7.07 E'Medial: 5.22 E/E' Med: 19.00 E/E' Lat: 14.00 PHT: 59.00 MVA PHT: 3.73 MVA Continuity: 1.68 Decel [place]: 4.89 Aortic Valve AoV Pk Krzysztof: 2.11 AoV Mn Krzysztof: 1.49 AoV VTI: 0.51 AoV Pk Grad: 18.00 Aov Mn Grad: 11.00 BO Cont.VTI: 1.36 LVOT LVOT Pk Krzysztof: 0.83 LVOT Mn Krzysztof: 0.59 LVOT VTI: 0.20 LVOT Pk Grad: 3.00 LVOT Mn Grad: 2.00 LVOT Diam: 2.10 LVOT Area: 3.46 Diastolic Function MV Pk E: 0.99 MV Pk A: 1.29 E/A: 0.80 E'Medial: 5.22 E/E' Med: 19.00 E' Laterial: 7.07 E/E' Lat: 14.00 Right Ventricle TAPSE (mm): 22.40 TVS' Krzysztof: 12.10 Tricuspid Valve TR Pk Krzysztof: 2.15 TR Pk Grad: 18.00 RA Press: 3.00 RVSP: 21.00 Great Vessels Aorta Sinus of Valsalva: 3.40 2.0-3.5 cm Pulmonary Valve PV Pk Krzysztof: 1.09 Peak PV Grad: 5.00 Updated in Other Vendor System with Status of Final Aly Atkins MD electronically signed on 08/22/2025 8:15:38 PM with status of Final
[2025-08-21 08:12] LABS: Glucose, Whole Blood 145 mg/dL (60-115)
[2025-08-21] MEDS: Aspirin Enteric Coated 81 MG TABLET.DR PO (08:45)
[2025-08-21] MEDS: Ferrous Sulfate 324 MG TABLET.DR PO (08:46)
[2025-08-21] MEDS: Metoprolol Succinate ER 25 MG TAB.ER.24H PO (08:46)
[2025-08-21] MEDS: 0.9 % Sodium Chloride Flush 3 ML SYRINGE IVFLUSH (08:46)
--- NOTE | 2025-08-21 10:47 | MHC.CM.PN ---
Addendum entered by Bonnie Hernandez RN 08/21/25 16:15: PT REPORTING HE WILL GO TO STR IF HE HAS TO HOWEVER WOULD PREFER HOME SERVICES, PT AWARE P.T. IS VERY CONCERNED W/PT'S GATE. PT ALSO REPORTED HIS PT'S HAS NOT BEEN DECLINING AT THE [facility] AND HAS BEEN STABLE AND MAY NEED TO MOVE INTO STR HE IS NO LONGER ABLE TO CARE FOR HER AT HOME. Original Note: EMR REVIEWED, PER HOSPITALIST PT AWAITING MRI/ECCHO, PT/OT RECOMMENDING STR, CM WILL MEET W/PT TO DISCUSS DISPO, PT WILL NEED WELLPOINT AUTH FOR STR, CM WILL CONT TO FOLLOW DC NEEDS.
[2025-08-21 11:20] LABS: Glucose, Whole Blood 189 mg/dL (60-115)
[2025-08-21 16:19] LABS: Glucose, Whole Blood 131 mg/dL (60-115)
--- NOTE | 2025-08-21 18:48 | P.PNIM_ITS ---
Subjective Subjective Date of Service: 08/21/25 Interval History: headaches /weakness Review of Systems Headache weakness seems to be improved, he had some lateral chest discomfort which resolved spontaneously. Is cells still feels somewhat dizzy Physical Exam 2 Exam: Exam: Appearance: Alert.? Oriented X3.? cvs: [id number], [id number] . res: clear to auscultation ,no rhonchii or wheezing abd: no rebound or guarding ,nt, bs present. ext pulses present , no cyanosis . neuro: axo3 , nonfocal. Vital Signs: Vital Signs: Last Vital Signs Temp 97.6 F 08/21/25 16:00 Pulse 74 08/21/25 16:28 Resp 18 08/21/25 16:00 BP 143/68 H 08/21/25 16:28 Pulse Ox 95 08/21/25 16:00 O2 Del Method Room Air 08/21/25 16:00 BMI result Body Mass Index 37.1 Objective Data Active Medications Acetaminophen (Acetaminophen 325 Mg Tablet) 650 mg PO Q6H PRN PRN Reason: Pain, Mild 1-3,fever,headache Last Admin: 08/21/25 03:17 Dose: 650 mg Documented By: DOMIINQUE Albuterol Sulfate (Albuterol Sulfate 90 Mcg 8 Gm Inhaler) 2 puff INHALE Q4H PRN PRN Reason: Shortness of Breath Albuterol/Ipratropium (Albuterol/Iprat 2.5/0.5mg 3 Ml Ampul.Neb) 3 ml INHALE Q4H PRN PRN Reason: Shortness of Breath/Wheezing Ascorbic Acid (Ascorbic Acid 250 Mg Tablet) 250 mg PO DAILY [facility] Last Admin: 08/21/25 08:46 Dose: 250 mg Documented By: YORDY Aspirin (Aspirin Enteric Coated 81 Mg Tablet.) 81 mg PO DAILY [facility] Last Admin: 08/21/25 08:45 Dose: 81 mg Documented By: YORDY Atorvastatin Calcium (Atorvastatin Calcium 20 Mg Tablet) 20 mg PO DAILY [facility] Last Admin: 08/21/25 08:45 Dose: 20 mg Documented By: YORDY Betamethasone Dipropion Augmented (Betamethasone Dip Aug 0.05% Cr 15 Gm Tube) 1 appl TOPICAL DAILY PRN PRN Reason: Rash Calcium Carbonate (Calcium Carbonate 750 Mg Tab.Chew) 750 mg PO Q4H PRN PRN Reason: Heartburn Carbamide Peroxide (Carbamide Peroxide 6.5% Otic 15 Ml Drpbtl) 5 drop EAR-BOTH BID [facility] Stop: 08/23/25 01:29 Last Admin: 08/21/25 08:49 Dose: Not Given Documented By: YORDY Non-Admin Reason: Med Not Available Dextrose (Dextrose 50 % 25 Gm/50 Ml Syringe) 25 gm IVPUSH Q15M PRN; Protocol PRN Reason: per Hypoglycemia Standing Ord. Enoxaparin Sodium (Enoxaparin Sodium 40 Mg/0.4 Ml Syringe) 40 mg SUBCUT Q24H [facility] Last Admin: 08/20/25 23:25 Dose: 40 mg Documented By: ARSALAN Ferrous Sulfate (Ferrous Sulfate 324 Mg Tablet.Dr) 324 mg PO DAILY [facility] Last Admin: 08/21/25 08:46 Dose: 324 mg Documented By: YORDY Folic Acid (Folic Acid 1 Mg Tablet) 1 mg PO DAILY [facility] Last Admin: 08/21/25 08:46 Dose: 1 mg Documented By: YORDY Glucose (Glucose Gel 15 Gm Gel..Gram.) 15 gm PO Q15M PRN; Protocol PRN Reason: per Hypoglycemia Standing Ord. Insulin Human Lispro (Insulin Lispro 100 Unit/Ml 3 Ml Vial) 0 unit SUBCUT QIDACHS [facility]; Protocol Last Admin: 08/21/25 16:45 Dose: Not Given Documented By: YORDY Non-Admin Reason: No Insulin Coverage Magnesium Hydroxide (Milk Of Magnesia 30 Ml Oral.Susp) 30 ml PO DAILY PRN PRN Reason: Constipation Melatonin (Melatonin 3 Mg Tablet) 6 mg PO BEDTIME PRN PRN Reason: Insomnia Metoprolol Succinate (Metoprolol Succinate Er 25 Mg Tab.Er.24h) 25 mg PO DAILY [facility]; Protocol Last Admin: 08/21/25 08:46 Dose: 25 mg Documented By: YORDY Multivitamins/Vitamin C (Multivitamin Tablet) 1 tab PO DAILY [facility] Last Admin: 08/21/25 08:46 Dose: 1 tab Documented By: YORDY Mupirocin (Mupirocin 2 % Oint 22 Gm Tube) 1 appl TOPICAL BID [facility]; Protocol Last Admin: 08/21/25 08:49 Dose: Not Given Documented By: YORDY Non-Admin Reason: Med Not Available Nitroglycerin (Nitroglycerin 0.4 Mg Tab.Subl) 0.4 mg SUBLINGUAL Q5MX3 PRN PRN Reason: Chest Pain Last Admin: 08/20/25 19:38 Dose: 1 tab Documented By: ARSALAN Omeprazole (Omeprazole 40 Mg Capsule.Dr) 40 mg PO DAILY@0630 [facility] Last Admin: 08/21/25 05:30 Dose: 40 mg Documented By: DOMINIQUE Ondansetron HCl (Ondansetron Hcl 4 Mg/2 Ml Vial) 4 mg IVPUSH Q8H PRN PRN Reason: Nausea and Vomiting Polyethylene Glycol (Polyethylene Glycol 3350 17 Gm Powd.Pack) 17 gm PO DAILY PRN PRN Reason: Constipation Senna (Sennosides 8.6 Mg Tablet) 17.2 mg PO BEDTIME [facility] Last Admin: 08/20/25 22:22 Dose: 17.2 mg Documented By: ARSALAN Sodium Chloride (0.9 % Sodium Chloride Flush 3 Ml Syringe) 3 ml IVFLUSH QSHIFT [facility] Last Admin: 08/21/25 14:29 Dose: Not Given Documented By: YORDY Non-Admin Reason: IV Running Vitamin D (Cholecalciferol (Vitamin D3) 25 Mcg Tablet) 125 mcg PO MOWEFR [facility] Last Admin: 08/21/25 08:47 Dose: 125 mcg Documented By: YORDY Labs 08/20/25 04:19 08/20/25 04:19 Labs: Laboratory Results - last 24 hr 08/20/25 08/20/25 08/20/25 19:21 22:10 23:45 POC Glucose 134 H Troponin I High Sens 2.7 < 2.7 08/21/25 08/21/25 08/21/25 08:08 11:03 16:05 POC Glucose 145 H 189 H 131 H Troponin I High Sens Assessment and Plan (1) Dizziness: Status: Acute Assessment and Plan: 75 yo male with PMH AFIB not on AC, 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 Patient being admitted under observation for further evaluation of generalized weakness with dizziness, headache and to rule out CVA with MRI. Dizziness/ weakness/headache: NIHHS score 0 on arrival, remains O Pt has had 3 vaccinations in the last month to include COVID, FLU and Pneumovax trop and bnp neg cpk normal cta head:CT angiography neck demonstrates plaque at bilateral carotid bifurcations [id number] with no hemodynamically significant stenosis. cxr: negative. plan: moniter on tele Neuro evaluation noted-dizziness thought to be possible orthostasis , mri brain Will check orthostasis Lipid panel, MRI BRAIN-awaiting wrap availability and MRI arrangement. PT/OT IDDM Sliding scale insulin Diabetic diet A1c 7.31 July 2025 HTN Avoid hypotension Continue metoprolol and hold lisinopril CM EF 52%,minimal edema legs no sob or chest pain Fluid allowance 1500 mL per day Daily weights and measure I's and O's q.shift Low-sodium diet,hctz PPM for Compelte Heart Block Pacemaker last interrogated February 2025. Patient will require MRI of the brain to rule out neurological event, also has pacemaker. AFIB not on AC Per cardiology patient does not require anticoagulation after multiple interrogations noting minimal episodes of atrial fib Continue metoprolol DVT Prpophylaxis: s/c lovenox ongoing need for stay: Dizziness, generalized weak-need further neurological workup(MRI/as pacemaker also), monitoring for orthostasis, generalized weak need PT evaluation Quality Stroke Does the patient have a stroke diagnosis?: No Reason for No Anti-thrombotic by Day Two: N/A - Med Ordered VTE Prior VTE?: No VTE Risk Level:: Medical - moderate - high VTE Device Contraindication: N/A - Device Ordered VTE Drug Contraindication: N/A - Med Ordered
[2025-08-21 19:47] LABS: Glucose, Whole Blood 164 mg/dL (60-115)
[2025-08-21] MEDS: Carbamide Peroxide 6.5% Otic 15 ML DRPBTL 5 DROP EAR-BOTH (21:14)
[2025-08-22] VITALS (12 sets, daily range): BP systolic 117–156; BP diastolic 65–80; PULSE 68–87; RESP 16–18; TEMP 36.2–36.8; O2SAT 95–96
[2025-08-22] MEDS: 0.9 % Sodium Chloride Flush 3 ML SYRINGE IVFLUSH ×3 (00:23→21:13)
[2025-08-22] MEDS: Metoprolol Succinate ER 25 MG TAB.ER.24H PO (08:01)
[2025-08-22] MEDS: Aspirin Enteric Coated 81 MG TABLET.DR PO (08:01)
[2025-08-22] MEDS: Ferrous Sulfate 324 MG TABLET.DR PO (08:02)
[2025-08-22 11:22] LABS: Glucose, Whole Blood 162 mg/dL (60-115)
--- NOTE | 2025-08-22 13:00 | MHC.CM.PN ---
Addendum entered by Bonnie Hernandez RN 08/22/25 16:19: CM MET W/PT AND PT'S AT BEDSIDE W/SON [facility] ON SPEAKER, PT AND SON BREEZY REPORT [facility] IS PREFERRED SNF D/T LOCATION, [facility] REFERRAL ALSO PLACED IN CASE PT GOES HOME, [facility] CHECKING PT'S INSURANCE. Original Note: CM RECEIVED MESSAGE FROM PT'S SON BREEZY [phone], CM MET W/PT WHO GAVE VERBAL CONSENT FOR CM TO DISCUSS CASE W/BREEZY, BREEZY WOULD LIKE PT TO GO TO [facility] AND THAT PT HAD A BAD EXPERIENCE AT [facility] AND PT WOULD NOT WANT TO GO BACK THERE. LIST OF SNF'S EMAILED TO BREEZY AT W/NOTE THAT [facility], [facility] AND [facility] OFFERING PT A BED. CM WILL DISCUSS OPTIONS W/PT AND CONTACT PT'S SON BREEZY TO FOLLOW UP ON PREFERRED SNF.
--- NOTE | 2025-08-22 14:45 | HO.PM.IMPN ---
Subjective Subjective Date of Service: 08/22/25 Interval History: headaches/dizziness improvin Review of Systems as above Review of Systems: Yes all other systems are reviewed and are negative Physical Exam Exam: Exam: Appearance: Alert.? Oriented X3.? cvs: [id number], [id number] . res: clear to auscultation ,no rhonchii or wheezing abd: no rebound or guarding ,nt, bs present. ext pulses present , no cyanosis . neuro: axo3 , nonfocal. Vital Signs: Vital Signs: Last Vital Signs Temp 98.3 F 08/22/25 11:24 Pulse 68 08/22/25 11:24 Resp 18 08/22/25 11:24 BP 117/68 08/22/25 11:24 Pulse Ox 96 08/22/25 11:24 O2 Del Method Room Air 08/22/25 11:24 BMI result Body Mass Index 37.1 Objective Data Active Medications Acetaminophen (Acetaminophen 325 Mg Tablet) 650 mg PO Q6H PRN PRN Reason: Pain, Mild 1-3,fever,headache Last Admin: 08/22/25 00:21 Dose: 650 mg Documented By: GRISELDA Albuterol Sulfate (Albuterol Sulfate 90 Mcg 8 Gm Inhaler) 2 puff INHALE Q4H PRN PRN Reason: Shortness of Breath Albuterol/Ipratropium (Albuterol/Iprat 2.5/0.5mg 3 Ml Ampul.Neb) 3 ml INHALE Q4H PRN PRN Reason: Shortness of Breath/Wheezing Ascorbic Acid (Ascorbic Acid 250 Mg Tablet) 250 mg PO DAILY [facility] Last Admin: 08/22/25 08:02 Dose: 250 mg Documented By: HARPAL Aspirin (Aspirin Enteric Coated 81 Mg Tablet.) 81 mg PO DAILY [facility] Last Admin: 08/22/25 08:01 Dose: 81 mg Documented By: HARPAL Atorvastatin Calcium (Atorvastatin Calcium 20 Mg Tablet) 20 mg PO DAILY [facility] Last Admin: 08/22/25 08:02 Dose: 20 mg Documented By: HARPAL Betamethasone Dipropion Augmented (Betamethasone Dip Aug 0.05% Cr 15 Gm Tube) 1 appl TOPICAL DAILY PRN PRN Reason: Rash Calcium Carbonate (Calcium Carbonate 750 Mg Tab.Chew) 750 mg PO Q4H PRN PRN Reason: Heartburn Carbamide Peroxide (Carbamide Peroxide 6.5% Otic 15 Ml Drpbtl) 5 drop EAR-BOTH BID [facility] Stop: 08/23/25 01:29 Last Admin: 08/22/25 12:42 Dose: Not Given Documented By: HARPAL Non-Admin Reason: Patient Refused Dextrose (Dextrose 50 % 25 Gm/50 Ml Syringe) 25 gm IVPUSH Q15M PRN; Protocol PRN Reason: per Hypoglycemia Standing Ord. Enoxaparin Sodium (Enoxaparin Sodium 40 Mg/0.4 Ml Syringe) 40 mg SUBCUT Q24H [facility] Last Admin: 08/22/25 00:20 Dose: 40 mg Documented By: GRISELDA Ferrous Sulfate (Ferrous Sulfate 324 Mg Tablet.Dr) 324 mg PO DAILY [facility] Last Admin: 08/22/25 08:02 Dose: 324 mg Documented By: HARPAL Folic Acid (Folic Acid 1 Mg Tablet) 1 mg PO DAILY [facility] Last Admin: 08/22/25 08:02 Dose: 1 mg Documented By: HARPAL Glucose (Glucose Gel 15 Gm Gel..Gram.) 15 gm PO Q15M PRN; Protocol PRN Reason: per Hypoglycemia Standing Ord. Insulin Human Lispro (Insulin Lispro 100 Unit/Ml 3 Ml Vial) 0 unit SUBCUT QIDACHS [facility]; Protocol Last Admin: 08/22/25 11:29 Dose: Not Given Documented By: HARPAL Non-Admin Reason: Patient Refused Magnesium Hydroxide (Milk Of Magnesia 30 Ml Oral.Susp) 30 ml PO DAILY PRN PRN Reason: Constipation Melatonin (Melatonin 3 Mg Tablet) 6 mg PO BEDTIME PRN PRN Reason: Insomnia Metoprolol Succinate (Metoprolol Succinate Er 25 Mg Tab.Er.24h) 25 mg PO DAILY [facility]; Protocol Last Admin: 08/22/25 08:01 Dose: 25 mg Documented By: HARPAL Multivitamins/Vitamin C (Multivitamin Tablet) 1 tab PO DAILY [facility] Last Admin: 08/22/25 08:01 Dose: 1 tab Documented By: HARPAL Mupirocin (Mupirocin 2 % Oint 22 Gm Tube) 1 appl TOPICAL BID [facility]; Protocol Last Admin: 08/22/25 08:06 Dose: Not Given Documented By: HARPAL Non-Admin Reason: Patient Refused Nitroglycerin (Nitroglycerin 0.4 Mg Tab.Subl) 0.4 mg SUBLINGUAL Q5MX3 PRN PRN Reason: Chest Pain Last Admin: 08/20/25 19:38 Dose: 1 tab Documented By: ARSALAN Omeprazole (Omeprazole 40 Mg Capsule.) 40 mg PO DAILY@0630 [facility] Last Admin: 08/22/25 04:00 Dose: 40 mg Documented By: GRISELDA Ondansetron HCl (Ondansetron Hcl 4 Mg/2 Ml Vial) 4 mg IVPUSH Q8H PRN PRN Reason: Nausea and Vomiting Polyethylene Glycol (Polyethylene Glycol 3350 17 Gm Powd.Pack) 17 gm PO DAILY PRN PRN Reason: Constipation Senna (Sennosides 8.6 Mg Tablet) 17.2 mg PO BEDTIME [facility] Last Admin: 08/21/25 19:35 Dose: 17.2 mg Documented By: GRISELDA Sodium Chloride (0.9 % Sodium Chloride Flush 3 Ml Syringe) 3 ml IVFLUSH QSHIFT [facility] Last Admin: 08/22/25 08:05 Dose: 3 ml Documented By: HARPAL Vitamin D (Cholecalciferol (Vitamin D3) 25 Mcg Tablet) 125 mcg PO MOWEFR [facility] Last Admin: 08/21/25 08:47 Dose: 125 mcg Documented By: YORDY Labs 08/20/25 04:19 08/20/25 04:19 Labs: Laboratory Results - last 24 hr 08/21/25 08/21/25 08/22/25 16:05 19:33 07:20 POC Glucose 131 H 164 H 144 H 08/22/25 11:14 POC Glucose 162 H Assessment and Plan (1) Dizziness: Status: Acute Assessment and Plan: 75 yo male with PMH AFIB not on AC, 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 Patient being admitted under observation for further evaluation of generalized weakness with dizziness, headache and to rule out CVA with MRI. Dizziness/ weakness/headache: NIHHS score 0 on arrival, remains O Pt has had 3 vaccinations in the last month to include COVID, FLU and Pneumovax trop and bnp neg cpk normal cta head:CT angiography neck demonstrates plaque at bilateral carotid bifurcations [id number] with no hemodynamically significant stenosis. cxr: negative. plan: moniter on tele Neuro evaluation noted-dizziness thought to be possible orthostasis- has some relative orthostasis( 17 point diff bp)intially seems improving significantly , mri brain Lipid panel, MRI BRAIN-awaiting wrap availability and MRI arrangement. PT/OT IDDM Sliding scale insulin Diabetic diet A1c 7.31 July 2025 HTN Avoid hypotension Continue metoprolol and hold lisinopril CM EF 52%,minimal edema legs no sob or chest pain Fluid allowance 1500 mL per day Daily weights and measure I's and O's q.shift Low-sodium diet,hctz PPM for Compelte Heart Block Pacemaker last interrogated February 2025. Patient will require MRI of the brain to rule out neurological event, also has pacemaker. AFIB not on AC Per cardiology patient does not require anticoagulation after multiple interrogations noting minimal episodes of atrial fib Continue metoprolol DVT Prpophylaxis: s/c lovenox pt rec -rehab ongoing need for stay: Dizziness, generalized weak-need further neurological workup(MRI/as pacemaker also), echo pending ,possible rehab placement d/w patient -he requesting to get mri done before discharge ,his son same , neuro also rec to complete mri.cardio clearence done ,pacemaker wrap is not available today so MRI can be only done tomorrow. Quality Stroke Does the patient have a stroke diagnosis?: No Reason for No Anti-thrombotic by Day Two: N/A - Med Ordered VTE Prior VTE?: No VTE Risk Level:: Medical - moderate - high VTE Device Contraindication: N/A - Device Ordered VTE Drug Contraindication: N/A - Med Ordered
[2025-08-22 16:25] LABS: Glucose, Whole Blood 146 mg/dL (60-115)
[2025-08-22 21:02] LABS: Glucose, Whole Blood 201 mg/dL (60-115)
[2025-08-22] MEDS: Carbamide Peroxide 6.5% Otic 15 ML DRPBTL 5 DROP EAR-BOTH (21:13)
[2025-08-23] VITALS (7 sets, daily range): BP systolic 118–152; BP diastolic 56–75; PULSE 71–84; RESP 16–20; TEMP 36.2–36.9; O2SAT 94–97
[2025-08-23 07:23] LABS: Glucose, Whole Blood 156 mg/dL (60-115)
[2025-08-23] MEDS: Aspirin Enteric Coated 81 MG TABLET.DR PO (08:02)
[2025-08-23] MEDS: Metoprolol Succinate ER 25 MG TAB.ER.24H PO (08:02)
[2025-08-23] MEDS: Ferrous Sulfate 324 MG TABLET.DR PO (08:02)
[2025-08-23] MEDS: 0.9 % Sodium Chloride Flush 3 ML SYRINGE IVFLUSH (08:03)
--- NOTE | 2025-08-23 08:48 | MHC.CM.PN ---
Addendum entered by Bonnie Hernandez RN 08/23/25 11:24: CM MET W/PT WHO WILL HAVE HIS MRI AT 11:45AM, PT TO BE MEDICALLY CLEARED FOR DC HOME W/[facility] FOR SN/PT, PT'S SON BREEZY WILL TRANSPORT. Original Note: EMR REVIEWED, ANTIC PT WILL BE MEDICALLY CLEARED PENDING MRI, [facility] SUBMITTING FOR AUTH, CM WILL CONT TO FOLLOW DC NEEDS. [facility] OFFERING IF PT CHANGES HIS MIND ABOUT STR.
[2025-08-23 11:29] LABS: Glucose, Whole Blood 163 mg/dL (60-115)
--- NOTE | 2025-08-23 15:02 | PM.DS ---
DS: Providers Provider Date of Service: 08/23/25 Date of admission: 08/19/25 23:25 Date of discharge: 08/23/25 Primary care physician: Curry Morales MD Consults: 08/19/25 23:51 Consult to Neurology Routine Consulting Provider: [facility] Reason for consultation: ruling out CVA, loss of balance Has provider been notified: No 08/20/25 01:25 Consult to Cardiology Routine Consulting Provider: [facility] Reason for consultation: asses PPM compatibility for MRI, [facility] Te[facility]inder placed Dual ch, 2018, new edema BL Attending physician on discharge: Es Cornell Discharging clinician: Es Cornell DS: Diagnosis Discharge Diagnosis (1) Dizziness: Status: Acute DS: Summary Hospital Course Hospital Course: HPI:75 yo male with PMH AFIB not on AC, 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 Pt stated he received his usual heat treatment for chronic back and leg pain and soon after, upon ambulating has to grab railing to prevent falling. Pt stated he was checked by staff and waited 15 minutes before being able to leave and drive to Hospice where his spouse resides and then home to make dinner and was in bed by 11Pm. Pt awakened 0630 in the AM Thursday morning, and immediately felt woozy . Pt had to use 2 canes to ambulate. Pt states he was slow all morning. Pt does not routinely check his blood glucose levels but did eat breakfast. Pt states movement makes his symptoms worse. Pt denies hx of vertigo, CVA/TIA or seziure hx. Pt is [place] but does not usually wear his hearing aids. Pt has been getting tired more quickly. Pt did not visit his during the day. Finally, after speaking with family, pt was driven in by close friend to the ED for further evaluation. Clarified with pt that he does not know of any hx related to Myasthenia Gravis but this dx was listed by his PCP back in February 2025. Pt was recently vaccinated with COVID, FLU and Pneumonvax all within the last month. Pt also states that after CT scan today, his DESIR worsened. Patient had an episode in the restroom while in the ED where balance was an issue and weakness noted and patient felt that he lost muscle control at that point. Patient had hit his left hip into the bar and an x-ray was done which is negative for any acute findings. Work up in the ED included CT head and CTA all negative for acute findings. IVF started post contrast exposure. Renal fx stable, Ears positive for increased cerumen B. Pt being admitted for new onset weaknes, DESIR, and to rule out neurological event. Hospital course: Dizziness/headache:workup negative including cta head -symptoms possible related to realtive orthostasis . Encouraged for p.o. intake and hydration, Trevor stockings, orthostatic precautions.patient seen by neuro:Mri was done after cardiology review/wrap availablity : negative . patient is asymptomatic . echo:- Normal left ventricular size and systolic function. There is mildly increased left ventricular wall thickness. The visually estimated ejection fraction is between 55-60%.In some views apical wall motion noted due to RV pacing. Normal right ventricular cavity size and systolic function. The left atrium is moderately dilated.There is mild thickening of the aortic valve. Patient will be going home with VNA and PT. above amangement d/w patient in detail length,he understands and in agreement with above plan, time spent 45 min.allquestions answered. Time Attestation Discharge Coordination Time (in mins): 45 Quality: Safe Use of Opioids Does Pt have an Active Cancer Diagnosis on the Problem List?: No Quality: Stroke Does the patient have a stroke diagnosis?: No Physical Exam Exam: Exam: Appearance: Alert.? Oriented X3.? cvs: rrr, [id number] . res: clear to auscultation ,no rhonchii or wheezing abd: no rebound or guarding ,nt, bs present. ext pulses present , no cyanosis . neuro: axo3 , nonfocal. Vital Signs: Vital Signs: Last Vital Signs Temp 98.5 F 08/23/25 11:34 Pulse 82 08/23/25 13:27 Resp 20 08/23/25 11:34 BP 152/72 H 08/23/25 13:27 Pulse Ox 94 08/23/25 11:34 O2 Del Method Room Air 08/23/25 11:34 BMI result Body Mass Index 37.1 DS: Data Data Completed and Pending Labs on day of discharge: Laboratory Results - last 24 hr 08/22/25 08/22/25 08/23/25 16:13 20:46 07:20 POC Glucose 146 H 201 H 156 H 08/23/25 11:23 POC Glucose 163 H Imaging Chest x-ray: My impression: echo: Normal left ventricular size and systolic function. There is mildly increased left ventricular wall thickness. The visually estimated ejection fraction is between 55-60%. In some views apical wall motion noted due to RV pacing. - Normal right ventricular cavity size and systolic function. - The left atrium is moderately dilated. - There is mild thickening of the aortic valve. Discharge Plan Discharge Anticipated Discharge Date/Time: 08/23/25 11:15 Patient Disposition: Home Health Service Discharge Diagnosis: dizziness Referrals: [facility] [Outside] - 1 Day Referral Note: INTERMEDIATE AND HOME PHYSICAL THERAPY, A NURSE WILL REACH OUT TO YOU TO ARRANGE FIRST VISIT WITHIN 24-48HRS FROM DISCHARGE. Curry Morales MD [Primary Care Provider, Internal Medicine] - 1 Week Oral Lowe MD [Physician, Cardiology] - 1 Week Discharge Medications: New (DME) clifford.stocking,knee,reg,smal [T.E.D. Anti-Embolism Stocking] Misc See Rx Instructions .Route Qty: 12 0RF Rx Instructions: As directed Continued metoprolol succinate 25 mg tablet extended release 24 hr 25 mg PO DAILY Qty: 90 3RF (DME) FreeStyle Sherrell 3 Plus Sensor Device See Rx Instructions .Route Qty: 1 3RF Rx Instructions: As directed metformin 500 mg tablet extended release 24 hr 500 mg PO DAILY Qty: 90 1RF albuterol sulfate 90 mcg/actuation HFA aerosol inhaler 2 puff inhalation Q4H PRN (Reason: Shortness Of Breath) Qty: 8.5 3RF folic acid 1 mg Tablet 1 mg PO DAILY ibuprofen 600 mg Tablet 600 mg PO QID PRN (Reason: Pain) aspirin 81 mg tablet,delayed release (DR/EC) 81 mg PO DAILY chlorthalidone 25 mg tablet 25 mg PO DAILY mupirocin 2 % ointment 1 appl topical BID ascorbic acid (vitamin C) [Vitamin C] 250 mg Tablet 250 mg PO DAILY Probiotic 10 billion cell Capsule 10,000 mmu cells PO DAILY multivitamin Tablet 1 tab PO DAILY cholecalciferol (vitamin D3) 125 mcg (5,000 unit) capsule 125 mcg PO MOWEFR ferrous sulfate 325 mg (65 mg iron) tablet 325 mg PO DAILY lisinopril 10 mg tablet 10 mg PO DAILY Qty: 90 1RF atorvastatin 20 mg tablet 20 mg PO DAILY Qty: 90 3RF amino acids Capsule 1 cap PO DAILY clobetasol 0.05 % cream 1 appl topical DAILY PRN (Reason: Rash) tadalafil 20 mg tablet 20 mg PO Q OTHER DAY PRN (Reason: Erectile Dysfunction) omeprazole magnesium [Prilosec OTC] 20 mg tablet,delayed release (DR/EC) 40 mg PO DAILY@0630 Discharge Orders: Discharge Order (Routine); Ordered 08/23/25 Ordered By: Es Cornell Diet: Advance to usual diet Activity on Discharge: As tolerated Stand Alone Forms: Patient Portal Discharge page Print Language: Hungarian Care Plan Goals: Dizziness/headache:workup negative including cta head ,awaiting mri brain.possible related to realtive orthostasis . Encouraged for p.o. intake and hydration, Trevor stockings, orthostatic precautions.Mri Pending echo:- Normal left ventricular size and systolic function. There is mildly increased left ventricular wall thickness. The visually estimated ejection fraction is between 55-60%.In some views apical wall motion noted due to RV pacing. Normal right ventricular cavity size and systolic function. The left atrium is moderately dilated.There is mild thickening of the aortic valve. Patient will be going home with VNA and PT. Health Concerns: as above. Plan of Treatment: as above. Assessment: as above Discharge Date/Time: 08/23/25 16:32
--- NOTE | 2025-08-23 17:07 | W.MHC.F2F ---
Service Date Service Date: 08/23/25 Encounter Date of encounter: 08/23/25 Encounter: dizziness Reasons for Services Signs and symptoms assessed: chest pain or dizziness or sob Reason for alf: medication management, medication treatment and teach disease management Reason for physical therapy: home safety and mobility, therapeutic exercises, restore joint function, gait/transfer training, assess need for DME, ADL training, energy conservation and other MD Overseeing Care: Curry Morales Homebound: Leaving the home is medically contraindicated at this time without the asist of a device and/or another person due th the listed conditions above and below. Reason homebound: weakness related to hospital stay Homebound supporting statement: patient is generalised weak post hospilisation-need help to go to appiontments, pt and labs,darws ,med management Certification: Based on the above findings, I certify that this patient is confined to the home and needs intermittent alf care, physical therapy and/or speech therapy, or continues to need occupational therapy. The patient is under my care, and I have initiated the establishment of the plan of care. The patient will be followed by a physician who will periodically review the plan of care. Time Spent With Patient Time: Total time managing care of this patient today ____ minutes.
== END 2025-08-23 16:32 | disposition home health service (06) ==
LOC: HO.ED 21:02 → HO.EDOVER 23:32 → HO.IMC 08-21 05:09
PROVIDERS: Nurse Practitioner Family; Physician Assistant Medical; Admitting Provider Internal Medicine; Emergency Provider Emergency Medicine; PCP Student in an Organized Health Care Education/Training Program; Visit Provider Internal Medicine
DX: R42 Dizziness and giddiness (principal); R53.1 Weakness; R51.9 Headache, unspecified; M25.552 Pain in left hip; I10 Essential (primary) hypertension; E11.9 Type 2 diabetes mellitus without complications; I48.0 Paroxysmal atrial fibrillation; G70.00 Myasthenia gravis without (acute) exacerbation; I42.9 Cardiomyopathy, unspecified; R07.9 Chest pain, unspecified; Z96.642 Presence of left artificial hip joint; Z79.899 Other long term (current) drug therapy; Z95.0 Presence of cardiac pacemaker; Z03.818 Encounter for observation for suspected exposure to other biological agents ruled out
CPT/HCPCS: 36415; 70450; 70496; 70498; 70551; 71045; 73502; 80048; 80061; 80076; 81003; 82550; 82947; 83735; 83880; 84484; 85025; 87502; 87635; 93005; 93306; 96361; 96372; 96374; 97110; 97116; 97161; 97166; 97530; 97535; 99222; 99285; J1650; J2270; Q9957; Q9967

== ENCOUNTER → 2025-08-19 19:28 | Outpatient (BNV) | payer OTHER, SELFPAY | PROVIDERS: Admitting Provider Internal Medicine; Emergency Provider Emergency Medicine; PCP Internal Medicine Cardiovascular Disease; Visit Provider Internal Medicine | DX: I49.8 Other specified cardiac arrhythmias (principal) | CPT/HCPCS: 93010 ==

== ENCOUNTER → 2025-08-19 22:25 | Outpatient (BNV) | payer OTHER, SELFPAY | PROVIDERS: Emergency Provider Emergency Medicine; PCP Internal Medicine Cardiovascular Disease; Visit Provider Specialist | DX: I65.23 Occlusion and stenosis of bilateral carotid arteries (principal); R42 Dizziness and giddiness; T84.84XA Pain due to internal orthopedic prosthetic devices, implants and grafts, initial encounter; W19.XXXA Unspecified fall, initial encounter | CPT/HCPCS: 70450; 70496; 70498; 73502 ==

== ENCOUNTER 2025-08-19 23:25 | Outpatient (BNV) | payer OTHER, SELFPAY | END 2025-08-21 07:00 | PROVIDERS: Admitting Provider Internal Medicine; Emergency Provider Emergency Medicine; PCP Student in an Organized Health Care Education/Training Program; Visit Provider Internal Medicine Cardiovascular Disease | DX: I51.7 Cardiomegaly (principal) | CPT/HCPCS: 93306 ==

== ENCOUNTER 2025-08-19 23:25 | Outpatient (BNV) | payer OTHER, SELFPAY | END 2025-08-20 19:02 | PROVIDERS: Admitting Provider Internal Medicine; Emergency Provider Emergency Medicine; PCP Internal Medicine Cardiovascular Disease; Visit Provider Specialist | DX: R07.9 Chest pain, unspecified (principal) | CPT/HCPCS: 71045 ==

== ENCOUNTER 2025-08-19 23:25 | Outpatient (BNV) | payer OTHER, SELFPAY | END 2025-08-23 14:20 | PROVIDERS: Admitting Provider Internal Medicine; Emergency Provider Emergency Medicine; PCP Student in an Organized Health Care Education/Training Program; Visit Provider Radiology Diagnostic Radiology | DX: R27.0 Ataxia, unspecified (principal); I67.82 Cerebral ischemia | CPT/HCPCS: 70551 ==

== ENCOUNTER 2025-08-19 23:25 | Outpatient (BNV) | payer OTHER, SELFPAY | END 2025-08-20 19:29 | PROVIDERS: Admitting Provider Internal Medicine; Emergency Provider Emergency Medicine; PCP Student in an Organized Health Care Education/Training Program; Visit Provider Internal Medicine Cardiovascular Disease | DX: R94.31 Abnormal electrocardiogram [ECG] [EKG] (principal); R07.89 Other chest pain; Z95.0 Presence of cardiac pacemaker | CPT/HCPCS: 93010 ==

== ENCOUNTER → 2025-08-19 23:25 | Outpatient (BNV) | payer OTHER, SELFPAY | PROVIDERS: Admitting Provider Internal Medicine; Emergency Provider Emergency Medicine; PCP Internal Medicine Cardiovascular Disease; Visit Provider Psychiatry & Neurology Neurology | DX: R42 Dizziness and giddiness (principal); Z95.0 Presence of cardiac pacemaker | CPT/HCPCS: 99222 ==

== ENCOUNTER → 2025-08-19 23:25 | Outpatient (BNV) | payer OTHER, SELFPAY | PROVIDERS: Admitting Provider Internal Medicine; Emergency Provider Emergency Medicine; PCP Internal Medicine Cardiovascular Disease; Visit Provider Nurse Practitioner Family | DX: R42 Dizziness and giddiness (principal) | CPT/HCPCS: 99231; 99239; G0180 ==

== ENCOUNTER 2025-09-04 11:33 | Outpatient (AMB) | payer OTHER, SELFPAY ==
--- OUTSIDE RECORDS SUMMARY | 2024-05-20 08:20 | XMS_ITS ---
Author Organization [facility] Address [address] [place] [address] Care Team Providers Care Lumber Chain Offbearer Name Role Phone Yousuf (RETIRED) Ezra RAINES Primary Care Provide Juan A San [phone] REASON FOR VISIT screening,hx polyps Encounters Encounter Location Date Provider Diagnosis [facility] [place] [facility] [address] [place] [phone] 2024 Juan A Diallo Plan Of Treatment No Information Progress Notes * SERG AGEE JrDOB:[birth year] (75 yo M)Acc No.[id number]:2024 COLON WITH MAC Patient: SERG LALA Jr Provider: Brii Diallo MD :1950 A ge:74 Y S ex:Male Date:2024 Address:[address] [place], [place] [id number] Pcp:Ezra To (RETIRED )MD Subjective: * Chief [...] 0 2024 Generated for Eladia gee/Linda/eTransmitting on: 1 02:10 PM EDT
--- OUTSIDE RECORDS SUMMARY | 2024-08-12 05:20 | XMS_ITS ---
Author Organization [facility] Address [address] [place] [address] Care Team Providers Care Director Of Sales And Marketing Name Role Phone Yousuf (RETIRED) Ezra RAINES Primary Care Provide Juan A San [phone] REASON FOR VISIT colon screening Encounters Encounter Location Date Provider Diagnosis [facility] [place] [address] [place] [id number] 08/12/2024 Juan A Diallo Plan Of Treatment No Information Progress Notes * ANUEL SERG DOB:[birth year] (75 yo M)Acc No.[id number]:08/12/2024 COLON WITH MAC Patient: SERG LALA Jr Provider: Brii Diallo MD :1950 A ge:74 Y S ex:Male Date:08/12/2024 Address:[address] [place], [place] [phone] Pcp:Ezra To (RETIRED )MD Subjective: * Chief [...] Diallo MD Date: 0 08/12/2024 Generated for Printi ng/Faxing/eTransmitting on: 1 02:11 PM EDT
--- OUTSIDE RECORDS SUMMARY | 2024-10-17 06:30 | XMS_ITS ---
Author Organization [facility] Address [address] [place] [address] Care Team Providers Care Swing Grinder Name Role Phone Yousuf (RETIRED) Ezra RAINES Primary Care Provide r Juan A Hernandez Unavailable [phone] REASON FOR VISIT screening colon Problems Problem Type SNOMED Code ICD Code Onset Dates Problem Status W/U Status Risk Notes Problem Diverticular disease of colon (786395453) Diverticulosis of large intestine without perforation or abscess without bleeding (K57.30) Active confirmed Encounters Encounter Location Date Provider Diagnosis [facility] [place] [address] [place] [id number] 10/17/2024 Juan A Diallo Colon cancer scree [...] * SERG AGEE JrDOB:[birth year] (75 yo M)Acc No.[id number]:10/17/2024 COLON WITH MAC Patient: SERG LALA Jr Provider: Brii Diallo MD :1950 A ge:74 Y S ex:Male Date:10/17/2024 Address:[address] [place], [place] [phone] Pcp:Ezra To (RETIRED )MD Subjective: * Chief [...] Date: 12/17/2023 Generated for Eladia gee/Linda/Tjsmitting on: 02:10 PM EDT
--- NOTE | 2025-09-04 09:58 | A.OFFPC_ITS ---
Vital Signs 09/04/25 11:43 Height 5 ft 9 in Weight 251 lb BMI 37.1 BMI Reason not done Patient refused/unable BP 128/68 Blood Pressure Location Lt brachial Position Sitting Respiration 18 Pulse 75 Pulse Source Pulse Oximeter Temp 97.6 F Temp Source Temporal Artery Scan Pulse Oximetry (%) 96 Oxygen Delivery Method Room Air Intake Visit Reasons: S/P [facility] d/c Enrobing Machine Corder Required: No Accompanied by: Self / Same As Patient Allergies cat dander Allergy (Intermediate, Verified 09/04/25 09:58) ASTHMA Medication List - Last Reconciled 09/04/25 by Curry Morales MD albuterol sulfate 90 mcg/actuation 2 puffs inhalation Q4H PRN amino acids 1 cap PO DAILY ascorbic acid (vitamin C) (Vitamin C) 250 mg PO DAILY aspirin 81 mg PO DAILY atorvastatin 20 mg PO DAILY blood-glucose sensor (FreeStyle Sherrell 3 Plus Sensor device) As directed chlorthalidone 25 mg PO DAILY cholecalciferol (vitamin D3) 125 mcg PO MOWEFR clobetasol 0.05% 1 appl topical DAILY PRN compr.stocking,knee,long,large As directed clifford.stocking,knee,reg,smal (T.E.D. Anti-Embolism Stocking) As directed ferrous sulfate 325 mg PO DAILY folic acid 1 mg PO DAILY ibuprofen 600 mg PO QID PRN Lactobacillus acidophilus (Probiotic) 10,000 mmu cells PO DAILY lisinopril 10 mg PO DAILY magnesium citrate (OneLAX Magnesium Citrate oral solution) 150 mL PO DAILY metformin ER 500 mg PO DAILY metoprolol succinate ER 25 mg PO DAILY multivitamin 1 tab PO DAILY mupirocin 2% 1 appl topical BID omeprazole magnesium (Prilosec OTC) 20 mg PO BID potassium citrate mg PO tadalafil 20 mg PO Q OTHER DAY PRN Tobacco use date assessed: 05/29/25 Dental Screening Dental Screen Date: 05/29/25 HPI HPI Comments History of Present Illness Details The patient is a 75-year-old male presenting with symptoms of lightheadedness and dizziness that began approximately two weeks prior to the visit. The onset occurred on the , leading to a significant level of disorientation and a cautious approach to ambulation due to unease with walking normally. Fearing a stroke, he went to the Emergency Room where various tests, including MRI, CT scan, echocardiogram, and additional imaging, revealed no acute findings, suggesting that the patient may have been dehydrated at the time. Other contributing factors included caregiver fatigue from caring for his for seven years at home, exhaustion, and hypercaffeination due to excessive consumption of Diet Coke. The concern was further exacerbated by orthostatic hypotension, which had since resolved. At the time of presentation, the patient's dizziness primarily occurred when lying down and during the morning when sitting up from bed. Medical History: - Essential Hypertension - Hyperlipidemia - Asthma - Type 2 Diabetes Mellitus - EHR Diagnosis of Chronic Obstructive P ulmonary Disease (COPD) - Suspected Caregiver Stress Syndrome - Potential Post-Traumatic Stress Disord er (PTSD) Medications: - Albuterol as needed for asthma - Aspirin 81 mg for heart health - Atorvastatin 20 mg for hyperlipidemia - Chlorthalidone 25 mg for blood pressur e - Lisinopril 10 mg - Folic Acid - Metformin 500 mg for Type 2 Diabetes M ellitus - Metoprolol succinate for blood pressur e - Tadalafil as needed Diagnostic Results: - Imaging: MRI, CT scan, echocardiogram - All returned normal Social History: - Primary caregiver for his for sev en years at home - Dietary habits include high consumptio n of Diet Coke, attempts to improve diet by incorporating more vegetables - Lives alone, reporting attempts to rem ain active and visit his when possible [facility] Medical History (Updated 09/04/25 @ 12:09 by Curry Morales MD) Dizziness Headache Abdominal pain Myasthenia gravis BPH (benign prostatic hyperplasia) Hx of pancreatitis Osteoarthritis Mild heartburn Asthma Obstructive sleep apnea Diabetes mellitus HTN (hypertension) Cardiac pacemaker in situ Paroxysmal atrial fibrillation Complete heart block Surgical History History of prostate surgery History of total hip replacement H/O right inguinal hernia repair (05/29/21) Hx of colonoscopy (~10/17/24) Hx of tonsillectomy History of permanent cardiac pacemaker placement Hx laparoscopic cholecystectomy Family History Father Myocardial infarct Mother No problems noted. Social History Household Members: None Housing: House Are you a primary home health care respiratory therapist to a significant other at home: Yes () Do you presently have visiting nurse or other home services: No Comment: medicated in pacu Patient Tobacco Use Status: Former Tobacco user Tobacco use type: Cigarette e-Cigarette/Vaping Use: Former Use Second Hand Smoke Exposure: No Advance Directives Date on File: 04/26/21 service: No Current occupational status: retired Cognitive needs: No Hearing needs: Yes (bilateral hearing aids) Vision needs: Yes (rx glasses) Questionnaire Thrive Questionnaire Date Thrive assessed: 08/20/25 JOSE E-7 AMB Questionnaire JOSE E-7 Date JOSE E - 7 assessed: 05/29/25 Source: Developed by Drs. Juan A Palm, Peggy Andre, Tucker Rincon and colleagues, with an educational jessica from [employer]. Review of Systems Const Details: - Cardiovascular: Reports lightheadedness, dizziness, orthostatic hypotension - Neurological: Denies stroke - General: Reports exhaustion and stress - Psychiatric: Reports potential PTSD and caregiver fatigue - Respiratory: Denies current asthma symptoms All systems reviewed & are unremarkable except as reviewed in HPI and above Physical exam (Primary Care) Vital Signs: Last Vital Signs Temp 97.6 F 09/04/25 11:43 Pulse 75 09/04/25 11:43 Resp 18 09/04/25 11:43 BP 128/68 09/04/25 11:43 Pulse Ox 96 09/04/25 11:43 Oxygen Delivery Method Room Air 09/04/25 11:43 BMI result Body Mass Index 37.1 Tobacco/Smoking Status: Tobacco use Status Tobacco use date assessed 05/29/25 09/04/25 09:59 Patient Tobacco Use Status Former Tobacco user 09/04/25 09:59 Tobacco use type Cigarette 09/04/25 09:59 e-Cigarette/Vaping Use Former Use 09/04/25 09:59 Thrive Assessment: Date of Thrive Assessment Date Thrive assessed 08/20/25 09/04/25 09:59 Const Other: General: Alert and oriented, Well nourished, No acute distress. Eye: Pupils are equal, round and reactive to light, Intact accommodation, Extraocular movements are intact, Normal conjunctiva, Vision unchanged. HENT: Normocephalic, Atraumatic, Tympanic membranes are clear, Normal hearing, Oral mucosa is moist, No pharyngeal erythema, Ear canals patent. Respiratory: Lungs CTA bilaterally, No wheeze, Respirations are non-labored. Cardiovascular: Regular rate, Regular rhythm, S1 auscultated, S2 auscultated, No murmur, Good pulses equal in all extremities, Normal peripheral perfusion, No edema. Gastrointestinal: Soft, Non-tender, Non-distended, Normal bowel sounds, No organomegaly. Musculoskeletal: Normal range of motion, Normal strength, No tenderness, No swelling, No deformity, Normal gait. Integumentary: Warm, Dry, Macy, Intact. Neurologic: Alert, Oriented, Normal sensory, Normal motor function, No focal defects, Cranial Nerves II-XII are grossly intact, Normal deep tendon reflexes. Psychiatric: Cooperative, Appropriate mood & affect, Normal judgment. Coding Level of Care Code TCM High MDM <= 14 days Complex EM visit Add On G2211 Diagnoses Dizziness R42 Weakness R53.1 Hypertension, unspecified type I10 Hypertension type: unspecified Paroxysmal atrial fibrillation I48.0 Cardiac pacemaker in situ Z95.0 Type 2 diabetes mellitus without complication, without long-term current use of insulin E11.9 Diabetes mellitus complication status: without complication Diabetes mellitus senior care insulin use: without superintendent terminal use Diabetes mellitus type: type 2 Time Spent (min) 55 Assessment & Plan Assessment & Plan (1) Dizziness: Comment: - Possibility of dehydration recognized causing orthostatic hypotension. It resolved during hospital stay and requires monitoring as he still has events with rapid movement - Advised to avoid quick positional changes, use compression stockings, and ensure adequate hydration. - Emphasized slow movements from sitting/lying to standing positions. Code(s): R42 - Dizziness and giddiness Category: Medical (2) Weakness: Comment: - Likely secondary to dehydration and patient reports feeling well today - Refer to PT for balance training Code(s): R53.1 - Weakness Category: Medical (3) HTN (hypertension): Comment: - Continue monitoring blood pressure at home. If readings exceed 140 mmHg, advised to resume chlorthalidone (to be held for now). - Evaluate patient's hydration status, considering the reintroduction and monitoring of diuretics. Code(s): I10 - Essential (primary) hypertension Category: Medical Qualifiers: Hypertension type: unspecified Qualified Code(s): I10 - Essential (primary) hypertension (4) Paroxysmal atrial fibrillation: Comment: ~ 8 sec noted on pacer interr, no anticoag per cardiology Code(s): I48.0 - Paroxysmal atrial fibrillation Category: Medical (5) Cardiac pacemaker in situ: Comment: Dual-chamber [employer] [facility] pacemaker placed for complete heart block, 2018-follows w/HCS Code(s): Z95.0 - Presence of cardiac pacemaker Category: Medical (6) Diabetes mellitus: Comment: - Encouraged continuation of current regimen with Metformin. Code(s): E11.9 - Type 2 diabetes mellitus without complications Category: Medical Qualifiers: Diabetes mellitus complication status: without complication Diabetes mellitus senior care insulin use: without senior care use Diabetes mellitus type: type 2 Qualified Code(s): E11.9 - Type 2 diabetes mellitus without complications Plan: Healthcare maintenance: - Encourage balanced diet and regular water intake - Advise regular physical activity with due consideration to the patient's current physical state - Discussed and emphasized importance to avoid excessive caffeine intake Patient was informed and verbally consented to the use of an ambient scribe for clinic note documentation during this visit. Plan Discussed the patient's acute presentation of lightheadedness and dizziness, which are now resolving. Evaluated the rationale for possible dehydration as related to excessive caffeine consumption and the impacts of caregiver strain. Advised monitoring and re-evaluation of blood pressure to potentially eliminate unnecessary medications if controlled. Provided guidance in slow positional changes and the ongoing use of compression stockings to prevent recurrence. Emphasized the need for hydration and offered psychological support through balanced lifestyle recommendations. Suggested potential future involvement of physical therapy only if necessary and if the current approach does not yield desired results. Orders: Orders PT Evaluation and Treatment Today R53.1 - Weakness Patient Instructions: - Monitor your blood pressure at home. - Increase your fluid intake to minimize dehydration risks. - Avoid rapid movements from sitting or lying down. - Use compression stockings daily. - Balance your caffeine intake with water. - Continue your current medications as directed. - Record and bring any concerning symptoms. - Engage in moderate activity and prioritize balanced meals. - Choose activities that balance stress from caregiving duties.
[2025-09-04 11:43] VITALS: BP 128/68; PULSE 75; RESP 18; TEMP 36.4; O2SAT 96; BMI 37.1
--- OUTSIDE RECORDS SUMMARY | 2025-09-04 14:11 | XMS_ITS | Clinical Summary ---
Author Organization [facility] Address [address] [facility] [address] [place] [address] Phone Care Team Providers Care Electrical And Instrument Engineer Name Role Phone Lucinda Ramos Unavailable Gaby Frazier PA-C Primary Care Provid er Allergies No known [...] Active ferrous sulfate 324 mg (65 mg kotzebue iron) TbEC Take 324 mg by mouth [...] nuclear stress test last week at the [facility] which she will obtain. There should [...] with albuterol. 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 His [...] Encounters Date Type Department Care Team Description 08/28/2025 9:30 AM EDT Home Care Visit [facility] [address] [place] [phone] Lillian Ga RN NON ADMIT HOME HEALTH VISIT 08/27/2025 Home Care Visit [facility] [address] [place] [address] Jeannette Sepulveda, DARRON CASE COMMUNICATION 08/22/2025 Orders Only [facility] [address] [place] [address] Homehealth, Fracisco Gusman MD 07/17/2025 1:40 PM EDT Office Visit [facility] [address] [place] [address] Gaby Frazier PA-C Sprain of interphalangeal joint of left thumb, subsequent encounter (Primary Dx) 06/16/2025 9:45 AM EDT Office Visit [facility] [address] [place] [address] Phil Joseph PA-C Sprain of interphalangeal joint of left thumb, initial encounter (Primary Dx); Contusion of left elbow, initial encounter; Pain, joint, hand, left 06/16/2025 9:42 AM EDT - 06/16/2025 11:59 PM EDT Hospital Encounter [address] [address] Phil Joseph PA-C Discharge Disposition: Home or Self Care 06/16/2025 9:29 AM EDT - 06/16/2025 9:41 AM EDT Hospital Encounter [address] [address] Phil Joseph PA-C Discharge Disposition: Home or [...] drink = 0.6 oz pur e alcohol) Home Health Assessment: Transportation Answer Date Recorded Lack of Transportation (Medical) No 08/28/2025 Lack of Transportation (Non-Medical) No 08/28/2025 Patient Unable or Declines to Respond No 08/28/2025 Education Answer Date Recorded Are you interested [...] Sign Reading Time Taken Comments Blood Pressure 136/62 08/28/2025 11:08 AM EDT Pulse 83 08/28/2025 11:08 AM EDT Temperature 36.4 C (97.5 F) 03/14/2025 [...] Care Team (Late st Contact Info) Description 09/08/2025 8:45 AM EDT Office Visit [facility] [address] [place] [address] Gaby Frazier PA-C 4 [facility] [place] [place] [address] Bonnie Aguirre, OT [address] [place] [address] [email or web address] 09/15/2025 8:45 AM EDT Office Visit [address] [address] Gaby Frazier PA-C 4 [facility] [place] [address] Bonnie Aguirre, OT [address] [place] [address] [email or web address] 09/22/2025 8:45 AM EDT Office Visit [facility] [address] [place] [address] Gaby Frazier PA-C [address] [facility], [place] [address] Bonnie Aguirre, OT [address] [place] [address] [email or web address] 09/29/2025 8:45 AM EDT Office Visit [address] [address] Gaby Frazier PA-C [address] [facility], [place] [address] Bonnie Aguirre, OT [address] [place] [address] [email or web address] 10/06/2025 8:45 AM EST Office Visit [address] [address] Gaby Frazeir PA-C [address] [facility], [place] [address] Bonnie Aguirre, OT [address] [place] [address] [email or web address] 10/13/2025 8:45 AM EST Office Visit [address] [address] Gaby Frazier PA-C [address] [facility], [place] [address] [email or web address] Bonnie Aguirre, OT [address] [place] [address] [email or web address] Health Maintenance Due Date Last Done Comments [...] 08/31/2023, 09/06/2021, Additional history exists COVID-19 VACCINE (2024- season) 2025 08/16/2024, 06/13/2024, 08/31/2023, Additional history exists BLOOD PRESSURE 02/25/2026 08/28/2025 ZOSTER VACCINES Completed 08/12/2018, 05/19/2018 RSV VACCINE [...] this topic Medical Devices Implanted Type Area Trash Man Device Identifier Shelf Expiration Date Model / Serial / Lot Lens Lens Bilatera l: Eye Pacemaker Pacemaker Chest Echo Bi-Metric Hip System Laterialized Femoral Stem Implanted:Qty: 1 on 09/04/2021 by Chris Thibodeaux MD at [facility] Prosthetic Joint Left: Hip [employer] 10/22/2025 [id number] / / [id number] Description:Reduced Proximal Profile Porous Plasma/Uncemented Acetabular Shell 56mm Size F G7 Porous Plasma [place] [employer] Hole - [id number] Implanted:Qty: 1 on 09/04/2021 by Chris Thibodeaux MD at [facility] Left: Hip [employer] 04/20/2031 [id number] / / [id number] Screw Bone 6.5x30mm Hip Dome G7 Acetabular Low Profile - [id number] Implanted:Qty: 1 on 09/04/2021 by Chris Thibodeaux MD at [facility] Left: Hip [employer] 05/27/2031 [id number] / / [id number] Hip Liner 36mm F Acetabular Neutral G7 Longevity - [id number] Implanted:Qty: 1 on 09/04/2021 by Chris Thibodeaux MD at [facility] Left: Hip KALPANA / DIV [employer] 11/20/2025 [id number] / / [id number] Hip Head 1 36mm Minus 3 Implant Femoral Hd Modular Morral 05 - [id number] Implanted:Qty: 1 on 09/04/2021 by Chris Thibodeaux MD at [facility] Left: Hip [employer] 06/20/2031 [id number] / / [id number] Procedures Procedure Name Priority Date/Time Associated Diagnosis [...] encounter note for this date of service. Phil Joseph PA-C IMG XR UPPER EXTREMITY Final Result * XR ELBOW 3 OR MORE VIEWS (LEFT) (06/16/2025 9:48 AM EDT) Narrative SYSTEMGENERATED, DOCUMENTATION - 06/16/2025 9:48 AM EDT This image report has been auto-finalized and has not been read by a Radiologist. Interpretation has been included in the provider encounter note for this date of service. Phil BROWNING-C IMG XR UPPER EXTREMITY Final Result * (ABNORMAL) Basic metabolic panel (04/09/2024 5:52 AM EDT) SODIUM 134 133 - 146 mmol/L [facility] CHLORIDE 100 96 - 108 mmol/L [facility] POTASSIUM 3.6 3.3 - 5.1 mmol/L [facility] CO2 24 21 - 35 mmol/L [facility] BUN 9 6 - 19 mg/dL [facility] CREATININE 0.60 0.5 - 1.5 mg/dL [facility] GLUCOSE 182(H) 70 - 99 mg/dL [facility] CALCIUM 8.2(L) 8.4 - 10.3 mg/dL [facility] EGFR 101 >59 mL/min/1.7 3m2 [facility] Comment:Estimated glomerular filtration rate calculated using the CKD-EPI refit equation. ANION GAP 14 10 - 20 mmol/L [facility] Blood 04/09/2024 5:52 AM EDT 04/09/2024 6:14 AM EDT Gaby Hahn AIR CARGO GROUND OPERATIONS SUPERVISOR LAB BLOOD ORDERABLES Fin al Result [facility] [address] [place] [address] * (ABNORMAL) Hemoglobin A1c (04/08/2024 12:02 PM EDT) HEMOGLOBIN A1C 7.5(H) 4.3 - 5.8 % [facility] Blood 04/08/2024 12:0 2 PM EDT 04/08/2024 12:07 PM EDT Gaby Hahn AIR CARGO GROUND OPERATIONS SUPERVISOR LAB BLOOD ORDERABLES Fin al Result [facility] [address] [place] [address] from Last 3 Months or Most Recently Relevant to Health Maintenance Insurance [employer] TOTAL CHOICE INDEMNITY [employer]OTAL CHOICE INDEMNITY [facility] TOTAL CHOICE INDEMNITY [facility] TOTAL CHOICE INDEMNITY [facility] TOTAL CHOICE INDEMNITY [facility] TOTAL CHOICE INDEMNITY [place] TOTAL CHOICE INDEMNITY [facility] TOTAL CHOICE INDEMNITY [facility] TOTAL CHOICE INDEMNITY Advance Directives For more information, please contact: [phone] (9AM - 5PM [facility], Thursday-Thursday) Documents on File Type Date Recorded Patient Farm Labor Contractor Expl anation Healthcare Proxy 04/15/2024 4:34 PM * Full Code (Latest Code Status on File) Date Activated Date Inactivated Comments 04/08/2024 10:29 AM Question Answer Comments Code Status Confirmed With: Patient * Full Code Date Activated Date Inactivated Comments 09/06/2021 7:40 AM 04/08/2024 10:29 AM Question Answer Comments Code Status Confirmed With: Patient Care Teams Electrical And Instrument Engineer Relationship Specialty Start Date End Date Gaby Frazier PA-C [address] [place] [address] Orthopedics & Sports Medicine, [place] [address] [email or web address] PCP - General Physician Osteology Teacher 08/28/25 Lucinda Ramos PA [address] [place] [address] Physician Osteology Teacher 01/02/25 Additional Source Comments The information contained in this document represents components of the legal health record. It is not the complete legal health record.[facility]
--- OUTSIDE RECORDS SUMMARY | 2025-09-04 14:11 | XMS_ITS | Patient Health Record ---
Author Organization [facility] Address [address] [place] [address] Care Team Providers Care Manager Quality Improvement Name Role Phone Yousuf (RETIRED) Ezra RAINES Primary Care Provide r Unavailable Juan A Diallo Unavailable [phone] Allergies No Known Allergies Results Component Value Reference Range Notes Glucose, Whole Blood Reviewed date:10/18/2024 12:12:48 AM Interpretation: Performing Lab:[facility], [address] [place] [phone] Notes/Report: Glucose, Whole Blood 144 60-115 mg/dL METER # : [id number] Reason For Referral No Information Medications Medication [...] Problem Status W/U Status Risk Notes Problem 230163314 Encounter for screening for malignant neoplasm of colon (Z12.11) Active confirmed Problem 353926277 History of adenomatous polyp of colon (Z86.010) Active confirmed Problem Diverticular disease of colon (247298034) Diverticulosis of large intestine without perforation or abscess without bleeding (K57.30) Active confirmed Problem Gastroesophageal reflux disease (094953576) GERD (gastroesophageal reflux disease) (K21.9) Active confirmed Problem 036625520540387 Pre-procedural examination (Z01.818) Active confirmed Problem 753745095374165 Encounter for long-term (current) aspirin use (Z79.82) Active confirmed Encounters Encounter Location Date Provider Diagnosis [facility] Outpatient [address] [place] [phone] 10/17/2024 Juan A Diallo Colon cancer scree [...] Insured Coverage Start Date Coverage End Date [facility] ([employer]) [address] [place] [address] [phone] [id number] SERG AGEE Self - patient is the insured Medical (General) History Medical History History ICD Code Pancreatitis-hospitalized fo r several days in 2005-this was felt to be related to EtOH--he did have a negative MRI of the abdomen and pancreas, including a MRCP in 2008 NIDDM Hypertension Elevated Cholesterol Sleep apnea-uses CPAP Denies AR,CVA,renal disease Asthma - mild-inhaler as needed Colonoscopy [...] Aqua Ablation of prostate at [facility] as of the 01/2024 OV
--- OUTSIDE RECORDS SUMMARY | 2025-09-04 14:11 | XMS_ITS | Encounter Summary ---
Author Organization [facility] Address [address] [place] [address] [place] [address] Phone Care Team Providers Care Electric Welder Name Role Phone Ezra To MD Primary Care Provider Brandon Hernandez MD Unavailable [phone] Ezra To MD Unavailable [phone] Lucinda Ramos Unavailable Jani Mccauley MD Primary Care Provid er Gbay Frazier PA-C Primary Care Provid er Encounter Details Date Type Department Care Team (Late st Contact Info) Description 09/04/2021 Procedure Pass OR Admitting Dept - Virtual Department [address] [place] [address] Social History Tobacco Use Types Packs/Day Years [...] Risk Indicated 09/04/2021 1:50 PM EDT Elsi Saldaña, RN * [place] Suicide Severity Rating Scale (Screener/Recent Self-Report) Question Answer Date of Assessment Author 1. Wish to be (Past 1 Month) No 09/04/2021 1:50 PM EDT Radha Saldaña RN 2. Non-Specific Active Suici adryan Thoughts (Past 1 Month) No 09/04/2021 1:50 PM EDT Radha Saldaña RN 6. Suicidal Behavior (Lifetime) No 1:50 PM EDT Elsi Saldaña, DARRON documented as of this encounter Plan of Treatment Upcoming Encounters Date Type Department Care Team (Late st Contact Info) Description 09/08/2025 8:45 AM EDT Office Visit [facility] [address] [place] [address] Gaby Frazier PA-C 4 [facility] [place] [address] Bonnie Aguirre, OT [address] [place] [address] [email or web address] 09/15/2025 8:45 AM EDT Office Visit [address] [address] Gaby Frazier PA-C [address] [place], [place] [address] [place] [address] Bonnie Aguirre, OT [address] [place] [address] [email or web address] 09/22/2025 8:45 AM EDT Office Visit [address] [address] Gaby Frazier PA-C [address] [facility] [place] [address] Bonnie Aguirre, OT [address] [place] [address] [email or web address] 09/29/2025 8:45 AM EDT Office Visit [address] [address] Gaby Frazier PA-C 4 [facility] Orthopedics Sports [facility], [place] [address] Bonnie Aguirre, OT [address] [place] [address] [email or web address] 10/06/2025 8:45 AM EST Office Visit [address] [address] Gaby Frazier PA-C [address] [place], [place] [address]s Sports [facility], [place] [address] Bonnie Aguirre, OT [address] [place] [address] [email or web address] 10/13/2025 8:45 AM EST Office Visit [address] [address] Gaby Frazier PA-C [address] [place], [place] [address]s Sports [facility], [place] [address] Bonnie Aguirre, OT [address] [place] [address] [email or web address] documented as of this encounter Visit Diagnoses Not on filedocumented in this encounter Care Teams Electric Welder Relationship Specialty Start Date End Date Ezra To MD [address] [place] [address] [facility] [place] [address] PCP - General 09/17/17 06/15/25 Jani Mccauley MD [address] [place] [address] PCP - General Internal Medicine 06/16/25 08/21/25 Gaby Frazier PA-C [address] [place] [address] Orth[facility] Sports Medicine, [place] [address] PCP - General Physician Steamfitter Apprentice 08/28/25 Brandon Hernandez MD [address] [place] [address] Historical LMR Provider 09/17/17 Ezra To MD [address] [place] [address] [place] [address] Historical LMR Provider 09/17/17 2 Lucinda aRmos PA [address] [place] [address] Physician Steamfitter Apprentice 01/02/25 documented as of this encounter Additional Source Comments The information contained in this document represents components of the legal health record. It is not the complete legal health record.[facility]
--- OUTSIDE RECORDS SUMMARY | 2025-09-04 14:11 | XMS_ITS | Encounter Summary ---
Author Organization [facility] Address [address] [place] [address] [place] [address] Phone Care Team Providers Care Lockstitch Topstitcher Name Role Phone Ezra To MD Primary Care Provider Brandon Hernandez MD Unavailable Ezra To MD Unavailable [phone] Lucinda Ramos Unavailable Jani Mccauley MD Primary Care Provid er Gaby Frazier PA-C Primary Care Provid er Encounter Details Date Type Department Care Team (Latest Contact Info) Description 10/28/2018 Transcribe Orders [address] [place] [address] James Puentes MD [facility], [address] [place] [address] Hyperplasia of prostate with lower urinary tract [...] Description 09/08/2025 8:45 AM EDT Office Visit [address] [address] Gaby Frazier PA-C 4 [facility] [place] [address] Bonnie Aguirre, OT [address] [place] [address] [email or web address] 09/15/2025 8:45 AM EDT Office Visit [address] [address] Gaby Frazier PA-C 4 [facility], [place] [address] Bonnie Aguirre, OT [address] [place] [address] [email or web address] 09/22/2025 8:45 AM EDT Office Visit [address] [address] Gaby Frazier PA-C 4 [facility], [facility] [place] [address] Bonnie Aguirre, OT [address] [place] [address] [email or web address] 09/29/2025 8:45 AM EDT Office Visit [address] [address] Gaby Frazier PA-C 4 [facility] [place] [address] Bonnie Aguirre, OT [address] [place] [address] [email or web address] 10/06/2025 8:45 AM EST Office Visit [facility] [address] [place] [address] Gaby Frazier PA-C 4 [facility] Sports [facility], [place] [address] Bonnie Aguirre, OT [address] [place] [address] [email or web address] 10/13/2025 8:45 AM EST Office Visit [facility] [address] [place] [address] Gaby Frazier PA-C 4 [facility], [place] [address] Bonnie Aguirre, OT [address] [place] [address] [email or web address] documented as of this encounter Results * PSA (screening) (10/28/2018 10:52 AM EST) PSA 2.56 0 - 4.00 ng/mL [facility] Blood 10/28/2018 10:5 2 AM EST 10/28/2018 10:54 AM EST us James Puentes MD LAB BLOOD ORDERABLES Final Resu lt [facility] [address] [place] [address] documented in this encounter Visit Diagnoses Diagnosis Hyperplasia of prostate with lower urinary tract symptoms (LUTS)- Primary Unspecified hyperplasia of prostate with urinary obstruction and other lower urinary tract symptoms (LUTS) documented in this encounter Care Teams Lockstitch Topstitcher Relationship Specialty Start Date End Date Ezra To MD [address] [place] [address] PCP - General 09/17/17 06/15/25 Jani Mccauley MD [address] [place] [address] PCP - General Internal Medicine 06/16/25 08/21/25 Gaby Frazier PA-C [address] [place] [address] [facility], [place] [address] PCP - General Physician Nougat Candy Maker Helper 08/28/25 Brandon Hernandez MD [address] [place] [address] Historical LMR Provider 09/17/17 Ezra To MD [address] [place] [address] Historical LMR Provider 09/17/17 2 Lucinda Ramos PA [address] [place] [address] Physician Nougat Candy Maker Helper 01/02/25 documented as of this encounter Additional Source Comments The information contained in this document represents components of the legal health record. It is not the complete legal health record.[facility]
--- OUTSIDE RECORDS SUMMARY | 2025-09-04 14:11 | XMS_ITS | Encounter Summary ---
Author Organization [facility] Address [address] [facility] [address] [place] [address] Phone Care Team Providers Care Raw Products Director Name Role Phone Ezra To MD Primary Care Provider Lucinda Raoms Unavailable Jani Mccauley MD Primary Care Provid er Gaby Frazier PA-C Primary Care Provid er Encounter Details Date Type Department Care Team (Late st Contact Info) Description 04/08/2024 Procedure Pass OR Admitting Dept - Virtual Department [address] [place] [address] Social History Tobacco Use Types Packs/Day Years [...] 3:54 PM EDT Trent Winchester RN * [place] Suicide Severity Rating Scale (Screener/Recent Self-Report) Question [...] Description 09/08/2025 8:45 AM EDT Office Visit [address] [address] Gaby Frazier PA-C 4 [facility], [place] [address] Bonnie Aguirre, OT [address] [place] [address] [email or web address] 09/15/2025 8:45 AM EDT Office Visit [address] [address] Gaby Frazier PA-C [address] [place] [address], [place] [address] Bonnie Aguirre, OT [address] [place] [address] [email or web address] 09/22/2025 8:45 AM EDT Office Visit [address] [address] Gaby Frazier PA-C [address] [place] [address], [place] [address] Bonnie Aguirre, OT [address] [place] [address] [email or web address] 09/29/2025 8:45 AM EDT Office Visit [facility] [address] [place] [address] Gaby Frazier PA-C [address] [place] [address], [place] [address] Bonnie Aguirre, OT [address] [place] [address] [email or web address] 10/06/2025 8:45 AM EST Office Visit [address] [address] Gaby Frazier PA-C [address] [place] [address], [place] [address] Bonnie Aguirre, OT [address] [place] [address] [email or web address] 10/13/2025 8:45 AM EST Office Visit [address] [address] Gaby Frazier PA-C [address] [place] [address] Bonnie Aguirre, OT [address] [place] [address] [email or web address] documented as of this encounter Visit Diagnoses Not on filedocumented in this encounter Care Teams Raw Products Director Relationship Specialty Start Date End Date Ezra To MD [address] [place] [address] [place] [address] PCP - General 09/17/17 06/15/25 Jani Mccauley MD [address] [place] [address] PCP - General Internal Medicine 06/16/25 08/21/25 Gaby Frazier PA-C [address] [place] [address] Orthopedics & Sports Medicine, [place] [address] PCP - General Physician Furniture Restorer 08/28/25 Lucinda Ramos PA [address] [place] [address] [email or web address] Physician Furniture Restorer 01/02/25 documented as of this encounter Additional Source Comments The information contained in this document represents components of the legal health record. It is not the complete legal health record.[facility]
== END 2025-09-04 12:06 | disposition home or self-care (01) ==
LOC: HO.HMCHD 11:33
PROVIDERS: PCP Student in an Organized Health Care Education/Training Program; Visit Provider Student in an Organized Health Care Education/Training Program
DX: E11.9 Type 2 diabetes mellitus without complications (principal); I48.0 Paroxysmal atrial fibrillation; R42 Dizziness and giddiness; R53.1 Weakness; I10 Essential (primary) hypertension; Z95.0 Presence of cardiac pacemaker

== ENCOUNTER → 2025-09-25 23:59 | Outpatient (BNV) | payer OTHER, SELFPAY ==
--- NOTE | 2025-09-26 13:37 | MHC.OFFVIS ---
Intake Visit Reasons: Remote device check- [facility] Allergies cat dander Allergy (Intermediate, Verified 09/04/25 09:58) ASTHMA PFSH Medical History (Updated 09/04/25 @ 12:09 by Curry Morales MD) Dizziness Headache Abdominal pain Myasthenia gravis BPH (benign prostatic hyperplasia) Hx of pancreatitis Osteoarthritis Mild heartburn Asthma Obstructive sleep apnea Diabetes mellitus HTN (hypertension) Cardiac pacemaker in situ Paroxysmal atrial fibrillation Complete heart block Surgical History History of prostate surgery History of total hip replacement H/O right inguinal hernia repair (05/29/21) Hx of colonoscopy (~10/17/24) Hx of tonsillectomy History of permanent cardiac pacemaker placement Hx laparoscopic cholecystectomy Family History Father Myocardial infarct Mother No problems noted. 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 Pacemaker function is adequate [id number] Cardiac Device Interrogation, pacemaker Procedure code (CPT) selection complete Assessment & Plan Assessment & Plan (1) Cardiac pacemaker in situ: Comment: Dual-chamber [facility] pacemaker placed for complete heart block, 2018-follows w/HCS Code(s): Z95.0 - Presence of cardiac pacemaker Category: Medical Plan: See above Coding Level of Care Code Procedure Only Diagnoses Cardiac pacemaker in situ Z95.0 CPT Codes Cardiac Device Check - Cardiac Device 12: [id number] Cardiac Device Interrogation, pacemaker ([id number])
== END ==
PROVIDERS: PCP Student in an Organized Health Care Education/Training Program; Visit Provider Internal Medicine Cardiovascular Disease
DX: I44.2 Atrioventricular block, complete (principal); Z95.0 Presence of cardiac pacemaker
CPT/HCPCS: 93294

== ENCOUNTER 2025-10-02 13:27 | Outpatient (AMB) | payer OTHER, SELFPAY ==
[2025-10-02 13:29] VITALS: BP 114/64; PULSE 82; BMI 36.8
--- NOTE | 2025-10-02 13:29 | A.OFFVIS_ITS ---
Vital Signs 10/02/25 13:29 Height 5 ft 9 in Weight 249 lb 1.957 oz BMI 36.8 BP 114/64 Blood Pressure Location Lt brachial Position Sitting Pulse 82 Intake Visit [place]asons[place] [facility] [place] Note: Follow[place] [facility] [place] with [facility] check c/o Allergies cat dander Allergy (Intermediate, Verified 09/04/25 09:58) ASTHMA Medication List - Last Reconciled 10/02/25 by Oral Lowe MD albuterol sulfate 90 mcg/actuation 2 puffs inhalation Q4H PRN amino acids 1 cap PO DAILY ascorbic acid (vitamin C) (Vitamin C) 250 mg PO DAILY aspirin 81 mg PO DAILY atorvastatin 20 mg PO DAILY blood-glucose sensor (FreeStyle Sherrell 3 Plus Sensor device) As directed chlorthalidone 25 mg PO DAILY cholecalciferol (vitamin D3) 125 mcg PO MOWEFR clobetasol 0.05% 1 appl topical DAILY PRN compr.stocking,knee,long,large As directed clifford.stocking,knee,reg,smal (T.E.D. Anti-Embolism Stocking) As directed ferrous sulfate 325 mg PO DAILY folic acid 1 mg PO DAILY ibuprofen 600 mg PO QID PRN Lactobacillus acidophilus (Probiotic) 10,000 mmu cells PO DAILY lisinopril 10 mg PO DAILY magnesium citrate (OneLAX Magnesium Citrate oral solution) 150 mL PO DAILY metformin ER 500 mg PO DAILY metoprolol succinate ER 25 mg PO DAILY multivitamin 1 tab PO DAILY mupirocin 2% 1 appl topical BID omeprazole magnesium (Prilosec OTC) 20 mg PO BID potassium citrate mg PO tadalafil 20 mg PO Q OTHER DAY PRN HPI Comments Details: Candido comes for follow-up. Recently admitted to the hospital with dizziness lightheadedness and extensive neuro workup was negative for any neurologic events. Was felt that this might be orthostatic in his advise increase fluid intake. Subsequently was released home and then he had another fall and had rib fractures. He is currently recuperating from them. Overall he is doing well. CT scan done of the chest showed severe coronary calcification. He has no exertional chest pain. No worsening shortness of breath. He is worried about recurrent falls but he is trying to make himself active. Myocardial perfusion imaging at the time of pacemaker placement which had shown normal perfusion [facility] Medical History Dizziness Headache Abdominal pain Myasthenia gravis BPH (benign prostatic hyperplasia) Hx of pancreatitis Osteoarthritis Mild heartburn Asthma Obstructive sleep apnea Diabetes mellitus HTN (hypertension) Cardiac pacemaker in situ Paroxysmal atrial fibrillation Complete heart block Surgical History History of prostate surgery History of total hip replacement H/O right inguinal hernia repair (05/29/21) Hx of colonoscopy (~10/17/24) Hx of tonsillectomy History of permanent cardiac pacemaker placement Hx laparoscopic cholecystectomy Family History Father Myocardial infarct Mother No problems noted. Social History Household Members: None Housing: House Are you a primary acute care physical therapist to a significant other at home: Yes () Do you presently have visiting nurse or other home services: No Comment: medicated in pacu Patient Tobacco Use Status: Former Tobacco user Tobacco use type: Cigarette e-Cigarette/Vaping Use: Former Use Second Hand Smoke Exposure: No Advance Directives Date on File: 04/26/21 service: No Current occupational status: retired Cognitive needs: No Hearing needs: Yes (bilateral hearing aids) Vision needs: Yes (rx glasses) Review of Systems Const Denies chills, Denies fatigue, Denies fever(s), Denies frequent falls, Denies weakness, Denies weight gain and Denies weight loss ENT Denies dizziness Card Denies chest pain, Denies leg edema, Denies lightheadedness, Denies palpitations, Denies dyspnea, Denies dyspnea on exertion, Denies orthopnea and Denies other (loss of consciousness) Resp Denies cough, Denies dyspnea and Denies dyspnea on exertion GI Denies hematochezia and Denies change in stool character Musc Denies abnormal gait, Denies muscle weakness, Denies numbness, Denies radiating pain into limb and Denies tingling Neuro Denies abnormal gait, Denies dizziness, Denies frequent falls, Denies numbness, Denies tingling and Denies weakness Endo Denies fatigue and Denies palpitations Physical Exam Vital Signs: Last Vital Signs Pulse 82 10/02/25 13:29 BP 114/64 11/03/25 13:29 BMI result Body Mass Index 36.8 Const General: cooperative, comfortable and no acute distress Nutritional Appearance: obese Orientation/consciousness: patient oriented x3 HEENT Head: Yes normal to inspection Neck Neck: Yes normal visual inspection and Yes no JVD Resp Effort & Inspection: normal respiratory effort Auscultation: clear to auscultation bilaterally, no crackles, no rales, no rhonchi and no wheezes Cardio Jugular venous distension: no JVD Rate: regular rate Rhythm: regular rhythm Heart sounds: S1 normal heart sound present, S2 normal heart sound present, no gallops, no murmurs and no rubs GI Inspection: Yes normal to inspection Neuro General: patient oriented x3 Extrem General: Yes normal to inspection, No calf tenderness and Yes edema (bilateral lower leg, pitting) Office Procedures Cardiac Device Check Cardiac Device Check Details: Dual-chamber [employer] pacemaker programmed in DDDR at 60 beats per minute. Ventricular pacing 100% time. Ventricular sensing could not be checked. Atrial sensing is adequate. Atrial ventricular pacing thresholds adequate and in auto capture mode. Pacing lead impedance is stable. No arrhythmias noted. Battery life is 3.1 years 13056-VA Cardiac Device Check, pacemaker dual lead Procedure code (CPT) selection complete Assessment & Plan Assessment & Plan (1) Cardiac pacemaker in situ: Comment: Dual-chamber [facility] pacemaker placed for complete heart block, 2018-follows w/[facility] Code(s): Z95.0 - Presence of cardiac pacemaker Category: Medical Plan: Cardiac pacemaker in-situ for complete heart block. Pacemaker is working well. Reprogrammed for adequate functioning. Follow up in 6 months time. Follow remotely every 3 months. (2) CAD (coronary artery disease): Comment: Severe calcification noted on chest CT incidentally with myocardial perfusion imaging in 2020 being within normal limits. Code(s): I25.10 - Atherosclerotic heart disease of false pass coronary artery without angina pectoris Category: Medical Plan: CAD as noted by significant and severe calcific disease in the coronary tree on recent noncardiac related CT. This is not unusual given his age and multiple risk factors. Continue low-dose aspirin therapy for life. Continue aggressive vascular risk factor modification target goal LDL less than 70 mg/dL. Continue aggressive diabetes management goal hemoglobin A1c less than 7%. Aggressive blood pressure control which is currently well optimized. (3) Paroxysmal atrial fibrillation: Comment: ~ 8 sec noted on pacer interr, no anticoag per cardiology Code(s): I48.0 - Paroxysmal atrial fibrillation Category: Medical Plan: Paroxysmal atrial fibrillation with the noted on pacer telemetry with very brief episodes. There was no recurrence on pacer telemetry. Will continue monitor by pacer telemetry. No change in therapy. Will follow up in the clinic in 6 months time, sooner PRN. Thank you for allowing me to partake in his care Coding Level of Care Code Est Pt Level 4 (91767) Complex EM visit Add On G2211 Diagnoses Cardiac pacemaker in situ Z95.0 CAD (coronary artery disease) I25.10 Paroxysmal atrial fibrillation I48.0 CPT Codes Cardiac Device Check - Cardiac Device 2: [id number] Cardiac Device Check, pacemaker dual lead ([id number])
== END 2025-10-02 14:09 | disposition home or self-care (01) ==
LOC: HO.HCS 13:27
PROVIDERS: PCP Student in an Organized Health Care Education/Training Program; Visit Provider Internal Medicine Cardiovascular Disease
DX: I25.10 Atherosclerotic heart disease of native coronary artery without angina pectoris (principal); Z95.0 Presence of cardiac pacemaker; I48.0 Paroxysmal atrial fibrillation
CPT/HCPCS: 93280; 99214

== ENCOUNTER → 2025-10-02 13:27 | Outpatient (BNVA) | payer OTHER, SELFPAY | PROVIDERS: PCP Student in an Organized Health Care Education/Training Program; Visit Provider Internal Medicine Cardiovascular Disease | DX: Z45.010 Encounter for checking and testing of cardiac pacemaker pulse generator [battery] (principal) | CPT/HCPCS: 93280 ==

== ENCOUNTER 2025-10-03 09:50 | Outpatient (AMB) | payer OTHER, SELFPAY ==
--- OUTSIDE RECORDS SUMMARY | 2024-05-20 07:20 | XMS_ITS ---
Author Organization [facility] Address [address] [place] [address] Care Team Providers Care Grain Oilseed Or Pasture Farm Worker Name Role Phone Yousuf (RETIRED) Ezra RAINES Primary Care Provide Juan A San [phone] REASON FOR VISIT screening,hx polyps Encounters Encounter Location Date Provider Diagnosis [facility] [address] [place] [phone] 2024 Juan A Diallo Plan Of Treatment No Information Progress Notes * MARGYSERG ANDERSON JrDOB:[birth year] (75 yo M)Acc No.[id number]:2024 COLON WITH MAC Patient: SERG LALA Jr Provider: Brii Diallo MD :1950 A ge:74 Y S ex:Male Date:2024 Address:[address] [place], [place] [id number] Pcp:Ezra To (RETIRED )MD Subjective: * Chief Complaints: * 1 . Screening,hx polyps. * Medical History: Objective: * Vitals: Assessment: Plan: * Treatment: * * The named appointment provid er may or may not be the originator of this progress note, and it is not deemed complete until electronically signed by the appointment provider. Sign off status: Pending * Provider: Brii Diallo MD Date: 0 2024 Generated for Eladia gee/Linda/eTransmitting on: 12/03/2024 11:19 AM EST
--- OUTSIDE RECORDS SUMMARY | 2024-08-12 04:20 | XMS_ITS ---
Author Organization [facility] Address [address] [place] [address] Care Team Providers Care Laborer Dairy Farm Name Role Phone Yousuf (RETIRED) Ezra RAINES Primary Care Provide Juan A San [phone] REASON FOR VISIT colon screening Encounters Encounter Location Date Provider Diagnosis [facility] [place] [address] [place] [id number] 08/12/2024 Juan A Diallo Plan Of Treatment No Information Progress Notes * HUONG AGEEONY DOB:[birth year] (75 yo M)Acc No.[id number]:08/12/2024 COLON WITH MAC Patient: SERG LALA Jr Provider: Brii Diallo MD :1950 A ge:74 Y S ex:Male Date:08/12/2024 Address:[address] [place], [place] [phone] Pcp:Ezra To (RETIRED )MD Subjective: * Chief Complaints: * 1 . Colon screening. * Medical History: Objective: * Vitals: Assessment: Plan: * Treatment: * * The named appointment provid er may or may not be the originator of this progress note, and it is not deemed complete until electronically signed by the appointment provider. Sign off status: Pending * Provider: Brii Diallo MD Date: 0 08/12/2024 Generated for Sammyi ng/Faledag/eTransmitting on: 1 12/03/2024 11:20 AM EST
--- OUTSIDE RECORDS SUMMARY | 2024-10-17 05:30 | XMS_ITS ---
Author Organization [facility] Address [address] [place] [address] Care Team Providers Care Cottage Cheese Maker Name Role Phone Yousuf (RETIRED) Ezra RAINES Primary Care Provide r Juan A Hernandez Unavailable [phone] REASON FOR VISIT screening colon Problems Problem Type SNOMED Code ICD Code Onset Dates Problem Status W/U Status Risk Notes Problem Diverticular disease of colon (362731821) Diverticulosis of large intestine without perforation or abscess without bleeding (K57.30) Active confirmed Encounters Encounter Location Date Provider Diagnosis [facility] [place] [address] [place] [id number] 10/17/2024 Juan A Diallo Colon cancer scree alexandra Z12.11 ; Personal history of colonic polyps Z86.0100 ; Diverticulosis of large intestine without perforation or abscess without bleeding K57.30 and Other hemorrhoids K64.8 Assessments Encounter Date Diagnosis (ICD Code) Assessment Notes Treatment Notes Treatment Clinical Notes Section Notes 10/17/2024 Colon cancer screening (ICD-10 - Z12.11) 10/17/2024 Personal history of colonic polyps (ICD-10 - Z86.0100) 10/17/2024 Diverticulosis of large intestine without perforation or abscess without bleeding (ICD-10 - K57.30) 10/17/2024 Other hemorrhoids (ICD-10 - K64.8) Plan Of Treatment No Information Progress Notes * SERG AGEE JrDOB:[birth year] (75 yo M)Acc No.[id number]:10/17/2024 COLON WITH MAC Patient: SERG LALA Jr Provider: Brii Diallo MD :1950 A ge:74 Y S ex:Male Date:10/17/2024 Address:[address] [place], [place] [id number] Pcp:Ezra To (RETIRED )MD Subjective: * Chief Complaints: * 1 . Screening colon. * Medical History: Objective: * Vitals: Assessment: * Assessment: 1. C olon cancer screening - Z12.11 (Primary) 2 . P ersonal history of colonic polyps - Z86.0100 3 . D iverticulosis of large intestine without perforation or abscess without bleeding - K57.30 4 . O ther hemorrhoids - K64.8 ? Plan: * Treatment: * Procedure Codes: 4 5378 DIAGNOSTIC COLONOSCOPY * * The named appointment provid er may or may not be the originator of this progress note, and it is not deemed complete until electronically signed by the appointment provider. Sign off status: Pending * Provider: Brii Diallo MD Date: 12/17/2023 Generated for Eladia gee/Linda/Tjsmitting on: 12/03/2024 11:19 AM EST
--- NOTE | 2025-10-03 09:56 | A.OFFPC_ITS ---
Vital Signs 10/03/25 10:03 Height 5 ft 9 in Weight 261 lb BMI 38.5 BP 122/56 L Blood Pressure Location Lt brachial Position Sitting Respiration 18 Pulse 80 Pulse Source Pulse Oximeter Temp 97.8 F Temp Source Temporal Artery Scan Pulse Oximetry (%) 96 Oxygen Delivery Method Room Air Intake Visit Reasons: Follow up Honey Liquefier Required: No Accompanied by: Self / Same As Patient Allergies cat dander Allergy (Intermediate, Verified 10/03/25 09:56) ASTHMA Tobacco use date assessed: 05/29/25 Dental Screening Dental Screen Date: 05/29/25 HPI HPI Comments History of Present Illness Details The patient is a 75-year-old male presenting for evaluation of dizzy spells and follow-up after a recent fall. He reports experiencing brief, transient dizzy spells that are not characteristic of true, long-lasting vertigo. These symptoms had been improving with increased rest, adequate hydration, and minimal caffeine intake, but recently returned after a period of being overworked and stressed. The patient sustained a fall on the of last month, which he clarifies was a trip over a threshold and not related to dizziness. He was evaluated at the [facility], where CT scans revealed nondisplaced fractures of the right anterolateral ribs 6 through 10. He was prescribed oxycodone, which he used once for severe pain, but has not taken since. He has been using an incentive spirometer to maintain lung volume. Regarding his cardiovascular health, the patient was seen by his sales recruitment specialist yesterday and received a clean bill of health. A recent echocardiogram was normal and showed his ejection fraction has improved to nearly 60% from a previous level of 45-50%. A thoracic CT scan did show coronary artery calcification, but a prior stress test was negative for blockages. His chronic conditions include hypertension; he had previously stopped chlorthalidone as advised but restarted it after his blood pressure increased by about 20 points. He also has asthma, for which he uses an albuterol inhaler for occasional attacks, and obstructive sleep apnea, for which he is compliant with his CPAP machine. His A1c was last 7.1. He reports taking an iron supplement, though his anemia is described as normocytic and likely a normal variation. Medical History: - Dizziness - Multiple rib fractures secondary to a mechanical fall - Essential Hypertension - Asthma - Obstructive Sleep Apnea - Coronary Artery Disease with calcifica tion - History of Congestive Heart Failure wi th recovered Ejection Fraction (previously 45-50%, now ~60%) - Type 2 Diabetes Mellitus - Hyperlipidemia - Gastroesophageal Reflux Disease - Normocytic Anemia - Hospitalization: Emergency room visit at [facility] on the of last month for a fall. - Hospitalization: Admission to [facility] over a year ago. Medications: - Albuterol inhaler as needed for asthma - Aspirin for heart protection - Atorvastatin 20 mg for high cholestero l - Chlorthalidone 25 mg for high blood pr essure - Lisinopril 10 mg for high blood pressu re - Metformin 500 mg for diabetes - Metoprolol succinate 25 mg for high bl ood pressure - Omeprazole for acid reflux - Oxycodone as needed for severe pain (p rescribed post-fall, used once) - Iron with vitamin C supplement Diagnostic Results: - CT chest, head, and lumbar spine (from ER visit on the ): Showed nondisplaced fractures of the right anterolateral ribs 6 through 10; otherwise unremarkable. - X-ray of the head and chest (from ER v isit): No acute findings. - Echocardiogram (recent): Normal, with an ejection fraction of almost 60%. - Thoracic CT scan: Showed calcification of the coronary arteries. - Stress test (previous): Indicated no b lockages. - Labs: Hemoglobin A1c was 7.1%. - Labs: Hemoglobin has fluctuated betwee n 13.1 and 11.8 g/dL, consistent with borderline normocytic anemia. Social History: - Functional Status: Reports daily walki ng at the long term where his resides. - Lifestyle: Reports making efforts to g et more rest, drink plenty of fluids, and minimize caffeine, which had improved his dizziness symptoms prior to his fall. - Stress: Notes that being overworked an d experiencing stress can trigger a return of his dizziness. [facility] Medical History (Updated 10/03/25 @ 10:54 by Curry Morales MD) Hyperlipidemia SANKET on CPAP Fracture of rib of right side Dizziness Headache Abdominal pain Myasthenia gravis BPH (benign prostatic hyperplasia) Hx of pancreatitis Osteoarthritis Mild heartburn Asthma Obstructive sleep apnea Diabetes mellitus HTN (hypertension) Cardiac pacemaker in situ Paroxysmal atrial fibrillation Complete heart block Surgical History History of prostate surgery History of total hip replacement H/O right inguinal hernia repair (05/29/21) Hx of colonoscopy (~10/17/24) Hx of tonsillectomy History of permanent cardiac pacemaker placement Hx laparoscopic cholecystectomy Family History Father Myocardial infarct Mother No problems noted. Social History Household Members: None Housing: House Are you a primary medicare contact specialist to a significant other at home: Yes () Do you presently have visiting nurse or other home services: No Comment: medicated in pacu Patient Tobacco Use Status: Former Tobacco user Tobacco use type: Cigarette e-Cigarette/Vaping Use: Former Use Second Hand Smoke Exposure: No Advance Directives Date on File: 04/26/21 service: No Current occupational status: retired Cognitive needs: No Hearing needs: Yes (bilateral hearing aids) Vision needs: Yes (rx glasses) Questionnaire PHQ-9 Over the last 2 weeks, how often have you been bothered by any of the following problems? 1. Little interest or pleasure in doing things: not at all 2. Feeling down, depressed, or hopeless: not at all 3. Trouble falling or staying asleep, or sleeping too much: not at all 4. Feeling tired or having little energy: not at all 5. Poor appetite or overeating: not at all 6. Feeling bad about yourself - or that you are a failure or have let yourself or your family down: not at all 7. Trouble concentrating on things, such as reading the newspaper or watching television: not at all 8. Moving or speaking so slowly that other people could have noticed. Or the opposite - being so fidgety or restless that you have been moving around a lot more than usual: not at all 9. Thoughts that you would be better off or of hurting yourself in some way: not at all Total score: 0 Depression Screening Interpretation: Negative Depression Screening Done: No Source: Developed by Drs. Juan A Palm, Peggy Andre, Tucker Rincon and colleagues, with an educational jessica from [employer]. Thrive Questionnaire Date Thrive assessed: 08/20/25 AUDIT C Alcohol Use Questionnaire (AUDIT-C) 1. How often do you have a drink containing alcohol?: Never 3. How often do you have six or more drinks on one occasion?: Never Total Score: 0 Score Reviewed/Action Taken: Yes JOSE E-7 AMB Questionnaire JOSE E-7 Date JOSE E - 7 assessed: 10/03/25 Feeling nervous, anxious, or on edge: 0 = Not at all Not being able to stop or control worryin = Not at all Worrying too much about different things: 0 = Not at all Trouble relaxin = Not at all Being so restless that it is hard to sit still: 0 = Not at all Becoming easily annoyed or irritable: 0 = Not at all Feeling afraid as if something awful might happen: 0 = Not at all Total JOSE E-7 score (0-4 normal; 5-9 mild; 10-14 moderate; 15-21 severe): 0 Source: Developed by Drs. Juan A Palm, Peggy Andre, Tucker Rincon and colleagues, with an educational jessica from [employer]. Review of Systems Narrative - Neurological: Reports brief, transient episodes of dizziness, exacerbated by fatigue and stress. - Musculoskeletal: Reports pain over the right ribs from recent fractures, parti cularly with certain movements. - Respiratory: Reports occasional asthma attacks. - General: Reports feeling stronger when well-rested, but notes symptoms worsen with overwork. All systems reviewed & are unremarkable except as reviewed in HPI and above Physical exam (Primary Care) Vital Signs: Last Vital Signs Temp 97.8 F 10/03/25 10:03 Pulse 80 10/03/25 10:03 Resp 18 10/03/25 10:03 BP 122/56 L 10/03/25 10:03 Pulse Ox 96 10/03/25 10:03 Oxygen Delivery Method Room Air 10/03/25 10:03 BMI result Body Mass Index 38.5 Tobacco/Smoking Status: Tobacco use Status Tobacco use date assessed 05/29/25 10/03/25 09:58 Patient Tobacco Use Status Former Tobacco user 10/03/25 09:58 Tobacco use type Cigarette 10/03/25 09:58 e-Cigarette/Vaping Use Former Use 10/03/25 09:58 Depression Screening Interpretation: Negative Thrive Assessment: Date of Thrive Assessment Date Thrive assessed 08/20/25 10/03/25 09:58 Narrative General: Alert and oriented, Well nourished, No acute distress. Eye: Pupils are equal, round and reactive to light, Intact accommodation, Extraocular movements are intact, Normal conjunctiva, Vision unchanged. HENT: Normocephalic, Atraumatic, Tympanic membranes are clear, Normal hearing, Oral mucosa is moist, No pharyngeal erythema, Ear canals patent, Ears are super clear with a little bit of wax. Respiratory: Lungs CTA bilaterally, No wheeze, Respirations are non-labored. Cardiovascular: Regular rate, Regular rhythm, S1 auscultated, S2 auscultated, No murmur, Good pulses equal in all extremities, Normal peripheral perfusion, No edema. Gastrointestinal: Soft, Non-tender, Non-distended, Normal bowel sounds, No organomegaly. Musculoskeletal: Normal range of motion, Normal strength, No tenderness except over ribs, No swelling, No deformity, Normal gait. Integumentary: Warm, Dry, [place], Intact, Bruise over ribs. Neurologic: Alert, Oriented, Normal sensory, Normal motor function, No focal defects, Cranial Nerves II-XII are grossly intact, Normal deep tendon reflexes. Psychiatric: Cooperative, Appropriate mood & affect, Normal judgment. Coding Level of Care Code Est Pt Level 4 (36798) Complex EM visit Add On G2211 Diagnoses Dizziness R42 Closed fracture of multiple ribs of right side, initial encounter S22.41XA Encounter type: initial encounter Rib fracture type: multiple ribs Fracture type: closed Hypertension, unspecified type I10 Hypertension type: unspecified SANKET on CPAP G47.33; Z99.89 Coronary artery disease involving [place] coronary artery of [place] heart without angina pectoris I25.10 Coronary Disease-Associated Artery/Lesion type: [place] artery [place] vs. transplanted heart: [place] heart Associated angina: without angina Other hyperlipidemia E78.49 Hyperlipidemia type: other hyperlipidemia Paroxysmal atrial fibrillation I48.0 Cardiac pacemaker in situ Z95.0 Type 2 diabetes mellitus without complication, without long-term current use of insulin E11.9 Diabetes mellitus type: type 2 Diabetes mellitus snf insulin use: without snf use Diabetes mellitus complication status: without complication Intermittent asthma, unspecified asthma severity, unspecified whether complicated J45.20 Asthma severity: unspecified severity Asthma persistence: intermittent Asthma complication type: unspecified Assessment & Plan Assessment & Plan (1) Dizziness: Comment: - Possibility of dehydration recognized causing orthostatic hypotension. It resolved during hospital stay and requires monitoring as he still has events with rapid movement - Advised to avoid quick positional changes, use compression stockings, and ensure adequate hydration. - Emphasized slow movements from sitting/lying to standing positions. Code(s): R42 - Dizziness and giddiness Category: Medical (2) Fracture of rib of right side: Comment: - Diagnosis of nondisplaced fractures of ribs 6-10 confirmed from ER records, resulting from a mechanical fall. - Management is conservative. - Advised to avoid strenuous activities that strain the chest wall. - Emphasized the importance of using the incentive spirometer 10 times per hour to prevent pulmonary complications. - Patient has PRN oxycodone but prefers to avoid its use. Code(s): S22.31XA - Fracture of one rib, right side, initial encounter for closed fracture Category: Medical Qualifiers: Encounter type: initial encounter Rib fracture type: multiple ribs Fracture type: closed Qualified Code(s): S22.41XA - Multiple fractures of ribs, right side, initial encounter for closed fracture (3) HTN (hypertension): Comment: - Blood pressure is well-controlled today at 122/56 mmHg. - The patient correctly resumed chlorthalidone after noting an increase in his blood pressure upon its cessation. - Will continue current regimen of chlorthalidone, lisinopril, and metoprolol succinate. Code(s): I10 - Essential (primary) hypertension Category: Medical Qualifiers: Hypertension type: unspecified Qualified Code(s): I10 - Essential (primary) hypertension (4) SANKET on CPAP: Comment: - Patient is compliant with CPAP therapy but requires a new machine as his current one is old. - Advised to have the CPAP supply [employer]) fax a prescription request to the office for signature. Code(s): G47.33 - Obstructive sleep apnea (adult) (pediatric); Z99.89 - Dependence on other enabling machines and devices Category: Medical (5) CAD (coronary artery disease): Comment: - Severe calcification noted on chest CT incidentally with myocardial perfusion imaging in 2020 being within normal limits. - Patient is stable with a history of CAD (coronary calcification) and recovered heart failure with a normal EF of nearly 55%-60% on recent echo. - He is followed by cardiology. - Continue aspirin and atorvastatin for risk reduction and encourage continued activity. Code(s): I25.10 - Atherosclerotic heart disease of [place] coronary artery without angina pectoris Category: Medical Qualifiers: Coronary Disease-Associated Artery/Lesion type: [place] artery [place] vs. transplanted heart: [place] heart Associated angina: without angina Qualified Code(s): I25.10 - Atherosclerotic heart disease of [place] coronary artery without angina pectoris (6) Hyperlipidemia: Comment: - Stable on Atorvastatin to be continued Code(s): E78.5 - Hyperlipidemia, unspecified Category: Medical Qualifiers: Hyperlipidemia type: other hyperlipidemia Qualified Code(s): E78.49 - Other hyperlipidemia (7) Paroxysmal atrial fibrillation: Comment: ~ 8 sec noted on pacer interr, no anticoag per cardiology Code(s): I48.0 - Paroxysmal atrial fibrillation Category: Medical (8) Cardiac pacemaker in situ: Comment: Dual-chamber [place] pacemaker placed for complete heart block, 2018-follows w/[facility] Code(s): Z95.0 - Presence of cardiac pacemaker Category: Medical (9) Diabetes mellitus: Comment: - Controlled with an A1c of 7.1. - Continue metformin 500 mg. Code(s): E11.9 - Type 2 diabetes mellitus without complications Category: Medical Qualifiers: Diabetes mellitus type: type 2 Diabetes mellitus snf insulin use: without manager intermediate use Diabetes mellitus complication status: without complication Qualified Code(s): E11.9 - Type 2 diabetes mellitus without complications (10) Asthma: Comment: - Stable with occasional use of albuterol inhaler. - Continue PRN use. Code(s): J45.909 - Unspecified asthma, uncomplicated Category: Medical Qualifiers: Asthma severity: unspecified severity Asthma persistence: intermittent Asthma complication type: unspecified Qualified Code(s): J45.20 - Mild intermittent asthma, uncomplicated Plan: Health Maintenance: - Pulmonary Health: Advised to use incentive spirometer 10 times an hour to prevent complications from rib fractures. - Fall Prevention: Discussion regarding the nature of the recent fall (a trip) and management of dizziness, which is a fall risk factor. - Lifestyle: Encouraged to continue prioritizing rest, hydration, and stress management to control dizziness. - Medication Adherence: Patient is compliant with medications for hypertension, diabetes, and hyperlipidemia. - Sleep Apnea Management: Patient is adherent with CPAP and is taking appropriate steps to acquire a new device. Patient was informed and verbally consented to the use of an ambient scribe for clinic note documentation during this visit. Plan I discussed with the patient his primary concerns of dizziness and his recent fall. Regarding his dizziness, I explained that his symptoms of brief, transient episodes related to fatigue suggest it is unlikely to be true vertigo, but it is worth investigating. I offered a prescription for meclizine to be used on an as- needed basis for symptom control and supported his plan to see a physical therapist to be evaluated for positional vertigo. We reviewed the results from his ER visit, confirming the diagnosis of nondisplaced fractures of right ribs 6 through 10. I advised him on conservative management, which includes avoiding strenuous movements that could pull on the muscles and separate the fractures, and reinforced the importance of using his incentive spirometer 10 times an hour to maintain lung health. I reviewed his medications and chronic conditions. I noted his blood pressure was well-controlled and affirmed his decision to restart chlorthalidone. I explained that his borderline anemia is likely a normal variation and not a cause for concern. Following his request, I examined his ears and reassured him they were clear. Finally, I instructed him to have his CPAP supply company, [employer], fax a prescription for a new machine to our office for my signature. Patient Instructions: - For your dizzy spells, I am sending a prescription for a medication called meclizine. You can take this as needed, up to three times a day, if you feel dizzy. If it helps, continue using it when needed; if not, you can stop. - It is a good idea to follow through with your plan to see the physical therapist to be checked for vertigo. - Remember that getting enough rest and staying hydrated seems to help your dizziness. - You have five broken ribs on your right side. Let them heal by avoiding heavy lifting and any movements that cause a strain on your chest, like bending down too far or reaching high overhead. - Be sure to use your breathing exercise machine (incentive spirometer) 10 times every hour you are awake. This will help keep your lungs strong. - Continue taking all of your regular medications for blood pressure, cholesterol, and diabetes. - Please call your CPAP supply company, [employer], and ask them to fax my office a request for a new CPAP machine. We will sign it and send it back to them.
[2025-10-03 10:03] VITALS: BP 122/56; PULSE 80; RESP 18; TEMP 36.6; O2SAT 96; BMI 38.5
--- OUTSIDE RECORDS SUMMARY | 2025-10-03 11:19 | XMS_ITS | Clinical Summary ---
Author Organization [facility] Address [address] [place] [address] Care Team Providers Care Mallet Cutter Name Role Phone Unavailable Primary Care Provider Unavailabl e Social History Tobacco Use Types Packs/Day Years Used Date Smoking Tobacco: Never Assessed Sex and Gender Information Value Date Recorded Sex Assigned at Not on file Legal Sex Male 7:03 PM EST Gender Identity Not on file Sexual Orientation Not on file Plan of Treatment Health Maintenance Due Date Last Done Comments Advance Care Planning 1950 Hepatitis C Virus Screening 1950 DTaP/Tdap/Td Vaccines (1 - Tdap) 1968 Pneumococcal Vaccines 50+ (1 of 1 - PCV) 1999 Zoster (Shingles) Vaccine (1 of 2) 1999 RSV Vaccine 50 years and old er and Patients (1 - 1-dose 75+ series) 2024 COVID-19 Vaccine (2023-2 5 season) 2025 Hepatitis B Vaccines Aged Out No long er eligible based on patient's age to complete this topic
--- OUTSIDE RECORDS SUMMARY | 2025-10-03 11:19 | XMS_ITS | Encounter Summary ---
Author Organization [facility] Address [address] [place] [address] [place] [phone] Phone Care Team Providers Care Supervisor [employer] Name Role Phone Ezra To MD Primary Care Provider Brandon Hernandez MD Unavailable [phone] Ezra To MD Unavailable [phone] Lucinda Ramos Unavailable Jani Mccauley MD Primary Care Provid er Gaby Frazier PA-C Primary Care Provid er Curry Morales MD Primary Care Provider [phone] Encounter Details Date Type Department Care Team (Latest Contact Info) Description 10/28/2018 Transcribe Orders [address] [place] [address] James Puentes MD [address] [place] [address], [address] [place] [address] [email or web address] Hyperplasia of prostate with lower urinary tract [...] Care Team (Late st Contact Info) Description 10/04/2025 4:00 PM EST Office Visit [address] [address] Gaby Frazier PA-C [address] [place], [place] [address]s Sports [facility], [place] [address] Bonnie Aguirre, OT [address] [place] [address] [email or web address] 10/13/2025 8:45 AM EST Office Visit [address] [address] Gaby Frazier PA-C [address] [place] [address], [place] [address] Bonnie Aguirre, OT [address] [place] [address] [email or web address] 10/20/2025 11:00 AM EST Office Visit [address] [address] Gaby Frazier PA-C [address] [place] [address], [place] [address] Bonnie Aguirre, OT [address] [place] [address] [email or web address] documented as of this encounter Results * PSA (screening) (10/28/2018 10:52 AM EST) PSA 2.56 0 - 4.00 ng/mL [facility] Blood 10/28/2018 10:5 2 AM EST 10/28/2018 10:54 AM EST us James Puentes MD LAB BLOOD BKR ORDERABLES Final Result [facility] [address] [place] [address] documented in this encounter Visit Diagnoses Diagnosis Hyperplasia of prostate with lower urinary tract symptoms (LUTS)- Primary Unspecified hyperplasia of prostate with urinary obstruction and other lower urinary tract symptoms (LUTS) documented in this encounter Care Teams Supervisor [employer] Relationship Specialty Start Date End Date Ezra To MD [address] [place] [address] PCP - General 09/17/17 06/15/25 Jani Mccauley MD [address] [place] [address] PCP - General Internal Medicine 06/16/25 08/21/25 Gaby Frazier PA-C [address] [place] [address] Orthopedics & Sports Medicine, [place] [address] [email or web address] PCP - General Physician Offender Employment Specialist 08/28/25 09/24/25 Curry Morales MD [address] [place] [address] PCP - General Internal Medicine 09/25/25 Brandon Hernandez MD [address] [place] [address] Historical LMR Provider 09/17/17 Ezra To MD [address] [place] [address] Historical LMR Provider 09/17/17 2 Lucinda Ramos PA [address] [place] [address] [email or web address] Physician Offender Employment Specialist 01/02/25 documented as of this encounter Additional Source Comments The information contained in this document represents components of the legal health record. It is not the complete legal health record.[facility]
--- OUTSIDE RECORDS SUMMARY | 2025-10-03 11:20 | XMS_ITS | Encounter Summary ---
Author Organization [facility] Address [address] [place] [address] Phone Care Team Providers Care Forest And Conservation Worker Name Role Phone Lucinda Ramos Unavailable Curry Morales MD Primary Care Provider Encounter Details Date Type Department Care Team (Late st Contact Info) Description 09/25/2025 Procedure Pass [facility], Ct Scan - [facility] [address] [place] [address] Social History Tobacco Use Types Packs/Day Years [...] Date of Assessment Author No Risk Indicated 09/25/2025 11:22 AM EDT Rach Alexander, DARRON * [place] Suicide Severity Rating Scale (Screener/Recent Self-Report) Question Answer Date of Assessment Author 1. Wish to be (Past 1 Month) No 025 11:22 AM EDT Rach Alexander, RN 2. Non-Specific Active Suici adryan Thoughts (Past 1 Month) No 09/25/2025 11:22 AM GAYET Chne Alexander RN 6. Suicidal Behavior (Lifetime) No 11:22 AM EDT Rach Alexander, DARRON documented as of this encounter Plan of Treatment Upcoming Encounters Date Type Department Care Team (Late st Contact Info) Description 10/04/2025 4:00 PM EST Office Visit [address] [address] Gaby Frazier PA-C 4 [facility], [place] [address] Bonnie Aguirre, OT [address] [place] [phone] [email or web address] 10/13/2025 8:45 AM EST Office Visit [address] [address] Gaby Frazier PA-C 4 [facility], [place] [address] Bonnie Aguirre, OT [address] [place] [address] [email or web address] 10/20/2025 11:00 AM EST Office Visit [address] [address] Gaby Frazier PA-C [address] [place] [address], [place] [address] Bonnie Aguirre, OT [address] [place] [address] [email or web address] documented as of this encounter Visit Diagnoses Not on filedocumented in this encounter Care Teams Forest And Conservation Worker Relationship Specialty Start Date End Date Curry Morales MD [address] [place] [address] PCP - General Internal Medicine 09/25/25 Lucinda Ramos PA [address] [address] [email or web address] Physician Early Childhood Aide Classroom 01/02/25 documented as of this encounter Additional Source Comments The information contained in this document represents components of the legal health record. It is not the complete legal health record.[facility]
--- OUTSIDE RECORDS SUMMARY | 2025-10-03 11:20 | XMS_ITS | Patient Health Record ---
Author Organization [facility] Address [address] [place] [address] Care Team Providers Care Club Steward Name Role Phone Yousuf (RETIRED) Ezra RAINES Primary Care Provide r Unavailable Juan A Diallo Unavailable [phone] Allergies No Known Allergies Results Component Value Reference Range Notes Glucose, Whole Blood Reviewed date:10/18/2024 12:12:48 AM Interpretation: Performing Lab:[facility], [address] [place] [id number] Notes/Report: Glucose, Whole Blood 144 60-115 mg/dL METER # : [id number] Reason For Referral No Information Medications Medication [...] Potassium Chloride A ctive Chlorthalidone 25 MG Oral; Duration: 90 Active Lipitor 20 MG 1 tablet Orally Once a day Active Vitamin C 500 MG as directed Orally Active Albuterol prn Active Lisinopril 10 MG 1 tablet Orally Once a day Active Omeprazole 20 MG 1 capsule 30 minutes before morning meal Orally Once a day; Duration: 30 day(s) Active Tamsulosin HCl 0.4 MG 1 capsule Orally t wice a day Active Problems Problem Type SNOMED Code ICD Code Onset Dates Problem Status W/U Status Risk Notes Problem Screening for malignant neoplasm of colon (556477594) Encounter for screening for malignant neoplasm of colon (Z12.11) Active confirmed Problem History of adenomatous polyp of colon (654651723) History of adenomatous polyp of colon (Z86.010) Active confirmed Problem Diverticular disease of colon (765268893) Diverticulosis of large intestine without perforation or abscess without bleeding (K57.30) Active confirmed Problem Gastroesophageal reflux disease (741506475) GERD (gastroesophageal reflux disease) (K21.9) Active confirmed Problem Pre-procedure evaluation check (529313180) Pre-procedural examination (Z01.818) Active confirmed Problem Long-term current use of antiplatelet drug (447325278715604) Encounter for long-term (current) aspirin use (Z79.82) Active confirmed Encounters Encounter Location Date Provider Diagnosis [facility] [address] [place] [id number] 10/17/2024 Juan A Diallo Colon cancer scree [...] Insured Coverage Start Date Coverage End Date [facility] [address] [place] [address] [id number] SERG AGEE Self - patient is the insured Medical (General) History Medical History History ICD Code Pancreatitis-hospitalized fo r several days in 2005-this was felt to be related to EtOH--he did have a negative MRI of the abdomen and pancreas, including a MRCP in 2008 NIDDM Hypertension Elevated Cholesterol Sleep apnea-uses CPAP Denies VA,CVA,renal disease Asthma - mild-inhaler as needed Colonoscopy [...] 2020 Planning Aqua Ablation of prostate at [facility] as of the 01/2024 OV
--- OUTSIDE RECORDS SUMMARY | 2025-10-03 11:20 | XMS_ITS | Encounter Summary ---
Author Organization [facility] Address [address] [place] [address] Phone Care Team Providers Care Nurse Clinical Name Role Phone Lucinda Ramos Unavailable Curry Morales MD Primary Care Provider Encounter Details Date Type Department Care Team (Late st Contact Info) Description 09/25/2025 Procedure Pass [facility], Ct Scan - [facility] [address] [place] [address] Social History Tobacco Use Types Packs/Day Years [...] 11:22 AM EDT Rach Alexander, DARRON * [place] Suicide Severity Rating Scale (Screener/Recent Self-Report) Question Answer Date of Assessment Author 1. Wish to be (Past 1 Month) No 025 11:22 AM EDT Rach Alexander, RN 2. Non-Specific Active Suici adryan Thoughts (Past 1 Month) No 09/25/2025 11:22 AM GAYET Chen Alexander RN 6. Suicidal Behavior (Lifetime) No 11:22 AM EDT Rach Alexander, DARRON documented as of this encounter Plan of Treatment Upcoming Encounters Date Type Department Care Team (Late st Contact Info) Description 10/04/2025 4:00 PM EST Office Visit [address] [address] Gaby Frazier PA-C 4 [facility], [facility] [place] [address] [email or web address] Bonnie Aguirre, OT [address] [place] [phone] [email or web address] 10/13/2025 8:45 AM EST Office Visit [address] [address] Gaby Frazier PA-C 4 [facility], [place] [address] Bonnie Aguirre, OT [address] [place] [phone] [email or web address] 10/20/2025 11:00 AM EST Office Visit [address] [address] Gaby Frazier PA-C [address] [place] [address], [place] [address] Bonnie Aguirre, OT [address] [place] [address] [email or web address] documented as of this encounter Visit Diagnoses Not on filedocumented in this encounter Care Teams Nurse Clinical Relationship Specialty Start Date End Date Curry Morales MD [address] [place] [address] PCP - General Internal Medicine 09/25/25 Lucinda Ramos PA [address] [address] [email or web address] Physician Mechanical Product Design Engineer 01/02/25 documented as of this encounter Additional Source Comments The information contained in this document represents components of the legal health record. It is not the complete legal health record.[facility]
--- OUTSIDE RECORDS SUMMARY | 2025-10-03 11:20 | XMS_ITS | Encounter Summary ---
Author Organization [facility] Address [address] [place] [address] Phone Care Team Providers Care Minibus Driver Name Role Phone Lucinda Ramos Unavailable Curry Morales MD Primary Care Provider Encounter Details Date Type Department Care Team (Late st Contact Info) Description 09/25/2025 Procedure Pass [facility], Ct Scan - [facility] [address] [place] [address] Social History Tobacco Use Types Packs/Day Years [...] 11:22 AM EDT Rach Alexander, DARRON * [place] Suicide Severity Rating Scale (Screener/Recent Self-Report) Question [...] Description 10/04/2025 4:00 PM EST Office Visit [address] [address] Gaby Frazier PA-C 4 [facility], [facility] [place] [address] [email or web address] Bonnie Aguirre, OT [address] [place] [phone] [email or web address] 10/13/2025 8:45 AM EST Office Visit [address] [address] Gaby Frazier PA-C 4 [facility], [place] [address] Bonnie Aguirre, OT [address] [place] [phone] [email or web address] 10/20/2025 11:00 AM EST Office Visit [address] [address] Gaby Frazier PA-C [address] [place] [address], [place] [address] Bonnie Aguirre, OT [address] [place] [address] [email or web address] documented as of this encounter Visit Diagnoses Not on filedocumented in this encounter Care Teams Minibus Driver Relationship Specialty Start Date End Date Curry Morales MD [address] [place] [address] PCP - General Internal Medicine 09/25/25 Lucinda Ramos PA [address] [address] [email or web address] Physician After School Counselor 01/02/25 documented as of this encounter Additional Source Comments The information contained in this document represents components of the legal health record. It is not the complete legal health record.[facility]
--- OUTSIDE RECORDS SUMMARY | 2025-10-03 11:20 | XMS_ITS | Encounter Summary ---
Author Organization [facility] Address [address] [facility] [address] [facility] [address] [facility] [address] [place] [address] Phone Care Team Providers Care Grade Checker Name Role Phone Ezra To MD Primary Care Provider Lucinda Ramos Unavailable Jani Mccauley MD Primary Care Provid er Gaby Farzier PA-C Primary Care Provid er Curry Morales MD Primary Care Provider [phone] Encounter Details Date Type Department Care Team (Late st Contact Info) Description 04/08/2024 Procedure Pass [place] Admitting Dept - Virtual Department [address] [place] [address] Social History Tobacco Use Types Packs/Day Years [...] 3:54 PM EDT Trent Winchester RN * [place] Suicide Severity Rating Scale (Screener/Recent Self-Report) Question Answer Date of Assessment Author 1. Wish to be (Past 1 Month) No 04/08/2024 3:54 PM EDT Trent Winchester RN 2. Non-Specific Active Suici adryan Thoughts (Past 1 Month) No 04/08/2024 3:54 PM EDT Laura Winchester RN 6. Suicidal Behavior (Lifetime) No 3:54 PM EDT Trent Winchester RN documented as of this encounter Plan of Treatment Upcoming Encounters Date Type Department Care Team (Late st Contact Info) Description 10/04/2025 4:00 PM EST Office Visit [address] [address] Gaby Frazier PA-C 4 [facility], [place] [address] Bonnie Aguirre, OT [address] [place] [address] [email or web address] 10/13/2025 8:45 AM EST Office Visit [address] [address] Gaby Frazier PA-C 4 [facility], [place] [address] Bonnie Aguirre, OT [address] [place] [address] [email or web address] 10/20/2025 11:00 AM EST Office Visit [address] [address] Gaby Frazier PA-C [address] [place] [address], [place] [address] Bonnie Aguirre, OT [address] [place] [address] [email or web address] documented as of this encounter Visit Diagnoses Not on filedocumented in this encounter Care Teams Grade Checker Relationship Specialty Start Date End Date Ezra To MD [address] [place] [address] PCP - General 09/17/17 06/15/25 Jani Mccauley MD [address] [place] [address] PCP - General Internal Medicine 06/16/25 08/21/25 Gaby Frazier PA-C [address] [place] [address] [facility], [place] [address] PCP - General Physician Contracts Law Professor 08/28/25 09/24/25 Curry Morales MD [address] [place] [address] PCP - General Internal Medicine 09/25/25 Lucinda Ramos PA [address] [place] [address] Physician Contracts Law Professor 01/02/25 documented as of this encounter Additional Source Comments The information contained in this document represents components of the legal health record. It is not the complete legal health record.[facility]
--- OUTSIDE RECORDS SUMMARY | 2025-10-03 11:20 | XMS_ITS | Clinical Summary ---
Author Organization [facility] Address [address] [facility] [address] [place] [phone] Phone Care Team Providers Care Cleaners Name Role Phone Lucinda Ramos Unavailable Curry Morales MD Primary Care Provider Allergies No known active allergies Medications ascorbic [...] Active ferrous sulfate 324 mg (65 mg [place] iron) TbEC Take 324 mg by mouth [...] 10 mg by mouth daily. 5 Active oxyCODONE 5 MG immediate release tablet Take 1 tablet (5 mg total) by mouth every 6 (six) hours as needed for pain (specific location in comments). Partial fill ok 10 tablet 5 Active Active Problems Problem Noted Date [...] nuclear stress test last week at the [facility] which she will obtain. There should be [...] with albuterol. 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 His [...] Encounters Date Type Department Care Team Description 09/25/2025 11:25 AM EDT - 09/25/2025 3:43 PM EDT Emergency [facility] [address] [place] [address] Michael Dunn MD Discharge Disposition: Home or Self Care 09/25/2025 Procedure [facility] Scan [address] [address] 09/25/[address] [address] 09/25/[address] [address] 09/22/2025 3:45 PM EDT Office Visit [facility] [address] [place] [id number] Gaby Frazier PA-C Greenebaum, Sarah A, OT Arthritis of carpometacarpal (CMC) joint of right thumb (Primary Dx) 09/08/2025 8:45 AM EDT Office Visit [facility] [address] [place] [phone] Gaby Frazier PA-C Greenebaum, Sarah A, OT Arthritis of carpometacarpal (CMC) joint of right thumb (Primary Dx) 08/28/2025 9:30 AM EDT Home Care Visit [facility] [address] [place] [address] Lillian Ga RN NON ADMIT HOME HEALTH VISIT 08/27/2025 Home Care Visit [facility] [address] [place] [address] Jeannette Sepulveda, DARRON CASE COMMUNICATION 08/22/2025 Orders Only [facility] [address] [place] [address] Homehealth, Fracisco Gusman MD 07/17/2025 1:40 PM EDT Office Visit [facility] [address] [place] [phone] Gaby Frazier PA-C Sprain of interphalangeal joint of left thumb, subsequent encounter (Primary Dx) from Last 3 Months Immunizations Immunization Administration Dates Next Due Influenza High-Dose Quadrivalent Preservative Fr ee IM 09/06/2021 Tdap 09/25/2025 Family History Medical History Relation Comments No [...] Sign Reading Time Taken Comments Blood Pressure 154/64 09/25/2025 3:15 PM EDT Pulse 72 09/25/2025 3:15 PM EDT Temperature 36.1 C (97 F) 09/25/2025 3:15 PM EDT Respiratory Rate 16 09/25/2025 3:15 PM EDT Oxygen Saturation 94% 09/25/2025 3:15 PM EDT Inhaled Oxygen Concentration - - Weight 113.9 kg (251 lb) 09/25/2025 11:21 AM EDT Height 175.3 cm (5' 9 ) 09/25/2025 11:21 AM EDT Body Mass Index 37.07 09/25/2025 11:21 AM EDT Plan of Treatment Upcoming Encounters Date Type Department Care Team (Late st Contact Info) Description 10/04/2025 4:00 PM EST Office Visit [facility] [address] [place] [address] [phone] Gaby Frazier PA-C [address] [place] [address] Orthopedics & Sports Medicine, [facility] [place], [place] [phone] Bonnie Aguirre, OT [address] [place] [address] [email or web address] 10/13/2025 8:45 AM EST Office Visit [facility] [address] [place] [address] Gaby Frazier PA-C [facility], [place] [address] Bonnie Aguirre, OT [address] [place] [phone] [email or web address] 10/20/2025 11:00 AM EST Office Visit [facility] [address] [place] [address] Gaby Frazier PA-C [address] [facility], [place] [address] Bonnie Aguirre, OT [address] [place] [address] [email or web address] Health Maintenance Due Date Last Done Comments DEPRESSION SCREENING 1961 HEPATITIS C SCREENING 1967 PNEUMOCOCCAL VACCINES (50+ years) (2 of 2 - PPSV23, PCV20, or PCV21) 05/12/2018 03/17/2018 DIABETIC EYE EXAM 04/30/2021 HEMOGLOBIN A1C 10/09/2024 04/08/2024, 07/15/2021 INFLUENZA VACCINE (#1) 2025 , 08/31/2023, 09/06/2021, Additional history exists COVID-19 VACCINE ( season) 2025 08/16/2024, 06/13/2024, 08/31/2023, Additional history exists BLOOD PRESSURE 02/25/2026 08/28/2025 CREATININE LEVEL 09/25/2026 09/25/2025, 09/2024, 04/08/2024, Additional history exists POTASSIUM LEVEL 09/25/2026 09/25/2025, 03/30, 04/08/2024, Additional history exists Adult Td,Tdap Booster 09/25/2035 09/25/2025 ZOSTER VACCINES Completed 08/12/2018, 05/19/2018 RSV VACCINE [...] this topic Medical Devices Implanted Type Area Polymer Chemist Device Identifier Shelf Expiration Date Model / Serial / Lot Lens Lens Bilatera l: Eye Pacemaker Pacemaker Chest Echo Bi-Metric Hip System Laterialized Femoral Stem Implanted:Qty: 1 on 09/04/2021 by Chris Thibodeaux MD at [facility] Prosthetic Joint Left: Hip [employer] 10/22/2025 [id number] / / [id number] Description:Reduced Proximal Profile Porous Plasma/Uncemented Acetabular Shell 56mm Size F G7 Porous Plasma [place] Limited Hole - [id number] Implanted:Qty: 1 on 09/04/2021 by Chris Thibodeaux MD at [facility] Left: Hip [employer] 04/20/2031 [id number] / / [id number] Screw Bone 6.5x30mm Hip Dome G7 Acetabular Low Profile - [id number] Implanted:Qty: 1 on 09/04/2021 by Chris Thibodeaux MD at [facility] Left: Hip [employer] 05/27/2031 [id number] / / [id number] Hip Liner 36mm F Acetabular Neutral G7 Longevity - [id number] Implanted:Qty: 1 on 09/04/2021 by Chris Thibodeaux MD at [facility] Left: Hip [employer] / [employer] 11/20/2025 [id number] / / [id number] Hip Head 1 36mm Minus 3 Implant Femoral Hd Modular [place] 05 - [id number] Implanted:Qty: 1 on 09/04/2021 by Chris Thiobdeaux MD at [facility] Left: Hip [employer] 06/20/2031 [id number] / / [id number] Procedures Procedure Name Priority Date/Time Associated Diagnosis Comments CT ED TRAUMA ABDOMEN/PELVIS WITH L-SPINE REFORMATS WITH CONTRAST Routine 09/25/2025 2:[address] ED TRAUMA ANGIO CHEST/ABDOMEN WITH T-SPINE REFORMATS WITH CONTRAST Routine 09/25/2025 2:[address] HEAD WITHOUT CONTRAST Routine 09/25/2025 2:03 PM EDT XR KNEE 4 OR MORE VIEWS (LEFT) Routine 09/25/2025 1:14 PM EDT XR HAND 3 OR MORE VIEWS (RIGHT) Routine 09/25/2025 1:14 PM EDT URINALYSIS WITH REFLEX TO URINE CULTURE STAT 09/25/2025 12:41 PM EDT LIPASE STAT 09/25/2025 12:41 PM EDT LFTS (HEPATIC PANEL) STAT 09/25/2025 12:41 PM EDT BASIC METABOLIC PANEL (BMP) STAT 09/25/2025 12:41 PM EDT CBC AND DIFFERENTIAL STAT 09/25/2025 12:41 PM EDT XR CHEST PA AND LATERAL 2 VIEWS STAT 09/25/2025 11:58 AM EDT HEMOGLOBIN A1C STAT 04/08/2024 12:02 PM EDT from Last 3 Months or Most Recently Relevant to Health Maintenance Results * CT ED TRAUMA ABDOMEN/PELVIS WITH L-SPINE REFORMATS WITH CONTRAST (09/25/2025 2:03 PM EDT) 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 No other traumatic injury. [facility] Anatomical Region Laterality Modality Abdomen, Pelvis Computed Tomogra phy 09/25/2025 2:28 PM EDT Impressions 09/25/2025 2:49 PM EDT 1. Nondisplaced fractures right anterolateral ribs 6-10. 2. No other acute traumatic injury to the chest, abdomen, or pelvis. 3. No acute fracture or traumatic malalignment of the thoracic or lumbar spine. A clinically significant result was initiated on 09/25/2025 2:48 PM, Message ID [id number]. Narrative 09/25/2025 2:[address] ED TRAUMA ANGIO CHEST/ABDOMEN WITH T-SPINE REFORMATS WITH CONTRAST, CT ED TRAUMA ABDOMEN/PELVIS WITH L-SPINE REFORMATS WITH CONTRAST Referring clinician's provided indication for this examination in Epic: Trauma TECHNIQUE: CT scans of: 1. Chest and abdomen angiogram with intravenous contrast, to assess for vascular injury to the aorta, spleen, or liver in the setting of trauma. Multiplanar reformations were created. 3-D angiographic postprocessing was performed in the form of MIP images to further characterize the vasculature. 2. Abdomen and pelvis, with intravenous contrast in the portal venous phase. Multiplanar reformations were created. 3. Thoracic spine with intravenous contrast, reconstructed from the chest source data. Multiplanar reformations were created. 4. Lumbar spine with intravenous contrast, reconstructed from the abdomen and pelvis source data. Multiplanar reformations were created. COMPARISON: None FINDINGS: CHEST AND ABDOMEN VASCULAR: Aorta: There is no aortic injury, aneurysm, or occlusion. Contrast Extravasation: None. Pulmonary Arteries: Well opacified without pulmonary embolus. Branch Arteries: No stenosis, occlusion, or dissection involving the arch vessel origins. The celiac axis, SMA and LISBET are patent. Renal arteries are patent bilaterally. Venous structures: Normal. CHEST: Ports and Devices: Left chest dual-lead pacemaker. Lungs: No pulmonary contusion or laceration. Mild bibasilar bandlike atelectasis/scarring. No suspicious pulmonary nodules. Pleura: No pneumothorax or hemothorax. No pleural effusion. Lymph Nodes: No enlarged supraclavicular, axillary, mediastinal or hilar lymph nodes. Mediastinum: No mediastinal hematoma. Heart size is normal. No pericardial effusion. Severe coronary artery calcification. Musculoskeletal: Nondisplaced fractures of right anterolateral ribs 6, 7, 8, 9, and 10. ABDOMEN / PELVIS: Liver: No laceration or subcapsular hematoma. No focal lesions. Biliary: Status post cholecystectomy. No biliary ductal dilatation. Pancreas: No peripancreatic fat stranding, masses or ductal dilation. Spleen: No laceration, subcapsular hematoma, or vascular injury. No splenomegaly or focal lesions. Adrenal Glands: No nodules. Kidneys/Ureters: No contusion, laceration, or subcapsular hematoma. No injury to the vascular structures or collecting systems. No stones or hydronephrosis. Left renal cyst. Bowel: Colonic diverticulosis without diverticulitis. No bowel wall thickening or dilatation. Mesentery, Omentum, and Peritoneum: No pneumoperitoneum, hemoperitoneum, or mesenteric hematoma. No ascites. Pelvic Organs/Bladder: No significant abnormality. Lymph Nodes: No lymphadenopathy. Musculoskeletal: No acute pelvic fracture. Left hip arthroplasty. No significant soft tissue hematoma. Left fat-containing inguinal hernia. THORACIC AND LUMBAR SPINE: Alignment and Curvature: No traumatic malalignment. Vertebrae: No acute fracture. Disc Spaces: Multilevel degenerative changes. Soft Tissues: No paravertebral hematoma. Procedure Note Curry Mora MD - 09/25/2025 CT ED TRAUMA ANGIO CHEST/ABDOMEN WITH T-SPINE REFORMATS WITH CONTRAST, CTED TRAUMA ABDOMEN/PELVIS WITH L-SPINE REFORMATS WITH CONTRAST Referring clinician's provided indication for this examination in Epic:Trauma TECHNIQUE: CT scans of: 1. Chest and abdomen angiogram with intravenous contrast, to assess forvascular injury to the aorta, spleen, or liver in the setting of trauma.Multiplanar reformations were created. 3-D angiographic postprocessing wasperformed in the form of MIP images to further characterize thevasculature. 2. Abdomen and pelvis, with intravenous contrast in the portal venousphase. Multiplanar reformations were created. 3. Thoracic spine with intravenous contrast, reconstructed from the chestsource data. Multiplanar reformations were created. 4. Lumbar spine with intravenous contrast, reconstructed from the abdomenand pelvis source data. Multiplanar reformations were created. COMPARISON: None FINDINGS: CHEST AND ABDOMEN VASCULAR: Aorta: There is no aortic injury, aneurysm, or occlusion. Contrast Extravasation: None. Pulmonary Arteries: Well opacified without pulmonary embolus. Branch Arteries: No stenosis, occlusion, or dissection involving the archvessel origins. The celiac axis, SMA and LISBET are patent. Renal arteriesare patent bilaterally. Venous structures: Normal. CHEST: Ports and Devices: Left chest dual-lead pacemaker. Lungs: No pulmonary contusion or laceration. Mild bibasilar bandlikeatelectasis/scarring. No suspicious pulmonary nodules. Pleura: No pneumothorax or hemothorax. No pleural effusion. Lymph Nodes: No enlarged supraclavicular, axillary, mediastinal or hilarlymph nodes. Mediastinum: No mediastinal hematoma. Heart size is normal. No pericardialeffusion. Severe coronary artery calcification. Musculoskeletal: Nondisplaced fractures of right anterolateral ribs 6, 7,8, 9, and 10. ABDOMEN / PELVIS: Liver: No laceration or subcapsular hematoma. No focal lesions. Biliary: Status post cholecystectomy. No biliary ductal dilatation. Pancreas: No peripancreatic fat stranding, masses or ductal dilation. Spleen: No laceration, subcapsular hematoma, or vascular injury. Nosplenomegaly or focal lesions. Adrenal Glands: No nodules. Kidneys/Ureters: No contusion, laceration, or subcapsular hematoma. Noinjury to the vascular structures or collecting systems. No stones orhydronephrosis. Left renal cyst. Bowel: Colonic diverticulosis without diverticulitis. No bowel wallthickening or dilatation. Mesentery, Omentum, and Peritoneum: No pneumoperitoneum, hemoperitoneum,or mesenteric hematoma. No ascites. Pelvic Organs/Bladder: No significant abnormality. Lymph Nodes: No lymphadenopathy. Musculoskeletal: No acute pelvic fracture. Left hip arthroplasty. Nosignificant soft tissue hematoma. Left fat-containing inguinal hernia. THORACIC AND LUMBAR SPINE: Alignment and Curvature: No traumatic malalignment. Vertebrae: No acute fracture. Disc Spaces: Multilevel degenerative changes. Soft Tissues: No paravertebral hematoma. IMPRESSION: 1. Nondisplaced fractures right anterolateral ribs 6-10. 2. No other acute traumatic injury to the chest, abdomen, or pelvis. 3. No acute fracture or traumatic malalignment of the thoracic or lumbarspine. A clinically significant result was initiated on 09/25/2025 2:48 PM,Message ID [id number]. 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 No other traumatic injury. [facility] Anatomical Region Laterality Modality Chest, Thoracic Vasculature Comp uted Tomography 09/25/2025 2:28 PM EDT Impressions 09/25/2025 2:49 PM EDT 1. Nondisplaced fractures right anterolateral ribs 6-10. 2. No other acute traumatic injury to the chest, abdomen, or pelvis. 3. No acute fracture or traumatic malalignment of the thoracic or lumbar spine. A clinically significant result was initiated on 09/25/2025 2:48 PM, Message ID [id number]. Narrative 09/25/2025 2:[address] ED TRAUMA ANGIO CHEST/ABDOMEN WITH T-SPINE REFORMATS WITH CONTRAST, CT ED TRAUMA ABDOMEN/PELVIS WITH L-SPINE REFORMATS WITH CONTRAST Referring clinician's provided indication for this examination in Epic: Trauma TECHNIQUE: CT scans of: 1. Chest and abdomen angiogram with intravenous contrast, to assess for vascular injury to the aorta, spleen, or liver in the setting of trauma. Multiplanar reformations were created. 3-D angiographic postprocessing was performed in the form of MIP images to further characterize the vasculature. 2. Abdomen and pelvis, with intravenous contrast in the portal venous phase. Multiplanar reformations were created. 3. Thoracic spine with intravenous contrast, reconstructed from the chest source data. Multiplanar reformations were created. 4. Lumbar spine with intravenous contrast, reconstructed from the abdomen and pelvis source data. Multiplanar reformations were created. COMPARISON: None FINDINGS: CHEST AND ABDOMEN VASCULAR: Aorta: There is no aortic injury, aneurysm, or occlusion. Contrast Extravasation: None. Pulmonary Arteries: Well opacified without pulmonary embolus. Branch Arteries: No stenosis, occlusion, or dissection involving the arch vessel origins. The celiac axis, SMA and LISBET are patent. Renal arteries are patent bilaterally. Venous structures: Normal. CHEST: Ports and Devices: Left chest dual-lead pacemaker. Lungs: No pulmonary contusion or laceration. Mild bibasilar bandlike atelectasis/scarring. No suspicious pulmonary nodules. Pleura: No pneumothorax or hemothorax. No pleural effusion. Lymph Nodes: No enlarged supraclavicular, axillary, mediastinal or hilar lymph nodes. Mediastinum: No mediastinal hematoma. Heart size is normal. No pericardial effusion. Severe coronary artery calcification. Musculoskeletal: Nondisplaced fractures of right anterolateral ribs 6, 7, 8, 9, and 10. ABDOMEN / PELVIS: Liver: No laceration or subcapsular hematoma. No focal lesions. Biliary: Status post cholecystectomy. No biliary ductal dilatation. Pancreas: No peripancreatic fat stranding, masses or ductal dilation. Spleen: No laceration, subcapsular hematoma, or vascular injury. No splenomegaly or focal lesions. Adrenal Glands: No nodules. Kidneys/Ureters: No contusion, laceration, or subcapsular hematoma. No injury to the vascular structures or collecting systems. No stones or hydronephrosis. Left renal cyst. Bowel: Colonic diverticulosis without diverticulitis. No bowel wall thickening or dilatation. Mesentery, Omentum, and Peritoneum: No pneumoperitoneum, hemoperitoneum, or mesenteric hematoma. No ascites. Pelvic Organs/Bladder: No significant abnormality. Lymph Nodes: No lymphadenopathy. Musculoskeletal: No acute pelvic fracture. Left hip arthroplasty. No significant soft tissue hematoma. Left fat-containing inguinal hernia. THORACIC AND LUMBAR SPINE: Alignment and Curvature: No traumatic malalignment. Vertebrae: No acute fracture. Disc Spaces: Multilevel degenerative changes. Soft Tissues: No paravertebral hematoma. Procedure Note Curry Mora MD - 09/25/2025 CT ED TRAUMA ANGIO CHEST/ABDOMEN WITH T-SPINE REFORMATS WITH CONTRAST, CTED TRAUMA ABDOMEN/PELVIS WITH L-SPINE REFORMATS WITH CONTRAST Referring clinician's provided indication for this examination in Epic:Trauma TECHNIQUE: CT scans of: 1. Chest and abdomen angiogram with intravenous contrast, to assess forvascular injury to the aorta, spleen, or liver in the setting of trauma.Multiplanar reformations were created. 3-D angiographic postprocessing wasperformed in the form of MIP images to further characterize thevasculature. 2. Abdomen and pelvis, with intravenous contrast in the portal venousphase. Multiplanar reformations were created. 3. Thoracic spine with intravenous contrast, reconstructed from the chestsource data. Multiplanar reformations were created. 4. Lumbar spine with intravenous contrast, reconstructed from the abdomenand pelvis source data. Multiplanar reformations were created. COMPARISON: None FINDINGS: CHEST AND ABDOMEN VASCULAR: Aorta: There is no aortic injury, aneurysm, or occlusion. Contrast Extravasation: None. Pulmonary Arteries: Well opacified without pulmonary embolus. Branch Arteries: No stenosis, occlusion, or dissection involving the archvessel origins. The celiac axis, SMA and LISBET are patent. Renal arteriesare patent bilaterally. Venous structures: Normal. CHEST: Ports and Devices: Left chest dual-lead pacemaker. Lungs: No pulmonary contusion or laceration. Mild bibasilar bandlikeatelectasis/scarring. No suspicious pulmonary nodules. Pleura: No pneumothorax or hemothorax. No pleural effusion. Lymph Nodes: No enlarged supraclavicular, axillary, mediastinal or hilarlymph nodes. Mediastinum: No mediastinal hematoma. Heart size is normal. No pericardialeffusion. Severe coronary artery calcification. Musculoskeletal: Nondisplaced fractures of right anterolateral ribs 6, 7,8, 9, and 10. ABDOMEN / PELVIS: Liver: No laceration or subcapsular hematoma. No focal lesions. Biliary: Status post cholecystectomy. No biliary ductal dilatation. Pancreas: No peripancreatic fat stranding, masses or ductal dilation. Spleen: No laceration, subcapsular hematoma, or vascular injury. Nosplenomegaly or focal lesions. Adrenal Glands: No nodules. Kidneys/Ureters: No contusion, laceration, or subcapsular hematoma. Noinjury to the vascular structures or collecting systems. No stones orhydronephrosis. Left renal cyst. Bowel: Colonic diverticulosis without diverticulitis. No bowel wallthickening or dilatation. Mesentery, Omentum, and Peritoneum: No pneumoperitoneum, hemoperitoneum,or mesenteric hematoma. No ascites. Pelvic Organs/Bladder: No significant abnormality. Lymph Nodes: No lymphadenopathy. Musculoskeletal: No acute pelvic fracture. Left hip arthroplasty. Nosignificant soft tissue hematoma. Left fat-containing inguinal hernia. THORACIC AND LUMBAR SPINE: Alignment and Curvature: No traumatic malalignment. Vertebrae: No acute fracture. Disc Spaces: Multilevel degenerative changes. Soft Tissues: No paravertebral hematoma. IMPRESSION: 1. Nondisplaced fractures right anterolateral ribs 6-10. 2. No other acute traumatic injury to the chest, abdomen, or pelvis. 3. No acute fracture or traumatic malalignment of the thoracic or lumbarspine. A clinically significant result was initiated on 09/25/2025 2:48 PM,Message ID [id number]. Michael Dunn MD IMG CT CHEST F inal Result * CT HEAD WITHOUT CONTRAST (09/25/2025 2:03 PM EDT) Anatomical Region Laterality Modality Head Computed Tomogra phy 09/25/2025 2:28 PM EDT Impressions 09/25/2025 2:35 PM EDT No acute intracranial findings. Narrative 09/25/2025 2:[address] HEAD WITHOUT CONTRAST Referring clinician's provided indication for this examination in [facility]: * Head trauma, minor (Age >= 65y) TECHNIQUE: CT of the head was performed without intravenous contrast using tailored dose modulation techniques. Images were reconstructed in the axial, coronal, and sagittal planes. COMPARISON: None FINDINGS: Brain Parenchyma: No midline shift, mass effect, parenchymal hemorrhage, or evidence of acute territorial infarct. Ventricular System and Extra-Axial Spaces: No extra-axial fluid collections. Basal cisterns are patent. No hydrocephalus. Osseous and Extracranial Structures: No calvarial fracture or significant soft tissue hematoma. No significant paranasal sinus disease. No orbital abnormality. Procedure Note Curry Mora MD - 09/25/2025 CT HEAD WITHOUT CONTRAST Referring clinician's provided indication for this examination in [facility]: *Head trauma, minor (Age >= 65y) TECHNIQUE: CT of the head was performed without intravenous contrast usingtailored dose modulation techniques. Images were reconstructed in theaxial, coronal, and sagittal planes. COMPARISON: None FINDINGS: Brain Parenchyma: No midline shift, mass effect, parenchymal hemorrhage,or evidence of acute territorial infarct. Ventricular System and Extra-Axial Spaces: No extra-axial fluidcollections. Basal cisterns are patent. No hydrocephalus. Osseous and Extracranial Structures: No calvarial fracture or significantsoft tissue hematoma. No significant paranasal sinus disease. No orbitalabnormality. IMPRESSION: No acute intracranial findings. Michael Dunn MD IMG CT HEAD/NECK Final Result * XR KNEE 4 OR MORE VIEWS (LEFT) (09/25/2025 1:14 PM EDT) Anatomical Region Laterality Modality Knee Left Computed Radiogr aphy 09/25/2025 2:07 PM EDT Impressions 09/25/2025 2:08 PM EDT Left Knee: No displaced fracture. Normal alignment. Tricompartmental bulky marginal hypertrophic lipping osteophytes with up to at least moderate to severe joint space narrowing along the medial tibiofemoral compartment. Trace effusion.. Narrative 09/25/2025 2:08 PM EDT XR KNEE 4 OR MORE VIEWS (LEFT) Referring clinician's provided indication for this examination in Epic: S/P Fall COMPARISON: None. Procedure Note Ebony Johnson MD - 09/25/2025 XR KNEE 4 OR MORE VIEWS (LEFT) Referring clinician's provided indication for this examination in Epic:S/P Fall COMPARISON: None. IMPRESSION: Left Knee: No displaced fracture. Normal alignment. Tricompartmental bulkymarginal hypertrophic lipping osteophytes with up to at least moderate tosevere joint space narrowing along the medial tibiofemoral compartment.Trace effusion.. Michael Dunn MD IMG XR LOWER EXTR EMITY Final Result * XR HAND 3 OR MORE VIEWS (RIGHT) (09/25/2025 1:14 PM EDT) Anatomical Region Laterality Modality Hand Right Computed Radiogr aphy 09/25/2025 2:06 PM EDT Impressions 09/25/2025 2:07 PM EDT No fracture. Normal alignment. Degenerative changes of the carpals and interphalangeal joints, [id number] along the first CMC, and severe along the interphalangeal joints, notably greatest along the first IP joint and second and third digit DIP joints. Vascular calcifications. Narrative 09/25/2025 2:07 PM EDT XR HAND 3 OR MORE VIEWS (RIGHT) Referring clinician's provided indication for this examination in [facility]: Pain COMPARISON: None. Procedure Note Ebony Johnson MD - 09/25/2025 XR HAND 3 OR MORE VIEWS (RIGHT) Referring clinician's provided indication for this examination in [facility]:Pain COMPARISON: None. IMPRESSION: No fracture. Normal alignment. Degenerative changes of the carpals andinterphalangeal joints, [id number] along the first CMC, and severealong the interphalangeal joints, notably greatest along the first IPjoint and second and third digit DIP joints. Vascular calcifications. us Michael Dunn MD IMG XR UPPER EXTR EMITY Final Result * (ABNORMAL) Urinalysis w/reflex Urine Culture (09/25/2025 12:41 PM EDT) COLOR STRAW(A) Yellow [facility] CLARITY Clear [facility] GLUCOSE Negative Negative [facility] BILI Negative Negative [facility] KETONES Negative Negative [facility] SPECIFIC GRAVITY <1.005 1.005 - 1.030 [facility] BLOOD Trace(A) Negative [facility] PH 6.0 5.0 - 8.0 [facility] Protein-UA Negative Negative [facility] NITRITE Negative Negative [facility] Leukocyte esterase, ur Negative Negative [facility] Urine (Urine) 09/25/2025 12: 41 PM EDT 09/25/2025 1:00 PM EDT Michael Dunn MD LAB URINE ORDERAB LES Final Result Performing Organization Address City/[facility]/ZIP Co de Phone Number [address] [address] * (ABNORMAL) LFTs (hepatic panel) (09/25/2025 12:41 PM EDT) ALKALINE PHOSPHATASE 70 39 - 117 U/L [facility] TOTAL BILIRUBIN 0.6 0.0 - 1.2 mg/dL [facility] DIRECT BILIRUBIN 0.3(H) 0.0 - 0.2 mg/dL [facility] Bilirubin (Indirect) 0.3 0 - 1.5 mg/dL [facility] AST 16 0 - 37 U/L [facility] ALT 14 0 - 40 U/L [facility] TOTAL PROTEIN 7.0 6.5 - 8.0 g/dL [facility] ALBUMIN 4.1 3.9 - 4.8 g/dL [facility] GLOBULIN 2.9 1 - 4.8 g/dL [facility] A/G Ratio 1.41 1.00 - 4.80 RATIO [facility] Blood 09/25/2025 12:4 1 PM EDT 09/25/2025 12:44 PM EDT Michael Dunn MD LAB BLOOD BKR ORD ERABLES Final Result [address] [address] * (ABNORMAL) CBC and differential (09/25/2025 12:41 PM EDT) WBC 6.79 4.00 - 11.00 K/uL [facility] RBC 4.19(L) 4.50 - 5.90 M/uL [facility] HGB 12.5(L) 13.5 - 17.5 g/dL [facility] HCT 37.0(L) 41.0 - 53.0 % [facility] PLT 248 150 - 450 K/uL [facility] MCV 88.3 80.0 - 100.0 fL [facility] MCH 29.8 27.0 - 31.0 pg [facility] MCHC 33.8 32.0 - 36.0 g/dL [facility] RDW 13.5 11.5 - 14.5 % [facility] MPV 8.6 8.4 - 12.0 fL [facility] NRBC 0.00 0.00 /100 WBCs [facility] ABSOLUTE NRBC 0.00 0.00 K/uL [facility] DIFF METHOD Auto [facility] NEUTS 68.9 48.0 - 76.0 % [facility] LYMPHS 19.9 18.0 - 41.0 % [facility] MONOS 8.1 4.0 - 11.0 % [facility] EOS 2.4 0.0 - 5.0 % [facility] BASOS 0.4 0.0 - 1.5 % [facility] Granulocytes, immature (%) 0.3 0.0 - 0.9 % [facility] ABSOLUTE NEUTS 4.68 1.92 - 7.60 K/uL [facility] ABSOLUTE LYMPHS 1.35 0.72 - 4.10 K/uL [facility] ABSOLUTE MONOS 0.55 0.16 - 1.10 K/uL [facility] ABSOLUTE EOS 0.16 0.00 - 0.50 K/uL [facility] ABSOLUTE BASOS 0.03 0.00 - 0.15 K/uL [facility] Granulocytes, immature 0.02 0.00 - 0.09 K/uL [facility] Blood 09/25/2025 12:4 1 PM EDT 09/25/2025 12:44 PM EDT us Michael Dunn MD LAB BLOOD BKR ORD ERABLES Final Result [facility] [address] [place] [address] * Lipase (09/25/2025 12:41 PM EDT) LIPASE 20 16 - 63 U/L [facility] Blood 09/25/2025 12:4 1 PM EDT 09/25/2025 12:44 PM EDT Michael Dunn MD LAB BLOOD BKR ORD ERABLES Final Result [address] [address] * (ABNORMAL) Basic metabolic panel (09/25/2025 12:41 PM EDT) SODIUM 133 133 - 146 mmol/L [facility] CHLORIDE 95(L) 96 - 108 mmol/L [facility] POTASSIUM 4.1 3.3 - 5.1 mmol/L [facility] CO2 27 21 - 35 mmol/L [facility] BUN 14 6 - 19 mg/dL [facility] CREATININE 0.50 0.5 - 1.5 mg/dL [facility] GLUCOSE 141(H) 70 - 99 mg/dL [facility] CALCIUM 9.5 8.4 - 10.3 mg/dL [facility] EGFR 106 >59 mL/min/1.7 3m2 [facility] Comment:Estimated glomerular filtration rate calculated using the CKD-EPI refit equation. ANION GAP 15 10 - 20 mmol/L [facility] Blood 09/25/2025 12:4 1 PM EDT 09/25/2025 12:44 PM EDT Michael Dunn MD LAB BLOOD BKR ORD ERABLES Final Result Performing Organization Address City/[facility]/ZIP Co de Phone Number [address] [address] * XR CHEST PA AND LATERAL 2 VIEWS (09/25/2025 11:58 AM EDT) Anatomical Region Laterality Modality Chest Computed Radiogr aphy 09/25/2025 12:0 9 PM EDT Impressions 09/25/2025 12:18 PM EDT No acute abnormality. ATTESTATION: Ebony Rushing as teaching physician, have reviewed the images for this case and if necessary edited the report originally created by Suzie Hart. Narrative 09/25/2025 12:18 PM EDT XR CHEST PA AND LATERAL 2 VIEWS Referring clinician's provided indication for this examination in Epic: Dyspnea (Shortness of Breath) COMPARISON: None. FINDINGS: Devices/Tubes/Lines: Left subclavian approach pacemaker with the in the right atrium and right ventricle. Lungs: Mild left basilar atelectasis. Pleura: No pleural effusion or pneumothorax. Heart/Mediastinum: Heart size is normal. Bones/Soft Tissues: No significant abnormality. Procedure Note Ebony Johnson MD - 09/25/2025 XR CHEST PA AND LATERAL 2 VIEWS Referring clinician's provided indication for this examination in Epic:Dyspnea (Shortness of Breath) COMPARISON: None. FINDINGS: Devices/Tubes/Lines: Left subclavian approach pacemaker with the in theright atrium and right ventricle. Lungs: Mild left basilar atelectasis. Pleura: No pleural effusion or pneumothorax. Heart/Mediastinum: Heart size is normal. Bones/Soft Tissues: No significant abnormality. IMPRESSION: No acute abnormality. ATTESTATION: Ebony Rushing as teaching physician, have reviewed theimages for this case and if necessary edited the report originally createdby Suzie Hart. us Oj Nunez MD IMG XR CHEST Final Result * (ABNORMAL) Hemoglobin A1c (04/08/2024 12:02 PM EDT) HEMOGLOBIN A1C 7.5(H) 4.3 - 5.8 % [facility] Blood 04/08/2024 12:0 2 PM EDT 04/08/2024 12:07 PM EDT us Gaby Hahn [employer] LAB BLOOD BKR ORDERABLES Final Result [facility] [address], [place] [id number] from Last 3 Months or Most Recently Relevant to Health Maintenance Insurance Language123 TOTAL CHOICE INDEMNITY Language123 TOTAL CHOICE INDEMNITY Language123 TOTAL CHOICE INDEMNITY [facility] TOTAL CHOICE INDEMNITY [facility] TOTAL CHOICE INDEMNITY [facility]ICE [facility] TOTAL CHOICE [facility]MNITY [facility] TOTAL CHOICE [facility]DEMNITY [facility] TOTAL CHOICE [facility]DEMNITY [facility] [id number] Advance Directives For more information, please contact: [phone] (9AM - 5PM [facility]/[facility], Thursday-Thursday) Documents on File Type Date Recorded Patient Leasing Representative Expl anation Healthcare Proxy 04/15/2024 4:34 PM * Full Code (Latest Code Status on File) Date Activated Date Inactivated Comments 04/08/2024 10:29 AM Question Answer Comments Code Status Confirmed With: Patient * Full Code Date Activated Date Inactivated Comments 09/06/2021 7:40 AM 04/08/2024 10:29 AM Question Answer Comments Code Status Confirmed With: Patient Care Teams Cleaners Relationship Specialty Start Date End Date Curry Morales MD [address] [place] [address] PCP - General Internal Medicine 09/25/25 Lucinda Ramos PA [address] [address] Physician Director Of Enterprise Architecture 01/02/25 Additional Source Comments The information contained in this document represents components of the legal health record. It is not the complete legal health record.[facility]
--- OUTSIDE RECORDS SUMMARY | 2025-10-03 11:20 | XMS_ITS | Encounter Summary ---
Author Organization [facility] Address [address] [facility] [address] [place] [address] Phone Care Team Providers Care Silk Hanger Name Role Phone Ezra To MD Primary Care Provider Brandon Hernandez MD Unavailable [phone] Ezra To MD Unavailable [phone] Lucinda Ramos Unavailable Jani Mccauley MD Primary Care Provid er Gaby Frazier PA-C Primary Care Provid er Curry Morales MD Primary Care Provider [phone] Encounter Details Date Type Department Care Team (Late st Contact Info) Description 09/04/2021 Procedure Pass OR Admitting Dept - Virtual Department [address] [place] [address] Social History Tobacco Use Types Packs/Day Years [...] Indicated 09/04/2021 1:50 PM EDT Elsi Saldaña, DARRON * [place] Suicide Severity Rating Scale (Screener/Recent Self-Report) Question [...] Description 10/04/2025 4:00 PM EST Office Visit [address] [address] Gaby Frazier PA-C [address] [facility] [place] [address] Bonnie Aguirre, OT [address] [place] [address] [email or web address] 10/13/2025 8:45 AM EST Office Visit [facility] [address] [place] [address] Gaby Frazier PA-C [address] [place] [address], [place] [address] Bonnie Aguirre, OT [address] [place] [address] [email or web address] 10/20/2025 11:00 AM EST Office Visit [facility] [address] [place] [address] Gaby Frazier PA-C [address] [place] [address] [facility] [place], [place] [id number] Bonnie Aguirre, OT [address] [place] [address] [email or web address] documented as of this encounter Visit Diagnoses Not on filedocumented in this encounter Care Teams Silk Hanger Relationship Specialty Start Date End Date Ezra To MD [address] [place] [address] PCP - General 09/17/17 06/15/25 Jani Mccauley MD [address] [place] [address] PCP - General Internal Medicine 06/16/25 08/21/25 Gaby Frazier PA-C [address] [place] [address] [facility] [place] [address] PCP - General Physician Parts Fabricator 08/28/25 09/24/25 Curry Morales MD [address] [place] [address] [address] PCP - General Internal Medicine 09/25/25 Brandon Hernandez MD [address] [place] [address] Historical LMR Provider 09/17/17 Ezra To MD [address] [place] [address] Historical LMR Provider 09/17/17 2 Lucinda Ramos PA [address] [place] [address] Physician Parts Fabricator 01/02/25 documented as of this encounter Additional Source Comments The information contained in this document represents components of the legal health record. It is not the complete legal health record.[facility]
== END 2025-10-03 10:54 | disposition home or self-care (01) ==
LOC: HO.HMCHD 09:50
PROVIDERS: PCP Student in an Organized Health Care Education/Training Program; Visit Provider Student in an Organized Health Care Education/Training Program
DX: R42 Dizziness and giddiness (principal); S22.41XA Multiple fractures of ribs, right side, initial encounter for closed fracture; I10 Essential (primary) hypertension; G47.33 Obstructive sleep apnea (adult) (pediatric); Z99.89 Dependence on other enabling machines and devices; I25.10 Atherosclerotic heart disease of native coronary artery without angina pectoris; E78.49 Other hyperlipidemia; I48.0 Paroxysmal atrial fibrillation; Z95.0 Presence of cardiac pacemaker; E11.9 Type 2 diabetes mellitus without complications; J45.20 Mild intermittent asthma, uncomplicated